=== PATIENT | male | born 1950 | race Caucasian/White ===

== ENCOUNTER 2019-08-24 06:41 | Inpatient (IN) | payer MEDICARE ==
[2019-08-22 16:44] LABS: BASOPHILS % 0.2 % (0.0-1.0); EOSINOPHILS # (AUTO) 0.1 (0.0-0.4); EOSINOPHILS % 2.5 % (0.0-6.0); HEMATOCRIT 31.2 % (38.2-49.6); HEMOGLOBIN 10.3 g/dL (14.0-18.0); LYMPHOCYTES # (AUTO) 0.9 (1.0-3.2); MEAN CORPUSCULAR HEMOGLOBIN 31.6 pg (28-32); MEAN CORPUSCULAR VOLUME 95.7 fL (81-99); MONOCYTES # (AUTO) 0.7 (0.2-0.8); MONOCYTES % 16.3 % (4.4-11.3); NEUTROPHILS # (AUTO) 2.6 (2.1-6.9); NEUTROPHILS % 60.5 % (38.7-80.0); PLATELET COUNT 188 x10e3/uL (140-360); RED BLOOD COUNT 3.26 x10e6/uL (4.3-5.7); RED CELL DISTRIBUTION WIDTH 12.8 % (11.7-14.4)
[2019-08-22 17:03] LABS: ALBUMIN 2.7 g/dL (3.5-5.0); ALBUMIN/GLOBULIN RATIO 0.6 (0.8-2.0); ANION GAP 15.4 mmol/L (8-16); CREATININE, SERUM 1.78 mg/dL (0.72-1.25); POTASSIUM 4.4 mmol/L (3.5-5.1)
--- NOTE | 2019-08-22 18:18 | Diagnostic Imaging Report ---
Exam: Chest radiograph Clinical History: Preoperative clearance Findings: The cardiomediastinal silhouette and lungs are normal. The regional skeleton and soft tissue are unremarkable. There is no evidence of pleural effusion or pneumothorax. Impression: No radiographic evidence of acute cardiopulmonary disease. Signed by: Dr. Jasmeet Norwood MD on 08/22/2019 6:16 PM
[~2019-08-24] VITALS: Ht 182.9 cm; Wt 100.2 kg
[~2019-08-24 06:41] MED LIST: AMLODIPINE BESY10 MG PO; AUGMENTIN 500-1 EACH PO; CARVEDILOL3.125 MG PO; CIPRO500 MG PO; DOXAZOSIN MESYLA2 MG PO; PANTOPRAZOLE SO40 MG PO
--- OUTSIDE RECORDS SUMMARY | 2019-08-24 06:43 | XMS REPORT ---
Author Author [facility] Address Unknown Phone Unavailable Care Team Providers Care Product Builder Name Role Phone SCOOTER CULVER Unavailable Unavailable Payers Payer Name Policy Type Policy Number Effective Date Expiration Date Problems This patient has no known problems. Allergies, Adverse Reactions, Alerts Allergy Name Allergy Type Status Severity Reaction(s) Onset Date Inactive Date Treating Clinician Comments No Known Drug Allergies DA Active U 2019-08-15 00:00:00 No Known Contrast Allergies DA Active U 2007-01-31 00:00:00 No Known Drug Allergies DA Active U 2007-01-31 00:00:00 No Known Food Allergies DA Active U 2007-01-31 00:00:00 No Known Other Allergies DA Active U 2007-01-31 00:00:00 Medications This patient has no known medications. Results Test Description Test Time Test Comments Text Results Atomic Results Result Comments CHEST 2 VIEWS 2019-08-22 18:15:00 [place] [address] Patient Name: MARTHA JOHNSON MR #: [id number] : 1950 Age/Sex: 69/M Req #: [id number] Adm Physician: Ordered by: SCOOTER CULVER MD Report #: [id number] Location: OR Room/Bed: Procedure: [id number] DX/CHEST 2 VIEWS Exam Date: Exam Time: REPORT STATUS: Signed Exam: Chest radiograph Clinical History: Preoperative clearance Find ings: The cardiomediastinal silhouette and lungs are normal. The regional skeleton and soft tissue are unremarkable. There is no evidence of pleural effusion or pneumothorax. Impression: No radiographic evidence of acute cardiopulmonary disease. Signed by: Dr. Jasmeet Norwood MD on 08/22/2019 6:16 PM Dictated By: FABRIZIO NORWOOD MD 15 Transcribed By: EDE on 08/22/191815 COPY TO: SCOOTER CULVER MD CBC W/AUTO DIFF 2019-08-12 10:30:00 WHITE BLOOD CELL (test code=WBC) 8.34 x10 3/uL 4.5-11.0 RED BLOOD CELL (test code=RBC) 3.21 x10 6/uL 4.00-5.60 HEMOGLOBIN (test code=HGB) 10.2 g/dL 12.5-16.9 HEMATOCRIT (test code=HCT) 32.6 % 37.5-50.7 MEAN CELL VOLUME (test code=MCV) 101.6 fL 81.0-99.0 MEAN CELL HGB (test code=MCH) 31.8 pg 27.0-33.0 MEAN CELL HGB CONCETRATION (test code=MCHC) 31.3 g/dL 33.0-37.0 RED CELL DISTRIBUTION WIDTH CV (test code=RDW) 14.6 % 11.5-14.5 RED CELL DISTRIBUTION WIDTH SD (test code=RDW-SD) 54.2 fL 37.0-54.0 PLATELET COUNT (test code=PLT) 306 x10 3/uL 150-400 MEAN PLATELET VOLUME (test code=MPV) 9.6 fL 7.0-9.0 NEUTROPHIL % (test code=NT%) 77.1 % 56.0-77.0 IMMATURE GRANULOCYTE % (test code=IG%) 1.3 % 0.0-2.0 LYMPHOCYTE % (test code=LY%) 14.0 % 14.0-32.0 MONOCYTE % (test code=MO%) 5.5 % 4.8-9.0 EOSINOPHIL % (test code=EO%) 1.7 % 0.3-3.7 BASOPHIL % (test code=BA%) 0.4 % 0.0-2.0 NUCLEATED RBC % (test code=NRBC%) 0.0 % 0-0 NEUTROPHIL # (test code=NT#) 6.43 x10 3/uL 2.0-7.6 IMMATURE GRANULOCYTE # (test code=IG#) 0.11 x10 3/uL 0.00-0.03 LYMPHOCYTE # (test code=LY#) 1.17 x10 3/uL 1.0-3.8 MONOCYTE # (test code=MO#) 0.46 x10 3/uL 0.1-0.8 EOSINOPHIL # (test code=EO#) 0.14 x10 3/uL 0.0-0.2 BASOPHIL # (test code=BA#) 0.03 x10 3/uL 0.0-0.2 NUCLEATED RBC # (test code=NRBC#) 0.00 x10 3/uL 0.0-0.1 MANUAL DIFF REQUIRED (test code=MDIFF) NO BASIC METABOLIC [id number] 10:17:00* Test Item Value Reference Range Comments SODIUM (test code=NA) 139 mEq/L 134-147 POTASSIUM (test code=K) 4.2 mEq/L 3.4-5.0 CHLORIDE (test code=CL) 106 mEq/L 100-108 CARBON DIOXIDE (test code=CO2) 27 mEq/L 21-33 ANION GAP (test code=GAP) 10 0-20 GLUCOSE (test code=GLU) 100 mg/dL 70-110 BLOOD UREA NITROGEN (test code=BUN) 16 mg/dL 7-18 GLOMERULAR FILTRATION RATE (test code=GFR) 40.2 80-90 Units of measure=ml/min/1.73 m2 CREATININE (test code=CREAT) 1.7 mg/dL 0.6-1.3 CALCIUM (test code=CA) 8.4 mg/dL 8.0-10.5 BASIC METABOLIC [id number] 10:16:00* Test Item Value Reference Range Comments SODIUM (test code=NA) 139 mEq/L 134-147 POTASSIUM (test code=K) 4.2 mEq/L 3.4-5.0 CHLORIDE (test code=CL) 106 mEq/L 100-108 CARBON DIOXIDE (test code=CO2) 27 mEq/L 21-33 ANION GAP (test code=GAP) 10 0-20 GLUCOSE (test code=GLU) 100 mg/dL 70-110 BLOOD UREA NITROGEN (test code=BUN) 16 mg/dL 7-18 GLOMERULAR FILTRATION RATE (test code=GFR) 80-90 CREATININE (test code=CREAT) mg/dL 0.6-1.3 CALCIUM (test code=CA) 8.4 mg/dL 8.0-10.5 PROTHROMBIN [id number] 10:12:00* Test Item Value Reference Range Comments PROTHROMBIN TIME PATIENT (test code=PTP) 12.5 SECONDS 9.3-12.9 INTERNATIONAL NORMAL RATIO (test code=INR) 1.1 0.8-1.2 TARGET INR BY INDICATION Indication INR1. Prophylaxis of venous thrombosis 2.0 - 3.0 (orthopedic surgery), Prophylaxis of venous thrombosis (other than high-risk surgery), Treatment of Deep Vein Thrombosis/Pulmonary Embolism, Prevention of systemic embolism - Tissue heart valves, Acute Myocardial Infarction (to prevent systemic embolism), Valvular heart disease, Atrial Fibrillation, Bileaflet mechanical valve in aortic position.2. Mechanical prosthetic valves (high risk), 2.5 - 3.5 Presence of Lupus Anticoagulant or Antiphospholipid Antibodies, Prevention of systemic embolism - Acute Myocardial Infarction (to prevent recurrent infarct).
[2019-08-24] MEDS ORDERED: SODIUM CHLORIDE 0.9% 1000ML 1,000 ML ONE (07:04)
[2019-08-24] MEDS ORDERED: PIPER-TAZ 3.375 GM 50 ML ONE (07:04)
[2019-08-24] MEDS ORDERED: B&O 60MG R/S 60 MG SUPP PR ONE (09:45)
[2019-08-24] MEDS ORDERED: IOPAMIDOL 300MG/ML 50ML INFUS..BTL IV ONE (09:45)
[2019-08-24] MEDS ORDERED: DIPHENHYDRAMINE HCL 25 MG CAP PO PRN (12:00)
[2019-08-24] MEDS ORDERED: ACETAMINOPHEN/CODEINE 300MG - 30MG TAB PO PRN (12:00)
[2019-08-24] MEDS ORDERED: B&O 60MG R/S 60 MG SUPP PR PRN (12:00)
[2019-08-24] MEDS ORDERED: ONDANSETRON HCL INJ 2MG/ML 2ML 2 MG/ML VIAL IV PRN (12:00)
[2019-08-24 12:49] LABS: EOSINOPHILS # (AUTO) 0.1 (0.0-0.4); EOSINOPHILS % 1.6 % (0.0-6.0); HEMATOCRIT 31.4 % (38.2-49.6); LYMPHOCYTES # (AUTO) 0.5 (1.0-3.2); LYMPHOCYTES % 12.8 % (18.0-39.1); MEAN CORPUSCULAR HEMOGLOBIN 31.1 pg (28-32); MEAN CORPUSCULAR HGB CONC 31.8 g/dL (31-35); MEAN CORPUSCULAR VOLUME 97.5 fL (81-99); MONOCYTES # (AUTO) 0.3 (0.2-0.8); MONOCYTES % 6.7 % (4.4-11.3); NEUTROPHILS # (AUTO) 2.9 (2.1-6.9); NEUTROPHILS % 78.6 % (38.7-80.0); PLATELET COUNT 165 x10e3/uL (140-360); RED BLOOD COUNT 3.22 x10e6/uL (4.3-5.7)
[2019-08-24] MEDS: PHENAZOPYRIDINE HCL 100 MG TAB PO SCH ×2 (13:00→20:38)
[2019-08-24 13:02] LABS: ANION GAP 16.6 mmol/L (8-16); CALCIUM 8.7 mg/dL (8.4-10.2); CREATININE, SERUM 1.79 mg/dL (0.72-1.25); POTASSIUM 4.6 mmol/L (3.5-5.1)
[2019-08-24] MEDS: PIPERACILLIN/TAZO 2.25 GM 50 ML IV SCH ×2 (14:00→21:47)
--- NOTE | 2019-08-24 16:38 | Diagnostic Imaging Report ---
Exam: Bilateral retrograde pyeloureterogram Clinical history: Hydronephrosis Total fluoroscopy time 2 minutes 39 seconds Total images 32 Findings: Contrast was introduced into bilateral renal collecting systems. Radiologist was not present during the procedure. Multifocal stricture is noted in the right ureter with moderate hydronephrosis. Significant tortuosity and stricture are also noted in the proximal left ureter. The left pyelocalyceal system was not completely opacified, however, the distal pelvis appears enlarged. Please refer to the operative report for further details. Signed by: Dr. Jasmeet Norwood MD on 08/24/2019 4:35 PM
[2019-08-24] MEDS ORDERED: PROPOFOL IV EMULSION 10 MG/ML 20 ML VIAL ONE (17:54)
[2019-08-24] MEDS ORDERED: LIDOCAINE HCL 2% LOCAL INJ 5 ML SDV VIAL INJ ONE (17:54)
[2019-08-24] MEDS ORDERED: SEVOFLURANE INHAL SOLN 250 ML PEN BTL ONE (17:54)
[2019-08-24] MEDS ORDERED: DEXAMETHASONE SOD PHOS INJ 4 MG/ML VIAL ONE (17:54)
[2019-08-24] MEDS ORDERED: ONDANSETRON HCL INJ 2MG/ML 2ML 2 MG/ML VIAL ONE (17:54)
[2019-08-24] MEDS ORDERED: ACETAMINOPHEN 1000 MG/100 ML IV PRN (18:00)
--- NOTE | 2019-08-24 18:00 | NUR ---
The pt. was received from P acu sp cysto stent and T UR P. He is awake alert and ox4 with c bi and iv fluids infusing at 125 cc's . The urine is pink and no clots noted. The pt. was not fed in prior to arriving and was given a sandwich and pudding.
[2019-08-24 18:18] VITALS: BP 149/75
[2019-08-24] MEDS ORDERED: FENTANYL CITRATE/PF 100MCG/2 ML INJ ONE (18:42)
[2019-08-24] MEDS ORDERED: MIDAZOLAM HCL 2 MG/2 ML VIAL ONE (18:42)
--- NOTE | 2019-08-24 19:09 | NUR ---
Received bedside report from day nurse. Patient resting in bed, no s/s of distress or c/o pain at this time. Continuous bladder irrigation in place. Crook patent and draining, free of kinks, bag hung below bladder. Patient placed on contact isolation for ESBL of urine. All safety measures in place. Will continue to monitor.
[2019-08-24 20:00] VITALS: BP 134/74
[2019-08-24] MEDS: DOCUSATE SODIUM 100 MG CAP PO SCH (20:00)
[2019-08-24 20:43] VITALS: BP 134/74
[2019-08-24 21:23] VITALS: BP 134/74
[2019-08-25] VITALS (8 sets, daily range): BP systolic 117–150; BP diastolic 62–80
[2019-08-25] MEDS: D5.45%NS/KCL 20MEQ 1,000 ML IV SCH ×4 (01:46→19:57)
[2019-08-25] MEDS ORDERED: CARVEDILOL12.5 MG PO (02:33)
[2019-08-25] MEDS: PIPERACILLIN/TAZO 2.25 GM 50 ML IV SCH ×3 (05:49→22:00)
--- NOTE | 2019-08-25 06:30 | NUR ---
H&P cc: BPH HPI: 69yoM, PCP , here for mgmt of BPH, underwent B/L stent placement of urinary system and TURP first stage. Now recovering. PMH: BPH, Obesity, Left hydronephrosis, Elevated PSA, HTN PSHx; none alleriges; see emr Fh/SH; no cigs; Meds; see MAR ROS: no f/c/s/N/V/D/FABIAN/cp/sob/skin rash/back pain/dizziness/vision changes/focal limb weakness v/s; revd PE tired appearing anicteric ns1s2 mod bs soft nt nd : edwards with pink urine no e/t skin dry n. affect a&ox3; nicholson labs/med revd A/P: BPH- per urology Obesity- check hba1c/lipids BMI 30.0 RADHA- ivf; f/u labs; may be chronic HTN- cont home med GERD- ppi Prop: scd; ppi dispo: Leonidas Schaefer MD, PhD.
[2019-08-25 07:06] LABS: BASOPHILS % 0.2 % (0.0-1.0); EOSINOPHILS % 0.2 % (0.0-6.0); HEMATOCRIT 29.1 % (38.2-49.6); HEMOGLOBIN 9.3 g/dL (14.0-18.0); LYMPHOCYTES # (AUTO) 0.7 (1.0-3.2); LYMPHOCYTES % 15.9 % (18.0-39.1); MEAN CORPUSCULAR HEMOGLOBIN 30.9 pg (28-32); MEAN CORPUSCULAR VOLUME 96.7 fL (81-99); MONOCYTES # (AUTO) 0.5 (0.2-0.8); MONOCYTES % 10.2 % (4.4-11.3); NEUTROPHILS # (AUTO) 3.2 (2.1-6.9); PLATELET COUNT 181 x10e3/uL (140-360); RED BLOOD COUNT 3.01 x10e6/uL (4.3-5.7); RED CELL DISTRIBUTION WIDTH 12.8 % (11.7-14.4)
--- NOTE | 2019-08-25 07:25 | NUR ---
PATIENT IN BED RESTING WITH NO S/S OF DISTRESS. CONTINUOUS BLADDER IRRIGATION IN PROGRESS. DRESSING DRY AND INTACT TO LEFT FLANK. BED IN LOWER POSITION, CALL LIGHT AT REACH.
--- NOTE | 2019-08-25 07:27 | NUR ---
Bedside report given to day nurse. Patient resting in bed, no s/s of distress or c/o pain at this time. All safety measures in place.
[2019-08-25 07:28] LABS: ANION GAP 13.3 mmol/L (8-16); CALCIUM 8.7 mg/dL (8.4-10.2); CREATININE, SERUM 1.52 mg/dL (0.72-1.25); POTASSIUM 4.3 mmol/L (3.5-5.1)
[2019-08-25 07:44] LABS: CHOL/HDL RATIO 4.8 (3.9-4.7)
[2019-08-25] MEDS: DOCUSATE SODIUM 100 MG CAP PO SCH ×2 (09:00→17:03)
[2019-08-25] MEDS ORDERED: ONDANSETRON HCL 4 MG ORAL DISINTEGRATING TAB PO PRN (09:30)
[2019-08-25] MEDS: CARVEDILOL 12.5 MG TAB PO SCH ×2 (09:38→17:03)
[2019-08-25] MEDS: PHENAZOPYRIDINE HCL 100 MG TAB PO SCH ×3 (09:39→18:34)
[2019-08-25] MEDS: PANTOPRAZOLE SOD 40 MG TABEC PO SCH (09:39)
[2019-08-25] MEDS: AMLODIPINE BESYLATE 10 MG TAB PO SCH (09:39)
--- NOTE | 2019-08-25 11:30 | NUR ---
BLADDER IRRIGATION IN PROGRESS, NO COMPLAIN VOICED. IN BED TALKING TO FAMILY MEMBER VISITING. CALL LIGHT AT REACH.
--- NOTE | 2019-08-25 15:04 | NUR ---
SPOKE WITH DR CULVER REGARDING PICC LINE ORDER AND GFR OF 46. IT IS OK TO PLACE THE LINE.
--- NOTE | 2019-08-25 18:46 | Diagnostic Imaging Report ---
EXAMINATION: CHEST XRAY LINE PLACEMENT INDICATION: ^S/P PICC LINE PLACEMENT ^[id number] ^1830 ^Y COMPARISON: 08/24/2019. FINDINGS: TUBES and LINES: Interval placement of a left upper extremity PICC with distal tip projected on the cavoatrial junction. LUNGS: Lungs are well inflated. Lungs are clear. There is no evidence of pneumonia or pulmonary edema. PLEURA: No pleural effusion or pneumothorax. HEART AND MEDIASTINUM: The cardiomediastinal silhouette is unremarkable. BONES AND SOFT TISSUES: No acute osseous lesion. Soft tissues are unremarkable. UPPER ABDOMEN: No free air under the diaphragm. IMPRESSION: Interval placement of a left upper extremity PICC with distal tip projected on the cavoatrial junction. Signed by: Dr. Thang Dorman M.D. on 08/25/2019 6:44 PM
--- NOTE | 2019-08-25 19:22 | NUR ---
RECEIVED PT IN BED AOX3 .RESPIRATIONS ARE EVEN AND UNLABORED CONTINUOUS BLADDER IRRIGATION IN PROGRESS. DRESSING DRY AND INTACT TO LEFT FLANK. PT HAS LEFT UPPER ARM PICC LINE CALL LIGHT AT REACH.CONTINUE TO MONITOR
--- NOTE | 2019-08-25 20:27 | Consultation ---
DATE OF CONSULTATION: 08/25/2019 REASON FOR CONSULTATION: Urinary tract infection with multidrug resistant. HISTORY OF PRESENT ILLNESS: This patient who is a 69-year-old white male. He is telling me he has been in the hospital for the last few months on and off. He was twice in [place]. The patient was diagnosed with a bladder tumor and was supposed to have surgery, but it was postponed. The first time he had what he thinks was congestive heart failure and the second time he had infection. He was treated by Dr. Manzanares, who gave him oral antibiotic but his procedure rn told him he needs to stop it because it will affect his kidney. The patient is being admitted by Dr. Tony Alva and underwent surgery. Urine cultures showing E coli ESBL, which was sensitive only to Invanz, gentamicin, meropenem, tobramycin, and piperacillin-tazobactam, I was asked to see him. The patient says since he came here, his white count is 4.36, hemoglobin of 10.3, hematocrit of 31, his sodium 139, potassium level of 4.3 with creatinine 1.52. The patient is currently lying in bed comfortably, has no complaints. His family is at the bedside. REVIEW OF SYSTEMS: At the present time: HEENT: Negative. PULMONARY: Negative. CARDIAC: Negative. GENITOURINARY: Negative. He does have a bladder wash out, otherwise all within normal limits. MEDICATIONS: His medication list also reviewed. He is currently on Protonix, Norvasc, Coreg, and Zosyn. PHYSICAL EXAMINATION: GENERAL: He is currently alert, oriented, does not seem to be in any acute distress. VITAL SIGNS: Stable, currently afebrile. HEENT: Normocephalic. Not icteric. NECK: Supple. CHEST: Clear bilateral. HEART: S1, S2. No S3, S4, or murmur. ABDOMEN: Soft. IMPRESSION: Urinary tract infection with Escherichia coli in a patient who has history of hypertension, history of bladder tumor, and history of chronic kidney disease. We will put on meropenem 500 q.12h. We have several options. We would need a PICC line. We will arrange outpatient IV antibiotic and then we will follow. Discussed with the patient, answered all his questions. Discussed with medical team at length. MD DAWIT Goddard/SHWETA /[id number]
[2019-08-26] VITALS (8 sets, daily range): BP systolic 115–178; BP diastolic 67–86
[2019-08-26] MEDS: D5.45%NS/KCL 20MEQ 1,000 ML IV SCH ×3 (04:58→22:12)
[2019-08-26] MEDS: PIPERACILLIN/TAZO 2.25 GM 50 ML IV SCH ×3 (06:00→22:11)
[2019-08-26 06:18] LABS: BASOPHILS % 0.6 % (0.0-1.0); EOSINOPHILS # (AUTO) 0.3 (0.0-0.4); EOSINOPHILS % 6.5 % (0.0-6.0); HEMATOCRIT 28.7 % (38.2-49.6); HEMOGLOBIN 9.1 g/dL (14.0-18.0); LYMPHOCYTES # (AUTO) 1.5 (1.0-3.2); MEAN CORPUSCULAR HEMOGLOBIN 31.3 pg (28-32); MEAN CORPUSCULAR HGB CONC 31.7 g/dL (31-35); MEAN CORPUSCULAR VOLUME 98.6 fL (81-99); MONOCYTES # (AUTO) 0.4 (0.2-0.8); MONOCYTES % 7.8 % (4.4-11.3); NEUTROPHILS # (AUTO) 2.5 (2.1-6.9); NEUTROPHILS % 53.5 % (38.7-80.0); PLATELET COUNT 170 x10e3/uL (140-360); RED BLOOD COUNT 2.91 x10e6/uL (4.3-5.7); RED CELL DISTRIBUTION WIDTH 13.1 % (11.7-14.4)
[2019-08-26 06:34] LABS: ANION GAP 11.5 mmol/L (8-16); CALCIUM 8.5 mg/dL (8.4-10.2); CREATININE, SERUM 1.47 mg/dL (0.72-1.25); POTASSIUM 4.5 mmol/L (3.5-5.1)
--- NOTE | 2019-08-26 06:42 | NUR ---
IM- progress note O/N see below ROS: no f/c/s/N/V/D/FABIAN/cp/sob/skin rash/back pain/dizziness/vision changes/focal limb weakness v/s; revd PE tired appearing anicteric ns1s2 mod bs soft nt nd : edwards with pink urine no e/t skin dry n. affect a&ox3; nicholson labs/med revd A/P: BPH- per urology ESBL E.coli UTI- iv abx per ID Obesity- check hba1c/lipids BMI 30.0 RADHA- ivf; f/u labs; may be chronic HTN- cont home med GERD- ppi Prop: scd; ppi dispo: 08/26 Hba1c/LDL 5.4/157; ESBL E.coli UTI- sen to zosyn; defer to ID mgmt; cont care; f/u labs Leonidas Schaefer MD, PhD.
--- NOTE | 2019-08-26 07:15 | NUR ---
PATIENT IN BED RESTING WITH HEAD OF BED ELEVATED, NO COMPLAIN VOICED. DRESSING DRY AND INTACT TO LEFT FLANK. BED IN LOWER POSITION, CALL LIGHT AT REACH.
--- NOTE | 2019-08-26 07:15 | NUR ---
PT RESTING DENIES PAIN .CALL LIGHT WITH IN REACH .BEDSIDE REPORT GIVEN TO THE ONCOMING NURSE
[2019-08-26] MEDS: DOCUSATE SODIUM 100 MG CAP PO SCH ×2 (09:19→17:35)
[2019-08-26] MEDS: PANTOPRAZOLE SOD 40 MG TABEC PO SCH (09:21)
[2019-08-26] MEDS: PHENAZOPYRIDINE HCL 100 MG TAB PO SCH ×3 (09:21→18:08)
[2019-08-26] MEDS: AMLODIPINE BESYLATE 10 MG TAB PO SCH (09:21)
[2019-08-26] MEDS: CARVEDILOL 12.5 MG TAB PO SCH ×2 (09:21→17:36)
--- NOTE | 2019-08-26 11:07 | NUR ---
PATIENT ASSISTED TO THE RESTROOM AND BACK TO BED. HAD A LARGE BM. CALL LIGHT AT REACH.
--- NOTE | 2019-08-26 15:45 | NUR ---
CONTINUOUS BLADDER IRRIGATION IN PROGRESS. PATIENT SITTING UP IN BED TALKING ON THE PHONE, CALL LIGHT AT REACH.
--- NOTE | 2019-08-26 19:20 | NUR ---
Received report from day nurse. Patient is resting comfortably in the bed. bed is in the lowest position and call rojas is within reach. Will continue to monitor patient.
[2019-08-26] MEDS ORDERED: LACTULOSE SYRUP 20 GM/30 ML UDC PO PRN (19:45)
[2019-08-27] VITALS (8 sets, daily range): BP systolic 123–169; BP diastolic 72–103
[2019-08-27 05:56] LABS: BASOPHILS % 0.4 % (0.0-1.0); EOSINOPHILS # (AUTO) 0.4 (0.0-0.4); EOSINOPHILS % 7.6 % (0.0-6.0); HEMATOCRIT 30.3 % (38.2-49.6); HEMOGLOBIN 9.3 g/dL (14.0-18.0); LYMPHOCYTES # (AUTO) 1.5 (1.0-3.2); MEAN CORPUSCULAR HEMOGLOBIN 30.4 pg (28-32); MEAN CORPUSCULAR HGB CONC 30.7 g/dL (31-35); MONOCYTES # (AUTO) 0.4 (0.2-0.8); MONOCYTES % 7.6 % (4.4-11.3); NEUTROPHILS # (AUTO) 2.7 (2.1-6.9); NEUTROPHILS % 53.4 % (38.7-80.0); PLATELET COUNT 194 x10e3/uL (140-360); RED BLOOD COUNT 3.06 x10e6/uL (4.3-5.7); RED CELL DISTRIBUTION WIDTH 13.2 % (11.7-14.4)
[2019-08-27] MEDS: PIPERACILLIN/TAZO 2.25 GM 50 ML IV SCH ×2 (06:00→13:58)
[2019-08-27 06:16] LABS: ANION GAP 11.5 mmol/L (8-16); CALCIUM 8.8 mg/dL (8.4-10.2); CREATININE, SERUM 1.36 mg/dL (0.72-1.25); POTASSIUM 4.5 mmol/L (3.5-5.1)
--- NOTE | 2019-08-27 07:02 | NUR ---
patient is resting in bed. walking rounds complete. bed is in lowest position and call rojas is within reach.
--- NOTE | 2019-08-27 07:15 | NUR ---
PT UP IN BED NO DISTRESS NOTED,DENIES PAIN,BLADDER IRRIGATION IN PLACE,CLEAR YELLOW URINE
[2019-08-27] MEDS: D5.45%NS/KCL 20MEQ 1,000 ML IV SCH ×2 (08:03→11:57)
--- NOTE | 2019-08-27 08:16 | NUR ---
IM- progress note O/N see below ROS: no f/c/s/N/V/D/FABIAN/cp/sob/skin rash/back pain/dizziness/vision changes/focal limb weakness v/s; revd PE tired appearing anicteric ns1s2 mod bs soft nt nd : edwards with pink urine no e/t skin dry n. affect a&ox3; nicholson labs/med revd A/P: BPH- per urology ESBL E.coli UTI- iv abx per ID Obesity- check hba1c/lipids BMI 30.0 RADHA- ivf; f/u labs; may be chronic HTN- cont home med GERD- ppi Prop: scd; ppi dispo: 08/26 Hba1c/LDL 5.4/157; ESBL E.coli UTI- sen to zosyn; defer to ID mgmt; cont care; f/u labs 08/27 renal fn improving; outpt IV abx being set up by ID; Leonidas Schaefer MD, PhD.
[2019-08-27] MEDS: AMLODIPINE BESYLATE 10 MG TAB PO SCH (08:30)
[2019-08-27] MEDS: DOCUSATE SODIUM 100 MG CAP PO SCH ×2 (08:30→17:04)
[2019-08-27] MEDS: PANTOPRAZOLE SOD 40 MG TABEC PO SCH (08:30)
[2019-08-27] MEDS: CARVEDILOL 12.5 MG TAB PO SCH ×2 (08:30→17:04)
[2019-08-27] MEDS: PHENAZOPYRIDINE HCL 100 MG TAB PO SCH ×3 (08:30→17:04)
--- NOTE | 2019-08-27 13:13 | NUR ---
DTV BY [id number],
--- NOTE | 2019-08-27 13:13 | NUR ---
ARIAS CATH DCD ORDERD,CLEAR YELLOW URINE,INFORMED PT TO CALL AFTER URINATING TO DO SCAN,ACKNOWLEDGE UNDERSTNDING
[2019-08-27] MEDS: MEROPENEM 1GM 100 ML IV SCH (15:39)
--- NOTE | 2019-08-27 19:10 | NUR ---
received report from day nurse. bedside rounds complete. patient is resting comfortably in bed. bed is in lowest position and call rojas is within reach. will continue to monitor patient.
[2019-08-27] MEDS: NIFEDIPINE CR 30 MG TAB PO SCH (21:00)
--- NOTE | 2019-08-27 22:00 | NUR ---
patient has not voided status post edwards catheter removal.. Patient has been bladder scanned and 567cc of urine is being held in patients bladder. MD notified received new order to insert 20F Coude Edwards catheter. If 20F is not available 18F catheter is acceptable Patient tolerated procedure well. Catheter is patent and urine is flowing. edwards bag is hanging on bedside rail below below bladder level.
[2019-08-28] VITALS (8 sets, daily range): BP systolic 113–136; BP diastolic 69–81
[2019-08-28] MEDS: MEROPENEM 1GM 100 ML IV SCH ×2 (03:00→15:40)
--- NOTE | 2019-08-28 06:37 | NUR ---
patient is resting in the bed. bed is in the lowest position and call light is within reach. denies pain or discomfort at this time.
[2019-08-28] MEDS: PHENAZOPYRIDINE HCL 100 MG TAB PO SCH ×3 (09:21→16:43)
[2019-08-28] MEDS: PANTOPRAZOLE SOD 40 MG TABEC PO SCH (09:21)
[2019-08-28] MEDS: DOCUSATE SODIUM 100 MG CAP PO SCH ×2 (09:21→16:43)
[2019-08-28] MEDS: NIFEDIPINE CR 30 MG TAB PO SCH ×2 (09:21→20:53)
[2019-08-28] MEDS: CARVEDILOL 12.5 MG TAB PO SCH ×2 (09:21→16:43)
--- NOTE | 2019-08-28 09:28 | NUR ---
IM- progress note O/N see below ROS: no f/c/s/N/V/D/FABIAN/cp/sob/skin rash/back pain/dizziness/vision changes/focal limb weakness v/s; revd PE tired appearing anicteric ns1s2 mod bs soft nt nd : edwards with pink urine no e/t skin dry n. affect a&ox3; nicholson labs/med revd A/P: BPH- per urology ESBL E.coli UTI- iv abx per ID Obesity- check hba1c/lipids BMI 30.0 RADHA- ivf; f/u labs; may be chronic HTN- cont home med GERD- ppi Prop: scd; ppi dispo: 08/26 Hba1c/LDL 5.4/157; ESBL E.coli UTI- sen to zosyn; defer to ID mgmt; cont care; f/u labs 08/27 renal fn improving; outpt IV abx being set up by ID; 08/28 check BMP Leonidas Schaefer MD, PhD.
[2019-08-28 10:49] LABS: ANION GAP 13.2 mmol/L (8-16); CALCIUM 9.1 mg/dL (8.4-10.2); CREATININE, SERUM 1.48 mg/dL (0.72-1.25); POTASSIUM 4.2 mmol/L (3.5-5.1)
[2019-08-28] MEDS ORDERED: SODIUM CHLORIDE 0.9% 250ML 250 ML ONE (15:19)
--- NOTE | 2019-08-28 19:04 | NUR ---
Report given to oncoming nurse of patient's status.AAOX4 to time, person, place, situation. Respirations even and unlabored. Denies pain. Side rails upx2, call light within reach.
[2019-08-29] VITALS (7 sets, daily range): BP systolic 129–175; BP diastolic 63–84
[2019-08-29] MEDS: MEROPENEM 1GM 100 ML IV SCH ×2 (02:46→15:00)
--- NOTE | 2019-08-29 06:41 | NUR ---
patient is resting in the bed. bed is in the lowest position and call light is within reach. denies pain or discomfort at this time.
--- NOTE | 2019-08-29 07:21 | NUR ---
IM- progress note O/N see below ROS: no f/c/s/N/V/D/FABIAN/cp/sob/skin rash/back pain/dizziness/vision changes/focal limb weakness v/s; revd PE tired appearing anicteric ns1s2 mod bs soft nt nd : edwards with pink urine no e/t skin dry n. affect a&ox3; nicholson labs/med revd A/P: BPH- per urology ESBL E.coli UTI- iv abx per ID Obesity- check hba1c/lipids BMI 30.0 RADHA- ivf; f/u labs; may be chronic HTN- cont home med GERD- ppi Prop: scd; ppi dispo: 08/26 Hba1c/LDL 5.4/157; ESBL E.coli UTI- sen to zosyn; defer to ID mgmt; cont care; f/u labs 08/27 renal fn improving; outpt IV abx being set up by ID; 08/28 check BMP 08/29 Not Sepsis. Leonidas Schaefer MD, PhD.
[2019-08-29] MEDS: DOCUSATE SODIUM 100 MG CAP PO SCH ×2 (08:36→15:20)
[2019-08-29] MEDS: CARVEDILOL 12.5 MG TAB PO SCH ×2 (08:37→15:20)
[2019-08-29] MEDS: PHENAZOPYRIDINE HCL 100 MG TAB PO SCH ×3 (08:37→18:00)
[2019-08-29] MEDS: PANTOPRAZOLE SOD 40 MG TABEC PO SCH (08:37)
[2019-08-29] MEDS: NIFEDIPINE CR 30 MG TAB PO SCH ×2 (08:37→21:17)
--- NOTE | 2019-08-29 13:35 | NUR ---
CALL TO MICHELA RIVERA REGARDING HOME IV ABX. STATES THEY ARE NOT SETTING UP THE ABX. STATES [facility] IS OUT. CALL TO DR. RIVERA. AWAITING CALL BACK.
--- NOTE | 2019-08-29 14:00 | NUR ---
Paged to clarify on outpatient IV abx. states "I am in the building. I will be there soon."
--- NOTE | 2019-08-29 16:50 | NUR ---
Sakina RN with case management aware of Home IV ABX orders
--- NOTE | 2019-08-29 18:49 | Progress Note ---
DATE: 08/29/2019 SUBJECTIVE: Mr. Crow who is doing better. REVIEW OF SYSTEMS: HEENT: Negative. PULMONARY: Negative. CARDIAC: Negative. Overall, lying in bed, comfortable. Discussed with case management. PHYSICAL EXAMINATION: GENERAL: He is currently alert, oriented, does not seem to be in acute distress. VITAL SIGNS: Stable, currently afebrile. HEENT: He is not icteric. NECK: Supple. CHEST: Clear. HEART: S1 and S2. ABDOMEN: Soft. Bowel sounds present. No tenderness. EXTREMITIES: No edema. SKIN: No rash. IMPRESSION: 1. Urinary tract infection with multidrug resistant urine Escherichia coli ESBL, to discharge home with meropenem 500 mg IV piggyback q.12 hours. 2. Chronic kidney disease. 3. To follow up with Urology. 4. Anemia. 5. We will follow. MD DAWIT Goddard/SHWETA /[id number]
--- NOTE | 2019-08-29 19:26 | NUR ---
Report given to oncoming nurse of patient's status. Resting in bed. NO s/s of acute distress noted. Side rails upx2, call light within reach.
--- NOTE | 2019-08-29 19:31 | NUR ---
RECEIVED PT IN BED AOX3 .RESPIRATIONS ARE EVEN AND UNLABORED .DENIES PAIN. PT HAS LEFT UPPER ARM PICC LINE CALL LIGHT AT REACH.CONTINUE TO MONITOR
[2019-08-30 00:20] VITALS: BP 132/80
[2019-08-30] MEDS: MEROPENEM 1GM 100 ML IV SCH ×2 (03:21→16:32)
[2019-08-30 05:19] VITALS: BP 137/84
--- NOTE | 2019-08-30 06:22 | NUR ---
PT RESTED DURING THE NIGHT .DENIES PAIN .CALL LIGHT WITH IN REACH .CONTINUE TO MONITOR
--- NOTE | 2019-08-30 06:47 | NUR ---
D/C summary Principal Dx: BPH- per urology ESBL E.coli UTI- iv abx per ID Obesity- check hba1c/lipids BMI 30.0 RADHA- ivf; f/u labs; may be chronic Secondary Dx: HTN- cont home med GERD- ppi Prop: scd; ppi dispo: 08/26 Hba1c/LDL 5.4/157; ESBL E.coli UTI- sen to zosyn; defer to ID mgmt; cont care; f/u labs 08/27 renal fn improving; outpt IV abx being set up by ID; 08/28 check BMP 08/29 continue antibiotics 08/30 cont care; stable; d/c home with antibiotics per ID stable d/c>35mins f/u pcp 1 week, 2 weeks. tomorrow Leonidas Schaefer MD, PhD.
--- NOTE | 2019-08-30 07:11 | NUR ---
BEDSIDE REPORT GIVEN TO THE ONCOMING NURSE
[2019-08-30 08:00] VITALS: BP 135/82
--- NOTE | 2019-08-30 09:11 | NUR ---
ORDER RECEIVED FOR MERREM 500MG IV Q12HR AT HOME. MET W THE PT AT THE BEDSIDE. DISCUSSED CHOICE. PT WOULD LIKE AN AGENCY IN NETWORK W HIS INSURANCE. CHOSE [facility] @ [phone] / FAX: [phone]. REFERRAL WAS FAXED.
[2019-08-30 09:35] VITALS: BP 135/82
[2019-08-30] MEDS: PANTOPRAZOLE SOD 40 MG TABEC PO SCH (09:40)
[2019-08-30] MEDS: PHENAZOPYRIDINE HCL 100 MG TAB PO SCH ×3 (09:40→16:33)
[2019-08-30] MEDS: NIFEDIPINE CR 30 MG TAB PO SCH (09:41)
[2019-08-30] MEDS: DOCUSATE SODIUM 100 MG CAP PO SCH ×2 (09:41→16:33)
[2019-08-30] MEDS: CARVEDILOL 12.5 MG TAB PO SCH ×2 (09:41→19:14)
--- NOTE | 2019-08-30 11:58 | NUR ---
CALL RECEIVED FROM [facility] THEY DO NOT ACCEPT THE PT'S PLAN. REFERRAL WAS FORWARDED TO [facility] @ [facility]: [phone] / FAX: [phone]. CONFIRMED REFERRAL WAS RECEIVED BY [facility]. REQUESTED REFERRAL BE ARRANGED [place]. [facility] VERBALIZED UNDERSTANDING.
[2019-08-30 12:00] VITALS: BP 137/85
--- NOTE | 2019-08-30 15:55 | NUR ---
HOME HEALTH DISCHARGE NOTE PATIENT ADDRESS WHERE SERVICE WILL BE RECEIVED: [place] [address] PATIENT CONTACT NUMBER: [phone] / [phone] JACY VALENTIN NAME OF HOME HEALTH COMPANY: [facility] TELEPHONE/FAX NUMBER OF COMPANY: [facility]: [phone] / FAX: [phone] ADDRESS OF [employer]: [address] [place] [address] [place] [address] SERVICES TO RECEIVE: SN TO ADMINISTER IV MEROPENEM 500MG IV EVERY 12HRS X 10 DAYS. ANTICIPATED DATE SERVICES WILL BEGIN: 08/31/2019 NURSE WILL DO TEACH AT PT'S HOME IN THE MORNING. Please call the company above if you have not received a call to schedule a home visit within 24 hours of discharge.
[2019-08-30 16:00] VITALS: BP 120/73
--- NOTE | 2019-08-30 19:28 | NUR ---
REPORT GIVEN TO ONCOMING NURSE, WALKING ROUNDS COMPLETE.
--- NOTE | 2019-10-05 00:22 | Operative Report ---
DATE OF PROCEDURE: 08/24/2019 SURGEON: Tony Alva MD PREOPERATIVE DIAGNOSES: 1. Obstructive benign prostatic hypertrophy. 2. Bilateral hydronephrosis. 3. Urinary tract infection. 4. Chronic renal insufficiency. 5. Left nephrostomy. POSTOPERATIVE DIAGNOSES: 1. Obstructive benign prostatic hypertrophy. 2. Bilateral hydronephrosis. 3. Urinary tract infection. 4. Chronic renal insufficiency. 5. Left nephrostomy. OPERATIONS PERFORMED: 1. Cystourethroscopy with bilateral ureteral catheterization and retrograde ureteropyelography (separate procedure performed for the urinary tract infections and chronic renal insufficiency). 2. Cystourethroscopy with placement of bilateral indwelling ureteral stents (separate procedure performed for the diagnosis of bilateral hydronephrosis). 3. Removal of left nephrostomy. 4. Radiological services for supervision and interpretation of the nephrostomy removal. 5. Cystourethroscopy with transurethral resection of the prostate utilizing the plasma button electrode (separate procedure performed for the obstructive BPH). 6. Interpretation of retrograde ureteropyelography. 7. Supervision of fluoroscopy. No radiologist present more than 1 hour. ANESTHESIA: General. COMPLICATIONS: None. CLINICAL SUMMARY: Kameron Crow is a very complicated 69-year-old man with urinary retention, bilateral hydronephrosis, and left nephrostomy that was placed per another institution. The patient was brought for the above procedures in hopes of allowing the patient to void and improving his renal function as well as infiltrating his kidneys. He is aware of the risks of bleeding, infection, injury to adjacent structures, need for additional procedures and elected to proceed. The patient was placed on culture specific antibiotics preoperatively. OPERATIVE PROCEDURE IN DETAIL: Informed consent was verified. Kameron Crow was properly identified and taken to the operating room, and placed on the cystoscope table in supine position. Anesthesia was uneventfully begun. The patient was then carefully and gently repositioned in dorsal lithotomy position. All pressure points well padded. His genitalia were prepared and draped in usual sterile fashion. The cystoscope sheath with the visual obturator in place was atraumatically inserted into the patient's urethra, it was guided unremarkable distal urethra through the prostate bed, which was significant for bilobar prostatic hypertrophy with kissing lateral lobes and a very long prostatic urethra. His visual obstruction was present despite the fact that the patient supposedly had photoselective vaporization of the prostate in 2016. We entered the patient's bladder and drained it. Panendoscopy of the bladder revealed diffuse diverticula, but there were no suspicious mucosal lesions. There were no tumors and there were no stones. The ureteral catheter was used to cannulate each ureter and retrograde ureteropyelograms was performed. With the cystoscope and fluoroscopic guidance, a right-sided indwelling ureteral stent was then placed, it was coiled in the patient's kidneys as well as the patient's bladder. With cystoscope and fluoroscopic guidance, a left-sided indwelling ureteral stent was then placed it was coiled in the patient's kidney as well as the patient's bladder. We then disconnected the nephrostomy tube from the patient's skin and we then divided nephrostomy tube thus releasing the coil. We then gently extracted the nephrostomy tube with fluoroscopic guidance. The stent was not altered by this maneuver. A nephrostomy as well as a coiling string as well as attachments were discarded. The resectoscope was atraumatically placed. Interpretation of retrograde ureteropyelography contrast was instilled in retrograde fashion bilaterally. There was dramatic bilateral ureteral tortuosity. There was also bilateral dramatic hydronephrosis as well as obvious renal atrophy present. The stents were in good position, coiled to the patient's kidneys as well as the patient's bladder at the end of the case. The resectoscope was atraumatically placed. We then utilized a plasma button electrode to vaporize the prostatic bed from the bladder neck to maneuver past the verumontanum and down to the surgical capsule. We released numerous small stones consistent with chronic prostatitis. The indwelling cautery was utilized to achieve hemostasis. The resectoscope was then withdrawn, continuous irrigation of Crook catheter was placed. It was irrigated to and fro to ensure it worked properly. A belladonna and opium suppository were placed revealing a larger than 50 g prostate, smooth and non-fluctuant without any nodule. The patient was then uneventfully reversed from anesthesia and taken to recovery room in stable condition. There were no complications to the procedure. The patient tolerated the procedure well. ESTIMATED BLOOD LOSS: Minimal. Explicit postoperative instructions were ordered. We will follow the patient up as an inpatient as we provide him culture specific antibiotic management. We will continue to follow this complicated patient on an ongoing basis. Tony MD JEFF Alva /[id number]
== END 2019-08-30 19:50 | disposition home or self-care (01) | DRG 713 ==
LOC: OR 06:41 → PACU V 12:00 → MED/SURG3 18:11
PROVIDERS: ADMIT Internal Medicine; ATTEND Internal Medicine
PROC: 0T788DZ Dilation of Bilateral Ureters with Intraluminal Device, Via Natural or Artificial Opening Endoscopic (ICD-10-PCS; 2019-08-24)
PROC: BT141ZZ Fluoroscopy of Kidneys, Ureters and Bladder using Low Osmolar Contrast (ICD-10-PCS; 2019-08-24)
PROC: 02HV33Z Insertion of Infusion Device into Superior Vena Cava, Percutaneous Approach (ICD-10-PCS; principal; 2019-08-24 09:49)
PROC: 0VB08ZZ Excision of Prostate, Via Natural or Artificial Opening Endoscopic (ICD-10-PCS; 2019-08-24 09:49)
DX: N40.1 Benign prostatic hyperplasia with lower urinary tract symptoms (principal); N39.0 Urinary tract infection, site not specified; N17.9 Acute kidney failure, unspecified; Z16.24 Resistance to multiple antibiotics; D41.4 Neoplasm of uncertain behavior of bladder; N18.9 Chronic kidney disease, unspecified; B96.20 Unspecified Escherichia coli [E. coli] as the cause of diseases classified elsewhere; N45.3 Epididymo-orchitis; E66.9 Obesity, unspecified; Z68.30 Body mass index [BMI] 30.0-30.9, adult; I12.9 Hypertensive chronic kidney disease with stage 1 through stage 4 chronic kidney disease, or unspecified chronic kidney disease; K21.9 Gastro-esophageal reflux disease without esophagitis; D64.9 Anemia, unspecified
CPT/HCPCS: 36415; 36569; 51701; 71046; 74420; 80048; 80053; 80061; 82948; 83036; 83735; 85025; 87086; 87186; C1758; C2617; J1100; J2001; J2250; J2405; J2543; J3010; J7030; J7050

== ENCOUNTER 2019-09-19 15:43 | Inpatient (IN) | payer MEDICARE ==
[~2019-09-19] VITALS: Ht 365.8 cm; Wt 100.2 kg
[~2019-09-19 15:43] MED LIST changes: +CARVEDILOL12.5 MG PO
--- OUTSIDE RECORDS SUMMARY | 2019-09-19 15:48 | XMS REPORT | Summary of Care ---
Author Author [facility] - Health Organization [facility] - Health Address Unknown Phone Unavailable Care Team Providers Care Manager Sterile Name Role Phone Tien Galvan PCP Reason for Referral * Radiology Services (Routine) Referred By Contact Referred To Contact Status Reason Specialty Diagnoses / Procedures Chip Sands MD [address] [place] [address] New Request Diagnostic Diagnoses Radiology RADHA (acute kidney injury) Cough P rocedures XR CHEST 1 VW * Radiology Services (IRVING) Referred By Contact Referred To Contact Status Reason Specialty Diagnoses / Procedures Jazmyne Lezama MD [address] [place] [address] New Request Diagnostic Diagnoses Radiology Acute bronchospasm P rocedures XR CHEST 1 VW * Radiology Services (Routine) Referred By Contact Referred To Contact Status Reason Specialty Diagnoses / Procedures Kiko Pardo, [address] [place] [phone] New Request Diagnostic Diagnoses Radiology Hydronephrosis with ureteral stricture, not elsewhere classified RADHA (acute kidney injury) P rocedures IR EXCHANGE NEPHROSTOMY CATHETER * Radiology Services (STAT) Referred By Contact Referred To Contact Status Reason Specialty Diagnoses / Procedures Jazmyne Lezama MD [address] [place] [address] New Request Diagnostic Diagnoses Radiology Hydronephrosis with ureteral stricture, not elsewhere classified P rocedures IR PLACEMENT NEPHRO CATHETER PERCUTANEOUS INCLUDES DIAGNOSTIC NEPHROGRAM IR UROLOGIC * MRI/CAT Scan (STAT) Referred By Contact Referred To Contact Status Reason Specialty Diagnoses / Procedures Mignon Leon, [address] [address] New Request Diagnostic Diagnoses Radiology Lower abdominal pain P rocedures CT ABDOMEN PELVIS W CONTRAST * Radiology Services (STAT) Referred By Contact Referred To Contact Status Reason Specialty Diagnoses / Procedures Mignon Leon, DO [address] [address] New Request Diagnostic Diagnoses Radiology Lower abdominal pain P rocedures Chest 1 View Reason for Visit * Reason Comments Abdominal Pain * Auth/Cert Referred By Contact Referred To Contact Status Reason Specialty Diagnoses / Procedures [facility] Emergency Dept [address] [place] [phone] Emergency Medicine Encounter Details Care Team Description Date Type Department Mignon Leon, [address] [id number] Mayur Gordillo MD [address] [place] [address] Diverticulitis 07/31/2019 [facility] - Encounter Medicine/Surgery [facility]LC 6B 08/05/[address] [place] [phone] Allergies No Known Allergiesdocumented as of this encounter (statuses as of 08/05/2019) Medications End Date Status Medication Sig Dispensed Refills Start Date Active amLODIPine 10 mg tablet Take 10 mg by 0 mouth daily. Active carvediloL 12.5 mg tablet Take 12.5 mg 0 by mouth 2 (two) times daily with meals. Active doxazosin 2 mg tablet Take 2 mg by 0 mouth daily. Active pantoprazole sodium Take 40 mg by 0 (PANTOPRAZOLE ORAL) mouth daily. Active cefdinir 300 mg capsule Take 1 0 capsule by 0 mouth every 12 (twelve) hours. Active codeine-guaifenesin Take 5 mL by 100 mL 0 10-100 mg/5 mL mouth every 6 0 solutionIndications: (six) hours Diverticulitis as needed for Cough. Active metroNIDAZOLE 500 mg Take 1 tablet 0 tablet by mouth 0 every 8 (eight) hours. Active predniSONE 20 mg Take 1 tablet 4 tablet 0 tabletIndications: by mouth 0 Diverticulitis daily. 08/05/2019 Discontinued acetaminophen-codeine Take 1 tablet 20 tablet 0 (TYLENOL-CODEINE #3) by mouth 7 300-30 mg tablet every 6 (six) hours as needed for Pain (scale 4-6). documented as of this encounter (statuses as of 08/05/2019) Active Problems Problem Noted Date Diverticulitis 07/31/2019 Brain lesion 06/28/2019 RADHA (acute kidney injury) 06/24/2019 Hypertension 06/23/2019 Obesity (BMI 30-39.9) 10/27/2016 documented as of this encounter (statuses as of 08/05/2019) Immunizations Name Administration Dates Next Due Influenza Virus Vaccine - 03/31/2018 Whole documented as of this encounter Social History Date Tobacco Use Types Packs/Day Years Used Never Smoker Smokeless Tobacco: Never Used Drinks/Week oz/Week Comments Alcohol Use Never Alcohol Habits Answer Date Recorded How often do you have a drink containing alcohol? Never 06/23/2019 How many drinks containing alcohol do you have on Not asked a typical day when you are drinking? How often do you have six or more drinks on one Not asked occasion? Sex Assigned at Date Recorded Not on file Industry Job Start Date Occupation Not on file Not on file Not on file Travel End Travel History Travel Start No recent travel history available. documented as of this encounter Last Filed Vital Signs Reading Time Taken Comments Vital Sign 139/83 08/05/2019 11:59 AM SQUEEGEE TENDER Blood Pressure 97 08/05/2019 11:59 AM SQUEEGEE TENDER Pulse 36.6 C (97.9 F) 08/05/2019 11:59 AM SQUEEGEE TENDER Temperature 18 08/05/2019 11:59 AM SQUEEGEE TENDER Respiratory Rate 97% 08/05/2019 11:59 AM SQUEEGEE TENDER Oxygen Saturation - - Inhaled Oxygen Concentration 103.9 kg (229 lb) 07/31/2019 11:32 AM SQUEEGEE TENDER Weight 182.9 cm (6') 07/31/2019 11:32 AM SQUEEGEE TENDER Height 31.06 07/31/2019 11:32 AM SQUEEGEE TENDER Body Mass Index documented in this encounter Discharge Summaries * Jazmyne Lezama MD - 08/05/2019 12:06 PM SQUEEGEE TENDER CLS Team Discharge Summary Date of Service: 08/05/2019 ADMIT DATE: 07/31/2019 DISCHARGE DATE: 08/05/2019 ATTENDING MD: Jazmyne Lezama MD PCP: Tien Galvan REASON FOR ADMISSION Abd pain FINAL DIAGNOSIS: ACute diverticulitis UTI Obstructive uropathy Active Problems: Diverticulitis (07/31/2019) POA: Yes Resolved Problems: * No resolved hospital problems. * Orders Placed This Encounter CONSULT UROLOGY CONSULT NEPHROLOGY CONSULT INFECTIOUS DISEASE CONSULT ADULT PHYSICAL THERAPY No orders of the defined types were placed in this encounter. Temp: [36.6 C (97.9 F)-37.6 C (99.6 F)] Pulse: [83-103] Resp: [18-20] BP: (121-150)/(74-92) Physical Exam SIGNIFICANT LAB/X-RAYS: Recent Results (from the past 48 hour(s)) BASIC METABOLIC PANEL (NA, K, CL, CO2, GLUCOSE, BUN, CREATININE, CA) Collection Time: 08/03/19 12:24 PM Result Value Ref Range NA 137 135 - 145 mmol/L K 3.8 3.5 - 5.0 mmol/L CL 101 98 - 108 mmol/L CO2 TOTAL 26 23 - 31 mmol/L AGAP 10 2 - 16 BUN 34 (H) 7 - 23 mg/dL GLUCOSE 119 (H) 70 - 110 mg/dL CREATININE 1.97 (H) 0.60 - 1.25 mg/dL CALCIUM 8.5 (L) 8.6 - 10.6 mg/dL eGFR Calculation (Non-) 33.9 mL/min/1.73m2 eGFR Calculation () 41.1 mL/min/1.73m2 CBC WITH DIFFERENTIAL Collection Time: 08/03/19 12:24 PM Result Value Ref Range WBC 11.63 (H) 4.20 - 10.70 10*3/L RBC 2.91 (L) 4.26 - 5.52 10*6/L HGB 9.7 (L) 12.2 - 16.4 g/dL HCT 29.1 (L) 38.4 - 49.3 % MCV 100.0 (H) 81.7 - 95.6 fL MCH 33.3 (H) 26.1 - 32.7 pg MCHC 33.3 31.2 - 35.0 g/dL RDW-SD 51.7 (H) 38.5 - 51.6 fL RDW-CV 14.0 12.1 - 15.4 % PLT 194 150 - 328 10*3/L MPV 10.1 9.8 - 13.0 fL NRBC/100 WBC 0.0 0.0 - 10.0 /100 WBCs NRBC x10^3 <0.01 10*3/L GRAN MAT (NEUT) % 89.9 % IMM GRAN % 0.90 % LYMPH % 2.6 % MONO % 6.4 % EOS % 0.0 % BASO % 0.2 % GRAN MAT x10^3(ANC) 10.45 (H) 1.99 - 6.95 10*3/uL IMM GRAN x10^3 0.11 (H) 0.00 - 0.06 10*3/uL LYMPH x10^3 0.30 (L) 1.09 - 3.23 10*3/uL MONO x10^3 0.75 0.36 - 1.02 10*3/uL EOS x10^3 <0.03 (L) 0.06 - 0.53 10*3/uL BASO x10^3 <0.03 0.01 - 0.09 10*3/uL BANDS Increased (A) BASIC METABOLIC PANEL (NA, K, CL, CO2, GLUCOSE, BUN, CREATININE, CA) Collection Time: 08/04/19 4:33 AM Result Value Ref Range NA 138 135 - 145 mmol/L K 3.7 3.5 - 5.0 mmol/L CL 105 98 - 108 mmol/L CO2 TOTAL 24 23 - 31 mmol/L AGAP 9 2 - 16 BUN 37 (H) 7 - 23 mg/dL GLUCOSE 128 (H) 70 - 110 mg/dL CREATININE 1.64 (H) 0.60 - 1.25 mg/dL CALCIUM 8.2 (L) 8.6 - 10.6 mg/dL eGFR Calculation (Non-) 41.9 mL/min/1.73m2 eGFR Calculation () 50.7 mL/min/1.73m2 CBC WITH DIFFERENTIAL Collection Time: 08/04/19 4:33 AM Result Value Ref Range WBC 10.44 4.20 - 10.70 10*3/L RBC 2.83 (L) 4.26 - 5.52 10*6/L HGB 9.4 (L) 12.2 - 16.4 g/dL HCT 28.2 (L) 38.4 - 49.3 % MCV 99.6 (H) 81.7 - 95.6 fL MCH 33.2 (H) 26.1 - 32.7 pg MCHC 33.3 31.2 - 35.0 g/dL RDW-SD 52.2 (H) 38.5 - 51.6 fL RDW-CV 14.1 12.1 - 15.4 % PLT 196 150 - 328 10*3/L MPV 10.2 9.8 - 13.0 fL NRBC/100 WBC 0.0 0.0 - 10.0 /100 WBCs NRBC x10^3 <0.01 10*3/L GRAN MAT (NEUT) % 85.9 % IMM GRAN % 0.70 % LYMPH % 6.0 % MONO % 7.2 % EOS % 0.0 % BASO % 0.2 % GRAN MAT x10^3(ANC) 8.97 (H) 1.99 - 6.95 10*3/uL IMM GRAN x10^3 0.07 (H) 0.00 - 0.06 10*3/uL LYMPH x10^3 0.63 (L) 1.09 - 3.23 10*3/uL MONO x10^3 0.75 0.36 - 1.02 10*3/uL EOS x10^3 <0.03 (L) 0.06 - 0.53 10*3/uL BASO x10^3 <0.03 0.01 - 0.09 10*3/uL RENAL PANEL Collection Time: 08/05/19 4:57 AM Result Value Ref Range ALBUMIN 2.9 (L) 3.5 - 5.0 g/dL CALCIUM 7.6 (L) 8.6 - 10.6 mg/dL CO2 TOTAL 25 23 - 31 mmol/L CREATININE 1.51 (H) 0.60 - 1.25 mg/dL GLUCOSE 116 (H) 70 - 110 mg/dL K 3.6 3.5 - 5.0 mmol/L NA 139 135 - 145 mmol/L BUN 32 (H) 7 - 23 mg/dL PHOSPHORUS 3.3 2.5 - 5.0 mg/dL eGFR Calculation (Non-) 46.0 mL/min/1.73m2 eGFR Calculation () 55.8 mL/min/1.73m2 CBC WITH DIFFERENTIAL Collection Time: 08/05/19 11:16 AM Result Value Ref Range WBC 9.63 4.20 - 10.70 10*3/L RBC 3.40 (L) 4.26 - 5.52 10*6/L HGB 11.1 (L) 12.2 - 16.4 g/dL HCT 34.2 (L) 38.4 - 49.3 % MCV 100.6 (H) 81.7 - 95.6 fL MCH 32.6 26.1 - 32.7 pg MCHC 32.5 31.2 - 35.0 g/dL RDW-SD 53.3 (H) 38.5 - 51.6 fL RDW-CV 14.4 12.1 - 15.4 % PLT 248 150 - 328 10*3/L MPV 9.6 (L) 9.8 - 13.0 fL NRBC/100 WBC 0.0 0.0 - 10.0 /100 WBCs NRBC x10^3 <0.01 10*3/L SEG % 78 (H) 33 - 76 % BAND % 4 (H) 0 - 1 % LYMPH % 10 (L) 14 - 54 % MONO % 6 (H) 0 - 4 % EOS % 2 0 - 3 % ANC 7.86 (H) 1.99 - 6.95 10*3/uL No final results containing an impression from the past 48 hours were found. I saw and examined the patient today. No CP , no cough or fever. VSS General: alert and oriented; no apparent distress HEENT: pupils equal, round; extraocular movements intact; oropharynx clear; mois t mucous membranes Lungs: clear to auscultation bilaterally, no crackles, no wheezes, cough is stro ng and effective Cardio: regular rate and rhythm, no murmurs, no gallops Abdomen: soft; non-tender; non-distended; normoactive bowel sounds Extremities: no cyanosis, clubbing or edema Neuro: Alert and Oriented x 3 HOSPITAL COURSE: 1-Acute diverticulitis in the descending colon - improved. 2-Bilateral hydroureteronephroses more pronounced on the left side due to bladde r outlet obstruction 3-RADHA/CKD stage II : Creatinine trending down, improving. Nephro following. 4-UTI: Urine finding: UTI associated with Chronic Edwards Catheter present on admi ssion 5-Acute bronchospasm(likely undiagnosed asthma), low dose steroids. 6-HTN : Continue with home medications. 7-Morbid obesity PLAN: -Abx Rocephin changed to Cefdinir and Flagyl as per ID, since his creatinine was increasing. -On Cefdinir and Flagyl now. -Coag neg staph blood 07/14, likely contamination. ID agree. -No surgical intervention at this point as per Urology. -I spoke with Dr. Kiko Rodriguez regarding patient condition and plan of care. He recommend to continue current treatment, keep PCN and edwards in place and to follow as outpt with his Urologist. - patient has intermittent hematuria, minimal. Clearing. -Respiratory status is likely due to vascular congestion and possible underlying asthma componenet. BD. -BNP elevated. Cardiology consult. -Pain control -Appreciate ID and nephro consult -DVT proph -Advance diet -respiratory status improved significantly. ITEMS FOR FOLLOW UP PROVIDER: (including pending labs/cultures/studies, anticipa artur problems, etc.) FUNCTIONAL STATUS: fully ambulatory DISCHARGE CONDITION: good COGNITIVE STATUS: cognitively intact DISCHARGE INSTRUCTIONS: Discharge Orders IR EXCHANGE NEPHROSTOMY CATHETER Order Comments: Kameron Crow is a 69 year old male s/p PCN placement on 020. Please schedule for routine exchange in 8 weeks. Reason for exam: neurogenic bladder, routine neph tube exchange - placed on 08/02 - schedule in 8 weeks Regular Diet; Texture: Regular. Texture Regular. Diabetic: No Discharge Condition - Discharge Condition: GOOD Discharge Activity Discharge Activity: Ambulate VTE Propylaxis- Was ordered during hospitalization Discharge Instructions Order Comments: With Urology within a week DISCHARGE MEDICATIONS: Current Discharge Medication List START taking these medications Details cefdinir (OMNICEF) 300 mg Take 300 mg by mouth every 12 (twelve) hours. Start date: 08/05/2019 codeine-guaifenesin (ROBITUSSIN AC) 5 mL Take 5 mL by mouth every 6 (six) hours as needed for Cough. Qty: 100 mL, Refills: 0 Start date: 08/05/2019 Associated Diagnoses: Diverticulitis metroNIDAZOLE (FLAGYL) 500 mg Take 500 mg by mouth every 8 (eight) hours. Start date: 08/05/2019 predniSONE (DELTASONE) 20 mg Take 20 mg by mouth daily. Qty: 4 tablet, Refills: 0 Start date: 08/06/2019 Associated Diagnoses: Diverticulitis CONTINUE these medications which have NOT CHANGED Details amLODIPine (NORVASC) 10 mg Take 10 mg by mouth daily. carvediloL (COREG) 12.5 mg Take 12.5 mg by mouth 2 (two) times daily with meals. doxazosin (CARDURA) 2 mg Take 2 mg by mouth daily. pantoprazole sodium (PANTOPRAZOLE ORAL) 40 mg Take 40 mg by mouth daily. STOP taking these medications acetaminophen-codeine (TYLENOL #3) 1 tablet Comments: Reason for Stopping: WOUND CARE: CODE STATUS: full code OXYGEN (is patient being discharged on oxygen): no PATIENT EDUCATION PROVIDED: DISCHARGE: home self care FOLLOW-UP APPOINTMENT: Future Appointments Provider Department Dept Phone Center 09/27/2019 11:00 AM [facility] IR 1 [facility] Interventional Ra diology [phone] [facility] PLAN FOR READMISSION: No Please call or text [phone] to contact Jazmyne Lezama MD with any quest ions. - EGEE TENDER documented in this encounter Discharge Instructions * Attachments The following attachments cannot be sent through Care Everywhere.* Edwards Catheter, Care (Burmese) * Indwelling Urinary Catheter, Discharge Instructions (Burmese) * Leg Bag, Discharge Instructions (Burmese) * Nephrostomy, Percutaneous, Discharge Instructions (Burmese) documented in this encounter Progress Notes * Colt Arambula - 08/05/2019 11:20 AM SQUEEGEE TENDER Economics Lecturer attempted to see the patient. The patient was unavailable. Chaplain torin palacios follow up as needed. Chaplain Colt Escobedo C ST * Brisa Manzanares MD - 08/05/2019 8:54 AM SQUEEGEE TENDER [facility] Progress Note F/U UTI, Diverticulitis Subjective Doing well Physical Exam: BP (!) 150/84 | Pulse 83 | Temp 37.3 C (99.1 F) (Oral) | Resp 20 | Ht 1. 829 m (6') | Wt 103.9 kg (229 lb) | SpO2 95% | BMI 31.06 kg/m General Appearance: alert, appears stated age and cooperative Head: Normocephalic, without obvious abnormality, atraumatic Eyes: conjunctivae/corneas clear. PERRL, EOM's intact. Fundi benign. Nose: Nares normal. Septum midline. Mucosa normal. No drainage or sinus tendern ess. Throat: lips, mucosa, and tongue normal; teeth and gums normal Neck: no adenopathy, no carotid bruit, no JVD, supple Back: symmetric, no curvature. ROM normal. Lungs: clear to auscultation bilaterally Chest Wall: no tenderness Heart: regular rate and rhythm, S1, S2 normal, no murmur, click, rub or gallop Abdomen: soft, non-tender; bowel sounds normal; no masses, no organomegaly, No CVA tenderness. Left PCN Extremities: extremities normal, atraumatic, no cyanosis or edema Musculoskeletal: No joint pains or swelling Skin: Skin color, texture, turgor normal. No rashes or lesions. Neurologic: Alert and oriented X 3, with clear speech Medications Current Facility-Administered Medications Medication Dose Route Frequency Last Rate Last Dose cefdinir (OMNICEF) capsule 300 mg 300 mg Oral Q12H 300 mg at 08/05/19 085 2 codeine-guaifenesin (ROBITUSSIN AC) 10-100 mg/5 mL solution 5 mL 5 mL Oral Q6HPRN 5 mL at 08/04/19 1937 ipratropium-albuterol (DUONEB) 0.5 mg-3 mg(2.5 mg base)/3 mL nebulizer solut ion 3 mL 3 mL Inhalation Q4HPRN metroNIDAZOLE (FLAGYL) tablet 500 mg 500 mg Oral Q8H 500 mg at 08/05/19 0 501 predniSONE (DELTASONE) tablet 20 mg 20 mg Oral DAILY 20 mg at 08/05/19 08 52 Polyethylene Glycol 3350 (MIRALAX) powder 17 g 17 g Oral BID 17 g at 07/14 09/29 0847 heparin (porcine) injection 5,000 Units 5,000 Units Subcutaneous Q12H 5,0 00 Units at 08/04/198 amLODIPine (NORVASC) tablet 10 mg 10 mg Oral DAILY 10 mg at 08/05/19851 carvediloL (COREG) tablet 12.5 mg 12.5 mg Oral BID MEALS 12.5 mg at 08/05 doxazosin (CARDURA) tablet 2 mg 2 mg Oral DAILY 2 mg at 08/05/19851 ondansetron (ZOFRAN (PF)) injection 4 mg 4 mg Slow IV Push Q6HPRN 4 mg at 07/31/192046 pantoprazole (PROTONIX) EC tablet 40 mg 40 mg Oral DAILY 40 mg at 0 0852 Labs/Radiology Recent Results (from the past 48 hour(s)) BASIC METABOLIC PANEL (NA, K, CL, CO2, GLUCOSE, BUN, CREATININE, CA) Collection Time: 08/03/19 12:24 PM Result Value Ref Range NA 137 135 - 145 mmol/L K 3.8 3.5 - 5.0 mmol/L CL 101 98 - 108 mmol/L CO2 TOTAL 26 23 - 31 mmol/L AGAP 10 2 - 16 BUN 34 (H) 7 - 23 mg/dL GLUCOSE 119 (H) 70 - 110 mg/dL CREATININE 1.97 (H) 0.60 - 1.25 mg/dL CALCIUM 8.5 (L) 8.6 - 10.6 mg/dL eGFR Calculation (Non-) 33.9 mL/min/1.73m2 eGFR Calculation () 41.1 mL/min/1.73m2 CBC WITH DIFFERENTIAL Collection Time: 08/03/19 12:24 PM Result Value Ref Range WBC 11.63 (H) 4.20 - 10.70 10*3/L RBC 2.91 (L) 4.26 - 5.52 10*6/L HGB 9.7 (L) 12.2 - 16.4 g/dL HCT 29.1 (L) 38.4 - 49.3 % MCV 100.0 (H) 81.7 - 95.6 fL MCH 33.3 (H) 26.1 - 32.7 pg MCHC 33.3 31.2 - 35.0 g/dL RDW-SD 51.7 (H) 38.5 - 51.6 fL RDW-CV 14.0 12.1 - 15.4 % PLT 194 150 - 328 10*3/L MPV 10.1 9.8 - 13.0 fL NRBC/100 WBC 0.0 0.0 - 10.0 /100 WBCs NRBC x10^3 <0.01 10*3/L GRAN MAT (NEUT) % 89.9 % IMM GRAN % 0.90 % LYMPH % 2.6 % MONO % 6.4 % EOS % 0.0 % BASO % 0.2 % GRAN MAT x10^3(ANC) 10.45 (H) 1.99 - 6.95 10*3/uL IMM GRAN x10^3 0.11 (H) 0.00 - 0.06 10*3/uL LYMPH x10^3 0.30 (L) 1.09 - 3.23 10*3/uL MONO x10^3 0.75 0.36 - 1.02 10*3/uL EOS x10^3 <0.03 (L) 0.06 - 0.53 10*3/uL BASO x10^3 <0.03 0.01 - 0.09 10*3/uL BANDS Increased (A) BASIC METABOLIC PANEL (NA, K, CL, CO2, GLUCOSE, BUN, CREATININE, CA) Collection Time: 08/04/19 4:33 AM Result Value Ref Range NA 138 135 - 145 mmol/L K 3.7 3.5 - 5.0 mmol/L CL 105 98 - 108 mmol/L CO2 TOTAL 24 23 - 31 mmol/L AGAP 9 2 - 16 BUN 37 (H) 7 - 23 mg/dL GLUCOSE 128 (H) 70 - 110 mg/dL CREATININE 1.64 (H) 0.60 - 1.25 mg/dL CALCIUM 8.2 (L) 8.6 - 10.6 mg/dL eGFR Calculation (Non-) 41.9 mL/min/1.73m2 eGFR Calculation () 50.7 mL/min/1.73m2 CBC WITH DIFFERENTIAL Collection Time: 08/04/19 4:33 AM Result Value Ref Range WBC 10.44 4.20 - 10.70 10*3/L RBC 2.83 (L) 4.26 - 5.52 10*6/L HGB 9.4 (L) 12.2 - 16.4 g/dL HCT 28.2 (L) 38.4 - 49.3 % MCV 99.6 (H) 81.7 - 95.6 fL MCH 33.2 (H) 26.1 - 32.7 pg MCHC 33.3 31.2 - 35.0 g/dL RDW-SD 52.2 (H) 38.5 - 51.6 fL RDW-CV 14.1 12.1 - 15.4 % PLT 196 150 - 328 10*3/L MPV 10.2 9.8 - 13.0 fL NRBC/100 WBC 0.0 0.0 - 10.0 /100 WBCs NRBC x10^3 <0.01 10*3/L GRAN MAT (NEUT) % 85.9 % IMM GRAN % 0.70 % LYMPH % 6.0 % MONO % 7.2 % EOS % 0.0 % BASO % 0.2 % GRAN MAT x10^3(ANC) 8.97 (H) 1.99 - 6.95 10*3/uL IMM GRAN x10^3 0.07 (H) 0.00 - 0.06 10*3/uL LYMPH x10^3 0.63 (L) 1.09 - 3.23 10*3/uL MONO x10^3 0.75 0.36 - 1.02 10*3/uL EOS x10^3 <0.03 (L) 0.06 - 0.53 10*3/uL BASO x10^3 <0.03 0.01 - 0.09 10*3/uL RENAL PANEL Collection Time: 08/05/19 4:57 AM Result Value Ref Range ALBUMIN 2.9 (L) 3.5 - 5.0 g/dL CALCIUM 7.6 (L) 8.6 - 10.6 mg/dL CO2 TOTAL 25 23 - 31 mmol/L CREATININE 1.51 (H) 0.60 - 1.25 mg/dL GLUCOSE 116 (H) 70 - 110 mg/dL K 3.6 3.5 - 5.0 mmol/L NA 139 135 - 145 mmol/L BUN 32 (H) 7 - 23 mg/dL PHOSPHORUS 3.3 2.5 - 5.0 mg/dL eGFR Calculation (Non-) 46.0 mL/min/1.73m2 eGFR Calculation () 55.8 mL/min/1.73m2 No final results containing an impression from the past 48 hours were found. Diagnoses Active Problems: Diverticulitis 1. Diverticulitis Ct abd; showed acute diverticulitis in descending colon 2. UTI Urine cx contaminate U/a showed >182 WBC, moderate bacteria 08/02 urine cx 10-100k Klebsiella (S-Rocephin and Cefazolin, R only to AMP, I to Macrodantin ) 3. Bacteremia with CONS Contaminant ; 4. Obstructive uropathy with left hydroureteronephrosis S/p Left PCN by IR 5. 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 H/O enlarge prostrate 7. Cough CXr showed right lower lobe atelectasis Recommend for IS to be done Plan on Cefdinir 300mg P Q12hrs and Flagyl 500mg Po q8hrs (script in chart for 10 day s)(changed from rocephin and iv flagyl 08/03- 08/04) Length of Stay: 4 EGEE TENDER * Maria Del Carmen Woodruff, PT - 08/04/2019 2:42 PM SQUEEGEE TENDER PT Note: Attempted to see patient again, however patient again refused stating "I'm not d one yet" though finished with his food even covered and only drinking his drink but adamant refusal. Will attempt later as time permits. Thank you for this cons ult. Maria Del Carmen Woodruff, PT [phone] pgr EGEE TENDER * Maria Del Carmen Woodruff, PT - 08/04/2019 2:25 PM SQUEEGEE TENDER PT Note: Consult received and EPIC reviewed. Attempted to see pt, however patient adament ly refused due to eating his lunch. Will attempt later as time permits. Thank nolberto berg for this consult. Maria Del Carmen Woodruff, PT [phone] pgr EGEE TENDER * Danae Castaneda RN - 08/04/2019 1:54 PM SQUEEGEE TENDER Care Management Continued Stay Assessment LOS Day: 3 BLUE male 69 year old Date CM/SW last Face to Face completed with patient/family: 08/04/19 Funding source: Payor: Pressable / Plan: Pressable / Product Type: Medicare Adv HMO / PCP:Tien Galvan Patient/Family/MPOA/Caregiver Engaged with Transitional Care Plan: yes Patient/Family/MPOA/Caregiver concurs with proposed discharge plan: yes Name, Relationship to Patient and contact number of individual acting on behalf of the patient: patient Chief Complaint/Admitting Dx:Diverticulitis Hospital Problems: Diverticulitis What has changed in the last 24 hours? Nephrology on board. ID recommended R ocephin 1 gm q 24 and flagyl 500 mg. IV q8 for UTI & diverticulitis x 7 days on day 2. Bid Writer spoke with Dr. Ave MD plans to DC tomorrow on PO abx. BP 139/80 | Pulse 85 | Temp 37.4 C (99.4 F) (Oral) | Resp 18 | Ht 6' (1. 829 m) | Wt 229 lb (103.9 kg) | SpO2 93% | BMI 31.06 kg/m What are we doing for the patient that they still need to be in the hospital ? IV abx. Lab monitoring. What is medically needed to move the patient to a lower level of care? (IV t o PO, etc.) If DC on IV abx, patient would need a PICC line. What is the EDOD? 08/05/19 DC Barriers: Medical clearance Anticipated Discharge Destination: Home. Patient will follow outpatient with ur ologist, Dr. Martinez in [place]. If DC to home, who will support patient: family Anticipated DME needs: None Referrals sent: not applicable If no, why/when will referral be sent:: n/a Has patient been accepted: not applicable Revised plan if not accepted: home Danae C. Castaneda RN, BSN, ACM-RN Bid Writer [email or web address] EGEE TENDER * Brisa Manzanares MD - 08/04/2019 12:11 PM SQUEEGEE TENDER [facility] Progress Note F/U UTI, Diverticulitis Subjective Low grade fever, cough Physical Exam: BP 139/80 | Pulse 85 | Temp 37.4 C (99.4 F) (Oral) | Resp 18 | Ht 1.829 m (6') | Wt 103.9 kg (229 lb) | SpO2 93% | BMI 31.06 kg/m General Appearance: alert, appears stated age and cooperative Head: Normocephalic, without obvious abnormality, atraumatic Eyes: conjunctivae/corneas clear. PERRL, EOM's intact. Fundi benign. Nose: Nares normal. Septum midline. Mucosa normal. No drainage or sinus tendern ess. Throat: lips, mucosa, and tongue normal; teeth and gums normal Neck: no adenopathy, no carotid bruit, no JVD, supple Back: symmetric, no curvature. ROM normal. Lungs: clear to auscultation bilaterally Chest Wall: no tenderness Heart: regular rate and rhythm, S1, S2 normal, no murmur, click, rub or gallop Abdomen: soft, non-tender; bowel sounds normal; no masses, no organomegaly, No CVA tenderness. Left PCN Extremities: extremities normal, atraumatic, no cyanosis or edema Musculoskeletal: No joint pains or swelling Skin: Skin color, texture, turgor normal. No rashes or lesions. Neurologic: Alert and oriented X 3, with clear speech Medications Current Facility-Administered Medications Medication Dose Route Frequency Last Rate Last Dose ipratropium-albuterol (DUONEB) 0.5 mg-3 mg(2.5 mg base)/3 mL nebulizer solut ion 3 mL 3 mL Inhalation Q4HPRN cefTRIAXone (ROCEPHIN) 1,000 mg in NaCl 0.9% (NS) 50 mL MINI-BAG 1,000 mg I V Piggyback Q24H ABX 1,000 mg at 08/03/19 1210 metroNIDAZOLE (FLAGYL I.V.) Piggyback 500 mg 500 mg IV Piggyback Q8H ABX 500 mg at 08/04/19 1201 Polyethylene Glycol 3350 (MIRALAX) powder 17 g 17 g Oral BID 17 g at 07/14 09/29 0847 heparin (porcine) injection 5,000 Units 5,000 Units Subcutaneous Q12H 5,0 00 Units at 08/04/19 0847 HYDROcodone-acetaminophen (NORCO 5) 5-325 mg tablet 1 tablet 1 tablet Oral Q6HPRN 1 tablet at 08/02/197 acetaminophen (TYLENOL) tablet 650 mg 650 mg Oral Q6HPRN amLODIPine (NORVASC) tablet 10 mg 10 mg Oral DAILY 10 mg at 08/04/19 0847 carvediloL (COREG) tablet 12.5 mg 12.5 mg Oral BID MEALS 12.5 mg at 08/04 0847 doxazosin (CARDURA) tablet 2 mg 2 mg Oral DAILY 2 mg at 08/04/19 0847 ondansetron (ZOFRAN (PF)) injection 4 mg 4 mg Slow IV Push Q6HPRN 4 mg at 07/31/197 pantoprazole (PROTONIX) EC tablet 40 mg 40 mg Oral DAILY 40 mg at 0 0847 Labs/Radiology Recent Results (from the past 48 hour(s)) BASIC METABOLIC PANEL (NA, K, CL, CO2, GLUCOSE, BUN, CREATININE, CA) Collection Time: 08/02/19 2:04 PM Result Value Ref Range NA 131 (L) 135 - 145 mmol/L K 4.0 3.5 - 5.0 mmol/L CL 96 (L) 98 - 108 mmol/L CO2 TOTAL 25 23 - 31 mmol/L AGAP 10 2 - 16 BUN 25 (H) 7 - 23 mg/dL GLUCOSE 162 (H) 70 - 110 mg/dL CREATININE 2.08 (H) 0.60 - 1.25 mg/dL CALCIUM 7.6 (L) 8.6 - 10.6 mg/dL eGFR Calculation (Non-) 31.8 mL/min/1.73m2 eGFR Calculation () 38.6 mL/min/1.73m2 N-TERMINAL PRO-BNP Collection Time: 08/02/19 2:04 PM Result Value Ref Range NT-proBNP 1,950 (H) <=125 pg/mL CBC WITH DIFFERENTIAL Collection Time: 08/02/19 2:04 PM Result Value Ref Range WBC 8.48 4.20 - 10.70 10*3/L RBC 2.72 (L) 4.26 - 5.52 10*6/L HGB 8.8 (L) 12.2 - 16.4 g/dL HCT 27.8 (L) 38.4 - 49.3 % MCV 102.2 (H) 81.7 - 95.6 fL MCH 32.4 26.1 - 32.7 pg MCHC 31.7 31.2 - 35.0 g/dL RDW-SD 53.2 (H) 38.5 - 51.6 fL RDW-CV 14.3 12.1 - 15.4 % PLT 131 (L) 150 - 328 10*3/L MPV 10.5 9.8 - 13.0 fL NRBC/100 WBC 0.0 0.0 - 10.0 /100 WBCs NRBC x10^3 <0.01 10*3/L GRAN MAT (NEUT) % 92.0 % IMM GRAN % 0.60 % LYMPH % 2.8 % MONO % 4.5 % EOS % 0.0 % BASO % 0.1 % GRAN MAT x10^3(ANC) 7.80 (H) 1.99 - 6.95 10*3/uL IMM GRAN x10^3 0.05 0.00 - 0.06 10*3/uL LYMPH x10^3 0.24 (L) 1.09 - 3.23 10*3/uL MONO x10^3 0.38 0.36 - 1.02 10*3/uL EOS x10^3 <0.03 (L) 0.06 - 0.53 10*3/uL BASO x10^3 <0.03 0.01 - 0.09 10*3/uL BANDS Increased (A) BASIC METABOLIC PANEL (NA, K, CL, CO2, GLUCOSE, BUN, CREATININE, CA) Collection Time: 08/03/19 12:24 PM Result Value Ref Range NA 137 135 - 145 mmol/L K 3.8 3.5 - 5.0 mmol/L CL 101 98 - 108 mmol/L CO2 TOTAL 26 23 - 31 mmol/L AGAP 10 2 - 16 BUN 34 (H) 7 - 23 mg/dL GLUCOSE 119 (H) 70 - 110 mg/dL CREATININE 1.97 (H) 0.60 - 1.25 mg/dL CALCIUM 8.5 (L) 8.6 - 10.6 mg/dL eGFR Calculation (Non-) 33.9 mL/min/1.73m2 eGFR Calculation () 41.1 mL/min/1.73m2 CBC WITH DIFFERENTIAL Collection Time: 08/03/19 12:24 PM Result Value Ref Range WBC 11.63 (H) 4.20 - 10.70 10*3/L RBC 2.91 (L) 4.26 - 5.52 10*6/L HGB 9.7 (L) 12.2 - 16.4 g/dL HCT 29.1 (L) 38.4 - 49.3 % MCV 100.0 (H) 81.7 - 95.6 fL MCH 33.3 (H) 26.1 - 32.7 pg MCHC 33.3 31.2 - 35.0 g/dL RDW-SD 51.7 (H) 38.5 - 51.6 fL RDW-CV 14.0 12.1 - 15.4 % PLT 194 150 - 328 10*3/L MPV 10.1 9.8 - 13.0 fL NRBC/100 WBC 0.0 0.0 - 10.0 /100 WBCs NRBC x10^3 <0.01 10*3/L GRAN MAT (NEUT) % 89.9 % IMM GRAN % 0.90 % LYMPH % 2.6 % MONO % 6.4 % EOS % 0.0 % BASO % 0.2 % GRAN MAT x10^3(ANC) 10.45 (H) 1.99 - 6.95 10*3/uL IMM GRAN x10^3 0.11 (H) 0.00 - 0.06 10*3/uL LYMPH x10^3 0.30 (L) 1.09 - 3.23 10*3/uL MONO x10^3 0.75 0.36 - 1.02 10*3/uL EOS x10^3 <0.03 (L) 0.06 - 0.53 10*3/uL BASO x10^3 <0.03 0.01 - 0.09 10*3/uL BANDS Increased (A) BASIC METABOLIC PANEL (NA, K, CL, CO2, GLUCOSE, BUN, CREATININE, CA) Collection Time: 08/04/19 4:33 AM Result Value Ref Range NA 138 135 - 145 mmol/L K 3.7 3.5 - 5.0 mmol/L CL 105 98 - 108 mmol/L CO2 TOTAL 24 23 - 31 mmol/L AGAP 9 2 - 16 BUN 37 (H) 7 - 23 mg/dL GLUCOSE 128 (H) 70 - 110 mg/dL CREATININE 1.64 (H) 0.60 - 1.25 mg/dL CALCIUM 8.2 (L) 8.6 - 10.6 mg/dL eGFR Calculation (Non-) 41.9 mL/min/1.73m2 eGFR Calculation () 50.7 mL/min/1.73m2 CBC WITH DIFFERENTIAL Collection Time: 08/04/19 4:33 AM Result Value Ref Range WBC 10.44 4.20 - 10.70 10*3/L RBC 2.83 (L) 4.26 - 5.52 10*6/L HGB 9.4 (L) 12.2 - 16.4 g/dL HCT 28.2 (L) 38.4 - 49.3 % MCV 99.6 (H) 81.7 - 95.6 fL MCH 33.2 (H) 26.1 - 32.7 pg MCHC 33.3 31.2 - 35.0 g/dL RDW-SD 52.2 (H) 38.5 - 51.6 fL RDW-CV 14.1 12.1 - 15.4 % PLT 196 150 - 328 10*3/L MPV 10.2 9.8 - 13.0 fL NRBC/100 WBC 0.0 0.0 - 10.0 /100 WBCs NRBC x10^3 <0.01 10*3/L GRAN MAT (NEUT) % 85.9 % IMM GRAN % 0.70 % LYMPH % 6.0 % MONO % 7.2 % EOS % 0.0 % BASO % 0.2 % GRAN MAT x10^3(ANC) 8.97 (H) 1.99 - 6.95 10*3/uL IMM GRAN x10^3 0.07 (H) 0.00 - 0.06 10*3/uL LYMPH x10^3 0.63 (L) 1.09 - 3.23 10*3/uL MONO x10^3 0.75 0.36 - 1.02 10*3/uL EOS x10^3 <0.03 (L) 0.06 - 0.53 10*3/uL BASO x10^3 <0.03 0.01 - 0.09 10*3/uL No final results containing an impression from the past 48 hours were found. Diagnoses Active Problems: Diverticulitis 1. Diverticulitis Ct abd; showed acute diverticulitis in descending colon 2. UTI Urine cx contaminate U/a showed >182 WBC, moderate bacteria 3. Bacteremia with CONS Contaminant ; 4. Obstructive uropathy with left hydroureteronephrosis S/p Left PCN by IR 5. 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 H/O enlarge prostrate 7. Cough CXr showed right lower lobe atelectasis Recommend for IS to be done Plan on Rocephin 1gm Iv Q24hrs and Flagyl 500mg IV Q8hrs for at least 7 days for UTI and diverticulitis; day 2 out of 7 days; will change to Cefdinir 300mg P Q12hrs and Flagyl 500mg Po q8hrs (script in chart for 10 days) Length of Stay: 3 [facility] [employer]ENDER * Chip Sands MD - 08/04/2019 11:11 AM SQUEEGEE TENDER Admission Date: 07/31/2019 Length of Stay: 3 Consult Date: 08/03/19 Requesting Provider: Mayur Gordillo MD Reason for Consult: Abn FR History of Present Illness 69 year old male patient with PMH of HTN and urinary stones presented to [facility] ER with abdominal pain which has been running for awhile but got worse latel y I have seen him in the hospital as well as clinic for abn GFR Pt had obstructive uropathy s/p edwards He sees Dr Crum om the outpt setting His CT showed marked L hydro s/p L PCN Edwards was exchanged 08/[address] Vu in the hospital He is scheduled for cystoscopy and TURP/TURBT as an outpt next mth He tells he he just wants to get surgery done [place] His cr was 1.3 on presentation here---> 1.7--> 2.0---> 1.[address] WITH CONTRAST 07/31 Feels OK now No SOB No CP No edema On 08/04 + cough No SOB No CP No edema On o2 Review of Systems ROS: All other 14 point ROS negative unless otherwise stated. General - No activity changes or unanticipated weight loss Eyes - No visual changes ENT - No hearing loss Respiratory - No cough or wheeze Gastrointestinal - No diarrhea or bloody stools Genital urinary - No acute urinary symptoms/dysuria or discharge Musculoskeletal - No back pain Skin - No gross rash Neurologic - No localized weakness Heme - No bruising Past Medical History: Diagnosis Date Bladder stones Dysphagia Hypertension No past surgical history on file. Family History Problem Relation Age of Onset No Significant Medical Problems Mother No Significant Medical Problems Father Social History Socioeconomic History Marital status: Single Spouse name: Not on file Number of children: Not on file Years of education: Not on file Highest education level: Not on file Occupational History Not on file Social Needs Financial resource strain: Not on file Food insecurity: Worry: Not on file Inability: Not on file Transportation needs: Medical: Not on file Non-medical: Not on file Tobacco Use Smoking status: Never Smoker Smokeless tobacco: Never Used Substance and Sexual Activity Alcohol use: Never Frequency: Never Drug use: Never Sexual activity: Not on file Lifestyle Physical activity: Days per week: Not on file Minutes per session: Not on file Stress: Not on file Relationships Social connections: Talks on phone: Not on file Gets together: Not on file Attends protestant service: Not on file Active member of club or organization: Not on file Attends meetings of clubs or organizations: Not on file Relationship status: Not on file Intimate partner violence: Fear of current or ex partner: Not on file Emotionally abused: Not on file Physically abused: Not on file Forced sexual activity: Not on file Other Topics Concern Not on file Social History Narrative Not on file Physical Exam: Vitals: 08/03/19 2000 08/04/19 0035 08/04/19 0534 08/04/19 0800 BP: 114/73 128/78 118/63 137/85 Pulse: 86 78 88 81 Resp: 18 18 20 18 Temp: 37.5 C (99.5 F) 37.2 C (99 F) 37 C (98.6 F) 37.1 C (98.8 F ) TempSrc: Oral Oral Oral Oral SpO2: 97% 92% 93% 93% Weight: Height: O2 sat: SpO2 readings for the past 24 hrs: SpO2 08/02/19 1642 97 % 08/02/19 1652 97 % 08/02/19 1910 97 % 08/02/19 1917 98 % 08/02/19 2000 95 % 08/03/19 0000 96 % 08/03/19 0700 95 % 08/03/19 0816 97 % 08/03/19 0826 98 % 08/03/19 1145 92 % 08/03/19 1151 95 % 08/03/19 1201 96 % 08/03/19 1521 95 % 08/03/19 1531 97 % 08/03/19 1541 98 % I & O: Intake/Output Summary (Last 24 hours) at 08/03/2019 1612 Last data filed at 08/03/2019 0820 Gross per 24 hour Intake 425 ml Output 1675 ml Net -1250 ml General: no acute distress Neurological: awake, alert, and oriented, moves all ext Head, Eyes, Ear, Nose, and Throat: moist mucous membranes Cardiovascular: regular rhythm, no murmurs, intact peripheral pulses Pulmonary: lungs clear to auscultation bilaterally Gastrointestinal: normoactive bowel sounds, soft, non-distended, non-tender; Mus culoskeletal: no muscle tenderness Extr: No c/c/e : no bladder distention Skin: no rashes, no skin tenting, dry Psych: normal mood, cooperative Labs/Radiology/Diagnostics Data noted and reviewed Labs/Radiology/Diagnostics .curr CMP NA (mmol/L) Date Value 08/04/2019 138 08/03/2019 137 08/02/2019 131 (L) 08/01/2019 131 (L) 07/31/2019 134 (L) K (mmol/L) Date Value 08/04/2019 3.7 08/03/2019 3.8 08/02/2019 4.0 08/01/2019 4.2 07/31/2019 4.3 CALCIUM (mg/dL) Date Value 08/04/2019 8.2 (L) 08/03/2019 8.5 (L) 08/02/2019 7.6 (L) 08/01/2019 8.0 (L) 07/31/2019 8.7 CL (mmol/L) Date Value 08/04/2019 105 08/03/2019 101 08/02/2019 96 (L) 08/01/2019 96 (L) 07/31/2019 96 (L) BUN (mg/dL) Date Value 08/04/2019 37 (H) 08/03/2019 34 (H) 08/02/2019 25 (H) 08/01/2019 21 07/31/2019 20 CREATININE (mg/dL) Date Value 08/04/2019 1.64 (H) 08/03/2019 1.97 (H) 08/02/2019 2.08 (H) 08/01/2019 1.73 (H) 07/31/2019 1.32 (H) GLUCOSE (mg/dL) Date Value 08/04/2019 128 (H) 08/03/2019 119 (H) 08/02/2019 162 (H) 08/01/2019 116 (H) 07/31/2019 189 (H) CO2 TOTAL (mmol/L) Date Value 08/04/2019 24 08/03/2019 26 08/02/2019 25 08/01/2019 25 07/31/2019 28 ALBUMIN (g/dL) Date Value 07/31/2019 3.9 06/28/2019 3.3 (L) 06/23/2019 4.1 10/27/2016 3.9 T PROTEIN (g/dL) Date Value 07/31/2019 6.7 06/23/2019 7.2 10/27/2016 7.1 TOTAL BILI (mg/dL) Date Value 07/31/2019 0.5 06/23/2019 0.8 10/27/2016 0.6 BILI UNCON (mg/dL) Date Value 07/31/2019 0.5 06/23/2019 0.6 BILI CONJ (mg/dL) Date Value 07/31/2019 0.0 06/23/2019 0.0 ALT(SGPT) (U/L) Date Value 10/27/2016 44 ALTv (U/L) Date Value 07/31/2019 18 06/23/2019 35 AST(SGOT) (U/L) Date Value 07/31/2019 19 06/23/2019 34 10/27/2016 36 ALK PHOS (U/L) Date Value 07/31/2019 56 06/23/2019 49 10/27/2016 51 CBC withoutdiff WBC (10*3/L) Date Value 08/04/2019 10.44 08/03/2019 11.63 (H) 08/02/2019 8.48 08/01/2019 12.08 (H) 07/31/2019 9.57 HGB (g/dL) Date Value 08/04/2019 9.4 (L) 08/03/2019 9.7 (L) 08/02/2019 8.8 (L) 08/01/2019 10.4 (L) 07/31/2019 11.1 (L) HCT (%) Date Value 08/04/2019 28.2 (L) 08/03/2019 29.1 (L) 08/02/2019 27.8 (L) 08/01/2019 31.2 (L) 07/31/2019 33.4 (L) MCV (fL) Date Value 08/04/2019 99.6 (H) 08/03/2019 100.0 (H) 08/02/2019 102.2 (H) 08/01/2019 99.7 (H) 07/31/2019 96.8 (H) PLT (10*3/L) Date Value 08/04/2019 196 08/03/2019 194 08/02/2019 131 (L) 08/01/2019 137 (L) 07/31/2019 176 PROTEIN (no units) Date Value 07/31/2019 100 mg/dL (A) PH (no units) Date Value 07/31/2019 6.0 GLU U QUAL (no units) Date Value 07/31/2019 150 mg/dL (A) KETONES (no units) Date Value 07/31/2019 Negative BILIRUBIN (no units) Date Value 07/31/2019 Negative No results found for: UBLOOD No results found for: UUROBILIN LEUK ORLIN (no units) Date Value 07/31/2019 250/uL (A) NITRITE (no units) Date Value 07/31/2019 Positive (A) SP GRAVITY (no units) Date Value 07/31/2019 1.015 LABS - reviewed pertinent labs as below: Recent Results (from the past 48 hour(s)) BASIC METABOLIC PANEL (NA, K, CL, CO2, GLUCOSE, BUN, CREATININE, CA) Collection Time: 08/02/19 2:04 PM Result Value Ref Range NA 131 (L) 135 - 145 mmol/L K 4.0 3.5 - 5.0 mmol/L CL 96 (L) 98 - 108 mmol/L CO2 TOTAL 25 23 - 31 mmol/L AGAP 10 2 - 16 BUN 25 (H) 7 - 23 mg/dL GLUCOSE 162 (H) 70 - 110 mg/dL CREATININE 2.08 (H) 0.60 - 1.25 mg/dL CALCIUM 7.6 (L) 8.6 - 10.6 mg/dL eGFR Calculation (Non-) 31.8 mL/min/1.73m2 eGFR Calculation () 38.6 mL/min/1.73m2 N-TERMINAL PRO-BNP Collection Time: 08/02/19 2:04 PM Result Value Ref Range NT-proBNP 1,950 (H) <=125 pg/mL CBC WITH DIFFERENTIAL Collection Time: 08/02/19 2:04 PM Result Value Ref Range WBC 8.48 4.20 - 10.70 10*3/L RBC 2.72 (L) 4.26 - 5.52 10*6/L HGB 8.8 (L) 12.2 - 16.4 g/dL HCT 27.8 (L) 38.4 - 49.3 % MCV 102.2 (H) 81.7 - 95.6 fL MCH 32.4 26.1 - 32.7 pg MCHC 31.7 31.2 - 35.0 g/dL RDW-SD 53.2 (H) 38.5 - 51.6 fL RDW-CV 14.3 12.1 - 15.4 % PLT 131 (L) 150 - 328 10*3/L MPV 10.5 9.8 - 13.0 fL NRBC/100 WBC 0.0 0.0 - 10.0 /100 WBCs NRBC x10^3 <0.01 10*3/L GRAN MAT (NEUT) % 92.0 % IMM GRAN % 0.60 % LYMPH % 2.8 % MONO % 4.5 % EOS % 0.0 % BASO % 0.1 % GRAN MAT x10^3(ANC) 7.80 (H) 1.99 - 6.95 10*3/uL IMM GRAN x10^3 0.05 0.00 - 0.06 10*3/uL LYMPH x10^3 0.24 (L) 1.09 - 3.23 10*3/uL MONO x10^3 0.38 0.36 - 1.02 10*3/uL EOS x10^3 <0.03 (L) 0.06 - 0.53 10*3/uL BASO x10^3 <0.03 0.01 - 0.09 10*3/uL BANDS Increased (A) BASIC METABOLIC PANEL (NA, K, CL, CO2, GLUCOSE, BUN, CREATININE, CA) Collection Time: 08/03/19 12:24 PM Result Value Ref Range NA 137 135 - 145 mmol/L K 3.8 3.5 - 5.0 mmol/L CL 101 98 - 108 mmol/L CO2 TOTAL 26 23 - 31 mmol/L AGAP 10 2 - 16 BUN 34 (H) 7 - 23 mg/dL GLUCOSE 119 (H) 70 - 110 mg/dL CREATININE 1.97 (H) 0.60 - 1.25 mg/dL CALCIUM 8.5 (L) 8.6 - 10.6 mg/dL eGFR Calculation (Non-) 33.9 mL/min/1.73m2 eGFR Calculation () 41.1 mL/min/1.73m2 CBC WITH DIFFERENTIAL Collection Time: 08/03/19 12:24 PM Result Value Ref Range WBC 11.63 (H) 4.20 - 10.70 10*3/L RBC 2.91 (L) 4.26 - 5.52 10*6/L HGB 9.7 (L) 12.2 - 16.4 g/dL HCT 29.1 (L) 38.4 - 49.3 % MCV 100.0 (H) 81.7 - 95.6 fL MCH 33.3 (H) 26.1 - 32.7 pg MCHC 33.3 31.2 - 35.0 g/dL RDW-SD 51.7 (H) 38.5 - 51.6 fL RDW-CV 14.0 12.1 - 15.4 % PLT 194 150 - 328 10*3/L MPV 10.1 9.8 - 13.0 fL NRBC/100 WBC 0.0 0.0 - 10.0 /100 WBCs NRBC x10^3 <0.01 10*3/L GRAN MAT (NEUT) % 89.9 % IMM GRAN % 0.90 % LYMPH % 2.6 % MONO % 6.4 % EOS % 0.0 % BASO % 0.2 % GRAN MAT x10^3(ANC) 10.45 (H) 1.99 - 6.95 10*3/uL IMM GRAN x10^3 0.11 (H) 0.00 - 0.06 10*3/uL LYMPH x10^3 0.30 (L) 1.09 - 3.23 10*3/uL MONO x10^3 0.75 0.36 - 1.02 10*3/uL EOS x10^3 <0.03 (L) 0.06 - 0.53 10*3/uL BASO x10^3 <0.03 0.01 - 0.09 10*3/uL BANDS Increased (A) BASIC METABOLIC PANEL (NA, K, CL, CO2, GLUCOSE, BUN, CREATININE, CA) Collection Time: 08/04/19 4:33 AM Result Value Ref Range NA 138 135 - 145 mmol/L K 3.7 3.5 - 5.0 mmol/L CL 105 98 - 108 mmol/L CO2 TOTAL 24 23 - 31 mmol/L AGAP 9 2 - 16 BUN 37 (H) 7 - 23 mg/dL GLUCOSE 128 (H) 70 - 110 mg/dL CREATININE 1.64 (H) 0.60 - 1.25 mg/dL CALCIUM 8.2 (L) 8.6 - 10.6 mg/dL eGFR Calculation (Non-) 41.9 mL/min/1.73m2 eGFR Calculation () 50.7 mL/min/1.73m2 CBC WITH DIFFERENTIAL Collection Time: 08/04/19 4:33 AM Result Value Ref Range WBC 10.44 4.20 - 10.70 10*3/L RBC 2.83 (L) 4.26 - 5.52 10*6/L HGB 9.4 (L) 12.2 - 16.4 g/dL HCT 28.2 (L) 38.4 - 49.3 % MCV 99.6 (H) 81.7 - 95.6 fL MCH 33.2 (H) 26.1 - 32.7 pg MCHC 33.3 31.2 - 35.0 g/dL RDW-SD 52.2 (H) 38.5 - 51.6 fL RDW-CV 14.1 12.1 - 15.4 % PLT 196 150 - 328 10*3/L MPV 10.2 9.8 - 13.0 fL NRBC/100 WBC 0.0 0.0 - 10.0 /100 WBCs NRBC x10^3 <0.01 10*3/L GRAN MAT (NEUT) % 85.9 % IMM GRAN % 0.70 % LYMPH % 6.0 % MONO % 7.2 % EOS % 0.0 % BASO % 0.2 % GRAN MAT x10^3(ANC) 8.97 (H) 1.99 - 6.95 10*3/uL IMM GRAN x10^3 0.07 (H) 0.00 - 0.06 10*3/uL LYMPH x10^3 0.63 (L) 1.09 - 3.23 10*3/uL MONO x10^3 0.75 0.36 - 1.02 10*3/uL EOS x10^3 <0.03 (L) 0.06 - 0.53 10*3/uL BASO x10^3 <0.03 0.01 - 0.09 10*3/uL IMAGING - reviewed, pertinent results as below: No final results containing an impression from the past 48 hours were found. EKG: Hospital Encounter 07/31/19 EKG-12 LEAD EKG-12 LEAD EKG-12 LEAD ROUTINE EKG-12 LEAD ROUTINE Hospital Encounter 06/23/19 EKG-12 LEAD EKG-12 LEAD EKG-12 LEAD EKG-12 LEAD EKG-12 LEAD ROUTINE EKG-12 LEAD ROUTINE Office Visit 06/23/19 EKG-12 LEAD EKG-12 LEAD ROUTINE No Known Allergies Current Facility-Administered Medications: ipratropium-albuterol (DUONEB) 0.5 mg-3 mg(2.5 mg base)/3 mL nebulizer solu tion 3 mL, 3 mL, Inhalation, Q4HPRN, Zara Terry MD cefTRIAXone (ROCEPHIN) 1,000 mg in NaCl 0.9% (NS) 50 mL MINI-BAG, 1,000 mg, IV Piggyback, Q24H ABXGlenna Mallika, MD, 1,000 mg at 08/03/19 1210 metroNIDAZOLE (FLAGYL I.V.) Piggyback 500 mg, 500 mg, IV Piggyback, Q8H Glenna PIÑA Mallika, MD, 500 mg at 08/04/19 0355 Polyethylene Glycol 3350 (MIRALAX) powder 17 g, 17 g, Oral, BID, Jazmyne Redding MD, 17 g at 08/04/19 0847 heparin (porcine) injection 5,000 Units, 5,000 Units, Subcutaneous, Q12H, Jazmyne Wilson MD, 5,000 Units at 08/04/19 0847 HYDROcodone-acetaminophen (NORCO 5) 5-325 mg tablet 1 tablet, 1 tablet, Rosie palacios, Q6HPRN, Jazmyne Lezama MD, 1 tablet at 08/02/197 acetaminophen (TYLENOL) tablet 650 mg, 650 mg, Oral, Q6HPRN, Mayur Gordillo MD amLODIPine (NORVASC) tablet 10 mg, 10 mg, Oral, DAILY, Mayur Gordillo MD, 10 mg at 08/04/19 0847 carvediloL (COREG) tablet 12.5 mg, 12.5 mg, Oral, BID MEALS, Mayur Gordillo MD, 12.5 mg at 08/04/19 0847 doxazosin (CARDURA) tablet 2 mg, 2 mg, Oral, DAILY, Mayur Gordillo MD, 2 mg at 08/04/19 0847 ondansetron (ZOFRAN (PF)) injection 4 mg, 4 mg, Slow IV Push, Q6HPRN, Jazmyne Russ MD, 4 mg at 07/31/192046 pantoprazole (PROTONIX) EC tablet 40 mg, 40 mg, Oral, DAILY, Mayur Gordillo MD, 40 mg at 08/04/19 0847 Current Discharge Medication List STOP taking these medications amLODIPine 10 mg tablet Comments: Reason for Stopping: carvediloL 12.5 mg tablet Comments: Reason for Stopping: doxazosin 2 mg tablet Comments: Reason for Stopping: pantoprazole sodium (PANTOPRAZOLE ORAL) Comments: Reason for Stopping: acetaminophen-codeine (TYLENOL-CODEINE #3) 300-30 mg tablet Comments: Reason for Stopping: Patient Active Problem List Diagnosis Obesity (BMI 30-39.9) Hypertension RADHA (acute kidney injury) Brain lesion Diverticulitis ASSESSMENT/PLAN RADHA... Multifactorial.. Obstruction on L side + contrast +/- zosyn CKD, ? Baseline.. Suspect close to nl GFR when not obstructed or in renal failur e Complicated UTI CONS bacteremia Diverticulitis HTN Cough BPH Plan: No further contrast please Appreciate ID stopping zosyn No need for IVFs Agree with L PCN Agree with definitive surgery when infection is cleared Pt is known to have some proteinuria but i don't think it needs w/u at this poin t, would wait until his urological issues are resolved and will requatify then Given new cough, will check CXR. Could be volume expansion. Will give a dose of IV lasix Thank you for allowing me to take care of your patient Please call me with any questions or concerns Chip Sands MD [address] [place] [address] [employer]ER * Jazmyne Lezama MD - 08/03/2019 1:00 PM SQUEEG[employer] CLS Progress Note Date of Service: 08/03/2019 13:00 Chief Complaint: Diverticulitis Hydroureteronephrosis SUBJECTIVE: s/p L PCN Mild SOb No cough or CP PHYSICAL EXAM: Vitals: 08/03/19 0826 08/03/19 1145 08/03/19 1151 08/03/19 1201 BP: 131/76 Pulse: 84 86 84 88 Resp: 18 18 18 18 Temp: 37.4 C (99.4 F) TempSrc: Oral SpO2: 98% 92% 95% 96% Weight: Height: O2 Sat: SpO2 readings for the past 24 hrs: SpO2 07/31/19 1315 98 % 07/31/19 1345 96 % 07/31/19 1415 98 % 07/31/19 1458 95 % 07/31/19 1939 98 % 07/31/19 2354 95 % 08/01/19 0402 98 % 08/01/19 0700 97 % 08/01/19 1100 96 % Intake/Output Summary (Last 24 hours) at 08/03/2019 1300 Last data filed at 08/03/2019 0820 Gross per 24 hour Intake 425 ml Output 1675 ml Net -1250 ml General: alert and oriented; no apparent distress HEENT: pupils equal, round; extraocular movements intact; oropharynx clear; mois t mucous membranes Lungs: clear to auscultation bilaterally, no crackles, no wheezes, cough is stro ng and effective Cardio: regular rate and rhythm, no murmurs, no gallops Abdomen: soft; non-tender; non-distended; normoactive bowel sounds Extremities: no cyanosis, clubbing or edema LABS/IMAGING - reviewed, pertinent results as below: Recent Results (from the past 48 hour(s)) BASIC METABOLIC PANEL (NA, K, CL, CO2, GLUCOSE, BUN, CREATININE, CA) Collection Time: 08/01/19 4:06 PM Result Value Ref Range NA 131 (L) 135 - 145 mmol/L K 4.2 3.5 - 5.0 mmol/L CL 96 (L) 98 - 108 mmol/L CO2 TOTAL 25 23 - 31 mmol/L AGAP 10 2 - 16 BUN 21 7 - 23 mg/dL GLUCOSE 116 (H) 70 - 110 mg/dL CREATININE 1.73 (H) 0.60 - 1.25 mg/dL CALCIUM 8.0 (L) 8.6 - 10.6 mg/dL eGFR Calculation (Non-) 39.4 mL/min/1.73m2 eGFR Calculation () 47.7 mL/min/1.73m2 PROTHROMBIN TIME / INR Collection Time: 08/01/19 4:06 PM Result Value Ref Range PROTIME PATIENT 15.1 (H) 10.1 - 12.6 Seconds INR 1.4 CBC WITH DIFFERENTIAL Collection Time: 08/01/19 4:07 PM Result Value Ref Range WBC 12.08 (H) 4.20 - 10.70 10*3/L RBC 3.13 (L) 4.26 - 5.52 10*6/L HGB 10.4 (L) 12.2 - 16.4 g/dL HCT 31.2 (L) 38.4 - 49.3 % MCV 99.7 (H) 81.7 - 95.6 fL MCH 33.2 (H) 26.1 - 32.7 pg MCHC 33.3 31.2 - 35.0 g/dL RDW-SD 52.2 (H) 38.5 - 51.6 fL RDW-CV 14.2 12.1 - 15.4 % PLT 137 (L) 150 - 328 10*3/L MPV 11.0 9.8 - 13.0 fL NRBC/100 WBC 0.0 0.0 - 10.0 /100 WBCs NRBC x10^3 <0.01 10*3/L GRAN MAT (NEUT) % 86.3 % IMM GRAN % 0.80 % LYMPH % 3.9 % MONO % 8.9 % EOS % 0.0 % BASO % 0.1 % GRAN MAT x10^3(ANC) 10.42 (H) 1.99 - 6.95 10*3/uL IMM GRAN x10^3 0.10 (H) 0.00 - 0.06 10*3/uL LYMPH x10^3 0.47 (L) 1.09 - 3.23 10*3/uL MONO x10^3 1.08 (H) 0.36 - 1.02 10*3/uL EOS x10^3 <0.03 (L) 0.06 - 0.53 10*3/uL BASO x10^3 <0.03 0.01 - 0.09 10*3/uL BASIC METABOLIC PANEL (NA, K, CL, CO2, GLUCOSE, BUN, CREATININE, CA) Collection Time: 08/02/19 2:04 PM Result Value Ref Range NA 131 (L) 135 - 145 mmol/L K 4.0 3.5 - 5.0 mmol/L CL 96 (L) 98 - 108 mmol/L CO2 TOTAL 25 23 - 31 mmol/L AGAP 10 2 - 16 BUN 25 (H) 7 - 23 mg/dL GLUCOSE 162 (H) 70 - 110 mg/dL CREATININE 2.08 (H) 0.60 - 1.25 mg/dL CALCIUM 7.6 (L) 8.6 - 10.6 mg/dL eGFR Calculation (Non-) 31.8 mL/min/1.73m2 eGFR Calculation () 38.6 mL/min/1.73m2 N-TERMINAL PRO-BNP Collection Time: 08/02/19 2:04 PM Result Value Ref Range NT-proBNP 1,950 (H) <=125 pg/mL CBC WITH DIFFERENTIAL Collection Time: 08/02/19 2:04 PM Result Value Ref Range WBC 8.48 4.20 - 10.70 10*3/L RBC 2.72 (L) 4.26 - 5.52 10*6/L HGB 8.8 (L) 12.2 - 16.4 g/dL HCT 27.8 (L) 38.4 - 49.3 % MCV 102.2 (H) 81.7 - 95.6 fL MCH 32.4 26.1 - 32.7 pg MCHC 31.7 31.2 - 35.0 g/dL RDW-SD 53.2 (H) 38.5 - 51.6 fL RDW-CV 14.3 12.1 - 15.4 % PLT 131 (L) 150 - 328 10*3/L MPV 10.5 9.8 - 13.0 fL NRBC/100 WBC 0.0 0.0 - 10.0 /100 WBCs NRBC x10^3 <0.01 10*3/L GRAN MAT (NEUT) % 92.0 % IMM GRAN % 0.60 % LYMPH % 2.8 % MONO % 4.5 % EOS % 0.0 % BASO % 0.1 % GRAN MAT x10^3(ANC) 7.80 (H) 1.99 - 6.95 10*3/uL IMM GRAN x10^3 0.05 0.00 - 0.06 10*3/uL LYMPH x10^3 0.24 (L) 1.09 - 3.23 10*3/uL MONO x10^3 0.38 0.36 - 1.02 10*3/uL EOS x10^3 <0.03 (L) 0.06 - 0.53 10*3/uL BASO x10^3 <0.03 0.01 - 0.09 10*3/uL BANDS Increased (A) BASIC METABOLIC PANEL (NA, K, CL, CO2, GLUCOSE, BUN, CREATININE, CA) Collection Time: 08/03/19 12:24 PM Result Value Ref Range NA 137 135 - 145 mmol/L K 3.8 3.5 - 5.0 mmol/L CL 101 98 - 108 mmol/L CO2 TOTAL 26 23 - 31 mmol/L AGAP 10 2 - 16 BUN 34 (H) 7 - 23 mg/dL GLUCOSE 119 (H) 70 - 110 mg/dL CREATININE 1.97 (H) 0.60 - 1.25 mg/dL CALCIUM 8.5 (L) 8.6 - 10.6 mg/dL eGFR Calculation (Non-) 33.9 mL/min/1.73m2 eGFR Calculation () 41.1 mL/min/1.73m2 CBC WITH DIFFERENTIAL Collection Time: 08/03/19 12:24 PM Result Value Ref Range WBC 11.63 (H) 4.20 - 10.70 10*3/L RBC 2.91 (L) 4.26 - 5.52 10*6/L HGB 9.7 (L) 12.2 - 16.4 g/dL HCT 29.1 (L) 38.4 - 49.3 % MCV 100.0 (H) 81.7 - 95.6 fL MCH 33.3 (H) 26.1 - 32.7 pg MCHC 33.3 31.2 - 35.0 g/dL RDW-SD 51.7 (H) 38.5 - 51.6 fL RDW-CV 14.0 12.1 - 15.4 % PLT 194 150 - 328 10*3/L MPV 10.1 9.8 - 13.0 fL NRBC/100 WBC 0.0 0.0 - 10.0 /100 WBCs NRBC x10^3 <0.01 10*3/L GRAN MAT (NEUT) % 89.9 % IMM GRAN % 0.90 % LYMPH % 2.6 % MONO % 6.4 % EOS % 0.0 % BASO % 0.2 % GRAN MAT x10^3(ANC) 10.45 (H) 1.99 - 6.95 10*3/uL IMM GRAN x10^3 0.11 (H) 0.00 - 0.06 10*3/uL LYMPH x10^3 0.30 (L) 1.09 - 3.23 10*3/uL MONO x10^3 0.75 0.36 - 1.02 10*3/uL EOS x10^3 <0.03 (L) 0.06 - 0.53 10*3/uL BASO x10^3 <0.03 0.01 - 0.09 10*3/uL BANDS Increased (A) No final results containing an impression from the past 48 hours were found. CURRENT MEDICATIONS - reviewed. Current Facility-Administered Medications Medication Dose Route Frequency Last Rate Last Dose cefTRIAXone (ROCEPHIN) 1,000 mg in NaCl 0.9% (NS) 50 mL MINI-BAG 1,000 mg I V Piggyback Q24H ABX 1,000 mg at 08/03/19 1210 metroNIDAZOLE (FLAGYL I.V.) Piggyback 500 mg 500 mg IV Piggyback Q8H ABX 500 mg at 08/03/19 1209 heparin (porcine) injection 5,000 Units 5,000 Units Subcutaneous Q12H 5,0 00 Units at 08/03/19 0820 HYDROcodone-acetaminophen (NORCO 5) 5-325 mg tablet 1 tablet 1 tablet Oral Q6HPRN 1 tablet at 08/02/19 1957 ipratropium-albuterol (DUONEB) 0.5 mg-3 mg(2.5 mg base)/3 mL nebulizer solut ion 3 mL 3 mL Inhalation QID 3 mL at 08/03/19 1151 acetaminophen (TYLENOL) tablet 650 mg 650 mg Oral Q6HPRN amLODIPine (NORVASC) tablet 10 mg 10 mg Oral DAILY 10 mg at 08/03/19 0820 carvediloL (COREG) tablet 12.5 mg 12.5 mg Oral BID MEALS 12.5 mg at 08/03 0820 doxazosin (CARDURA) tablet 2 mg 2 mg Oral DAILY 2 mg at 08/03/19 0820 ondansetron (ZOFRAN (PF)) injection 4 mg 4 mg Slow IV Push Q6HPRN 4 mg at 07/31/192046 pantoprazole (PROTONIX) EC tablet 40 mg 40 mg Oral DAILY 40 mg at 0 0820 ASSESSMENT/PLAN Kameron Crow is a 69 year old male admitted to the hospital with: Acute diverticulitis in the descending colon Bilateral hydroureteronephroses more pronounced on the left side due to bladder outlet obstruction RADHA/CKD stage II UTI: Urine finding: UTI associated with Chronic Edwards Catheter present on admiss ion Acute bronchospasm(likely undiagnosed asthma) HTN Morbid obesity PLAN: Rocephin/flagyl per ID. Coag neg staph blood 07/14, likely contamination. ID agree. I spoke with dr Kiko Rodriguez regarding patient condition and plan of care. H e recommend to continue current treatment, keep PCN and edwards in place and to fo llow as outpt with his Urologist. Respiratory status is likely due to vascular congestion and possible underlying asthma componenet. BD. BNP elevated. Cardiology consult. Pain control Trend creat BP control Bowel regimen DVT prophylaxis PT/OT DVT proph Advance diet Most recent hemoglobin A1c level: NA Advance Care Planning discussed and documented; advance care plan or surrogate d ecision maker documented in the medical record: full code, . Pain Assessment Documented as Negative, No Follow-Up Plan Required Patient treated with a beta-lactam antibiotic as definitive therapy MSSA bactere kaia: NA Patients with Primary Headache Diagnosis and Imaging of the Head was Obtained: Francois Lezama MD [phone] EGEE TENDER * Jazmyne Lezama MD - 08/02/2019 1:13 PM SQUEEGEE TENDER CLS Progress Note Date of Service: 08/02/2019 13:13 Chief Complaint: Diverticulitis Hydroureteronephrosis SUBJECTIVE: s/p L PCN No CP Has wheezing, mild SOB No cough or fever. PHYSICAL EXAM: Vitals: 08/02/19 1030 08/02/19 1035 08/02/19 1104 08/02/19 1246 BP: 132/76 115/79 113/69 Pulse: 103 103 97 Resp: Temp: 37.6 C (99.6 F) TempSrc: Oral SpO2: 99% 98% 97% Weight: Height: O2 Sat: SpO2 readings for the past 24 hrs: SpO2 07/31/19 1315 98 % 07/31/19 1345 96 % 07/31/19 1415 98 % 07/31/19 1458 95 % 07/31/19 1939 98 % 07/31/19 2354 95 % 08/01/19 0402 98 % 08/01/19 0700 97 % 08/01/19 1100 96 % Intake/Output Summary (Last 24 hours) at 08/02/2019 1313 Last data filed at 08/02/2019 1100 Gross per 24 hour Intake 1100 ml Output 1050 ml Net 50 ml General: alert and oriented; no apparent distress HEENT: pupils equal, round; extraocular movements intact; oropharynx clear; mois t mucous membranes Lungs: clear to auscultation bilaterally, no crackles, no wheezes, cough is stro ng and effective Cardio: regular rate and rhythm, no murmurs, no gallops Abdomen: soft; non-tender; non-distended; normoactive bowel sounds Extremities: no cyanosis, clubbing or edema LABS/IMAGING - reviewed, pertinent results as below: Recent Results (from the past 48 hour(s)) BLOOD CULTURE SCREEN Collection Time: 07/31/19 1:40 PM Result Value Ref Range Blood Culture-Aerobic No growth at 24 hours No growth Blood Culture-Anaerobic No growth at 24 hours No growth BLOOD CULTURE SCREEN Collection Time: 07/31/19 1:55 PM Result Value Ref Range Blood Culture-Aerobic (AA) No growth Culture positive. See Blood Culture Workup for additional information. Blood Culture-Anaerobic Culture In Progress No growth BLOOD CULTURE WORKUP Collection Time: 07/31/19 1:55 PM Result Value Ref Range Gram stain Isolated from aerobic bottle Gram positive cocci BASIC METABOLIC PANEL (NA, K, CL, CO2, GLUCOSE, BUN, CREATININE, CA) Collection Time: 08/01/19 4:06 PM Result Value Ref Range NA 131 (L) 135 - 145 mmol/L K 4.2 3.5 - 5.0 mmol/L CL 96 (L) 98 - 108 mmol/L CO2 TOTAL 25 23 - 31 mmol/L AGAP 10 2 - 16 BUN 21 7 - 23 mg/dL GLUCOSE 116 (H) 70 - 110 mg/dL CREATININE 1.73 (H) 0.60 - 1.25 mg/dL CALCIUM 8.0 (L) 8.6 - 10.6 mg/dL eGFR Calculation (Non-) 39.4 mL/min/1.73m2 eGFR Calculation () 47.7 mL/min/1.73m2 PROTHROMBIN TIME / INR Collection Time: 08/01/19 4:06 PM Result Value Ref Range PROTIME PATIENT 15.1 (H) 10.1 - 12.6 Seconds INR 1.4 CBC WITH DIFFERENTIAL Collection Time: 08/01/19 4:07 PM Result Value Ref Range WBC 12.08 (H) 4.20 - 10.70 10*3/L RBC 3.13 (L) 4.26 - 5.52 10*6/L HGB 10.4 (L) 12.2 - 16.4 g/dL HCT 31.2 (L) 38.4 - 49.3 % MCV 99.7 (H) 81.7 - 95.6 fL MCH 33.2 (H) 26.1 - 32.7 pg MCHC 33.3 31.2 - 35.0 g/dL RDW-SD 52.2 (H) 38.5 - 51.6 fL RDW-CV 14.2 12.1 - 15.4 % PLT 137 (L) 150 - 328 10*3/L MPV 11.0 9.8 - 13.0 fL NRBC/100 WBC 0.0 0.0 - 10.0 /100 WBCs NRBC x10^3 <0.01 10*3/L GRAN MAT (NEUT) % 86.3 % IMM GRAN % 0.80 % LYMPH % 3.9 % MONO % 8.9 % EOS % 0.0 % BASO % 0.1 % GRAN MAT x10^3(ANC) 10.42 (H) 1.99 - 6.95 10*3/uL IMM GRAN x10^3 0.10 (H) 0.00 - 0.06 10*3/uL LYMPH x10^3 0.47 (L) 1.09 - 3.23 10*3/uL MONO x10^3 1.08 (H) 0.36 - 1.02 10*3/uL EOS x10^3 <0.03 (L) 0.06 - 0.53 10*3/uL BASO x10^3 <0.03 0.01 - 0.09 10*3/uL No final results containing an impression from the past 48 hours were found. CURRENT MEDICATIONS - reviewed. Current Facility-Administered Medications Medication Dose Route Frequency Last Rate Last Dose ipratropium-albuterol (DUONEB) 0.5 mg-3 mg(2.5 mg base)/3 mL nebulizer solut ion 3 mL 3 mL Inhalation QID 3 mL at 08/02/19 1246 piperacillin-tazobactam (ZOSYN) 3.375 g in NaCl 0.9% (NS) 100 mL MINI-BAG 3 .375 g IV Piggyback Q8H ABX 3.375 g at 08/02/19 1117 acetaminophen (TYLENOL) tablet 650 mg 650 mg Oral Q6HPRN amLODIPine (NORVASC) tablet 10 mg 10 mg Oral DAILY 10 mg at 08/01/19 0826 carvediloL (COREG) tablet 12.5 mg 12.5 mg Oral BID MEALS 12.5 mg at 08/01 1655 doxazosin (CARDURA) tablet 2 mg 2 mg Oral DAILY 2 mg at 08/01/19 0825 enoxaparin (LOVENOX) injection 40 mg 40 mg Subcutaneous DAILY 40 mg at 0826 HYDROcodone-acetaminophen (NORCO 5) 5-325 mg tablet 1 tablet 1 tablet Oral Q6HPRN 1 tablet at 08/02/19 1114 ondansetron (ZOFRAN (PF)) injection 4 mg 4 mg Slow IV Push Q6HPRN 4 mg at 07/31/19 204 pantoprazole (PROTONIX) EC tablet 40 mg 40 mg Oral DAILY 40 mg at 0 1114 ASSESSMENT/PLAN Kameron Crow is a 69 year old male admitted to the hospital with: Acute diverticulitis in the descending colon Bilateral hydroureteronephroses more pronounced on the left side due to bladder outlet obstruction RADHA/CKD stage II UTI: Urine finding: UTI associated with Chronic Edwards Catheter present on admiss ion Acute bronchospasm(likely undiagnosed asthma) HTN Morbid obesity PLAN: Broadened ABx to Zosyn Keep edwards S/p L PCN. Follow up with urology. Add systemic steroids, BD. CXR. Monitor respiratory status. D/c IVF Repeat labs, CBC, BMP, BNP. Pain control Trend creat BP control Bowel regimen DVT prophylaxis PT/OT DVT proph Advance diet Most recent hemoglobin A1c level: NA Advance Care Planning discussed and documented; advance care plan or surrogate d ecision maker documented in the medical record: full code, . Pain Assessment Documented as Negative, No Follow-Up Plan Required Patient treated with a beta-lactam antibiotic as definitive therapy MSSA bactere kaia: NA Patients with Primary Headache Diagnosis and Imaging of the Head was Obtained: Francois Lezama MD [phone] EGEE TENDER * Jazmyne Lezama MD - 08/01/2019 1:10 PM SQUEEGEE TENDER CLS Progress Note Date of Service: 08/01/2019 13:10 Chief Complaint: Diverticulitis Hydroureteronephrosis SUBJECTIVE: Abd pain No fever No CP No SOB PHYSICAL EXAM: Vitals: 07/31/19 2354 08/01/19 0402 08/01/19 0700 08/01/19 1100 BP: (!) 143/78 (!) 154/85 (!) 158/80 121/68 Pulse: 73 80 82 75 Resp: 18 Temp: 37.1 C (98.7 F) 37.2 C (98.9 F) 36.8 C (98.3 F) 37.1 C (98.7 F) TempSrc: Oral Oral Oral Oral SpO2: 95% 98% 97% 96% Weight: Height: O2 Sat: SpO2 readings for the past 24 hrs: SpO2 07/31/19 1315 98 % 07/31/19 1345 96 % 07/31/19 1415 98 % 07/31/19 1458 95 % 07/31/19 1939 98 % 07/31/19 2354 95 % 08/01/19 0402 98 % 08/01/19 0700 97 % 08/01/19 1100 96 % Intake/Output Summary (Last 24 hours) at 08/01/2019 1310 Last data filed at 08/01/2019 0402 Gross per 24 hour Intake 100 ml Output 600 ml Net -500 ml General: alert and oriented; no apparent distress HEENT: pupils equal, round; extraocular movements intact; oropharynx clear; mois t mucous membranes Lungs: clear to auscultation bilaterally, no crackles, no wheezes, cough is stro ng and effective Cardio: regular rate and rhythm, no murmurs, no gallops Abdomen: soft; non-tender; non-distended; normoactive bowel sounds Extremities: no cyanosis, clubbing or edema LABS/IMAGING - reviewed, pertinent results as below: Recent Results (from the past 48 hour(s)) Basic Metabolic Panel (NA, K, CL, CO2, GLUCOSE, BUN, CREATININE, CA) Collection Time: 07/31/19 11:46 AM Result Value Ref Range NA 134 (L) 135 - 145 mmol/L K 4.3 3.5 - 5.0 mmol/L CL 96 (L) 98 - 108 mmol/L CO2 TOTAL 28 23 - 31 mmol/L AGAP 10 2 - 16 BUN 20 7 - 23 mg/dL GLUCOSE 189 (H) 70 - 110 mg/dL CREATININE 1.32 (H) 0.60 - 1.25 mg/dL CALCIUM 8.7 8.6 - 10.6 mg/dL eGFR Calculation (Non-) 53.8 mL/min/1.73m2 eGFR Calculation () 65.2 mL/min/1.73m2 Hepatic Function Panel (ALB, T.PRO, BILI T, BU/BC, ALT, AST, ALK PHOS) Collection Time: 07/31/19 11:46 AM Result Value Ref Range TOTAL BILI 0.5 0.1 - 1.1 mg/dL BILI UNCON 0.5 0.1 - 1.1 mg/dL BILI CONJ 0.0 0.0 - 0.3 mg/dL T PROTEIN 6.7 6.3 - 8.2 g/dL ALBUMIN 3.9 3.5 - 5.0 g/dL ALK PHOS 56 34 - 122 U/L ALTv 18 5 - 50 U/L AST(SGOT) 19 13 - 40 U/L Lipase Serum Collection Time: 07/31/19 11:46 AM Result Value Ref Range LIPASE 170 0 - 220 U/L Troponin I Collection Time: 07/31/19 11:46 AM Result Value Ref Range TROPONIN I 0.003 <=0.034 ng/mL aPTT Collection Time: 07/31/19 11:46 AM Result Value Ref Range APTT Patient 28 26 - 36 Seconds Prothrombin Time (PT) / INR Collection Time: 07/31/19 11:46 AM Result Value Ref Range PROTIME PATIENT 11.6 10.1 - 12.6 Seconds INR 1.1 N-TERMINAL PRO-BNP Collection Time: 07/31/19 11:46 AM Result Value Ref Range NT-proBNP 395 (H) <=125 pg/mL CBC WITH DIFFERENTIAL Collection Time: 07/31/19 11:46 AM Result Value Ref Range WBC 9.57 4.20 - 10.70 10*3/L RBC 3.45 (L) 4.26 - 5.52 10*6/L HGB 11.1 (L) 12.2 - 16.4 g/dL HCT 33.4 (L) 38.4 - 49.3 % MCV 96.8 (H) 81.7 - 95.6 fL MCH 32.2 26.1 - 32.7 pg MCHC 33.2 31.2 - 35.0 g/dL RDW-SD 49.1 38.5 - 51.6 fL RDW-CV 13.8 12.1 - 15.4 % PLT 176 150 - 328 10*3/L MPV 10.2 9.8 - 13.0 fL NRBC/100 WBC 0.0 0.0 - 10.0 /100 WBCs NRBC x10^3 <0.01 10*3/L GRAN MAT (NEUT) % 87.8 % IMM GRAN % 0.40 % LYMPH % 4.5 % MONO % 7.2 % EOS % 0.0 % BASO % 0.1 % GRAN MAT x10^3(ANC) 8.40 (H) 1.99 - 6.95 10*3/uL IMM GRAN x10^3 0.04 0.00 - 0.06 10*3/uL LYMPH x10^3 0.43 (L) 1.09 - 3.23 10*3/uL MONO x10^3 0.69 0.36 - 1.02 10*3/uL EOS x10^3 <0.03 (L) 0.06 - 0.53 10*3/uL BASO x10^3 <0.03 0.01 - 0.09 10*3/uL Urinalysis Collection Time: 07/31/19 12:51 PM Result Value Ref Range APPEARANCE Cloudy (A) Clear COLOR Mer (A) Yellow PH 6.0 4.8 - 8.0 SP GRAVITY 1.015 1.003 - 1.030 GLU U QUAL 150 mg/dL (A) Normal BLOOD 3+ (A) Negative KETONES Negative Negative PROTEIN 100 mg/dL (A) Negative UROBILIN Normal Normal BILIRUBIN Negative Negative NITRITE Positive (A) Negative LEUK ORLIN 250/uL (A) Negative RBC/HPF >182 (H) 0 - 3 HPF WBC/HPF >182 (H) 0 - 5 HPF BACTERIA Moderate (A) Negative MUCOUS Slight (A) Negative LPF WBC CLUMPS 3 (H) <=1 HPF BLOOD CULTURE SCREEN Collection Time: 07/31/19 1:40 PM Result Value Ref Range Blood Culture-Aerobic Culture In Progress No growth Blood Culture-Anaerobic Culture In Progress No growth BLOOD CULTURE SCREEN Collection Time: 07/31/19 1:55 PM Result Value Ref Range Blood Culture-Aerobic Culture In Progress No growth Blood Culture-Anaerobic Culture In Progress No growth Chest 1 View Result Date: 07/31/2019 FINDINGS/IMPRESSION: Mild central pulmonary vascular congestion without overt pu lmonary edema. No interval parenchymal consolidation, pneumothorax, or appreciab le pleural effusion. The cardiomediastinal silhouette is normal in size. Finding s overall are similar to the previous study. Ct Abdomen Pelvis W Contrast Result Date: 07/31/2019 Severe left hydronephrosis and hydroureter with abrupt decompression of the left ureter along its mid portion. Mild proximal right hydroureter with no significa nt right hydronephrosis and abrupt decompression of the ureter proximally. Exten sive circumferential bladder wall thickening. The prostate is markedly enlarged. Findings may be related to bladder outlet obstruction from prostamegaly. Multif ocal transitional cell carcinoma is also possible especially given the abrupt de compression of the ureters bilaterally. Acute uncomplicated diverticulitis invol ving the descending colon. No evidence of abscess formation or free intraperiton eal air. Minimal focal stranding is also seen appearing to connect the sigmoid c olon to thickened bladder wall. This could be reactive changes involving the cole dder, represent a second focus of early/mild focus of acute diverticulitis, and also raises the possibility of an early colovesical fistula. Focal area of incre ased hypodensity uncinate process appears to be related to focal prominence of t he pancreatic duct. This appears grossly similar to the previous CT within the l imits of comparison. The pancreas itself otherwise appears unremarkable. CURRENT MEDICATIONS - reviewed. Current Facility-Administered Medications Medication Dose Route Frequency Last Rate Last Dose piperacillin-tazobactam (ZOSYN) 3.375 g in NaCl 0.9% (NS) 100 mL MINI-BAG 3 .375 g IV Piggyback Q8H ABX 3.375 g at 08/01/19 1225 acetaminophen (TYLENOL) tablet 650 mg 650 mg Oral Q6HPRN amLODIPine (NORVASC) tablet 10 mg 10 mg Oral DAILY 10 mg at 08/01/19 0826 carvediloL (COREG) tablet 12.5 mg 12.5 mg Oral BID MEALS 12.5 mg at 08/01 0826 doxazosin (CARDURA) tablet 2 mg 2 mg Oral DAILY 2 mg at 08/01/19 0825 enoxaparin (LOVENOX) injection 40 mg 40 mg Subcutaneous DAILY 40 mg at 0826 FENTanyl PF (SUBLIMAZE (PF)) injection 50 mcg 50 mcg Slow IV Push Q3HPRN x 24 Hours 50 mcg at 08/01/19 1239 HYDROcodone-acetaminophen (NORCO 5) 5-325 mg tablet 1 tablet 1 tablet Oral Q6HPRN 1 tablet at 08/01/19 1016 NaCl 0.9% (NS) IV infusion 1,000 mL 1,000 mL IV Infusion CONTINUOUS 100 mL/ hr at 08/01/19 0553 1,000 mL at 08/01/19 0553 ondansetron (ZOFRAN (PF)) injection 4 mg 4 mg Slow IV Push Q6HPRN 4 mg at 07/31/192046 pantoprazole (PROTONIX) EC tablet 40 mg 40 mg Oral DAILY 40 mg at 0 0826 ASSESSMENT/PLAN Kameron Crow is a 69 year old male admitted to the hospital with: Acute diverticulitis in the descending colon Bilateral hydroureteronephroses more pronounced on the left side due to bladder outlet obstruction CKD stage II HTN Morbid obesity PLAN: Broaden ABx to Zosyn Keep edwards Urology consulted. IR L PCN per urology, IR consult placed. Pain control Trend creat Pain Mx BP control Bowel regimen DVT prophylaxis PT/OT Most recent hemoglobin A1c level: NA Advance Care Planning discussed and documented; advance care plan or surrogate d ecision maker documented in the medical record: full code, . Pain Assessment Documented as Negative, No Follow-Up Plan Required Patient treated with a beta-lactam antibiotic as definitive therapy MSSA bactere kaia: NA Patients with Primary Headache Diagnosis and Imaging of the Head was Obtained: Francois Lezama MD [phone] EGEE TENDER * Danae Castaneda RN - 08/01/2019 12:02 PM SQUEEGEE TENDER Care Management Social Functional Assessment Patient Name: Kameron Crow Age: [age] year old Sex: male Patient's Previous Admission Date at [facility]: 06/24/2019 Current diagnosis and co-morbidities: Diverticulitis Readmission Questions: Was patient discharged from any acute care hospital within the last 30 days: No Social Functional Assessment: Primary language spoken/preferred: Burmese Mental Status: Alert & Oriented to Person,Place & Time Information given by: Self Patient's support system: Spouse Name and number of support system: RISHI COKER ) [phone] 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: Self;Same as Support System MPOA: No Living Arrangement: Home Address of living arrangement : [address] [place] [id number] Persons living in home: Self;Same as support system Barriers to returning home: None Baseline functional status- ambulation: Independent Functional status-baseline personal care: Independent Baseline functional status- driving: Independent Baseline functional status- grocery shopping: Independent Functional status-baseline housekeeping: Independent Functional status-baseline meal prep: Independent Current functional status same as prior: Yes Do you have a PCP?: Yes Name of PCP: Tien [facility] Agency: No Provider Services: No DME Company: No Equipment: None Hemodialysis: No Community resources utilized: None Funding Resources: Medicare Replacement Medicare Replacement name and information: Leigha Mittal Prescription coverage plan: [facility]: Other Other pharmacy: [phone] (Phone) Anticipated services prior to disharge: Continue Medical Eval;Lab Values;Consult Expected mode of discharge transportation: Same as support system Additional Recommendations for DC: Patient has secured a urologist - Dr. Martinez in [place] Additional info required for discharge planning: Pending medical evaluation Recommended discharge plan: Home SFA Complete: Social Functional Assessment complete: Yes Alcohol Use Screening (AUDIT-C) How often do you have a drink containing alcohol?: 2 to 4 times a month SCORE: 2 How many drinks containing alcohol do you have on a typical day when you are dri nking?: 1 or 2 drinks How often do you have six or more drinks on one occasion?: Never Total Score (AUDIT-C): 2 Did patient elect to have resources provided: No Role of Care Management explained. Danae Castaneda RN, BSN, ACM-RN Bid Writer [email or web address] EGEE TENDER documented in this encounter Plan of Treatment Care Team Description Date Type Specialty Kiko Pardo DO [address] [place] [address] [phone] 09/27/2019 Appointment Radiology Date/Time Name Type Priority Associated Diagnoses 07/31/2019 1:40 PM SQUEEGEE TENDER BLOOD CULTURE SCREEN LAB STAT Lower abdominal pain Order Schedule Name Type Priority Associated Diagnoses 4 Occurrences starting 08/02/2019 until 01/30/2021 IR EXCHANGE NEPHROSTOMY IMAGING Routine Hydronephrosis with CATHETER ureteral stricture, not elsewhere classified RADHA (acute kidney injury) EVERY 24 HOURS (START TIME ADJUSTABLE) for 7 Days starting 08/05/2019 until 08/11/2019, 1 completed RENAL PANEL LAB Routine Health Maintenance Due Date Last Done Comments HEPATITIS C (HCV) SCREEN 1950 DTaP,Tdap,and Td Vaccines 1961 (1 - Tdap) COLONOSCOPY 2000 Zoster Recombinant 2000 Vaccine (SHINGRIX) (1 of 2) Medicare Wellness Visit 2015 PNEUMOCOCCAL VACCINES 65+ 2015 (1 of 2 - PCV13) INFLUENZA VACCINE (#1) 2019 03/31/2018 documented as of this encounter Procedures Comments Procedure Name Priority Date/Time Associated Diagnosis CBC WITH DIFFERENTIAL Routine 08/05/2019 11:16 AM SQUEEGEE TENDER CBC WITH DIFFERENTIAL Routine 08/05/2019 11:16 AM SQUEEGEE TENDER RENAL PANEL Routine 08/05/2019 4:57 AM SQUEEGEE TENDER XR CHEST 1 VW Routine 08/04/2019 RADHA (acute kidney injury) 11:45 AM SQUEEGEE TENDER Cough CBC WITH DIFFERENTIAL Routine 08/04/2019 4:33 AM SQUEEGEE TENDER CBC WITH DIFFERENTIAL Routine 08/04/2019 4:33 AM SQUEEGEE TENDER BASIC METABOLIC PANEL Routine 08/04/2019 (NA, K, CL, CO2, GLUCOSE, 4:33 AM SQUEEGEE TENDER BUN, CREATININE, CA) CBC WITH DIFFERENTIAL Routine 08/03/2019 12:24 PM SQUEEGEE TENDER CBC WITH DIFFERENTIAL Routine 08/03/2019 12:24 PM SQUEEGEE TENDER BASIC METABOLIC PANEL Routine 08/03/2019 (NA, K, CL, CO2, GLUCOSE, 12:24 PM SQUEEGEE TENDER BUN, CREATININE, CA) XR CHEST 1 VW IRVING 08/02/2019 Acute bronchospasm 2:17 PM SQUEEGEE TENDER CBC WITH DIFFERENTIAL Routine 08/02/2019 2:04 PM SQUEEGEE TENDER N-TERMINAL PRO-BNP Routine 08/02/2019 2:04 PM SQUEEGEE TENDER CBC WITH DIFFERENTIAL Routine 08/02/2019 2:04 PM SQUEEGEE TENDER BASIC METABOLIC PANEL Routine 08/02/2019 (NA, K, CL, CO2, GLUCOSE, 2:04 PM SQUEEGEE TENDER BUN, CREATININE, CA) IR PLACEMENT NEPHRO STAT 08/02/2019 Hydronephrosis with CATHETER PERCUTANEOUS 10:30 AM SQUEEGEE TENDER ureteral stricture, not INCLUDES DIAGNOSTIC elsewhere classified NEPHROGRAM EXTRA TUBE URINE CULTURE Routine 08/02/2019 10:18 AM SQUEEGEE TENDER URINE CULTURE STAT 08/02/2019 Lower abdominal pain 10:18 AM SQUEEGEE TENDER CBC WITH DIFFERENTIAL Routine 08/01/2019 4:07 PM SQUEEGEE TENDER PROTHROMBIN TIME / INR Routine 08/01/2019 4:06 PM SQUEEGEE TENDER BASIC METABOLIC PANEL Routine 08/01/2019 (NA, K, CL, CO2, GLUCOSE, 4:06 PM SQUEEGEE TENDER BUN, CREATININE, CA) HOSPITAL ADMISSION MISC - Routine 08/01/2019 MEDICARE PATIENTS RIGHTS 12:01 AM SQUEEGEE TENDER IMPORTANT MESSAGE GRAM POSITIVE BLOOD Routine 07/31/2019 Lower abdominal pain PATHOGENS DNA 1:55 PM SQUEEGEE TENDER PROBE-AEROBIC BLOOD CULTURE WORKUP STAT 07/31/2019 Lower abdominal pain 1:55 PM SQUEEGEE TENDER BLOOD CULTURE SCREEN STAT 07/31/2019 Lower abdominal pain 1:55 PM SQUEEGEE TENDER BLOOD CULTURE SCREEN STAT 07/31/2019 Lower abdominal pain 1:40 PM SQUEEGEE TENDER URINE CULTURE STAT 07/31/2019 Lower abdominal pain 12:51 PM SQUEEGEE TENDER URINALYSIS STAT 07/31/2019 Lower abdominal pain 12:[address] ABDOMEN PELVIS W STAT 07/31/2019 Lower abdominal pain CONTRAST 12:42 PM SQUEEGEE TENDER XR CHEST 1 VW STAT 07/31/2019 Lower abdominal pain 12:23 PM SQUEEGEE TENDER EKG-12 LEAD Routine 07/31/2019 12:09 PM SQUEEGEE TENDER CBC WITH DIFFERENTIAL STAT 07/31/2019 Lower abdominal pain 11:46 AM SQUEEGEE TENDER N-TERMINAL PRO-BNP STAT 07/31/2019 Lower abdominal pain 11:46 AM SQUEEGEE TENDER ACTIVATED PARTIAL STAT 07/31/2019 Lower abdominal pain THRMPLAS MAHESH 11:46 AM SQUEEGEE TENDER PROTHROMBIN TIME / INR STAT 07/31/2019 Lower abdominal pain 11:46 AM SQUEEGEE TENDER CBC WITH DIFFERENTIAL Routine 07/31/2019 Lower abdominal pain 11:46 AM SQUEEGEE TENDER BASIC METABOLIC PANEL STAT 07/31/2019 Lower abdominal pain (NA, K, CL, CO2, GLUCOSE, 11:46 AM SQUEEGEE TENDER BUN, CREATININE, CA) HEPATIC FUNCTION PANEL STAT 07/31/2019 Lower abdominal pain (10489) (ALB,T.PRO,BILI 11:46 AM SQUEEGEE TENDER T,BU/BC,ALT,AST,ALK PHOS) TROPONIN I STAT 07/31/2019 Lower abdominal pain 11:46 AM SQUEEGEE TENDER LIPASE STAT 07/31/2019 Lower abdominal pain 11:46 AM SQUEEGEE TENDER EKG-12 LEAD STAT 07/31/2019 11:45 AM SQUEEGEE TENDER documented in this encounter Results * CBC WITH DIFFERENTIAL (08/05/2019 11:16 AM SQUEEGEE TENDER) WBC 9.63 4.20 - 10.70 [facility] 10*3/L [facility] RBC 3.40 (L) 4.26 - 5.52 10*6/L [facility] HGB 11.1 (L) 12.2 - 16.4 g/dL [facility] HCT 34.2 (L) 38.4 - 49.3 % [facility] MCV 100.6 (H) 81.7 - 95.6 fL [facility] MCH 32.6 26.1 - 32.7 pg [facility] MCHC 32.5 31.2 - 35.0 g/dL [facility] RDW-SD 53.3 (H) 38.5 - 51.6 fL [facility] RDW-CV 14.4 12.1 - 15.4 % [facility] PLT 248 150 - 328 10*3/L [facility] MPV 9.6 (L) 9.8 - 13.0 fL [facility] NRBC/100 WBC 0.0 0.0 - 10.0 /100 WBCs [facility] NRBC x10^3 <0.01 10*3/L [facility] SEG % 78 (H) 33 - 76 % [facility] BAND % 4 (H) 0 - 1 % [facility] LYMPH % 10 (L) 14 - 54 % [facility] MONO % 6 (H) 0 - 4 % [facility] EOS % 2 0 - 3 % [facility] ANC 7.86 (H) 1.99 - 6.95 10*3/uL [facility] Specimen Blood - ARM, LEFT Performing Organization Address City/State/Zipcode Phone Number [facility] CLIA: [id number], [address] [place] [address] [facility] * RENAL PANEL (08/05/2019 4:57 AM SQUEEGEE TENDER) ALBUMIN 2.9 (L) 3.5 - 5.0 g/dL [facility] CALCIUM 7.6 (L) 8.6 - 10.6 mg/dL [facility] CO2 TOTAL 25 23 - 31 mmol/L [facility] CREATININE 1.51 (H) 0.60 - 1.25 mg/dL [facility] GLUCOSE 116 (H) 70 - 110 mg/dL [facility] K 3.6 3.5 - 5.0 mmol/L [facility] NA 139 135 - 145 mmol/L [facility] BUN 32 (H) 7 - 23 mg/dL [facility] PHOSPHORUS 3.3 2.5 - 5.0 mg/dL [facility] eGFR 46.0 mL/min/1.73m2 [facility] Calculation [facility] ([facility] [place]) eGFR 55.8 mL/min/1.73m2 [facility] Calculation [facility] ([facility] [place]) Specimen Blood - ARM, LEFT Narrative Performed At Association of Glomerular Filtration Rate (GFR) and Staging of Kidney Disease* [facility] + + + + [facility] | GFR (mL/min/1.73 m2) | With Kidney Damage | Without Kidney Damage CAMPUS + + + + | >90 | Stage one | Normal + + + + | 60-89 | Stage two | Decreased GFR + + + + | 30-59 | Stage three | Stage three + + + + | 15-29 | Stage four | Stage four + + + + | <15 (or dialysis) | Stage five | Stage five + + + + *Each stage assumes the associated GFR level has been in effect for at least three months. Stages 1 to 5, with or without kidney disease, indicate chronic kidney disease. Notes: Determination of stages one and two (with eGFR >59mL/min/1.73 m2) requires estimation of kidney damage for at least three months as defined by structural or functional abnormalities of the kidney, manifested by either: Pathological abnormalities or Markers of kidney damage (including abnormalities in the composition of the blood or urine or abnormalities in imaging tests). Performing Organization Address City/State/Zipcode Phone Number [facility] CLIA: [id number], [address] [place] [address] [facility] * XR CHEST 1 VW (08/04/2019 11:45 AM SQUEEGEE TENDER) Specimen Narrative Performed At CHEST ONE VIEW PACS/VR/DOSE HISTORY: Cough TECHNIQUE: AP view of the chest is obtained. COMPARISON: 08/02/2019 FINDINGS: Since the previous examination linear lung markings are seen in the right lower lobe. No focal consolidation is identified.. Heart size and mediastinal silhouette are normal. Blunting of the right costophrenic angle is seen. No pneumothorax is noted. CONCLUSIONS: 1. Right lower lobe subsegmental atelectasis and small right pleural effusion Procedure Note [facility], Radiant Results Inft User - 08/04/2019 11:52 AM SQUEEGEE TENDER CHEST ONE VIEW HISTORY: Cough TECHNIQUE: AP view of the chest is obtained. COMPARISON: 08/02/2019 FINDINGS: Since the previous examination linear lung markings are seen in the right lower lobe. No focal consolidation is identified.. Heart size and mediastinal silhouette are normal. Blunting of the right costophrenic angle is seen. No pneumothorax is noted. CONCLUSIONS: 1. Right lower lobe subsegmental atelectasis and small right pleural effusion Performing Organization Address City/State/Zipcode Phone Number PACS/VR/DOSE * CBC WITH DIFFERENTIAL (08/04/2019 4:33 AM SQUEEGEE TENDER) WBC 10.44 4.20 - 10.70 [facility] 10*3/L [facility] RBC 2.83 (L) 4.26 - 5.52 10*6/L [facility] HGB 9.4 (L) 12.2 - 16.4 g/dL [facility] HCT 28.2 (L) 38.4 - 49.3 % [facility] MCV 99.6 (H) 81.7 - 95.6 fL [facility] MCH 33.2 (H) 26.1 - 32.7 pg [facility] MCHC 33.3 31.2 - 35.0 g/dL [facility] RDW-SD 52.2 (H) 38.5 - 51.6 fL [facility] RDW-CV 14.1 12.1 - 15.4 % [facility] PLT 196 150 - 328 10*3/L [facility] MPV 10.2 9.8 - 13.0 fL [facility] NRBC/100 WBC 0.0 0.0 - 10.0 /100 WBCs [facility] NRBC x10^3 <0.01 10*3/L [facility] GRAN MAT (NEUT) 85.9 % [facility] % [facility] IMM GRAN % 0.70 % [facility] LYMPH % 6.0 % [facility] MONO % 7.2 % [facility] EOS % 0.0 % [facility] BASO % 0.2 % [facility] GRAN MAT 8.97 (H) 1.99 - 6.95 10*3/uL [facility] x10^3(ANC) [facility] IMM GRAN x10^3 0.07 (H) 0.00 - 0.06 10*3/uL [facility] LYMPH x10^3 0.63 (L) 1.09 - 3.23 10*3/uL [facility] MONO x10^3 0.75 0.36 - 1.02 10*3/uL [facility] EOS x10^3 <0.03 (L) 0.06 - 0.53 10*3/uL [facility] BASO x10^3 <0.03 0.01 - 0.09 10*3/uL [facility] Specimen Blood - HAND, RIGHT Performing Organization Address City/State/Zipcode Phone Number [facility] CLIA: [id number], [address] [place] [address] [facility] * BASIC METABOLIC PANEL (NA, K, CL, CO2, GLUCOSE, BUN, CREATININE, CA) (08/04/2019 4:33 AM SQUEEGEE TENDER) NA 138 135 - 145 mmol/L [facility] K 3.7 3.5 - 5.0 mmol/L [facility] CL 105 98 - 108 mmol/L [facility] CO2 TOTAL 24 23 - 31 mmol/L [facility] AGAP 9 2 - 16 [facility] BUN 37 (H) 7 - 23 mg/dL [facility] GLUCOSE 128 (H) 70 - 110 mg/dL [facility] CREATININE 1.64 (H) 0.60 - 1.25 mg/dL [facility] CALCIUM 8.2 (L) 8.6 - 10.6 mg/dL [facility] eGFR 41.9 mL/min/1.73m2 [facility] Calculation [facility] ([facility] [place]) eGFR 50.7 mL/min/1.73m2 [facility] Calculation [facility] ([facility] [place]) Specimen Blood - HAND, RIGHT Narrative Performed At Association of Glomerular Filtration Rate (GFR) and Staging of Kidney Disease* [facility] + + + + [facility] | GFR (mL/min/1.73 m2) | With Kidney Damage | Without Kidney Damage CAMPUS + + + + | >90 | Stage one | Normal + + + + | 60-89 | Stage two | Decreased GFR + + + + | 30-59 | Stage three | Stage three + + + + | 15-29 | Stage four | Stage four + + + + | <15 (or dialysis) | Stage five | Stage five + + + + *Each stage assumes the associated GFR level has been in effect for at least three months. Stages 1 to 5, with or without kidney disease, indicate chronic kidney disease. Notes: Determination of stages one and two (with eGFR >59mL/min/1.73 m2) requires estimation of kidney damage for at least three months as defined by structural or functional abnormalities of the kidney, manifested by either: Pathological abnormalities or Markers of kidney damage (including abnormalities in the composition of the blood or urine or abnormalities in imaging tests). Performing Organization Address City/State/Zipcode Phone Number [facility] CLIA: [id number], [address] [place] [address] [facility] * CBC WITH DIFFERENTIAL (08/03/2019 12:24 PM SQUEEGEE TENDER) WBC 11.63 (H) 4.20 - 10.70 [facility] 10*3/L [facility] RBC 2.91 (L) 4.26 - 5.52 10*6/L [facility] HGB 9.7 (L) 12.2 - 16.4 g/dL [facility] HCT 29.1 (L) 38.4 - 49.3 % [facility] MCV 100.0 (H) 81.7 - 95.6 fL [facility] MCH 33.3 (H) 26.1 - 32.7 pg [facility] MCHC 33.3 31.2 - 35.0 g/dL [facility] RDW-SD 51.7 (H) 38.5 - 51.6 fL [facility] RDW-CV 14.0 12.1 - 15.4 % [facility] PLT 194 150 - 328 10*3/L [facility] MPV 10.1 9.8 - 13.0 fL [facility] NRBC/100 WBC 0.0 0.0 - 10.0 /100 WBCs [facility] NRBC x10^3 <0.01 10*3/L [facility] GRAN MAT (NEUT) 89.9 % [facility] % [facility] IMM GRAN % 0.90 % [facility] LYMPH % 2.6 % [facility] MONO % 6.4 % [facility] EOS % 0.0 % [facility] BASO % 0.2 % [facility] GRAN MAT 10.45 (H) 1.99 - 6.95 10*3/uL [facility] x10^3(ANC) [facility] IMM GRAN x10^3 0.11 (H) 0.00 - 0.06 10*3/uL [facility] LYMPH x10^3 0.30 (L) 1.09 - 3.23 10*3/uL [facility] MONO x10^3 0.75 0.36 - 1.02 10*3/uL [facility] EOS x10^3 <0.03 (L) 0.06 - 0.53 10*3/uL [facility] BASO x10^3 <0.03 0.01 - 0.09 10*3/uL [facility] BANDS Increased (A) [facility] Specimen Blood - HAND, RIGHT Performing Organization Address City/State/Zipcode Phone Number [facility] CLIA: [id number], [address] [place] [address] [facility] * BASIC METABOLIC PANEL (NA, K, CL, CO2, GLUCOSE, BUN, CREATININE, CA) (08/03/2019 12:24 PM SQUEEGEE TENDER) NA 137 135 - 145 mmol/L [facility] K 3.8 3.5 - 5.0 mmol/L [facility] CL 101 98 - 108 mmol/L [facility] CO2 TOTAL 26 23 - 31 mmol/L [facility] AGAP 10 2 - 16 [facility] BUN 34 (H) 7 - 23 mg/dL [facility] GLUCOSE 119 (H) 70 - 110 mg/dL [facility] CREATININE 1.97 (H) 0.60 - 1.25 mg/dL [facility] CALCIUM 8.5 (L) 8.6 - 10.6 mg/dL [facility] eGFR 33.9 mL/min/1.73m2 [facility] Calculation [facility] ([facility] [place]) eGFR 41.1 mL/min/1.73m2 [facility] Calculation [facility] ([facility] [place]) Specimen Blood - HAND, RIGHT Narrative Performed At Association of Glomerular Filtration Rate (GFR) and Staging of Kidney Disease* [facility] + + + + [facility] | GFR (mL/min/1.73 m2) | With Kidney Damage | Without Kidney Damage CAMPUS + + + + | >90 | Stage one | Normal + + + + | 60-89 | Stage two | Decreased GFR + + + + | 30-59 | Stage three | Stage three + + + + | 15-29 | Stage four | Stage four + + + + | <15 (or dialysis) | Stage five | Stage five + + + + *Each stage assumes the associated GFR level has been in effect for at least three months. Stages 1 to 5, with or without kidney disease, indicate chronic kidney disease. Notes: Determination of stages one and two (with eGFR >59mL/min/1.73 m2) requires estimation of kidney damage for at least three months as defined by structural or functional abnormalities of the kidney, manifested by either: Pathological abnormalities or Markers of kidney damage (including abnormalities in the composition of the blood or urine or abnormalities in imaging tests). Performing Organization Address [facility]/Zipcode Phone Number [facility] CLIA: [id number], [address] [place] [address] [facility] * XR CHEST 1 VW (08/02/2019 2:17 PM SQUEEGEE TENDER) Specimen Narrative Performed At CHEST ONE VIEW PACS/VR/DOSE HISTORY: Dyspnea TECHNIQUE: AP view of the chest is obtained. COMPARISON: [id number] FINDINGS: Lungs are clear. Heart size and mediastinal silhouette are normal. The aorta is slightly tortuous. No pleural effusion or pneumothorax is seen. CONCLUSIONS: No acute cardiopulmonary disease. Procedure Note [facility], Radiant Results Inft User - 08/02/2019 2:46 PM SQUEEGEE TENDER CHEST ONE VIEW HISTORY: Dyspnea TECHNIQUE: AP view of the chest is obtained. COMPARISON: [id number] FINDINGS: Lungs are clear. Heart size and mediastinal silhouette are normal. The aorta is slightly tortuous. No pleural effusion or pneumothorax is seen. CONCLUSIONS: No acute cardiopulmonary disease. Performing Organization Address [facility]/Zipcode Phone Number PACS/VR/DOSE * CBC WITH DIFFERENTIAL (08/02/2019 2:04 PM SQUEEGEE TENDER) WBC 8.48 4.20 - 10.70 [facility] 10*3/L [facility] RBC 2.72 (L) 4.26 - 5.52 10*6/L [facility] HGB 8.8 (L) 12.2 - 16.4 g/dL [facility] HCT 27.8 (L) 38.4 - 49.3 % [facility] MCV 102.2 (H) 81.7 - 95.6 fL [facility] MCH 32.4 26.1 - 32.7 pg [facility] MCHC 31.7 31.2 - 35.0 g/dL [facility] RDW-SD 53.2 (H) 38.5 - 51.6 fL [facility] RDW-CV 14.3 12.1 - 15.4 % [facility] PLT 131 (L) 150 - 328 10*3/L [facility] MPV 10.5 9.8 - 13.0 fL [facility] NRBC/100 WBC 0.0 0.0 - 10.0 /100 WBCs [facility] NRBC x10^3 <0.01 10*3/L [facility] GRAN MAT (NEUT) 92.0 % [facility] % [facility] IMM GRAN % 0.60 % [facility] LYMPH % 2.8 % [facility] MONO % 4.5 % [facility] EOS % 0.0 % [facility] BASO % 0.1 % [facility] GRAN MAT 7.80 (H) 1.99 - 6.95 10*3/uL [facility] x10^3(ANC) [facility] IMM GRAN x10^3 0.05 0.00 - 0.06 10*3/uL [facility] LYMPH x10^3 0.24 (L) 1.09 - 3.23 10*3/uL [facility] MONO x10^3 0.38 0.36 - 1.02 10*3/uL [facility] EOS x10^3 <0.03 (L) 0.06 - 0.53 10*3/uL [facility] BASO x10^3 <0.03 0.01 - 0.09 10*3/uL [facility] BANDS Increased (A) [facility] Specimen Blood - ARM, LEFT Performing Organization Address City/State/Zipcode Phone Number [facility] CLIA: [id number], [address] [place] [address] [facility] * N-TERMINAL PRO-BNP (08/02/2019 2:04 PM SQUEEGEE TENDER) NT-proBNP 1,950 (H) <=125 pg/mL [facility] Specimen Blood - ARM, LEFT Narrative Performed At Biotin has been reported to cause a negative bias, interpret results relative to [facility] patient's use of biotin. [facility] Performing Organization Address City/State/Zipcode Phone Number [facility] CLIA: [id number], [address] [place] [address] [facility] * BASIC METABOLIC PANEL (NA, K, CL, CO2, GLUCOSE, BUN, CREATININE, CA) (08/02/2019 2:04 PM SQUEEGEE TENDER) NA 131 (L) 135 - 145 mmol/L [facility] K 4.0 3.5 - 5.0 mmol/L [facility] CL 96 (L) 98 - 108 mmol/L [facility] CO2 TOTAL 25 23 - 31 mmol/L [facility] AGAP 10 2 - 16 [facility] BUN 25 (H) 7 - 23 mg/dL [facility] GLUCOSE 162 (H) 70 - 110 mg/dL [facility] CREATININE 2.08 (H) 0.60 - 1.25 mg/dL [facility] CALCIUM 7.6 (L) 8.6 - 10.6 mg/dL [facility] eGFR 31.8 mL/min/1.73m2 [facility] Calculation [facility] ([facility] [place]) eGFR 38.6 mL/min/1.73m2 [facility] Calculation [facility] ([facility] [place]) Specimen Blood - ARM, LEFT Narrative Performed At Association of Glomerular Filtration Rate (GFR) and Staging of Kidney Disease* [facility] + + + + [facility] | GFR (mL/min/1.73 m2) | With Kidney Damage | Without Kidney Damage CAMPUS + + + + | >90 | Stage one | Normal + + + + | 60-89 | Stage two | Decreased GFR + + + + | 30-59 | Stage three | Stage three + + + + | 15-29 | Stage four | Stage four + + + + | <15 (or dialysis) | Stage five | Stage five + + + + *Each stage assumes the associated GFR level has been in effect for at least three months. Stages 1 to 5, with or without kidney disease, indicate chronic kidney disease. Notes: Determination of stages one and two (with eGFR >59mL/min/1.73 m2) requires estimation of kidney damage for at least three months as defined by structural or functional abnormalities of the kidney, manifested by either: Pathological abnormalities or Markers of kidney damage (including abnormalities in the composition of the blood or urine or abnormalities in imaging tests). Performing Organization Address City/State/Zipcode Phone Number [facility] CLIA: [id number], [address] [place] [address] [facility] * IR PLACEMENT NEPHRO CATHETER PERCUTANEOUS INCLUDES DIAGNOSTIC NEPHROGRAM (08/02/2019 10:30 AM SQUEEGEE TENDER) Specimen Impressions Performed At Technically successful percutaneous left nephrostomy. PACS/VR/DOSE PLAN: Follow-up cultures and nephrostomy tube output. If the patient retains the nephrostomy tube after the urology procedure, please schedule the patient for a nephrostomy tube exchange in 8-10 weeks. Narrative Performed At EXAMINATION: LEFT PERCUTANEOUS NEPHROSTOMY PACS/VR/DOSE HISTORY/INDICATION: urgent L PCN placement, severe hydronephrosis ATTENDING PRESENCE: As the attending radiologist, I was present in the room during the entire procedure. SEDATION: Moderate sedation was administered under the attending physician's direction and continuous monitoring by a trained nurse specialist who was independent from those actually performing the procedure. Total monitored sedation time is documented in Epic. TECHNIQUE/FINDINGS: The risks, benefits and alternatives were discussed and informed consent was obtained. Prior to beginning the procedure, Dwight Protocol was performed to confirm the patient's identity and the planned procedure. Maximum sterile barriers including cap, mask, hand hygiene, sterile gloves, sterile gown, large sterile drape and cutaneous antisepsis were used. Initial ultrasound imaging was done to localize the left kidney as well as to assess the collecting system and identify a possible calyx for initial access. The overlying skin was then prepped and draped in the usual sterile manner and 1 percent lidocaine was used to achieve local anesthesia. An Accustick II set was then used to access the left renal collecting system under real-time ultrasound guidance with appropriate needle tip positioning documented by the aspiration of urine and by fluoroscopy following the injection of contrast. A guidewire was passed into the collecting system and the tract was dilated before placing a 10 Fr pigtail nephrostomy tube. The retaining loop was formed and the catheter was secured to the skin with a single stitch. The catheter was then connected to gravity drainage. A urine specimen was collected for appropriate laboratory testing. A sterile dressing was applied. ESTIMATED BLOOD LOSS: Minimal. CONDITION: Stable. DISCHARGED TO: Patient care division. FINDINGS: Images during the procedure demonstrate severe hydronephrosis. Limited contrast injection demonstrated severe hydronephrosis and hydroureter. The urine appeared as cloudy yellow/white fluid. Final fluoroscopic spot images demonstrated left catheter well positioned within the renal pelvis. Procedure Note [facility], Radiant Results Inft User - 08/04/2019 4:01 PM SQUEEGEE TENDER EXAMINATION: LEFT PERCUTANEOUS NEPHROSTOMY HISTORY/INDICATION: urgent L PCN placement, severe hydronephrosis ATTENDING PRESENCE: As the attending radiologist, I was present in the room during the entire procedure. SEDATION: Moderate sedation was administered under the attending physician's direction and continuous monitoring by a trained nurse specialist who was independent from those actually performing the procedure. Total monitored sedation time is documented in Epic. TECHNIQUE/FINDINGS: The risks, benefits and alternatives were discussed and informed consent was obtained. Prior to beginning the procedure, Dwight Protocol was performed to confirm the patient's identity and the planned procedure. Maximum sterile barriers including cap, mask, hand hygiene, sterile gloves, sterile gown, large sterile drape and cutaneous antisepsis were used. Initial ultrasound imaging was done to localize the left kidney as well as to assess the collecting system and identify a possible calyx for initial access. The overlying skin was then prepped and draped in the usual sterile manner and 1 percent lidocaine was used to achieve local anesthesia. An Accustick II set was then used to access the left renal collecting system under real-time ultrasound guidance with appropriate needle tip positioning documented by the aspiration of urine and by fluoroscopy following the injection of contrast. A guidewire was passed into the collecting system and the tract was dilated before placing a 10 Fr pigtail nephrostomy tube. The retaining loop was formed and the catheter was secured to the skin with a single stitch. The catheter was then connected to gravity drainage. A urine specimen was collected for appropriate laboratory testing. A sterile dressing was applied. ESTIMATED BLOOD LOSS: Minimal. CONDITION: Stable. DISCHARGED TO: Patient care division. FINDINGS: Images during the procedure demonstrate severe hydronephrosis. Limited contrast injection demonstrated severe hydronephrosis and hydroureter. The urine appeared as cloudy yellow/white fluid. Final fluoroscopic spot images demonstrated left catheter well positioned within the renal pelvis. IMPRESSION Technically successful percutaneous left nephrostomy. PLAN: Follow-up cultures and nephrostomy tube output. If the patient retains the nephrostomy tube after the urology procedure, please schedule the patient for a nephrostomy tube exchange in 8-10 weeks. Performing Organization Address City/State/[facility] Phone Number PACS/VR/DOSE * EXTRA TUBE URINE CULTURE (08/02/2019 10:18 AM SQUEEGEE TENDER) Specimen Urine - URINE, CLEAN CATCH Performing Organization Address City/[facility] Phone Number [facility] CLIA: [id number], [address] [place] [address] SERVICES-[facility] * URINE CULTURE (08/02/2019 10:18 AM SQUEEGEE TENDER) URINE CULTURE 10,000-100,000 CFU/mL [facility] Klebsiella pneumoniae SERVICES Specimen Urine - URINE NEPHROSTOMY Antibiotic Method Susceptibility Organism Amoxacillin/Clavulanic acid SUSCEPTIBILITY TESTING <=2: Susceptible Klebsiella pneumoniae Ampicillin SUSCEPTIBILITY TESTING Resistant Klebsiella pneumoniae Ampicillin/Sulbactam SUSCEPTIBILITY TESTING 4: Susceptible Klebsiella pneumoniae Cefazolin SUSCEPTIBILITY TESTING <=4: Susceptible Klebsiella pneumoniae Ceftriaxone SUSCEPTIBILITY TESTING <=1: Susceptible Klebsiella pneumoniae Ertapenem SUSCEPTIBILITY TESTING <=0.5: Susceptible Klebsiella pneumoniae Gentamicin SUSCEPTIBILITY TESTING <=1: Susceptible Klebsiella pneumoniae Levofloxacin SUSCEPTIBILITY TESTING <=0.12: Susceptible Klebsiella pneumoniae Nitrofurantoin SUSCEPTIBILITY TESTING 64: Intermediate Klebsiella pneumoniae Piperacillin/Tazobactam SUSCEPTIBILITY TESTING <=4: Susceptible Klebsiella pneumoniae Trimethoprim/Sulfamethoxazole SUSCEPTIBILITY TESTING <=20: Susceptible Klebsiella pneumoniae Comment: Nitrofurantoin is not recommended for use in treating pyelonephritis or systemic disease. Performing Organization Address City/State/[facility]ode Phone Number [facility] SERVICES CLIA: [id number], [address] [place] [address] [facility] * CBC WITH DIFFERENTIAL (08/01/2019 4:07 PM SQUEEGEE TENDER) WBC 12.08 (H) 4.20 - 10.70 [facility] 10*3/L [facility] RBC 3.13 (L) 4.26 - 5.52 10*6/L [facility] HGB 10.4 (L) 12.2 - 16.4 g/dL [facility] HCT 31.2 (L) 38.4 - 49.3 % [facility] MCV 99.7 (H) 81.7 - 95.6 fL [facility] MCH 33.2 (H) 26.1 - 32.7 pg [facility] MCHC 33.3 31.2 - 35.0 g/dL [facility] RDW-SD 52.2 (H) 38.5 - 51.6 fL [facility] RDW-CV 14.2 12.1 - 15.4 % [facility] PLT 137 (L) 150 - 328 10*3/L [facility] MPV 11.0 9.8 - 13.0 fL [facility] NRBC/100 WBC 0.0 0.0 - 10.0 /100 WBCs [facility] NRBC x10^3 <0.01 10*3/L [facility] GRAN MAT (NEUT) 86.3 % [facility] % [facility] IMM GRAN % 0.80 % [facility] LYMPH % 3.9 % [facility] MONO % 8.9 % [facility] EOS % 0.0 % [facility] BASO % 0.1 % [facility] GRAN MAT 10.42 (H) 1.99 - 6.95 10*3/uL [facility] x10^3(ANC) [facility] IMM GRAN x10^3 0.10 (H) 0.00 - 0.06 10*3/uL [facility] LYMPH x10^3 0.47 (L) 1.09 - 3.23 10*3/uL [facility] MONO x10^3 1.08 (H) 0.36 - 1.02 10*3/uL [facility] EOS x10^3 <0.03 (L) 0.06 - 0.53 10*3/uL [facility] BASO x10^3 <0.03 0.01 - 0.09 10*3/uL [facility] Specimen Blood - HAND, LEFT Performing Organization Address City/[facility]/Zipcode Phone Number [facility] CLIA: [id number], [address] [place] [address] [facility] * PROTHROMBIN TIME / INR (08/01/2019 4:06 PM SQUEEGEE TENDER) PROTIME PATIENT 15.1 (H) 10.1 - 12.6 Seconds [facility] INR 1.4Comment: Normal INR <1.1; [facility] Warfarin Therapeutic range 2.0 [facility] to 3.0 or 2.5 to 3.5, [facility] depending upon the indications. Specimen Blood - HAND, LEFT Performing Organization Address City/[facility]/Zipcode Phone Number [facility] CLIA: [id number], [address], [place] [id number] [facility] * BASIC METABOLIC PANEL (NA, K, CL, CO2, GLUCOSE, BUN, CREATININE, CA) (08/01/2019 4:06 PM SQUEEGEE TENDER) NA 131 (L) 135 - 145 mmol/L [facility] K 4.2 3.5 - 5.0 mmol/L [facility] CL 96 (L) 98 - 108 mmol/L [facility] CO2 TOTAL 25 23 - 31 mmol/L [facility] AGAP 10 2 - 16 [facility] BUN 21 7 - 23 mg/dL [facility] GLUCOSE 116 (H) 70 - 110 mg/dL [facility] CREATININE 1.73 (H) 0.60 - 1.25 mg/dL [facility] CALCIUM 8.0 (L) 8.6 - 10.6 mg/dL [facility] eGFR 39.4 mL/min/1.73m2 [facility] Calculation SERVICES-CLEAR (Non-[facility]) eGFR 47.7 mL/min/1.73m2 [facility] Calculation SERVICES-CLEAR ([facility]) Specimen Blood - HAND, LEFT Narrative Performed At Association of Glomerular Filtration Rate (GFR) and Staging of Kidney Disease* [facility] + + + + [facility] | GFR (mL/min/1.73 m2) | With Kidney Damage | Without Kidney Damage CAMPUS + + + + | >90 | Stage one | Normal + + + + | 60-89 | Stage two | Decreased GFR + + + + | 30-59 | Stage three | Stage three + + + + | 15-29 | Stage four | Stage four + + + + | <15 (or dialysis) | Stage five | Stage five + + + + *Each stage assumes the associated GFR level has been in effect for at least three months. Stages 1 to 5, with or without kidney disease, indicate chronic kidney disease. Notes: Determination of stages one and two (with eGFR >59mL/min/1.73 m2) requires estimation of kidney damage for at least three months as defined by structural or functional abnormalities of the kidney, manifested by either: Pathological abnormalities or Markers of kidney damage (including abnormalities in the composition of the blood or urine or abnormalities in imaging tests). Performing Organization Address City/State/Zipcode Phone Number [facility] CLIA: [id number], [address] [place], [place] [address] SERVICES-[facility] * GRAM POSITIVE BLOOD PATHOGENS DNA PROBE-AEROBIC (07/31/2019 1:55 PM SQUEEGEE TENDER) Coagulase Positive (A) Negative [facility] Negative SERVICES Staphylococcus Specimen Blood - VENOUS Narrative Performed At Coagulase negative Staphylococcus (CoNS) detected by DNA probe. CoNS often [facility] contaminate blood cultures from skin colonization during phlebotomy. Preferred SERVICES management is to repeat blood cultures, and monitor off antibiotics. Contamination is suggested by culture growth after 48 hours, or growth in single culture (i.e., one of two sets). True bacteremia is suggested by the fever, hypotension, and leukocytosis that are not explained by an alternative infection, or indwelling foreign devices that appear infected (catheters, lines, or prostheses). Consider Infectious Diseases consultation if differentiation of CoNS bacteremia from contamination is uncertain. If clinical context suggests true bacteremia, preferred therapy is vancomycin. Please contact the Antimicrobial Stewardship Program with questions. Pager: [phone] Testing included eleven identification and three resistance marker targets. Performing Organization Address [facility]ercode Phone Number [facility] SERVICES CLIA: [id number], [address] [place] [phone] [facility] * BLOOD CULTURE WORKUP (07/31/2019 1:55 PM SQUEEGEE TENDER) Blood Culture Coagulase negative [facility] Workup StaphylococcusComment: SERVICES Additional work-up performed only per request. Culture plate(s) will be saved until this date: - 08/07/19 Gram stain Isolated from aerobic bottle [facility] Gram positive cocci [facility] Specimen Blood - VENOUS Performing Organization Address [facility] Phone Number [facility] SERVICES CLIA: [id number], [address] [place] [phone] [facility] CLIA: [id number], [address] [place], [place] [address] [facility] * BLOOD CULTURE SCREEN (07/31/2019 1:55 PM SQUEEGEE TENDER) Blood Culture positive. See Blood No growth [facility] Culture-Aerobic Culture Workup for additional [facility] information. (AA)Comment: [facility] Previous preliminary verified result was Culture In Progress on 08/01/2019 at 1301 SQUEEGEE TENDER Blood No organisms isolatedComment: No growth [facility] Culture-Anaerob Previous preliminary verified [facility] ic result was Culture In Progress [facility] on 08/02/2019 at 0719 SQUEEGEE TENDER Specimen Blood - VENOUS Performing Organization Address [facility]/State/Zipcode Phone Number [facility] CLIA: [id number], [address] [place] [address] [facility] * URINE CULTURE (07/31/2019 12:51 PM SQUEEGEE TENDER) URINE CULTURE > 100,000 CFU/mL mixed aerobic [facility] organisms - [facility] endogenous microbial contamination Specimen Urine - URINE, CLEAN CATCH Performing Organization Address City/[facility]/Zipcode Phone Number [facility] SERVICES CLIA: [id number], [address] [place] [address] [facility] * Urinalysis (07/31/2019 12:51 PM SQUEEGEE TENDER) APPEARANCE Cloudy (A) Clear [facility] COLOR Mer (A) Yellow [facility] PH 6.0 4.8 - 8.0 [facility] SP GRAVITY 1.015 1.003 - 1.030 [facility] GLU U QUAL 150 mg/dL (A) Normal [facility] BLOOD 3+ (A) Negative [facility] KETONES Negative Negative [facility] PROTEIN 100 mg/dL (A) Negative [facility] UROBILIN Normal Normal [facility] BILIRUBIN Negative Negative [facility] NITRITE Positive (A) Negative [facility] LEUK ORLIN 250/uL (A) Negative [facility] RBC/HPF >182 (H) 0 - 3 HPF [facility] WBC/HPF >182 (H) 0 - 5 HPF [facility] BACTERIA Moderate (A) Negative [facility] MUCOUS Slight (A) Negative LPF [facility] WBC CLUMPS 3 (H) <=1 HPF [facility] Specimen Urine - URINE, CLEAN CATCH Performing Organization Address City/State/Zipcode Phone Number [facility] CLIA: [id number], [address] [place], [place] [phone] [facility] * CT ABDOMEN PELVIS W CONTRAST (07/31/2019 12:42 PM SQUEEGEE TENDER) Specimen Impressions Performed At Severe left hydronephrosis and hydroureter with abrupt decompression of the PACS/VR/DOSE left ureter along its mid portion. Mild proximal right hydroureter with no significant right hydronephrosis and abrupt decompression of the ureter proximally. Extensive circumferential bladder wall thickening. The prostate is markedly enlarged. Findings may be related to bladder outlet obstruction from prostamegaly. Multifocal transitional cell carcinoma is also possible especially given the abrupt decompression of the ureters bilaterally. Acute uncomplicated diverticulitis involving the descending colon. No evidence of abscess formation or free intraperitoneal air. Minimal focal stranding is also seen appearing to connect the sigmoid colon to thickened bladder wall. This could be reactive changes involving the bladder, represent a second focus of early/mild focus of acute diverticulitis, and also raises the possibility of an early colovesical fistula. Focal area of increased hypodensity uncinate process appears to be related to focal prominence of the pancreatic duct. This appears grossly similar to the previous CT within the limits of comparison. The pancreas itself otherwise appears unremarkable. Narrative Performed At EXAM: CT ABDOMEN AND PELVIS WITH CONTRAST PACS/VR/DOSE HISTORY: 69-year-old male with abdominal pain, diverticulitis suspected COMPARISON: CT abdomen and pelvis without contrast 10/27/2016, renal ultrasound 06/23/2019. DOSE: 1288 mGy-cm TECHNIQUE AND FINDINGS: Contiguous axial imaging from the level of the lung bases through the pubic symphysis was performed after the uncomplicated administration of 100 cc of intravenous Omnipaque contrast and oral Omnipaque contrast. Coronal and sagittal reconstructions were obtained. FINDINGS: LOWER THORAX: The partially visualized lung bases demonstrate mild bibasilar atelectasis. The heart is not enlarged. LIVER: A couple subcentimeter hypodensities in the liver in segments 2 and 8 are too small to characterize, probably cysts (series 3, image 27). Otherwise, the liver appears unremarkable. GALLBLADDER AND BILIARY TREE: No biliary ductal dilation. No gallbladder wall thickening. SPLEEN: No splenomegaly. PANCREAS: Previously noted focal hypodensity in the uncinate process appears to be related to a focal area of pancreatic duct dilatation measuring up to approximately 0.6 cm in caliber. This appears grossly similar to the previous CT within the limits of comparison. The pancreas otherwise appears unremarkable. ADRENAL GLANDS: No adrenal nodules. : Severe left hydronephrosis and hydroureter with abrupt decompression of the ureter (series 602, image 56). No right hydronephrosis, however there is mild right proximal hydroureter with abrupt decompression here also (series 602, image 91). Severe circumferential bladder wall thickening is noted. The constellation of findings above could be related to transitional cell carcinoma. No obstructing radiopaque calculi are seen. A Edwards catheter is present. A 3.1 x 3.5 cm hypodensity at the inferior pole the right kidney is most compatible with a cyst subcentimeter hypodensity at the lower pole of the left kidney is too small to characterize, also probably a cyst. The prostate is markedly enlarged measuring up to 8 cm in transverse dimension. A 2 tiny radiopaque stones are seen layering dependently within the bladder lumen. PERITONEUM AND RETROPERITONEUM: No free intraperitoneal air or free fluid LYMPH NODES: No lymphadenopathy. GI TRACT: Diverticulosis of the descending and sigmoid colon with fat stranding adjacent to the descending colon compatible with acute diverticulitis (series 3, image 80). No evidence of justine retroperitoneal air or associated abscess formation. Although remote from the diverticulitis, a portion of the colon Minimal localized stranding adjacent to a loop of sigmoid colon connects to the markedly thickened bladder wall (series 601, image 51) as described above. This is probably reactive to the changes involving the bladder, although cannot entirely exclude second focus of early/mild diverticulitis. Additionally, this raises the possibility of an early colovesical fistula. No bowel obstruction. VESSELS: Mild atherosclerotic calcifications of the abdominal aorta. Otherwise, the abdominal aorta and its major abdominal and pelvic branches appear patent. BONES AND SOFT TISSUES: No acute osseous findings. Procedure Note [facility], Radiant Results [facility] User - 07/31/2019 1:34 PM SQUEEGEE TENDER EXAM: CT ABDOMEN AND PELVIS WITH CONTRAST HISTORY: 69-year-old male with abdominal pain, diverticulitis suspected COMPARISON: CT abdomen and pelvis without contrast 10/27/2016, renal ultrasound 06/23/2019. DOSE: 1288 mGy-cm TECHNIQUE AND FINDINGS: Contiguous axial imaging from the level of the lung bases through the pubic symphysis was performed after the uncomplicated administration of 100 cc of intravenous Omnipaque contrast and oral Omnipaque contrast. Coronal and sagittal reconstructions were obtained. FINDINGS: LOWER THORAX: The partially visualized lung bases demonstrate mild bibasilar atelectasis. The heart is not enlarged. LIVER: A couple subcentimeter hypodensities in the liver in segments 2 and 8 are too small to characterize, probably cysts (series 3, image 27). Otherwise, the liver appears unremarkable. GALLBLADDER AND BILIARY TREE: No biliary ductal dilation. No gallbladder wall thickening. SPLEEN: No splenomegaly. PANCREAS: Previously noted focal hypodensity in the uncinate process appears to be related to a focal area of pancreatic duct dilatation measuring up to approximately 0.6 cm in caliber. This appears grossly similar to the previous CT within the limits of comparison. The pancreas otherwise appears unremarkable. ADRENAL GLANDS: No adrenal nodules. : Severe left hydronephrosis and hydroureter with abrupt decompression of the ureter (series 602, image 56). No right hydronephrosis, however there is mild right proximal hydroureter with abrupt decompression here also (series 602, image 91). Severe circumferential bladder wall thickening is noted. The constellation of findings above could be related to transitional cell carcinoma. No obstructing radiopaque calculi are seen. A Edwards catheter is present. A 3.1 x 3.5 cm hypodensity at the inferior pole the right kidney is most compatible with a cyst subcentimeter hypodensity at the lower pole of the left kidney is too small to characterize, also probably a cyst. The prostate is markedly enlarged measuring up to 8 cm in transverse dimension. A 2 tiny radiopaque stones are seen layering dependently within the bladder lumen. PERITONEUM AND RETROPERITONEUM: No free intraperitoneal air or free fluid LYMPH NODES: No lymphadenopathy. GI TRACT: Diverticulosis of the descending and sigmoid colon with fat stranding adjacent to the descending colon compatible with acute diverticulitis (series 3, image 80). No evidence of justine retroperitoneal air or associated abscess formation. Although remote from the diverticulitis, a portion of the colon Minimal localized stranding adjacent to a loop of sigmoid colon connects to the markedly thickened bladder wall (series 601, image 51) as described above. This is probably reactive to the changes involving the bladder, although cannot entirely exclude second focus of early/mild diverticulitis. Additionally, this raises the possibility of an early colovesical fistula. No bowel obstruction. VESSELS: Mild atherosclerotic calcifications of the abdominal aorta. Otherwise, the abdominal aorta and its major abdominal and pelvic branches appear patent. BONES AND SOFT TISSUES: No acute osseous findings. IMPRESSION Severe left hydronephrosis and hydroureter with abrupt decompression of the left ureter along its mid portion. Mild proximal right hydroureter with no significant right hydronephrosis and abrupt decompression of the ureter proximally. Extensive circumferential bladder wall thickening. The prostate is markedly enlarged. Findings may be related to bladder outlet obstruction from prostamegaly. Multifocal transitional cell carcinoma is also possible especially given the abrupt decompression of the ureters bilaterally. Acute uncomplicated diverticulitis involving the descending colon. No evidence of abscess formation or free intraperitoneal air. Minimal focal stranding is also seen appearing to connect the sigmoid colon to thickened bladder wall. This could be reactive changes involving the bladder, represent a second focus of early/mild focus of acute diverticulitis, and also raises the possibility of an early colovesical fistula. Focal area of increased hypodensity uncinate process appears to be related to focal prominence of the pancreatic duct. This appears grossly similar to the previous CT within the limits of comparison. The pancreas itself otherwise appears unremarkable. Performing Organization Address City/[facility]/Zipcode Phone Number PACS/VR/DOSE * Chest 1 View (07/31/2019 12:23 PM SQUEEGEE TENDER) Specimen Impressions Performed At FINDINGS/IMPRESSION: PACS/VR/DOSE Mild central pulmonary vascular congestion without overt pulmonary edema. No interval parenchymal consolidation, pneumothorax, or appreciable pleural effusion. The cardiomediastinal silhouette is normal in size. Findings overall are similar to the previous study. Narrative Performed At EXAM: XR CHEST 1 VW PACS/VR/DOSE HISTORY: 69 yearsyear-old Male abd pain COMPARISON: 06/25/2019 Procedure Note [facility], Radiant Results Inft User - 07/31/2019 12:31 PM SQUEEGEE TENDER EXAM: XR CHEST 1 VW HISTORY: 69 yearsyear-old Male abd pain COMPARISON: 06/25/2019 IMPRESSION FINDINGS/IMPRESSION: Mild central pulmonary vascular congestion without overt pulmonary edema. No interval parenchymal consolidation, pneumothorax, or appreciable pleural effusion. The cardiomediastinal silhouette is normal in size. Findings overall are similar to the previous study. Performing Organization Address City/State/Zipcode Phone Number PACS/VR/DOSE * CBC WITH DIFFERENTIAL (07/31/2019 11:46 AM SQUEEGEE TENDER) WBC 9.57 4.20 - 10.70 [facility] 10*3/L [facility] RBC 3.45 (L) 4.26 - 5.52 10*6/L [facility] HGB 11.1 (L) 12.2 - 16.4 g/dL [facility] HCT 33.4 (L) 38.4 - 49.3 % [facility] MCV 96.8 (H) 81.7 - 95.6 fL [facility] MCH 32.2 26.1 - 32.7 pg [facility] MCHC 33.2 31.2 - 35.0 g/dL [facility] RDW-SD 49.1 38.5 - 51.6 fL [facility] RDW-CV 13.8 12.1 - 15.4 % [facility] PLT 176 150 - 328 10*3/L [facility] MPV 10.2 9.8 - 13.0 fL [facility] NRBC/100 WBC 0.0 0.0 - 10.0 /100 WBCs [facility] NRBC x10^3 <0.01 10*3/L [facility] GRAN MAT (NEUT) 87.8 % [facility] % [facility] IMM GRAN % 0.40 % [facility] LYMPH % 4.5 % [facility] MONO % 7.2 % [facility] EOS % 0.0 % [facility] BASO % 0.1 % [facility] GRAN MAT 8.40 (H) 1.99 - 6.95 10*3/uL [facility] x10^3(ANC) [facility] IMM GRAN x10^3 0.04 0.00 - 0.06 10*3/uL [facility] LYMPH x10^3 0.43 (L) 1.09 - 3.23 10*3/uL [facility] MONO x10^3 0.69 0.36 - 1.02 10*3/uL [facility] EOS x10^3 <0.03 (L) 0.06 - 0.53 10*3/uL [facility] BASO x10^3 <0.03 0.01 - 0.09 10*3/uL [facility] Specimen Blood - ARM, LEFT Performing Organization Address [facility]/Zipcode Phone Number [facility] CLIA: [id number], [address] [place] [address] [facility] * N-TERMINAL PRO-BNP (07/31/2019 11:46 AM SQUEEGEE TENDER) NT-proBNP 395 (H) <=125 pg/mL [facility] Specimen Blood - ARM, LEFT Narrative Performed At Biotin has been reported to cause a negative bias, interpret results relative to [facility] patient's use of biotin. [facility] Performing Organization Address [facility] Phone Number [facility] CLIA: [id number], [address], [place] [address] [facility] * Prothrombin Time (PT) / INR (07/31/2019 11:46 AM SQUEEGEE TENDER) PROTIME PATIENT 11.6 10.1 - 12.6 Seconds [facility] INR 1.1Comment: Normal INR <1.1; [facility] Warfarin Therapeutic range 2.0 [facility] to 3.0 or 2.5 to 3.5, [facility] depending upon the indications. Specimen Blood - ARM, LEFT Performing Organization Address [facility] Cent[facility]ode Phone Number [facility] CLIA: [id number], [address] [place] [address] [facility] * aPTT (07/31/2019 11:46 AM SQUEEGEE TENDER) APTT Patient 28 26 - 36 Seconds [facility] Specimen Blood - ARM, LEFT Performing Organization Address [facility]/Zipcode Phone Number [facility] CLIA: [id number], [address] [place] [address] [facility] * Troponin I (07/31/2019 11:46 AM SQUEEGEE TENDER) Pathologist [facility] TROPONIN I 0.003 <=0.034 ng/mL [facility] Specimen Blood - ARM, LEFT Narrative Performed At Equal or Less than 0.034 ng/ml---Normal [facility] Note: Cardiac troponin begins to rise 3-4 hours after the onset of ischemia. [facility] Repeat in 4-6 hours if the sample was drawn within 3-4 hours of the onset of the [place] symptom and found normal. Between 0.035 and 0.120 ng/mL--- Borderline. Questionable myocardial injury or necrosis Note: Serial measurement may be necessary to confirm or exclude the diagnosis of myocardial injury or necrosis; Clinical correlation (symptoms, EKGs, imaging studies, and others) required; Repeat in 4-6 hours if clinically indicated. Equal or Higher than 0.121 ng/mL---Abnormal. Myocardial Injury or Necrosis Likely Biotin has been reported to cause a negative bias, interpret results relative to patient's use of biotin. Performing Organization Address City/[facility] Cent[facility]ode Phone Number [facility] CLIA: [id number], [address], [place] [address] [facility] * Lipase Serum (07/31/2019 11:46 AM SQUEEGEE TENDER) [facility] LIPASE 170 0 - 220 U/L [facility] Specimen Blood - ARM, LEFT Performing Organization Address City/[facility]/Zipcode Phone Number [facility] CLIA: [id number], [address], [place] [id number] [facility] * Hepatic Function Panel (ALB, T.PRO, BILI T, BU/BC, ALT, AST, ALK PHOS) (07/31/2019 11:46 AM SQUEEGEE TENDER) Pathologist [facility] TOTAL BILI 0.5 0.1 - 1.1 mg/dL [facility] BILI UNCON 0.5 0.1 - 1.1 mg/dL [facility] BILI CONJ 0.0 0.0 - 0.3 mg/dL [facility] T PROTEIN 6.7 6.3 - 8.2 g/dL [facility] ALBUMIN 3.9 3.5 - 5.0 g/dL [facility] ALK PHOS 56 34 - 122 U/L [facility] ALTv 18 5 - 50 U/L [facility] AST(SGOT) 19 13 - 40 U/L [facility] Specimen Blood - ARM, LEFT Performing Organization Address City/State/Zipcode Phone Number [facility] CLIA: [id number], [address] [place] [address] [facility] * Basic Metabolic Panel (NA, K, CL, CO2, GLUCOSE, BUN, CREATININE, CA) (07/31/2019 11:46 AM SQUEEGEE TENDER) NA 134 (L) 135 - 145 mmol/L [facility] K 4.3 3.5 - 5.0 mmol/L [facility] CL 96 (L) 98 - 108 mmol/L [facility] CO2 TOTAL 28 23 - 31 mmol/L [facility] AGAP 10 2 - 16 [facility] BUN 20 7 - 23 mg/dL [facility] GLUCOSE 189 (H) 70 - 110 mg/dL [facility] CREATININE 1.32 (H) 0.60 - 1.25 mg/dL [facility] CALCIUM 8.7 8.6 - 10.6 mg/dL [facility] eGFR 53.8 mL/min/1.73m2 [facility] Calculation [facility] (Non-[facility] [place]) eGFR 65.2 mL/min/1.73m2 [facility] Calculation [facility] ([facility] [place]) Specimen Blood - ARM, LEFT Narrative Performed At Association of Glomerular Filtration Rate (GFR) and Staging of Kidney Disease* [facility] + + + + [facility] [place] | GFR (mL/min/1.73 m2) | With Kidney Damage | Without Kidney Damage CAMPUS + + + + | >90 | Stage one | Normal + + + + | 60-89 | Stage two | Decreased GFR + + + + | 30-59 | Stage three | Stage three + + + + | 15-29 | Stage four | Stage four + + + + | <15 (or dialysis) | Stage five | Stage five + + + + *Each stage assumes the associated GFR level has been in effect for at least three months. Stages 1 to 5, with or without kidney disease, indicate chronic kidney disease. Notes: Determination of stages one and two (with eGFR >59mL/min/1.73 m2) requires estimation of kidney damage for at least three months as defined by structural or functional abnormalities of the kidney, manifested by either: Pathological abnormalities or Markers of kidney damage (including abnormalities in the composition of the blood or urine or abnormalities in imaging tests). Performing Organization Address City/State/Zipcode Phone Number [facility] CLIA: [id number], [address] [place] [address] [facility] documented in this encounter Visit Diagnoses Diagnosis Lower abdominal pain - Primary Abdominal pain, other specified site Diverticulitis Diverticulitis of colon (without mention of hemorrhage) Urinary tract infection without hematuria, site unspecified Hydronephrosis with ureteral stricture, not elsewhere classified RADHA (acute kidney injury) Acute kidney failure, unspecified Acute bronchospasm Cough documented in this encounter Administered Medications Action Date Dose Rate Site Medication Order MAR Action 08/05/2019 8:52 AM SQUEEGEE TENDER 10 mg amLODIPine (NORVASC) tablet 10 mg Given 10 mg, Oral, DAILY, First dose on 08/01/19 at 0900, Until Discontinued, Routine 10 mg Given 08/04/2019 8:47 AM SQUEEGEE TENDER 10 mg Given 08/03/2019 8:20 AM SQUEEGEE TENDER 08/05/2019 8:52 AM SQUEEGEE TENDER 12.5 mg carvediloL (COREG) tablet 12.5 mg Given 12.5 mg, Oral, BID MEALS, First dose on 07/31/19 at 1700, Until Discontinued, Routine 12.5 mg Given 08/04/2019 4:24 PM SQUEEGEE TENDER 12.5 mg Given 08/04/2019 8:47 AM SQUEEGEE TENDER 08/05/2019 8:52 AM SQUEEGEE TENDER 300 mg cefdinir (OMNICEF) capsule 300 mg Given 300 mg, Oral, Q12H, First dose on [place] 08/04/19 at 2000, Until Discontinued, [place], Reason for Anti-Infective: Documented Infection, Documented Infection Site: Abdominal, Duration of Therapy: 7 days 300 mg Given 08/04/2019 7:28 PM SQUEEGEE TENDER 08/04/2019 7:37 PM SQUEEGEE TENDER 5 mL codeine-guaifenesin (ROBITUSSIN AC) Given 10-100 mg/5 mL solution 5 mL 5 mL, Oral, Q6HPRN, Starting Thu08/04/19 at 1255, Until Discontinued, Routine, Cough 5 mL Given 08/04/2019 1:19 PM SQUEEGEE TENDER 08/05/2019 8:52 AM SQUEEGEE TENDER 2 mg doxazosin (CARDURA) tablet 2 mg Given 2 mg, Oral, DAILY, First dose on Thu08/01/19 at 0900, Until Discontinued, Routine 2 mg Given 08/04/2019 8:47 AM SQUEEGEE TENDER 2 mg Given 08/03/2019 8:20 AM SQUEEGEE TENDER 08/04/2019 7:28 PM SQUEEGEE TENDER 5,000 Units Abdomen heparin (porcine) injection 5,000 Units Given 5,000 Units, Subcutaneous, Q12H, First dose on Thu08/02/19 at 2000, Until Discontinued, Routine 5,000 Units Abdomen-SC Given 08/04/2019 8:47 AM SQUEEGEE TENDER 5,000 Units Abdomen-SC Given 08/03/2019 7:45 PM SQUEEGEE TENDER ipratropium-albuterol (DUONEB) 0.5 mg-3 mg(2.5 mg base)/3 mL nebulizer solution 3 mL 3 mL, Inhalation, Q4HPRN, Starting Thu08/04/19 at 0030, Until Discontinued, Routine, Wheezing, Shortness of Breath, Bronchospasm 08/05/2019 5:01 AM SQUEEGEE TENDER 500 mg metroNIDAZOLE (FLAGYL) tablet 500 mg Given 500 mg, Oral, Q8H, First dose on Thu08/04/19 at 1400, Until Discontinued, Routine, Reason for Anti-Infective: Documented Infection, Documented Infection Site: Abdominal, Duration of Therapy: 7 days 500 mg Given 08/04/2019 9:19 PM SQUEEGEE TENDER 500 mg Given 08/04/2019 2:55 PM SQUEEGEE TENDER 07/31/2019 8:47 PM SQUEEGEE TENDER 4 mg ondansetron (ZOFRAN (PF)) injection 4 mg Given 4 mg, Slow IV Push, Q6HPRN, Starting [place] 07/31/19 at 2013, Until Discontinued, Routine, Nausea and Vomiting (N/V) 08/05/2019 8:52 AM SQUEEGEE TENDER 40 mg pantoprazole (PROTONIX) EC tablet 40 mg Given 40 mg, Oral, DAILY, First dose on Thu08/01/19 at 0900, Until Discontinued 40 mg Given 08/04/2019 8:47 AM SQUEEGEE TENDER 40 mg Given 08/03/2019 8:20 AM SQUEEGEE TENDER 08/04/2019 8:47 AM SQUEEGEE TENDER 17 g Polyethylene Glycol 3350 (MIRALAX) Given powder 17 g 17 g, Oral, BID, First dose on Thu08/03/19 at 1330, Until Discontinued, Routine 08/05/2019 8:52 AM SQUEEGEE TENDER 20 mg predniSONE (DELTASONE) tablet 20 mg Given 20 mg, Oral, DAILY, 5 doses, First dose on Thu08/05/19 at 0900, Last dose on Thu08/09/19 at 0900, Routine Action Date Dose Rate Site Medication Order MAR Action 07/31/2019 2:00 PM SQUEEGEE TENDER 1,000 mg cefTRIAXone (ROCEPHIN) 1,000 mg in NaCl Given 0.9% (NS) 50 mL MINI-BAG 1,000 mg, IV Piggyback, ONCE, 1 dose, [place] 07/31/19 at 1430, 50 mL, Reason for Anti-Infective: Empiric Therapy for Suspected Infection, Empiric Therapy Site: Urine, Duration of therapy: 72 hours 08/03/2019 12:10 PM SQUEEGEE TENDER 1,000 mg cefTRIAXone (ROCEPHIN) 1,000 mg in NaCl Given 0.9% (NS) 50 mL MINI-BAG 1,000 mg, IV Piggyback, Q24H ABX, First dose on Thu08/03/19 at 1245, Until Discontinued, 50 mL, Reason for Anti-Infective: Documented Infection, Documented Infection Site: Urine, Duration of Therapy: 7 days 08/01/2019 8:26 AM SQUEEGEE TENDER 40 mg Abdomen-SC enoxaparin (LOVENOX) injection 40 mg Given 40 mg, Subcutaneous, DAILY, First dose on Thu08/01/19 at 0900, Until Discontinued, Routine 07/31/2019 11:51 AM SQUEEGEE TENDER 50 mcg FENTanyl PF (SUBLIMAZE (PF)) injection Given 50 mcg 50 mcg, Slow IV Push, ONCE, 1 dose, [place] 07/31/19 at 1245, Routine 08/01/2019 12:39 PM SQUEEGEE TENDER 50 mcg FENTanyl PF (SUBLIMAZE (PF)) injection Given 50 mcg 50 mcg, Slow IV Push, Q3HPRN, Starting Thu07/31/19 at 1547, Until Thu08/01/19 at 1546, Routine, Pain (scale 7-10) 50 mcg Given 08/01/2019 8:26 AM SQUEEGEE TENDER 50 mcg Given 08/01/2019 12:57 AM SQUEEGEE TENDER 08/02/2019 10:20 AM SQUEEGEE TENDER 50 mcg FENTanyl PF (SUBLIMAZE (PF)) injection Given Slow IV Push, PRN, Starting [facility] 08/02/19 at 0955, Until 08/02/19 at 1020, Routine 50 mcg Given 08/02/2019 10:00 AM SQUEEGEE TENDER 50 mcg Given 08/02/2019 9:55 AM SQUEEGEE TENDER 08/04/2019 12:01 PM SQUEEGEE TENDER 40 mg furosemide (LASIX) injection 40 mg Given 40 mg, IV Push, ONCE, 1 dose, [facility] 08/04/19 at 1215, Routine 08/02/2019 11:14 AM SQUEEGEE TENDER 1 tablet HYDROcodone-acetaminophen (NORCO 5) Given 5-325 mg tablet 1 tablet 1 tablet, Oral, Q6HPRN, Starting [place] 07/31/19 at 1547, Until Thu08/02/19 at 1546, Routine, Pain (scale 4-6) 1 tablet Given 08/02/2019 5:09 AM SQUEEGEE TENDER 1 tablet Given 08/01/2019 11:10 PM SQUEEGEE TENDER 08/02/2019 7:57 PM SQUEEGEE TENDER 1 tablet HYDROcodone-acetaminophen (NORCO 5) Given 5-325 mg tablet 1 tablet 1 tablet, Oral, Q6HPRN, Starting [facility] 08/02/19 at 1948, Until [facility] 08/04/19 at 1947, Routine, Pain (scale 4-6) 07/31/2019 2:02 PM SQUEEGEE TENDER 1 mg HYDROmorphone (DILAUDID) injection 1 mg Given 1 mg, Slow IV Push, ONCE, 1 dose, [place] 07/31/19 at 1500, [place], Use approved by (Faculty): Stephania RIGGS, PAIN SERVICE 08/02/2019 11:00 AM SQUEEGEE TENDER 10 mL iohexol (OMNIPAQUE 300-50 mL)) injection Given 50 mL 50 mL, Intravenous, ONCE, 1 dose, [facility] 08/02/19 at 1100, Routine 07/31/2019 12:33 PM SQUEEGEE TENDER 100 mL iohexol (OMNIPAQUE 350 BULK-100 mL) Given injection 100 mL 100 mL, Intravenous, ONCE, 1 dose, [place] 07/31/19 at 1245, Routine 08/03/2019 7:26 PM SQUEEGEE TENDER 3 mL ipratropium-albuterol (DUONEB) 0.5 mg-3 Given mg(2.5 mg base)/3 mL nebulizer solution 3 mL 3 mL, Inhalation, QID, First dose on Thu08/02/19 at 1245, Until Discontinued, Routine 3 mL Given 08/03/2019 3:31 PM SQUEEGEE TENDER 3 mL Given 08/03/2019 11:51 AM SQUEEGEE TENDER 08/04/2019 12:01 PM SQUEEGEE TENDER 30 mEq KCL (KLOR-CON M10) tablet 30 mEq Given 30 mEq, Oral, ONCE, 1 dose, [facility] 08/04/19 at 1215, Routine 07/31/2019 7:58 PM SQUEEGEE TENDER 500 mg levoFLOXacin in D5W (LEVAQUIN) 500 Given mg/100 mL Piggyback 500 mg 500 mg, IV Piggyback, Q24H ABX, First dose on Thu07/31/19 at 1915, Until Discontinued, 100 mL, Reason for Anti-Infective: Documented Infection, Documented Infection Site: Abdominal, Duration of Therapy: 7 days 08/02/2019 12:51 PM SQUEEGEE TENDER 80 mg methylPREDNISolone sod succ (SOLU-MEDROL Given (PF)) injection 80 mg 80 mg, Slow IV Push, ONCE, 1 dose, Thu08/02/19 at 1345, Routine 08/04/2019 12:01 PM SQUEEGEE TENDER 500 mg metroNIDAZOLE (FLAGYL I.V.) Piggyback Given 500 mg 500 mg, IV Piggyback, Q8H ABX, First dose on Thu08/03/19 at 1245, Until Discontinued, 100 mL, Reason for Anti-Infective: Documented Infection, Documented Infection Site: Abdominal, Duration of Therapy: 7 days 500 mg Given 08/04/2019 3:55 AM SQUEEGEE TENDER 500 mg Given 08/03/2019 7:45 PM SQUEEGEE TENDER 08/02/2019 10:00 AM SQUEEGEE TENDER 1 mg midazolam (VERSED) injection Given IV Push, PRN, Starting Thu08/02/19 at 0955, Until Thu08/02/19 at 1000, Routine 1 mg Given 08/02/2019 9:55 AM SQUEEGEE TENDER 08/02/2019 4:00 AM SQUEEGEE TENDER 100 mL/hr NaCl 0.9% (NS) IV infusion 1,000 mL Dose/Rate at 100 mL/hr, IV Infusion, CONTINUOUS, Verify Starting Thu07/31/19 at 1915, Until 08/02/19 at 1238, Routine 1,000 mL 100 mL/hr New Bag 08/01/2019 4:12 PM SQUEEGEE TENDER 1,000 mL 100 mL/hr New Bag 08/01/2019 5:53 AM SQUEEGEE TENDER 07/31/2019 11:50 AM SQUEEGEE TENDER 4 mg ondansetron (ZOFRAN (PF)) injection 4 mg Given 4 mg, Slow IV Push, ONCE, 1 dose, 07/31/19 at 1245, [place] 07/31/2019 1:56 PM SQUEEGEE TENDER 3.375 g piperacillin-tazobactam (ZOSYN) 3.375 g Given in NaCl 0.9% (NS) 100 mL MINI-BAG 3.375 g, IV Piggyback, ONCE, 1 dose, 07/31/19 at 1445, 100 mL, Reason for Anti-Infective: Empiric Therapy for Suspected Infection, Empiric Therapy Site: Blood, Duration of therapy: 72 hours 08/03/2019 4:13 AM SQUEEGEE TENDER 3.375 g piperacillin-tazobactam (ZOSYN) 3.375 g Given in NaCl 0.9% (NS) 100 mL MINI-BAG 3.375 g, IV Piggyback, Q8H ABX, First dose on 08/01/19 at 1200, Until Discontinued, 100 mL, Reason for Anti-Infective: Empiric Therapy for Suspected Infection, Empiric Therapy Site: Abdominal, Duration of therapy: 72 hours 3.375 g Given 08/02/2019 7:57 PM SQUEEGEE TENDER 3.375 g Given 08/02/2019 11:17 AM SQUEEGEE TENDER documented in this encounter Insurance Type Payer Benefit Subscriber ID Effective Phone Address Plan / Dates Group Medicare Adv HMO [email or web address] [facility] [id number] [id number] [employer] [facility] documented as of this encounter
--- OUTSIDE RECORDS SUMMARY | 2019-09-19 15:48 | XMS REPORT | Summary of Care ---
Author Author [facility] - Health Organization [facility] - Health Address Unknown Phone Unavailable Care Team Providers Care Device Test Engineer Name Role Phone Tien Galvan PCP Reason for Visit * Reason Comments Hospital F/U Encounter Details Care Team Description Date Type Department Sally Cardoso, MAR[address] [place] [address] Hospital F/U 08/08/2019 Transition of [facility] Allergies No Known Allergiesdocumented as of this encounter (statuses as of 08/08/2019) Medications End Date Status Medication Sig Dispensed [...] 0 tabletIndications: by mouth 0 Diverticulitis daily. documented as of this encounter (statuses as of 08/08/2019) Active Problems Problem Noted Date Diverticulitis 07/31/2019 Brain lesion 06/28/2019 RADHA (acute kidney injury) 06/24/2019 Hypertension 06/23/2019 Obesity (BMI 30-39.9) 10/27/2016 documented as of this encounter (statuses as of 08/08/2019) Immunizations Name Administration Dates Next Due Influenza [...] of this encounter Last Filed Vital Signs Not on filedocumented in this encounter Plan of Treatment Care Team Description Date Type Specialty Kiko Pardo DO [address] [place] [phone] 09/27/2019 Appointment Radiology Health Maintenance Due Date Last Done Comments HEPATITIS C (HCV) SCREEN 1950 DTaP,Tdap,and Td Vaccines 1961 (1 - Tdap) COLONOSCOPY 2000 Zoster Recombinant 2000 Vaccine (SHINGRIX) (1 of 2) Medicare Wellness Visit 2015 PNEUMOCOCCAL VACCINES 65+ 2015 (1 of 2 - PCV13) INFLUENZA VACCINE (#1) 2019 03/31/2018 documented as of this encounter Results Not on filedocumented in this encounter Insurance Type Payer Benefit Subscriber ID Effective Phone Address Plan / Dates Group Medicare Adv HMO [facility] C[employer] [id number] [id number] [facility] documented as of this encounter
[2019-09-19] MEDS ORDERED: SODIUM CHLORIDE 0.9% 1000ML 1,000 ML IV STA (16:52)
[2019-09-19] MEDS ORDERED: MEROPENEM 1GM 100 ML IV STA (16:52)
[2019-09-19 17:25] LABS: BASOPHILS % 0.2 % (0.0-1.0); HEMOGLOBIN 9.6 g/dL (14.0-18.0); LYMPHOCYTES # (AUTO) 0.7 (1.0-3.2); LYMPHOCYTES % 6.5 % (18.0-39.1); MEAN CORPUSCULAR HEMOGLOBIN 29.6 pg (28-32); MEAN CORPUSCULAR VOLUME 92.6 fL (81-99); MONOCYTES # (AUTO) 1.7 (0.2-0.8); MONOCYTES % 16.6 % (4.4-11.3); NEUTROPHILS # (AUTO) 7.7 (2.1-6.9); NEUTROPHILS % 76.2 % (38.7-80.0); PLATELET COUNT 191 x10e3/uL (140-360); RED BLOOD COUNT 3.24 x10e6/uL (4.3-5.7); RED CELL DISTRIBUTION WIDTH 13.9 % (11.7-14.4)
[2019-09-19 18:06] LABS: ALBUMIN 2.5 g/dL (3.5-5.0); ALBUMIN/GLOBULIN RATIO 0.6 (0.8-2.0); ANION GAP 12.7 mmol/L (8-16); CREATININE, SERUM 2.62 mg/dL (0.72-1.25); MAGNESIUM 1.3 MG/DL (1.3-2.1); POTASSIUM 3.7 mmol/L (3.5-5.1)
[2019-09-19] MEDS ORDERED: ONDANSETRON HCL INJ 2MG/ML 2ML 2 MG/ML VIAL IV PRN (19:45)
[2019-09-19] MEDS ORDERED: SODIUM CHLORIDE 0.9% 1000ML 1,000 ML IV SCH (20:00)
--- NOTE | 2019-09-19 21:00 | NUR ---
Assumed care of patient at this time.
[2019-09-19] MEDS ORDERED: ACETAMINOPHEN 325 MG TAB PO PRN (21:15)
--- NOTE | 2019-09-19 21:46 | NUR ---
650 mL output on Crook insertion.
[2019-09-19 21:58] LABS: INR 1.13; PROTHROMBIN TIME 15.2 seconds (11.9-14.5)
[2019-09-19 21:59] LABS: PARTIAL THROMBOPLASTIN TIME 41.7 seconds (23.8-35.5)
[2019-09-19] MEDS: SODIUM CHLORIDE 0.9% 1000ML 1,000 ML IV SCH (22:05)
[2019-09-19 22:29] LABS: BILIRUBIN,URINE NEGATIVE (NEGATIVE); CLARITY,URINE TURBID (CLEAR); COLOR,URINE YELLOW (YELLOW); KETONES,URINE NEGATIVE (NEGATIVE); LEUKOCYTE ESTERASE ,URINE LARGE (NEGATIVE); NITRITE,URINE NEGATIVE (NEGATIVE); PROTEIN,URINE DIPSTICK 3+ (NEGATIVE); URINE UROBILINOGEN 0.2 mg/dL (0.2 - 1); WBC,URINE (MAN) >50 /HPF (0-5)
[2019-09-19 22:30] LABS: BACTERIA,URINE MANY /HPF; EPITHELIAL CELLS,URINE MODERATE /LPF
--- NOTE | 2019-09-19 22:38 | Diagnostic Imaging Report ---
EXAM: CT Abdomen and Pelvis WITHOUT contrast INDICATION: Renal stone protocol, fever, history of stones. COMPARISON: Retrograde myelogram 08/24/2019. TECHNIQUE: Abdomen and pelvis were scanned utilizing a multidetector helical scanner from the lung base to the pubic symphysis without administration of IV contrast. Absence of intravenous contrast decreases sensitivity for detection of focal lesions and vascular pathology. Coronal and sagittal reformations were obtained. Stone protocol is performed. IV CONTRAST: None. ORAL CONTRAST: None. RADIATION DOSE: Total DLP: 718.1 mGy*cm Estimated effective dose: (DLP x 0.015 x size factor) mSv COMPLICATIONS: None FINDINGS: LOWER THORAX: Unremarkable HEPATOBILIARY: No focal hepatic lesions. No biliary ductal dilation. GALLBLADDER: No radio-opaque stones or sludge. No wall thickening. SPLEEN: No splenomegaly. PANCREAS: No focal masses or ductal dilatation. ADRENALS: No adrenal nodules KIDNEYS/URETERS: Bilateral percutaneous nephroureteral stents the left occipital pigtail terminates in the renal pelvis and the distal pigtail terminates in the bladder. The right proximal pigtail terminates in the proximal ureter and the distal pigtail terminates in the bladder. Bilateral perinephric and periureteral stranding. No evidence of hydronephrosis, solid mass, or stone. Upper left hydroureter. Mildly atrophic left kidney. There is a 3.6 cm simple right lower pole renal cyst. GI TRACT: No abnormal distention, wall thickening, or evidence of bowel obstruction. Appendix is not clearly identified. There is however no fat stranding or adenopathy in the right lower quadrant to suggest appendicitis. Colonic diverticulosis without evidence of diverticulitis. PELVIC ORGANS/BLADDER: The prostate is enlarged, measuring up to 8.7 x 8.3 x 8 cm (AP x TV x SI). Decompressed bladder which is thick walled and likely with diverticula. LYMPH NODES: No lymphadenopathy. VESSELS: There is mild atherosclerotic disease in the aorta and major arterial branches. PERITONEUM / RETROPERITONEUM: No free air or fluid. BONES: No acute osseous abnormality. Degenerative changes of the visualized spine, most pronounced at L1-L2 and L3-S1. SOFT TISSUES: Unremarkable. IMPRESSION: Bilateral percutaneous nephroureteral stents as above. The proximal pigtail of the right stent terminates in the proximal ureter. No evidence of hydronephrosis. Mild proximal left hydroureter. Bilateral perinephric and perirenal stranding is nonspecific, but may represent inflammatory process such as ascending UTI. Suggest correlation with urinalysis. Prostatomegaly, measuring up to 8.7 cm. Thick-walled bladder with likely diverticula, which may represent chronic bladder outlet obstruction. The bladder is not well evaluated in the absence of contrast. Suggest correlation with surgical findings. Signed by: Dr. Carmen Doan MD on 09/19/2019 10:35 PM
--- NOTE | 2019-09-20 00:58 | NUR ---
Patient placed on hospital bed at this time.
--- NOTE | 2019-09-20 02:05 | NUR ---
Patient resting with no distress noted. Call light remains at bedside. Instructed patient to call if he needed assistance. Patient verbalized understanding.
[2019-09-20 04:37] LABS: BASOPHILS % 0.4 % (0.0-1.0); EOSINOPHILS % 0.5 % (0.0-6.0); LYMPHOCYTES # (AUTO) 0.8 (1.0-3.2); LYMPHOCYTES % 10.3 % (18.0-39.1); MEAN CORPUSCULAR HEMOGLOBIN 29.9 pg (28-32); MEAN CORPUSCULAR HGB CONC 32.1 g/dL (31-35); MONOCYTES # (AUTO) 1.1 (0.2-0.8); MONOCYTES % 13.2 % (4.4-11.3); NEUTROPHILS # (AUTO) 6.2 (2.1-6.9); NEUTROPHILS % 75.1 % (38.7-80.0); PLATELET COUNT 165 x10e3/uL (140-360); RED BLOOD COUNT 3.01 x10e6/uL (4.3-5.7); RED CELL DISTRIBUTION WIDTH 14.2 % (11.7-14.4)
[2019-09-20 05:00] LABS: ALBUMIN 2.3 g/dL (3.5-5.0); ALBUMIN/GLOBULIN RATIO 0.6 (0.8-2.0); ANION GAP 10.4 mmol/L (8-16); CALCIUM 8.5 mg/dL (8.4-10.2); CREATININE, SERUM 2.32 mg/dL (0.72-1.25); POTASSIUM 3.4 mmol/L (3.5-5.1)
--- NOTE | 2019-09-20 07:14 | NUR ---
Report given to MARTHA Mares
[2019-09-20] MEDS: MEROPENEM 500MG/ NS 50ML 50 ML IV SCH ×2 (08:37→21:00)
[2019-09-20] MEDS: SODIUM CHLORIDE 0.9% 1000ML 1,000 ML IV SCH ×2 (08:37→17:05)
--- NOTE | 2019-09-20 08:43 | NUR ---
H&P cc: urinary discomfort HPI: 69yoM, PCP , developed reduced urinary output and urinary discomfort and difficulty obtaining urine via straight catheterizations; PMH: BPH s/p TURP, Obesity, Left hydronephrosis, Elevated PSA, HTN, ESBL E.coli UTI, CKD3 due to HTN, chronic urinary retention with chronic straight catheterizations; PSHx; TURP, b/l nephroureteral stent alleriges; see emr Fh/SH; no cigs; Meds; see MAR ROS: no f/c/s/N/V/D/FABIAN/cp/sob/skin rash/back pain/dizziness/vision changes/focal limb weakness v/s; revd PE tired appearing anicteric ns1s2 mod bs soft nt nd : --- no e/t skin dry n. affect a&ox3; nicholson labs/med revd A/P: UTI-complicated? with ureteral stents Hyponatremia Hypokalemia- replace and recheck RADHA- ivf; reassess CKD3 due to HTN- BPH with hx TURP- per urology Obesity- BMI check hba1c/lipids BMI 30.0 HTN- home meds GERD- pepcid Prop: scd; ppi dispo: f/u labs; treat infection; Leonidas Schaefer MD, PhD.
[2019-09-20] MEDS ORDERED: ACETAMINOPHEN 325 MG TAB PO PRN (09:00)
[2019-09-20] MEDS ORDERED: ONDANSETRON HCL INJ 2MG/ML 2ML 2 MG/ML VIAL IV PRN (09:00)
[2019-09-20] MEDS ORDERED: DOCUSATE SODIUM 100 MG CAP PO PRN (09:00)
[2019-09-20] MEDS: AMLODIPINE BESYLATE 10 MG TAB PO SCH (10:22)
[2019-09-20] MEDS: CARVEDILOL 12.5 MG TAB PO SCH ×2 (10:22→16:50)
[2019-09-20] MEDS: PANTOPRAZOLE SOD 40 MG TABEC PO SCH (10:22)
[2019-09-20] MEDS: DOXAZOSIN MESYLATE 2 MG TAB PO SCH (10:22)
[2019-09-20 17:00] VITALS: BP 116/56
--- NOTE | 2019-09-20 19:25 | NUR ---
Patient received lying in bed. AAO x 4. Patient had no complaints of pain. Respirations even and non-labored. Crook catheter draining pale clear yellow urine. Safety measures in place. Patient instructed to call for assistance when needed. Call light within reach.
[2019-09-20 20:00] VITALS: BP 130/87
--- NOTE | 2019-09-20 20:30 | NUR ---
Dr. Schaefer notified of Gram positive cocci from blood culture results. No orders received.
[2019-09-20 21:00] VITALS: BP 130/87
[2019-09-20] MEDS ORDERED: ZOLPIDEM TARTRATE 5 MG TAB PO PRN (21:00)
[2019-09-21] VITALS (8 sets, daily range): BP systolic 112–146; BP diastolic 61–85
[2019-09-21] MEDS: SODIUM CHLORIDE 0.9% 1000ML 1,000 ML IV SCH ×3 (01:43→21:43)
--- NOTE | 2019-09-21 07:00 | NUR ---
Walking rounds done. Bed-side report given to oncoming nurse regarding patient's status.
[2019-09-21] MEDS: MEROPENEM 500MG/ NS 50ML 50 ML IV SCH ×2 (07:55→21:14)
[2019-09-21] MEDS: CARVEDILOL 12.5 MG TAB PO SCH ×2 (07:55→16:40)
[2019-09-21] MEDS: AMLODIPINE BESYLATE 10 MG TAB PO SCH (07:55)
[2019-09-21] MEDS: DOXAZOSIN MESYLATE 2 MG TAB PO SCH (07:55)
[2019-09-21] MEDS: PANTOPRAZOLE SOD 40 MG TABEC PO SCH (07:56)
--- NOTE | 2019-09-21 14:04 | NUR ---
IM- progress note O/N see below ROS: no f/c/s/N/V/D/FABIAN/cp/sob/skin rash/back pain/dizziness/vision changes/focal limb weakness v/s; revd PE tired appearing anicteric ns1s2 mod bs soft nt nd : --- no e/t skin dry n. affect a&ox3; nicholson labs/med revd A/P: UTI-complicated? 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 recheck blood cx. Recheck K Leonidas Schaefer MD, PhD.
--- NOTE | 2019-09-21 19:15 | NUR ---
Report given to oncoming nurse of patient's status. Resting in bed. No s/s of acute distress noted. Side rails upx2, call light within reach.
--- NOTE | 2019-09-21 19:25 | NUR ---
Patient received sitting up in bed. AAO x 3. No acute distress noted. Call light within reach.
[2019-09-22] VITALS (7 sets, daily range): BP systolic 121–143; BP diastolic 63–84
--- NOTE | 2019-09-22 06:00 | NUR ---
IM- progress note O/N see below ROS: no f/c/s/N/V/D/FABIAN/cp/sob/skin rash/back pain/dizziness/vision changes/focal limb weakness v/s; revd PE tired appearing anicteric ns1s2 mod bs soft nt nd : --- no e/t skin dry n. affect a&ox3; nicholson labs/med revd A/P: UTI-complicated? 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 recheck blood cx. Recheck K 3-12 check renal fn; GNR UTI. f/u repeat blood cx Leonidas Schaefer MD, PhD.
--- NOTE | 2019-09-22 06:50 | NUR ---
Walking rounds done. Shift report given to oncoming nurse.
[2019-09-22 07:23] LABS: ANION GAP 10.8 mmol/L (8-16); CALCIUM 8.5 mg/dL (8.4-10.2); CREATININE, SERUM 1.53 mg/dL (0.72-1.25); POTASSIUM 3.8 mmol/L (3.5-5.1)
[2019-09-22] MEDS: SODIUM CHLORIDE 0.9% 1000ML 1,000 ML IV SCH (08:08)
[2019-09-22] MEDS: MEROPENEM 500MG/ NS 50ML 50 ML IV SCH ×2 (08:08→20:52)
[2019-09-22] MEDS: AMLODIPINE BESYLATE 10 MG TAB PO SCH (08:09)
[2019-09-22] MEDS: DOXAZOSIN MESYLATE 2 MG TAB PO SCH (08:09)
[2019-09-22] MEDS: PANTOPRAZOLE SOD 40 MG TABEC PO SCH (08:10)
[2019-09-22] MEDS: CARVEDILOL 12.5 MG TAB PO SCH ×2 (08:10→16:16)
[2019-09-22] MEDS ORDERED: ONDANSETRON HCL 4 MG ORAL DISINTEGRATING TAB PO PRN (16:30)
--- NOTE | 2019-09-22 19:20 | NUR ---
REPORT RECEIVED FROM DAY RN.PT IS ALERT AND ORIENTED X3. COOPERATIVE WITH CARE. SL IN LT AC 18G- DRESSING INTACT,NO SIGN OF INFECTIONS AND FLUSHES EASILY. TELE ON- SR. RESPIRATIONS ARE EVEN AND UNLABORED. ARIAS DRAINING CLOUDY ELLOW URINE WITH WHITE SEDIMENT. PT DENIES PAIN. BED IN LOCKED AND IN LOW POSITION. CALL LIGHT IS WITHIN REACH.
--- NOTE | 2019-09-22 19:20 | NUR ---
Report given to oncoming nurse of patient's status. Resting in bed. AAOX3 to time, person, place. Respirations even and unlabored. Side rails upx2, call light within reach.
[2019-09-23] VITALS: BP 138/80
[2019-09-23 04:43] VITALS: BP 143/87
[2019-09-23] MEDS ORDERED: CIPROFLOXACIN250 MG PO (05:51)
--- NOTE | 2019-09-23 05:53 | NUR ---
D/C summary Principal Dx: Pseudomonas and Enterococcus UTI-complicated? 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 recheck blood cx. Recheck K 3-12 check renal fn; GNR UTI. f/u repeat blood cx Pseudomonas and Enterococcus sensitive to cipro. d/c home f/u pcp 1 week and 1 week stable d/c >35mins Leonidas Schaefer MD, PhD.
[2019-09-23 07:31] VITALS: BP 120/76
[2019-09-23 08:17] VITALS: BP 120/76
[2019-09-23] MEDS: MEROPENEM 500MG/ NS 50ML 50 ML IV SCH (09:43)
[2019-09-23] MEDS: AMLODIPINE BESYLATE 10 MG TAB PO SCH (09:43)
[2019-09-23] MEDS: PANTOPRAZOLE SOD 40 MG TABEC PO SCH (09:43)
[2019-09-23] MEDS: DOXAZOSIN MESYLATE 2 MG TAB PO SCH (09:43)
[2019-09-23] MEDS: CARVEDILOL 12.5 MG TAB PO SCH (09:43)
[2019-09-23 11:24] VITALS: BP 153/71
--- NOTE | 2019-09-23 15:10 | NUR ---
Patient discharged home with Crook's catheter with leg (per Dr Nida Medrano ), prescription given, denies any pain , no distress noted, IV canula removed with tip intact, no ss of infiltration noted, all belongings with patient
== END 2019-09-23 15:22 | disposition home or self-care (01) | DRG 698 ==
LOC: ER 15:43 → ERHOLD 19:43 → MED/SURG2 09-20 13:41
PROVIDERS: ADMIT Internal Medicine; ATTEND Internal Medicine
DX: T83.511A Infection and inflammatory reaction due to indwelling urethral catheter, initial encounter (principal); A41.9 Sepsis, unspecified organism; E87.1 Hypo-osmolality and hyponatremia; N17.9 Acute kidney failure, unspecified; N13.4 Hydroureter; E87.6 Hypokalemia; N18.3 Chronic kidney disease, stage 3 (moderate); I12.9 Hypertensive chronic kidney disease with stage 1 through stage 4 chronic kidney disease, or unspecified chronic kidney disease; K21.9 Gastro-esophageal reflux disease without esophagitis; Z82.49 Family history of ischemic heart disease and other diseases of the circulatory system; N40.0 Benign prostatic hyperplasia without lower urinary tract symptoms; E66.9 Obesity, unspecified; Z68.30 Body mass index [BMI] 30.0-30.9, adult; N28.1 Cyst of kidney, acquired; B96.5 Pseudomonas (aeruginosa) (mallei) (pseudomallei) as the cause of diseases classified elsewhere; B95.2 Enterococcus as the cause of diseases classified elsewhere
CPT/HCPCS: 36415; 51700; 74176; 80048; 80053; 81001; 82550; 82553; 83605; 83735; 83880; 84132; 84484; 85025; 85610; 85730; 87040; 87071; 87086; 87186; 87205; 99284; J7030

== ENCOUNTER 2019-11-02 05:31 | Observation (INO) | payer MEDICARE ==
[2019-11-01 14:44] LABS: BASOPHILS % 0.4 % (0.0-1.0); EOSINOPHILS # (AUTO) 0.4 (0.0-0.4); EOSINOPHILS % 4.8 % (0.0-6.0); HEMATOCRIT 32.4 % (38.2-49.6); HEMOGLOBIN 10.2 g/dL (14.0-18.0); LYMPHOCYTES # (AUTO) 1.2 (1.0-3.2); LYMPHOCYTES % 16.3 % (18.0-39.1); MEAN CORPUSCULAR HEMOGLOBIN 27.9 pg (28-32); MEAN CORPUSCULAR HGB CONC 31.5 g/dL (31-35); MEAN CORPUSCULAR VOLUME 88.8 fL (81-99); MONOCYTES # (AUTO) 0.8 (0.2-0.8); MONOCYTES % 10.2 % (4.4-11.3); NEUTROPHILS # (AUTO) 5.2 (2.1-6.9); NEUTROPHILS % 67.9 % (38.7-80.0); PLATELET COUNT 235 x10e3/uL (140-360); RED BLOOD COUNT 3.65 x10e6/uL (4.3-5.7); RED CELL DISTRIBUTION WIDTH 15.5 % (11.7-14.4)
[2019-11-01 14:59] LABS: ANION GAP 13.4 mmol/L (8-16); CALCIUM 9.4 mg/dL (8.4-10.2); CREATININE, SERUM 1.96 mg/dL (0.72-1.25); POTASSIUM 4.4 mmol/L (3.5-5.1)
[~2019-11-02] VITALS: Ht 182.9 cm; Wt 98.0 kg
[~2019-11-02 05:31] MED LIST changes: +CIPROFLOXACIN250 MG PO
[2019-11-02] MEDS ORDERED: MEROPENEM 1GM 100 ML IV ONE (05:49)
[2019-11-02] MEDS ORDERED: IOPAMIDOL 300MG/ML 50ML INFUS..BTL IV ONE ×2 (06:16→08:06)
[2019-11-02] MEDS ORDERED: B&O 60MG R/S 60 MG SUPP PR ONE (06:16)
[2019-11-02 06:20] LABS: BASOPHILS % 0.3 % (0.0-1.0); EOSINOPHILS # (AUTO) 0.3 (0.0-0.4); EOSINOPHILS % 4.9 % (0.0-6.0); HEMATOCRIT 30.6 % (38.2-49.6); HEMOGLOBIN 9.8 g/dL (14.0-18.0); LYMPHOCYTES # (AUTO) 0.9 (1.0-3.2); LYMPHOCYTES % 12.5 % (18.0-39.1); MEAN CORPUSCULAR VOLUME 87.4 fL (81-99); MONOCYTES # (AUTO) 0.9 (0.2-0.8); MONOCYTES % 12.5 % (4.4-11.3); NEUTROPHILS # (AUTO) 4.7 (2.1-6.9); NEUTROPHILS % 69.7 % (38.7-80.0); PLATELET COUNT 210 x10e3/uL (140-360); RED CELL DISTRIBUTION WIDTH 15.8 % (11.7-14.4)
[2019-11-02] MEDS ORDERED: ACETAMINOPHEN 1000 MG/100 ML IV PRN (09:00)
[2019-11-02] MEDS ORDERED: ONDANSETRON HCL INJ 2MG/ML 2ML 2 MG/ML VIAL IV PRN (09:00)
[2019-11-02] MEDS ORDERED: DIPHENHYDRAMINE HCL INJ 50 MG/ML VIAL IM PRN (09:00)
[2019-11-02 10:03] LABS: INR 1.02
--- NOTE | 2019-11-02 10:59 | Operative Report ---
DATE OF PROCEDURE: 11/02/2019 SURGEON: Tony Alva MD PREOPERATIVE DIAGNOSES: 1. Bilateral indwelling ureteral stents. 2. Bilateral hydronephrosis due to ureteral stricture. 3. Bladder diverticula. POSTOPERATIVE DIAGNOSES: 1. Bilateral indwelling ureteral stents. 2. Bilateral hydronephrosis due to ureteral stricture. 3. Bladder diverticula. OPERATIONS PERFORMED: Note, these were all staged procedures, not included any global of the prior transurethral resection of the prostate: 1. Cystourethroscopy with complicated removal of bilateral indwelling ureteral stents (separate procedure performed for the diagnosis of stents). 2. Right ureteral catheterization and retrograde ureteropyelography (separate procedure performed to evaluate an attempt to manage the right hydronephrosis with re-stenting). 3. Left ureteroscopy (separate procedure performed to try to stent and access the left kidney). 4. Radiological services for supervision and interpretation of ureteroscopy, no radiologist present. 5. Interpretation of retrograde ureteropyelography, no radiologist present. 6. Supervision of fluoroscopy, more than an hour, no radiologist present. 7. Cystography and interpretation, no radiologist present. ANESTHESIA: General. COMPLICATIONS: None. CLINICAL SUMMARY: Kameron Crow is a very complicated 69-year-old man with end-stage BPH, that went beyond ideal progression. The patient had recurrent urinary retention. He had a GreenLight laser by another urologist in 2016. The patient had a left nephrostomy tube placed for a complicated urinary infection and sepsis. He eventually was taken to the operating room and underwent cystolitholapaxy of a bladder stone and placement of a left stent and transurethral resection of the prostate. We then underwent a right nephrostomy tube placement and right internalized stent placement by Interventional Radiology to manage the right hydronephrosis due to the fact that we could not stent him from below. The patient was brought to the operating room today to remove his stents and evaluate the need for additional stenting. The patient would like his stents removed. He has been doing intermittent catheterizations and has had some return of voiding function. He is aware of the risks of bleeding, infection, injury to adjacent structures, need for additional procedures, and elected to proceed. The patient has had complicated urinary tract infections and has required courses of intravenous antibiotics. OPERATIVE PROCEDURE IN DETAIL: Informed consent was verified. Kameron Crow was properly identified, taken to the operating room, and placed on the cystoscopy table in supine position. Anesthesia was uneventfully begun. The patient was then carefully and gently repositioned in the dorsal lithotomy position with all pressure points were well padded. His genitalia were prepared and draped in usual sterile fashion. The cystoscope sheath with a visual obturator in place, was atraumatically inserted into the patient's urethra, it was guided unremarkable distal urethra through normal sphincteric region into the prostate bed, where there was residual BPH, that was caving into the cavity that we created with our extensive transurethral resection of the prostate two months ago, the patient's right ureteral stent was displaced distally and the distal coil was actually at the left side of the bladder and there was similar migration of the left stent, but not to the same degree. The guidewire was negotiated into the right ureter with difficulty in the stent was then removed. The proximal coil of stent appeared extremely low in the ureter and not in the kidney at the beginning of the case. We utilized open-ended ureteral catheter to negotiate into the right ureter and retrograde pyelograms were performed. We were unable to negotiate a guidewire into the proximal portion of the right ureter. We tried 4 different wires before losing access. The left stent was grasped, pulled out to the distal meatus. A guidewire was then placed through the left stent and it was unable to be negotiated through the proximal portion of the stent. We then reintroduced the cystoscope sheath, placed a guidewire alongside the stent and were able to negotiated to the level of the mid ureter. The stent was removed utilizing open-end ureteral catheter. We performed retrograde ureteral pyelograms, but were unable to pass the tortuosity and the stricturing in the right angle lateral turn of the mid ureter. We utilized double-lumen ureteral catheter with the same lack of success, 4 different wires were tried. We then negotiated the 1st rigid and flexible ureteroscope to this point and was still unable to locate the channel, unable to cannulate it, unable to negotiate guidewire to the proximal ureter. Interpretation of retrograde ureteropyelography contrast was instilled in a retrograde fashion bilaterally. There was dramatic corkscrew abnormality of both ureters, this was a stone being on the right-hand side. There was definite hydroureteronephrosis bilaterally. The left hand side extremely abnormal appearing ureter with tortuosity and dilated portions of the ureter with narrowing at the mid ureter with left-sided severe hydroureteronephrosis. Minimal dilute contrast was diluted into the capacious left collecting system. The right intrarenal collecting system could not be opacified. Cystoscope was withdrawn, a 20-Setswana Crook catheter with a 30 mL was then balloon was then placed. A 30 mL was inflated into the balloon and then injection procedure was then performed and performed cystography. Interpretation cystography, the bladder has an end-stage Audrey tree bladder with diffuse diverticula increased capacity. The Crook catheter balloon was in good position within the bladder lumen. There was no evidence of vesicoureteric reflux. The patient's bladder was drained. Belladonna and opium suppository were placed, revealing a very large well over 50 g prostate, smooth, nonfluctuant without any nodules. The patient was uneventfully reversed from anesthesia and was taken to the recovery in stable condition. PLANS: Plans will be to have the Interventional radiologist placed bilateral externalized nephroureteral stents. We will admit the patient for intravenous antibiotics in the meantime. Specimens from this case included the catheterized urine specimen was obtained from the bladder upon initial entry. This was nonelective procedure, this patient has chronic urinary tract infections, pain from the stents, and intermittent hematuria from the stents needing to catheterize for urinary retention. The stents are older and need to be replaced. The potential of delaying this procedure include progressive infection per renal output. The patient's displaced right stent makes this procedure urgent. Tony Alva MD [place]/MODL /[id number] cc: Dr. Tien Galvan
[2019-11-02 12:44] VITALS: BP 142/74
[2019-11-02 13:00] VITALS: BP 142/74
[2019-11-02 13:10] VITALS: BP 142/74
[2019-11-02] MEDS ORDERED: FENTANYL CITRATE/PF 100MCG/2 ML INJ ONE (13:16)
[2019-11-02] MEDS ORDERED: MIDAZOLAM HCL 2 MG/2 ML VIAL ONE (13:16)
[2019-11-02] MEDS ORDERED: LIDOCAINE HCL 1% LOCAL INJ 20 ML VIAL ONE (13:47)
[2019-11-02 16:06] VITALS: BP 120/65
[2019-11-02] MEDS ORDERED: IOPAMIDOL 370 MG/ML 200 ML INFUS..BTL INJ ONE (16:15)
[2019-11-02] MEDS: PIPERACILLIN/TAZO 2.25 GM 50 ML IV SCH ×2 (16:49→22:14)
[2019-11-02] MEDS: SOD CHL 0.45%/POT CHL 20MEQ 1,000 ML IV SCH ×2 (16:49→20:01)
[2019-11-02] MEDS: DOCUSATE SODIUM 100 MG CAP PO SCH (17:00)
[2019-11-02] MEDS ORDERED: LIDOCAINE HCL 2% LOCAL INJ 5 ML SDV VIAL INJ ONE (19:37)
[2019-11-02] MEDS ORDERED: PROPOFOL IV EMULSION 10 MG/ML 20 ML VIAL ONE (19:37)
[2019-11-02] MEDS ORDERED: ONDANSETRON HCL INJ 2MG/ML 2ML 2 MG/ML VIAL ONE (19:37)
[2019-11-02] MEDS ORDERED: DEXAMETHASONE SOD PHOS INJ 4 MG/ML VIAL ONE (19:37)
[2019-11-02] MEDS ORDERED: SEVOFLURANE INHAL SOLN 250 ML PEN BTL ONE (19:37)
[2019-11-02 20:00] VITALS: BP 136/76
[2019-11-02] MEDS: ACETAMINOPHEN/CODEINE 300MG - 30MG TAB PO PRN (20:00)
--- NOTE | 2019-11-02 20:32 | Consultation ---
DATE OF CONSULTATION: REASON FOR CONSULTATION: UTI. HISTORY OF PRESENT ILLNESS: This patient who is a very pleasant 69-year-old gentleman has history of end-stage benign prostatic hypertrophy, recurrent UTI. He had a GreenLight laser done in 2015. He had left nephrostomy tube placed because of complicated UTI and sepsis before, eventually was taken to the OR, underwent cystourethropexy of the bladder stone, placement of left stent, and transurethral resection of the prostate. The patient had right nephrostomy tube placement and right stent placement by Interventional Radiology because he had right hydronephrosis. The patient was coming today on November 01 with bilateral indwelling ureteral stent, bilateral hydronephrosis due to ureteral stricture, and bladder diverticular disease. He underwent bilateral indwelling ureteral stent placement, bilateral hydronephrosis drainage. The procedure was done today by Dr. Tony Alva. Please refer to his note for details. Urine was sent for cultures. LABORATORY DATA: On admission, his white count 6.7, hemoglobin 9.8. His sodium was 138, potassium 4.4, creatinine 1.96. MEDICATION LIST: He is currently on Zosyn. PHYSICAL EXAMINATION: GENERAL: He is currently alert, oriented, does not seem in acute distress. VITAL SIGNS: Stable, currently afebrile. HEENT: He is not icteric. NECK: Supple. CHEST: Clear. HEART: S1 and S2. No S3. S4, or murmur. ABDOMEN: Soft. IMPRESSION: Urinary tract infection, complicated with multiple urological procedures mentioned above with the presence of foreign body with stent currently. Agree with Zosyn. Await urine cultures. Await blood cultures. Recheck CBC. Recheck Chem panel. Discussed with Urology for making a final recommendation. Other medical problems seem to be stable. We will follow with you. MD DAWIT Goddard/SHWETA /[id number]
[2019-11-02 21:00] VITALS: BP 136/76
[2019-11-03] VITALS (8 sets, daily range): BP systolic 123–133; BP diastolic 67–79
[2019-11-03] MEDS: SOD CHL 0.45%/POT CHL 20MEQ 1,000 ML IV SCH ×2 (04:48→12:58)
[2019-11-03] MEDS: PIPERACILLIN/TAZO 2.25 GM 50 ML IV SCH ×3 (05:29→23:38)
[2019-11-03 06:03] LABS: BASOPHILS % 0.3 % (0.0-1.0); EOSINOPHILS # (AUTO) 0.3 (0.0-0.4); EOSINOPHILS % 4.9 % (0.0-6.0); HEMATOCRIT 29.2 % (38.2-49.6); LYMPHOCYTES # (AUTO) 0.9 (1.0-3.2); LYMPHOCYTES % 12.4 % (18.0-39.1); MEAN CORPUSCULAR HEMOGLOBIN 27.5 pg (28-32); MEAN CORPUSCULAR HGB CONC 30.8 g/dL (31-35); MEAN CORPUSCULAR VOLUME 89.3 fL (81-99); MONOCYTES # (AUTO) 0.8 (0.2-0.8); NEUTROPHILS # (AUTO) 4.9 (2.1-6.9); NEUTROPHILS % 70.1 % (38.7-80.0); PLATELET COUNT 182 x10e3/uL (140-360); RED BLOOD COUNT 3.27 x10e6/uL (4.3-5.7); RED CELL DISTRIBUTION WIDTH 15.8 % (11.7-14.4)
[2019-11-03 06:20] LABS: ANION GAP 8.5 mmol/L (8-16); CALCIUM 8.8 mg/dL (8.4-10.2); CREATININE, SERUM 1.73 mg/dL (0.72-1.25); POTASSIUM 4.5 mmol/L (3.5-5.1)
[2019-11-03] MEDS: DOCUSATE SODIUM 100 MG CAP PO SCH ×2 (08:43→17:00)
--- NOTE | 2019-11-03 10:39 | Progress Note ---
DATE: SUBJECTIVE: The patient is seen, evaluated, and discussed with Dr. Fischer. Discussed with Dr. Alva, Urology. The patient is status post bilateral removal of the stents and unable to replace stent secondary to anatomical abnormal anatomy. Now, the patient's bilateral nephrostomy tube with one draining more than the other one. REVIEW OF SYSTEMS: No nausea, vomiting, fever, chills, chest pain, shortness of breath, headache, or dysuria. The patient also has a Crook cath that is draining some in the bag. OBJECTIVE: VITAL SIGNS: Temperature is 98.2, improved from 99.6 on admission, pulse is 81, respirations 18, blood pressure 127/76. GENERAL: Alert and oriented, in no acute distress. CV: S1 and S2. CHEST: Equal expansion. Clear to auscultation. No acute distress. ABDOMEN: Soft and nontender. No distention. HEENT: Moist. No pallor. No JVD. The patient has bilateral nephrostomy tube and a Crook catheter. LABORATORY DATA: White blood cells 6.99, hemoglobin 9, platelets 182. Sodium 135, potassium 4.5, creatinine 1.73. MICROBIOLOGY: Urine cultures pending. RADIOLOGY STUDIES: The patient is status post cystogram by urologist. ASSESSMENT AND PLAN: 1. Urinary tract infection. 2. Bilateral stents-status post removal, unable to place secondary to abnormal anatomy. 3. Obesity. 4. Electrolyte abnormalities. 5. Anemia. 6. Continue with Zosyn, follow up with urine culture, discharge planning is noted maybe for tomorrow, 11/04/2019. Discussed with Dr. Fischer. Please refer to the notes in the chart for more information. Dictated by David Olguin PA-C (Al) Radha Fischer MD /MODL /[id number]
[2019-11-03] MEDS: ACETAMINOPHEN/CODEINE 300MG - 30MG TAB PO PRN (11:44)
[2019-11-03] MEDS: SODIUM CHLORIDE 0.45% 1,000 ML IV SCH ×2 (15:06→23:50)
[2019-11-03] MEDS: CARVEDILOL 12.5 MG TAB PO SCH (17:14)
[2019-11-03] MEDS ORDERED: TAMSULOSIN HCL 0.4 MG CAP PO SCH (21:00)
[2019-11-04] VITALS: BP 133/75
[2019-11-04 04:00] VITALS: BP 132/75
[2019-11-04] MEDS: PIPERACILLIN/TAZO 2.25 GM 50 ML IV SCH ×2 (06:00→14:00)
[2019-11-04 06:10] LABS: ANION GAP 12.1 mmol/L (8-16); BASOPHILS % 0.3 % (0.0-1.0); CALCIUM 8.6 mg/dL (8.4-10.2); CREATININE, SERUM 1.47 mg/dL (0.72-1.25); EOSINOPHILS # (AUTO) 0.5 (0.0-0.4); EOSINOPHILS % 6.4 % (0.0-6.0); HEMATOCRIT 28.3 % (38.2-49.6); HEMOGLOBIN 9.1 g/dL (14.0-18.0); LYMPHOCYTES # (AUTO) 1.1 (1.0-3.2); LYMPHOCYTES % 15.1 % (18.0-39.1); MEAN CORPUSCULAR HEMOGLOBIN 28.2 pg (28-32); MEAN CORPUSCULAR HGB CONC 32.2 g/dL (31-35); MEAN CORPUSCULAR VOLUME 87.6 fL (81-99); MONOCYTES # (AUTO) 0.8 (0.2-0.8); MONOCYTES % 10.6 % (4.4-11.3); NEUTROPHILS # (AUTO) 4.9 (2.1-6.9); NEUTROPHILS % 67.1 % (38.7-80.0); PLATELET COUNT 183 x10e3/uL (140-360); POTASSIUM 4.1 mmol/L (3.5-5.1); RED BLOOD COUNT 3.23 x10e6/uL (4.3-5.7); RED CELL DISTRIBUTION WIDTH 15.7 % (11.7-14.4)
[2019-11-04 07:45] LABS: ANISOCYTOSIS SLIGHT; PLATELET ESTIMATE ADEQUATE; PLATELET MORPHOLOGY COMMENT RARE EDTA CLUMPING; RBC MORPHOLOGY COMMENT NORMAL
[2019-11-04 08:00] VITALS: BP 141/78
[2019-11-04] MEDS: DOCUSATE SODIUM 100 MG CAP PO SCH ×2 (08:36→18:32)
[2019-11-04] MEDS: CARVEDILOL 12.5 MG TAB PO SCH ×2 (08:36→18:32)
[2019-11-04] MEDS: SODIUM CHLORIDE 0.45% 1,000 ML IV SCH (08:38)
[2019-11-04 08:54] VITALS: BP 141/78
[2019-11-04] MEDS ORDERED: PANTOPRAZOLE SOD 40 MG TABEC PO SCH (09:00)
[2019-11-04] MEDS ORDERED: DOXAZOSIN MESYLATE 2 MG TAB PO SCH (09:00)
[2019-11-04] MEDS ORDERED: AMLODIPINE BESYLATE 10 MG TAB PO SCH (09:00)
[2019-11-04 12:00] VITALS: BP 135/80
[2019-11-04 16:00] VITALS: BP 139/79
[2019-11-04] MEDS ORDERED: TYLENOL WITH C1 EACH PO (16:48)
[2019-11-04] MEDS ORDERED: LEVOFLOXACIN250 MG PO (16:49)
--- NOTE | 2019-11-07 16:46 | Diagnostic Imaging Report ---
PROCEDURE: Genitourinary catheter placement Procedural Personnel Attending physician(s): Mehdi Diggs MD Fellow physician(s): None Resident physician(s): None Advanced practice provider(s): None Pre-procedure diagnosis: Bilateral ureteral obstruction, hydronephrosis Post-procedure diagnosis: Same Indication: Urinary obstruction Catheter(s) placed because the previous catheter(s) became dislodged within 30 days of placement (QCDR): No Additional clinical history: None Complications: No immediate complications. IMPRESSION: Right and left nephrostomy catheter placement (10Fr). Plan: Leave PCNs to gravity drainage. Patient may return to IR in 1-2 weeks for attempted internalization. PROCEDURE SUMMARY - Target organ: Bilateral [place] kidneys - Image-guided placement of genitourinary catheter(s) - Additional procedure(s): None PROCEDURE DETAILS: Pre-procedure Consent: Informed consent for the procedure including risks, benefits and alternatives was obtained and time-out was performed prior to the procedure. Preparation: The site was prepared and draped using maximal sterile barrier technique including cutaneous antisepsis. Anesthesia/sedation Level of anesthesia/sedation: Moderate sedation (conscious sedation) Anesthesia/sedation administered by: Independent trained observer under attending supervision with continuous monitoring of the patient?s level of consciousness and physiologic status Total intra-service sedation time (minutes): 60 Right genitourinary catheter placement Local anesthesia was administered. A needle was advanced into the renal collecting system under ultrasound and fluoroscopy guidance. A wire was advanced, the tract was serially dilated and a nephrostomy tube was placed . Contrast injection was performed. Genitourinary catheter placed: 10Fr Uresil Findings: Severe hydroureteronephrosis. No contrast opacification of the distal ureter with complete obstruction of the mid ureter and inability to pass a wire beyond the obstruction. External catheter securement: Non-absorbable suture Left genitourinary catheter placement Local anesthesia was administered. A needle was advanced into the renal collecting system under ultrasound and fluoroscopy guidance. A wire was advanced, the tract was serially dilated and a nephrostomy tube was placed . Contrast injection was performed. Genitourinary catheter placed: 10Fr Uresil Findings: Severe hydroureteronephrosis. No contrast opacification of the distal ureter with complete obstruction of the mid ureter and inability to pass a wire beyond the obstruction. External catheter securement: Non-absorbable suture Additional genitourinary system intervention Genitourinary intervention: None Location of intervention: Not applicable Device used: Not applicable Description of intervention: Not applicable Post-intervention findings: Not applicable Contrast Contrast agent: Isovue 370 Contrast volume (mL): 20 Radiation Dose Fluoroscopy time (minutes): 7.1 Reference air kerma (mGy): 86.7 Additional Details Additional description of procedure: None Equipment details: None Specimens removed: None. A sample was not sent for analysis. Estimated blood loss (mL): Less than 10 Standardized report: [email or web address] Attestation Signer name: Mehdi Diggs MD I attest that I was present for the entire procedure. I reviewed the stored images and agree with the report as written. Signed by: Mehdi Diggs MD on 11/07/2019 4:43 PM
== END 2019-11-04 18:52 | disposition home or self-care (01) ==
LOC: OR 05:31 → PACU V 08:56 → INTOOBSV 08:56 → MED/SURG 12:44
PROVIDERS: ADMIT Internal Medicine; ATTEND Internal Medicine
DX: Z46.6 Encounter for fitting and adjustment of urinary device (principal); N13.1 Hydronephrosis with ureteral stricture, not elsewhere classified; N40.1 Benign prostatic hyperplasia with lower urinary tract symptoms; R33.8 Other retention of urine; R39.14 Feeling of incomplete bladder emptying; D41.00 Neoplasm of uncertain behavior of unspecified kidney; Z87.442 Personal history of urinary calculi; Z80.9 Family history of malignant neoplasm, unspecified; I13.0 Hypertensive heart and chronic kidney disease with heart failure and stage 1 through stage 4 chronic kidney disease, or unspecified chronic kidney disease; I50.9 Heart failure, unspecified; N32.3 Diverticulum of bladder; N39.0 Urinary tract infection, site not specified; E66.9 Obesity, unspecified; D64.9 Anemia, unspecified; Z68.29 Body mass index [BMI] 29.0-29.9, adult; R53.81 Other malaise; N18.3 Chronic kidney disease, stage 3 (moderate); K21.9 Gastro-esophageal reflux disease without esophagitis; B96.5 Pseudomonas (aeruginosa) (mallei) (pseudomallei) as the cause of diseases classified elsewhere; B95.2 Enterococcus as the cause of diseases classified elsewhere
CPT/HCPCS: 36415; 50432; 74420; 74470; 76942; 80048; 85025; 85610; 87086; 87186; 93005; C1729; C1758; C1769; C1887; G0378; J1100; J2001; J2250; J2405; J2543; J3010; Q9967

== ENCOUNTER → 2019-12-16 | Outpatient (CLI) | payer MEDICARE ==
[~2019-12-16] MED LIST changes: +CEFTRIAXONE SOD 1 GM/NS 50 ML 50 ML IV ONE; +FENTANYL CITRATE/PF 100MCG/2 ML INJ ONE; +IOPAMIDOL 300MG/ML 100 ML INFUS..BTL IV ONE; +LEVOFLOXACIN250 MG PO; +MEROPENEM 1GM 1 GM/100 ML BAG IV ONE; +MIDAZOLAM HCL 2 MG/2 ML VIAL ONE; +SODIUM CHLORIDE 0.9% 250ML 250 ML ONE; +TYLENOL WITH C1 EACH PO
[2019-12-16 09:12] LABS: HEMOGLOBIN 10.8 g/dL (14.0-18.0)
[2019-12-16 09:21] LABS: INR 0.84
[2019-12-16 09:22] LABS: PARTIAL THROMBOPLASTIN TIME 29.7 seconds (23.8-35.5)
[2019-12-16 11:20] LABS: CLARITY,URINE CLEAR (CLEAR); COLOR,URINE PINK (YELLOW)
[2019-12-16 11:21] LABS: BILIRUBIN,URINE NEGATIVE (NEGATIVE); KETONES,URINE NEGATIVE (NEGATIVE); LEUKOCYTE ESTERASE ,URINE TRACE (NEGATIVE); NITRITE,URINE NEGATIVE (NEGATIVE); PROTEIN,URINE DIPSTICK >=300 (NEGATIVE); URINE UROBILINOGEN 0.2 mg/dL (0.2 - 1)
[2019-12-16 11:37] LABS: BACTERIA,URINE RARE /HPF; EPITHELIAL CELLS,URINE FEW /LPF
--- NOTE | 2019-12-16 12:35 | Diagnostic Imaging Report ---
Procedure: Exchange of right percutaneous nephrostomy to Right percutaneous nephroureteral stent. Left percutaneous nephrostomy catheter exchange with failure to place a nephroureteral stent. History: Obstructive uropathy. Clerical Car Checker: Brent Anguiano M.D. Postal Superintendent: Michelle Rojas Modality: Fluoroscopy. DOSE REDUCTION: The examination was performed according to departmental dose-optimization program. Fluoro time: 15.9 minutes. Radiation dose: 208 mGy air Kerma. Sedation: IV medazepam 3 mg and 1 50 mcg. Vital signs were monitored throughout the procedure by a dedicated RN under direct supervision of Dr. Anguiano, and remained stable. Physician intra-service sedation time was approximately 30 minutes. Anesthesia: Lidocaine local infiltration Medicines: Rocephin 1 g IV. Merem 1 g IV Contrast medium: Isovue 300, 50 cc. Estimated blood loss: < 5 cc. Technique: A discussion of the risks, benefits, and alternatives was carried out with the patient. A written informed consent was obtained. The patient expressed understanding and agreed to proceed. A universal timeout was performed prior to starting the procedure. The procedure room personnel used personal protective equipment. The operators used sterile gowns and gloves. The patient was laid prone on the procedure table. The bilateral percutaneous nephrostomy sites were prepped with chlorhexidine gluconate and draped in sterile fashion. A plastic worker radiograph was performed showing the catheters to be in the expected location. Contrast injection through the catheter confirmed the catheter tip location in the collecting system with retraction of the catheter tips into the minor calyces. The pelvises and ureters are dilated bilaterally. Right kidney: After local anesthetic infiltration, the retention suture was removed. The catheter was cut and withdrawn over a wire. Examination of a Kumpe catheter and a Glidewire was advanced down the tortuous ureter into the bladder. Over the wire, a 10.2 [place] 24 cm long nephroureteral stent was placed with the distal pigtail formed in the bladder and the proximal pigtail locked in the renal pelvis. The catheter position was confirmed with contrast injection. The catheter was secured to skin with nonabsorbable suture. The catheter was capped externally. An aseptic dressing was applied. Left kidney: After local anesthetic infiltration, the retention suture was removed. The catheter was cut. There was high-pressure return of cloudy turbid urine. A specimen of the urine was collected for laboratory examination. The catheter was withdrawn over a hydrophilic guidewire. Examination of a Kumpe catheter and hydrophilic wire was used to negotiate the passage down to the mid ureter. The guidewire could not been associated any further. Contrast injection revealed a chronically dilated ureter with a large filling defect likely representing a calculus. After prolonged attempt to cross the occlusion I contacted the referring urologist. In view of the patient's suspected infected urine and risk of sepsis, it was decided to place a nephrostomy catheter. A 10.2 [place] nephrostomy catheter was placed over a guidewire, the pigtail locked in the left renal pelvis, the catheter position confirmed with contrast injection and the catheter secured to skin with nonabsorbable suture. The catheter was connected to a gravity drainage bag. An aseptic dressing was applied. The patient was transferred to the recovery area and discharged from the department in stable condition. Complications: None immediate. Findings: Chronically dilated and tortuous pelvis and ureters bilaterally. The left ureter as a filling defect likely representing a stone and is occluded at the lower lumbar level. The occlusion could not be crossed. The attempt was aborted because of the risk of precipitating sepsis. Impression: Lower Successful fluoroscopic guided 10.2 [place] right nephrostomy catheter exchange for a 10.2 [place] x 22 cm long nephroureteral stent as described above. Occluded mid left ureter with a ureteric calculus as described above. There is possible urinary infection on the left side and a urine specimen has been collected for microbiologic examination and prophylactic prophylactic antibiotics given as described above after consultation with the urologist. The left nephrostomy catheter was exchanged for a 10.2 nephrostomy catheter to drain externally. Once the infection/inflammation is cooled, another attempt should be made for example in approximately 2 weeks with greater chance of success due to reduction of tissue edema. Further management dictated by the clinical scenario. The catheter should be exchanged at the latest in three months. Thank you for the opportunity to assist in the care of your patient. Signed by: Brent Anguiano MD on 12/16/2019 12:31 PM
== END ==
LOC: DX 08:28
PROVIDERS: ATTEND Urology
DX: N13.30 Unspecified hydronephrosis (principal); D41.00 Neoplasm of uncertain behavior of unspecified kidney
CPT/HCPCS: 36415; 50387; 50431; 81001; 85014; 85049; 85610; 85730; 87086; 87186; C1769; J0696; J2185; J2250; J3010; J7050; Q9967

== ENCOUNTER → 2019-12-26 | Outpatient (CLI) | payer MEDICARE ==
[~2019-12-26] MED LIST changes: -CEFTRIAXONE SOD 1 GM/NS 50 ML 50 ML IV ONE; +LIDOCAINE HCL 1% LOCAL INJ 20 ML VIAL ONE; -MEROPENEM 1GM 1 GM/100 ML BAG IV ONE
--- NOTE | 2019-12-26 12:52 | Diagnostic Imaging Report ---
Left nephrostomy to nephroureterostomy (universal stent) conversion. History: Obstructive uropathy. Modality: Fluoroscopy Sedation: Versed 2 mg and fentanyl 100 mcg was given intravenously for conscious sedation. Vital signs were monitored throughout the procedure by a nurse, and remained stable. Physician intra-service time was 45 minutes. Fluoroscopy Time: 13.6 min. Reference Air Kerma (Ka, r): 204 mGy. Approach: The indwelling left nephrostomy catheter Estimated blood loss: < 5 cc. Specimen: None. wash oil pump operator: Christiano Contreras MD. Technique: Informed written consent was obtained. Discussion of risks, benefits, and alternatives were made with the patient. The patient expressed understanding and agreed to proceed. A universal timeout was performed prior to starting the procedure. All elements maximal sterile barrier technique was utilized for this procedure, including utilization of sterile scrub solution for skin prep, a large sterile sheet to cover the areas of the patient that were not prepped, and hand hygiene, mask, head covering, and sterile gown for performing radiologist and scrub technologist. Contrast injection demonstrates severe dilatation of the left renal pelvis and proximal ureter. Complete obstruction noted at the level of the mid ureter with no passage of contrast noted distally. The obstruction was eventually successfully traversed with a 0.035 stiff an angled Glidewire and 5 [place] Citizen Kumpe catheter. The catheter was eventually manipulated into the urinary bladder. The Glidewire was exchanged for a 0.035 Amplatz wire. Subsequently, a 10.2 [place] Citizen 5 24-cm nephroureterostomy catheter ([place] stent) was advanced over wire with distal pigtail formed within the urinary bladder and proximal pigtail within the left renal pelvis. Contrast injection confirmed position. The catheter was fixed to the skin with silk suture and attached to a gravity drainage bag. A sterile dressing was applied. The patient tolerated the procedure without immediate complication. FINDINGS: Nephrostogram demonstrates complete occlusion noted of the left mid ureter which successfully traversed with catheter and wire. A 10.2 [place] Citizen x 24 cm nephroureterostomy catheter was successfully placed. IMPRESSION: Successful fluoroscopic guided left nephrostomy to nephroureterostomy ([place] stent) conversion with conscious sedation as detailed above. Signed by: Dr. Christiano Contreras MD on 12/26/2019 12:48 PM
== END ==
LOC: DX 09:02
PROVIDERS: ATTEND Urology
DX: D41.00 Neoplasm of uncertain behavior of unspecified kidney (principal); N13.30 Unspecified hydronephrosis
CPT/HCPCS: 50431; J2001; J2250; J3010; J7050; Q9967; 99152; 99153

== ENCOUNTER → 2020-02-27 | Outpatient (CLI) | payer MEDICARE ==
--- NOTE | 2020-02-27 11:26 | Diagnostic Imaging Report ---
Procedure: Bilateral percutaneous nephroureterostomy catheter exchange. History: Routine maintenance. Immigration Specialist: Brent Anguiano M.D. Bench Press Operator: Michelle Rojas Modality: Fluoroscopy. DOSE REDUCTION: The examination was performed according to departmental dose-optimization program. Fluoro time: 4.7 minutes. Radiation dose: 69.8 mGy air Kerma. Sedation: Intravenous conscious sedation was administered by the dedicated RN with 1 mg of midazolam and 50 mcg of fentanyl IV. Vital signs were monitored throughout the procedure by a dedicated RN under direct supervision of Dr. Anguiano, and remained stable. Physician intra-service sedation time was approximately 30 minutes. Anesthesia: Lidocaine local infiltration Medicines: None Contrast medium: Isovue 300, 50 cc. Estimated blood loss: < 5 cc. Technique: A discussion of the risks, benefits, and alternatives was carried out with the patient. A written informed consent was obtained. The patient expressed understanding and agreed to proceed. A universal timeout was performed prior to starting the procedure. The procedure room personnel used personal protective equipment. The operators used sterile gowns and gloves. The patient was laid prone on the procedure table. The bilateral percutaneous access site was prepped with chlorhexidine gluconate and draped in sterile fashion. A concert or lecture hall manager radiograph was performed showing the catheters to be in the expected location. Contrast injection through the catheters confirmed the catheter location in the collecting system. The distal tips within the urinary bladder. There is occlusion at the mid ureter bilaterally. After local anesthetic infiltration, the retention suture was removed. The catheter was cut and withdrawn over a wire. Over the wire, a sheath was placed. A pyelogram was performed that confirmed the above findings of a very dilated renal collecting system and proximal ureter with occlusion at the mid ureter. The catheter was replaced with an identical catheter. The catheter position was confirmed with contrast injection. The catheter was secured to skin with nonabsorbable suture. The catheter was connected to a gravity drainage bag. An aseptic dressing was applied. The contralateral nephroureteral catheter was exchanged using an identical technique. The patient was transferred to the recovery area and discharged from the department in stable condition. Complications: None immediate. Findings: As above. Impression: Successful fluoroscopic guided 10.2 Persian x 24 cm left and 10.2 [place] x 22 cm right nephroureterostomy catheter exchange as described above. 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 The patient has a neurogenic bladder and has to do intermittent self-catheterization which is not desirable to the patient. The sites this exposes the renal collecting system to backward pressure through the patent nephroureteral stents. On the patient's request, after discussion with the referring urologist, it was decided to connect stents external bags. The patient was carried the bags. The patient will continue to do intermittent self-catheterization on as-needed basis. On the next visit, the nephroureteral stent would be converted to nephrostomies. Further management dictated by the clinical scenario. The catheters should be exchanged at the latest in three months. Thank you for the opportunity to assist in the care of your patient. Signed by: Brent Anguiano MD on 02/27/2020 11:23 AM
== END ==
LOC: DX 07:45
PROVIDERS: ATTEND Urology
DX: N13.30 Unspecified hydronephrosis (principal)
CPT/HCPCS: 50431; J2001; J2250; J3010; J7050; Q9967; 99152; 99153; C1769

== ENCOUNTER → 2020-04-05 | Outpatient (CLI) | payer MEDICARE ==
[~2020-04-05] MED LIST changes: -FENTANYL CITRATE/PF 100MCG/2 ML INJ ONE; -IOPAMIDOL 300MG/ML 100 ML INFUS..BTL IV ONE; -LIDOCAINE HCL 1% LOCAL INJ 20 ML VIAL ONE; -MIDAZOLAM HCL 2 MG/2 ML VIAL ONE; -SODIUM CHLORIDE 0.9% 250ML 250 ML ONE
--- NOTE | 2020-04-05 20:19 | Diagnostic Imaging Report ---
Renal Scan Reason for exam: Crossing vessel and 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 BILATERAL PERCUTANEOUS NEPHROSTOMY CATHETERS ARE UNCLAMPED FOR THE ENTIRETY OF THE STUDY. LEFT KIDNEY: Perfusion to the left kidney appears to be prompt. The left kidney consists of a faint rim of parenchyma of a very small kidney. The rim of parenchyma is slightly greater in the upper pole. The pelvicaliceal system cannot be adequately assessed because very little tracer is cleared from the renal parenchyma except in the upper pole that fills a large calyx. Increased pooling of tracer is only seen within the dilated calyx in the upper pole. Very minimal tracer flows through the nephrostomy catheter in the lower pole of the kidney. No tracer is seen in the left ureter. RIGHT KIDNEY: Perfusion is prompt. The kidney is overall decreased in size with slightly irregular contours. The right kidney is larger than the left kidney and has a greater amount of preserved parenchyma. Extraction of tracer from the blood pool is decreased. Clearance of tracer from the renal parenchyma prolonged and not complete by the end of the study. A mildly dilated calyx is seen in the upper pole. Otherwise, the pelvicalyceal system does not appear dilated. Tracer is seen in the nephrostomy catheter. Increased pooling of tracer is only seen in the upper pole calyx. Some tracer is seen in the right ureter. DIFFERENTIAL RENAL FUNCTION: Left kidney 19% and right kidney 81% (normal 43-57%). Impression: 1. The left kidney is markedly reduced in size with only a thin rim of parenchyma, greatest in the upper pole. Significant medical renal disease is also present. A dilated calyx in the upper pole does not drain during the study, consistent with obstruction. The remainder of the excreted tracer flows through the nephrostomy tube. The decreased differential function of 19% reflects the loss of renal parenchyma in the kidney. 2. The right kidney shows moderately severe medical renal disease. The kidney is reduced in size with evidence of some scarring. A dilated calyx in the upper pole does drain. Most of the excreted tracer drains through the nephrostomy although some drains through the ureter. Signed by: Dr. Cristine Leiva M.D. on 04/05/2020 8:15 PM
== END ==
LOC: NM 07:52
PROVIDERS: ATTEND Urology
DX: N13.5 Crossing vessel and stricture of ureter without hydronephrosis (principal)
CPT/HCPCS: 78707; A9562

== ENCOUNTER 2020-05-18 09:17 | Inpatient (IN) | payer MEDICARE ==
[2020-05-15 13:00] LABS: BASOPHILS % 0.4 % (0.0-1.0); EOSINOPHILS # (AUTO) 0.2 (0.0-0.4); EOSINOPHILS % 3.9 % (0.0-6.0); HEMATOCRIT 35.8 % (38.2-49.6); HEMOGLOBIN 10.8 g/dL (14.0-18.0); LYMPHOCYTES # (AUTO) 1.3 (1.0-3.2); LYMPHOCYTES % 23.5 % (18.0-39.1); MEAN CORPUSCULAR HEMOGLOBIN 27.1 pg (28-32); MEAN CORPUSCULAR HGB CONC 30.2 g/dL (31-35); MEAN CORPUSCULAR VOLUME 89.9 fL (81-99); MONOCYTES # (AUTO) 0.4 (0.2-0.8); NEUTROPHILS # (AUTO) 3.5 (2.1-6.9); NEUTROPHILS % 63.8 % (38.7-80.0); PLATELET COUNT 185 x10e3/uL (140-360); RED BLOOD COUNT 3.98 x10e6/uL (4.3-5.7); RED CELL DISTRIBUTION WIDTH 18.6 % (11.7-14.4)
[2020-05-15 13:15] LABS: ANION GAP 15.3 mmol/L (8-16); CALCIUM 9.3 mg/dL (8.4-10.2); CREATININE, SERUM 1.83 mg/dL (0.72-1.25); POTASSIUM 4.3 mmol/L (3.5-5.1)
[~2020-05-18] VITALS: Ht 185.4 cm; Wt 100.7 kg
[2020-05-18] MEDS: MEROPENEM 500MG/ NS 50ML 50 ML IV SCH
[~2020-05-18 09:17] MED LIST changes: +CEFUROXIME250 MG PO
[2020-05-18] MEDS ORDERED: MEROPENEM 1GM 100 ML IV ONE (10:12)
[2020-05-18] MEDS ORDERED: IOPAMIDOL 300MG/ML 50ML INFUS..BTL IV ONE (12:13)
[2020-05-18] MEDS ORDERED: DIPHENHYDRAMINE HCL 25 MG CAP PO PRN (13:45)
[2020-05-18] MEDS ORDERED: ONDANSETRON HCL INJ 2MG/ML 2ML 2 MG/ML VIAL IV PRN (13:45)
[2020-05-18] MEDS ORDERED: MORPHINE SULFATE 2 MG/ML SYR 1ML IV PRN (13:45)
[2020-05-18] MEDS ORDERED: LIDOCAINE HCL 2% LOCAL INJ 5 ML SDV VIAL INJ ONE (13:47)
[2020-05-18] MEDS ORDERED: GLYCOPYRROLATE INJ 0.2 MG/ML VIAL ONE (13:47)
[2020-05-18] MEDS ORDERED: DEXAMETHASONE SOD PHOS INJ 4 MG/ML VIAL ONE (13:47)
[2020-05-18] MEDS ORDERED: ROCURONIUM BROMIDE 10 MG/ML 5ML VIAL IV ONE (13:47)
[2020-05-18] MEDS ORDERED: LIDOCAINE HCL 2% JELLY 5 ML TUBE ONE (13:47)
[2020-05-18] MEDS ORDERED: NEOSTIGMINE 1 MG/ML 10ML VIAL ONE (13:47)
[2020-05-18] MEDS ORDERED: PROPOFOL IV EMULSION 10 MG/ML 20 ML VIAL ONE (13:47)
[2020-05-18] MEDS ORDERED: SEVOFLURANE INHAL SOLN 250 ML PEN BTL ONE (13:47)
[2020-05-18] MEDS ORDERED: ONDANSETRON HCL INJ 2MG/ML 2ML 2 MG/ML VIAL ONE (13:47)
--- OUTSIDE RECORDS SUMMARY | 2020-05-18 14:52 | XMS REPORT | Continuity of Care Document ---
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 [facility] SEPSIS Active 10/06/2019 [facility] ACUTE UTI Active 10/06/2019 [facility] UNK Active 0 11/14/2016 [facility] 724.2 - LUMBAGO Active 03/16/2014 [facility] [place] Benign hypertension (disorder) Active Problem 07/2019 [facility] t Flank pain (finding) Active Problem 10/12/2019 [facility] t Gastroesophageal reflux disease (disorder) Active Problem 10/12/2019 [facility] Motion sickness (disorder) Act elizabeth Problem 07/2019 [facility] Benign prostatic hyperplasia (disorder) Active Problem 10/12/2019 [facility] URINARY TRACT INFECTION, SITE NOT SPECIF Active [facility] Medications Medication Details Route Status Patient Instructions Ordering Provider Order Date Source meropenem 500 MG Injection [Merrem] 500 mg, IV, Q8H, X 14 day, # 42 ea, 0 Refill(s), other Active 10/10/2019 [facility] Coreg Notes: Give with food. ( Same As: Coreg) No Longer Active 10/07/2019 [facility] Amlodipine Notes: (Same as: No rvasc) No Longer Active 10/07/2019 [facility] Doxazosin Notes: (Same as: Car dura) No Longer Active 10/07/2019 [facility] Protonix Notes: Tablet should not be chewed or crushed. (Same as: Protonix) No Longer Active 10/07/2019 [facility] Coreg Notes: Give with food. ( Same As: Coreg) No Longer Active 10/07/2019 [facility] Lovenox Notes: (Same as: Loven ox) No Longer Active 10/07/2019 [facility] Potassium Chloride Notes: ([facility] as: K-Dur 20) "Do Not Crush" Give with food and full glass of water For patients unable to swallow tablet, dissolve in one half glass of water. Allow about 2 minutes for the tab lets to disintegrate. Stir before giving to prepare slurry and administer. Please exclude Patients with feeding tube less than 14 [place] (Dobhoff, J-tube etc) and pediatric and patients. No Longer Active 10/07/2019 [facility] potassium phosphate-sodium phosphate 250 mg-280 mg-160 mg oral powder for reconstitution Notes: (Same as: Phos-NaK) Each 1.5 gm pkt has 250mg phosphorous. Mix w/2.5oz water and stir. No Longer Active 10/07/2019 [facility] potassium phosphate Notes: ([facility] as: K Phosphate.) Do not infuse phosphorous concurrently in the same line as TPN or IVF that contains calcium. For double lumen central lines, phosphorous may be infused in a separate lumen from TPN. 1 mMol phoshate has 1.47 mEq potassium Infuse over 4 hours No Longer Active 10/07/2019 [facility] sodium phosphate Notes: Infuse over 4 hour. Do not infuse phosphorous concurrently in the same line as TPN or IVF that contains calcium. For double lumen central lines, phosphorous may be infused in a separate lumen from TPN. No Longer Active 10/07/2019 [facility] Magnesium Sulfate Notes: WASTE : F/P - Sink; E - Municipal Trash Bin No Longer Active 10/07/2019 [facility] Magnesium Oxide Notes: (Same a s: Mag-Ox 400) Magnesium oxide [id number] elemental magnesium Dose=____mg magnesium oxide (___mg elemental magnesium) No Longer Active 10/07/2019 [facility] Calcium Gluconate Notes: WASTE : F/P - Sink; E - Municipal Trash Bin No Longer Active 10/07/2019 [facility] NS 1,000 mL 1,000 mL, Rate: 10 0 ml/hr, Infuse over: 10 hr, Route: IV, Dosing Weight 98.835 kg, Total Volume: 1,000, Start date: 10/06/19 19:19:00 CDT, Duration: 30 day, Stop date: 11/05/19 19:18:00 CDT, 2.26, m2, 0 No Longer Active 10/07/2019 [facility] Merrem Notes: Same as Merrem MEDICATION WASTE Product Size: 500 mg Product Wasted: ___ mg No Longer Active 10/06/2019 [facility] carvedilol 12.5 MG Oral Tablet [Coreg] 12.5 mg = 1 tab, PO, BID, # 60 tab, 0 Refill(s) Active 10/06/2019 [facility] doxazosin 2 mg oral tablet 2 m g = 1 tab, PO, Daily, # 30 tab, 0 Refill(s) Active 10/06/2019 [facility] Amlodipine 10 mg, PO, Daily, 0 Refill(s) Active 10/06/2019 [facility] RN- Pls update pt's Ht / Wt / Allergi es on ADHOC RN- Pls update pt's Ht / Wt / Allergi es on ADHOC, Attn:RN, Drug form: MISC, Route: MISC, Q15Min, 10/06/19 13:00:00 CDT, Duration: 8 hr, Stop date: 10/06/19 20:45:00 CDT, 0 Inactive 10/06/2019 [facility] Dextrose 50% Syringe (D50W) 12 .5 gm, 25 mL, Route: IVP, Drug Form: INJ, Dosing Weight 105, kg, PRN, PRN Blood Glucose Results, Start date: 10/06/19 10:47:00 CDT, Duration: 30 day, Stop date: 11/05/19 10:46:00 CDT, 0 No Longer Active 10/06/2019 [facility] Glucagon 1 mg, Route: IM, Drug form: PDR/INJ, PRN, Dosing Weight 105, kg, PRN Blood Glucose Results, Start date: 10/06/19 10:47:00 CDT, Duration: 30 day, Stop date: 11/05/19 10:46:00 CDT, 0 No Longer Active 10/06/2019 [facility] Docusate Notes: (Same as: Cola ce) (Do Not Crush) No Longer Active 10/06/2019 [facility] POLYETHYLENE GLYCOL 3350 Notes : Dissolve in 8 oz of water or juice. (Same as: Miralax) No Longer Active 10/06/2019 [facility] Bisacodyl Notes: (Same As: Dul colax, Bisco-Lax) No Longer Active 10/06/2019 [facility] Ondansetron Notes: (Same as: Alex rae) MEDICATION WASTE Product Size: 4 mg Product Wasted: ___ mg No Longer Active 10/06/2019 [facility] Diphenhydramine 25 mg, 1 tab, Route: PO, Drug form: TAB, Q6H, Dosing Weight 105, kg, PRN as needed for allergy symptoms, Start date: 10/06/19 10:47:00 CDT, Duration: 30 day, Stop date: 11/05/19 10:46:00 CDT, 0 No Longer Active 10/06/2019 [facility] Melatonin Notes: (Same as: Ya atonin) No Longer Active 10/06/2019 [facility] Trazodone Notes: (Same As: Catrachito yrel) No Longer Active 10/06/2019 [facility] Acetaminophen Notes: Do not ex ceed 4 gm/day. (Same as: Tylenol) No Longer Active 10/06/2019 [facility] Seroquel Notes: (Same as: SERO quel) No Longer Active 10/06/2019 [facility] Hydralazine Notes: (Same as: A presoline) Push over 5 minutes No Longer Active 10/06/2019 [facility] Nicotine Notes: (Same as: Steve orellana) "Remove old patch before application of new patch" WASTE: F/P - P Waste Black; E - P Waste Black No Longer Active 10/06/2019 [facility] Acetaminophen 325 MG / Hydrocodone Mara trate 5 MG Oral Tablet [[place] 5/325] Notes: (Same as: [place] 325/5) Do not ex ceed 4gm/day of acetaminophen. No Longer Activ e 10/06/2019 [facility] Morphine Notes: (Same as:MORPh ine Sulfate) No Longer Active 10/06/2019 [facility] Robitussin-AC oral syrup Notes : (Same As: Robitussin AC) No Longer Active 10/06/2019 [facility] Tessalon Perles Notes: (Same A s: Tessalon Perles) "Do Not Crush" No Longer Active 10/06/2019 [facility] Mucinex Notes: (Same as: Guaif enesin LA, Humibid LA, Mucinex) "Do Not Crush" Take medication with plenty of water. No Longer Active 10/06/2019 [facility] Simethicone Notes: (Same as: Maryellen ylicon) No Longer Active 10/06/2019 [facility] Maalox Advanced Regular Strength SUSP Notes: (aluminum hydroxide-magnesium hyd-simethicone [id number]/5ml 30 ml ud DANAE) No Longer Active 10/06/2019 [facility] Albuterol 0.833 MG/ML / Ipratropium Brom jacob 0.167 MG/ML Inhalant Solution [DuoNeb] Notes: (Same as: Duoneb) No Longer Active 10/06/2019 [facility] phenol Notes: WASTE: F/P - Drew ck; E - Municipal Trash Bin No Longer Active 10/06/2019 [facility] Artificial Tears Notes: Same a s Tears Naturale and GenTeal Tears No Longer Active 10/06/2019 [facility] Lidocaine 0.05 MG/MG Transdermal Patch Notes: Apply only once for up to 12 hours in a 24-hour period (12 hours on and 12 hours off). (Same as: Lidoderm) "Remove old patch before application of new patch" No Longer Active 10/06/2019 [facility] Lactulose 667 MG/ML Oral Solution Notes: (Same as:Chronulac) No Longer Active 10/06/2019 [facility] Benzocaine 15 MG / Menthol 3.6 MG Lozeng e [Cepacol Sore Throat Pain Relief 15/3.6] Notes: Same as: Cepacol No Longer Active 10/06/2019 [facility] Viagra PO, Daily, 0 Refill(s) Active [facility]/03[facility] Atenolol 50 MG Oral Tablet 50 mg = 1 tab, PO, Daily, 0 Refill(s) Active 08/03/2018 [facility] sildenafil 100 MG Oral Tablet 100 mg = 1 tab, PO, Daily, 0 Refill(s) Active 08/03/2018 [facility] Ciprofloxacin 500 MG Oral Tablet [Cipro] 500 mg = 1 tab, PO, Q12H, X 5 day, # 10 tab, 0 Refill(s) Active 11/24/2016 [facility] 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, 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, 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, Dosing Weight 94, kg, PRN Pain Score 4-6, Start date: 11/24/16 14:41:00 CDT, Duration: 30 day, Stop date: 12/24/16 14:40:00 CDT Inactive 11/24/2016 [facility] Belladonna Alkaloids 16.2 MG / Opium 30 MG Rectal Suppository 1 supp, Route: OH, Dosing Weight 94, kg, Q6H, PRN Bladder Spasm, Start date: 11/24/16 14:41:00 CDT, Duration: 30 day, Stop date: 12/24/16 14:40:00 CDT Inactive 11/24/2016 [facility] acetaminophen (ANES) Route: IV , Drug form: INJ, ONCE, Stop date: 11/24/16 14:14:00 CDT Inactive 11/24/2016 [facility] ondansetron (ANES) Route: IV, Drug form: INJ, ONCE, Stop date: 11/24/16 13:24:00 CDT Inactive 11/24/2016 [facility] fluconazole (ANES) Route: IV, Drug form: INJ, ONCE, Stop date: 11/24/16 13:19:00 CDT Inactive 11/24/2016 [facility] ciprofloxacin (ANES) Route: IV , Drug form: INJ, ONCE, Stop date: 11/24/16 13:19:00 CDT Inactive 11/24/2016 [facility] lidocaine (ANES) Route: IV, Dr ug form: INJ, ONCE, Stop date: 11/24/16 13:19:00 CDT Inactive 11/24/2016 [facility] midazolam (ANES) Route: IV, Dr ug form: SOLN, ONCE, Stop date: 11/24/16 13:19:00 CDT Inactive 11/24/2016 [facility] propofol (ANES) Route: IV, Bryec g form: INJ, ONCE, Stop date: 11/24/16 13:19:00 CDT Inactive 11/24/2016 [facility] fentaNYL (ANES) Route: IV, Bryce g form: INJ, ONCE, Stop date: 11/24/16 13:19:00 CDT Inactive 11/24/2016 [facility] LR 1000 mL INJ (ANES) Route: I V, Total Volume: 1,000, Start date: 11/24/16 12:18:00 CDT, Stop date: 11/24/16 13:18:00 CDT Inactive 11/24/2016 [facility] Diflucan Notes: PROTECT FROM L IGHT (Same as: Diflucan) Do not refrigerate. CALL [phone] WHEN READY FOR PRE-OP Inactive 11/24/2016 [facility] Calcium Chloride 0.0014 MEQ/ML / Potassi um Chloride 0.004 MEQ/ML / Sodium Chloride 0.103 MEQ/ML / Sodium Lactate 0.028 MEQ/ML Injectable Solution 1,000 mL, Rate: 25 ml/hr, Infuse over: 4 0 hr, Route: IV, Dosing Weight 94 kg, Total Volume: 1,000, Start date: 11/24/16 11:08:00 CDT, Duration: 30 day, Stop date: 12/24/16 11:07:00 CDT Inactive 11/24/2016 [facility] gentamicin (ANES) Route: IV, D rug form: INJ, ONCE, Stop date: 11/14/16 14:08:00 CDT Inactive 11/14/2016 [facility] phenylephrine (ANES) Route: IV , Drug form: INJ, ONCE, Stop date: 11/14/16 14:08:00 CDT Inactive 11/14/2016 [facility] Acetaminophen 300 MG / Codeine Phosphate 60 MG Oral Tablet [Tylenol with Codeine #4] 1 - 2 tab, PO, Q6H, PRN Pain, X 4 day, # 32 tab, 0 Refill(s) Active 11/14/2016 [facility] oxybutynin 5 mg oral tablet 5 mg = 1 tab, PO, TID, PRN Other-See Comments, # 30 tab, 0 Refill(s) Active 11/14/2016 [facility] Ciprofloxacin 500 MG Oral Tablet [Cipro] 500 mg = 1 tab, PO, Q12H, X 7 day, # 14 tab, 0 Refill(s) Active 11/14/2016 [facility] Docusate Sodium 100 MG Oral Capsule [Colace] 100 mg = 1 cap, PO, BID, PRN Constipation, # 20 cap, 0 Refill(s) Active 11/14/2016 [facility] Phenazopyridine hydrochloride 100 MG Ora l Tablet [Pyridium] 100 mg = 1 tab, PO, TID, X 7 day, # 21 t ab, 0 Refill(s) Active 11/14/2016 [facility] 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, 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, 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, Dosing Weight 102.273, kg, PRN Pain Score 4-6, Start date: 11/14/16 14:03:00 CDT, Duration: 30 day, Stop date: 12/14/16 14:02:00 CDT Inactive 11/14/2016 [facility] Belladonna Alkaloids 16.2 MG / Opium 30 MG Rectal Suppository 1 supp, Route: OH, Dosing Weight 102.273 , kg, Q6H, PRN Bladder Spasm, Start date: 11/14/16 14:03:00 CDT, Duration: 30 day, Stop date: 12/14/16 14:02:00 CDT Inactive 11/14/2016 [facility] ondansetron (ANES) Route: IV, Drug form: INJ, ONCE, Stop date: 11/14/16 12:23:00 CDT Inactive 11/14/2016 [facility] ciprofloxacin (ANES) Route: IV , Drug form: INJ, ONCE, Stop date: 11/14/16 12:23:00 CDT Inactive 11/14/2016 [facility] lidocaine (ANES) Route: IV, Dr ug form: INJ, ONCE, Stop date: 11/14/16 12:23:00 CDT Inactive 11/14/2016 [facility] propofol (ANES) Route: IV, Bryce g form: INJ, ONCE, Stop date: 11/14/16 12:23:00 CDT Inactive 11/14/2016 [facility] midazolam (ANES) Route: IV, Dr ug form: SOLN, ONCE, Stop date: 11/14/16 12:23:00 CDT Inactive 11/14/2016 [facility] fentaNYL (ANES) Route: IV, Bryce g form: INJ, ONCE, Stop date: 11/14/16 12:23:00 CDT Inactive 11/14/2016 [facility] LR 1000 mL INJ (ANES) Route: I V, Total Volume: 1,000, Start date: 11/14/16 11:34:00 CDT, Stop date: 11/14/16 12:34:00 CDT Inactive 11/14/2016 [facility] Calcium Chloride 0.0014 MEQ/ML / Potassi um Chloride 0.004 MEQ/ML / Sodium Chloride 0.103 MEQ/ML / Sodium Lactate 0.028 MEQ/ML Injectable Solution 1,000 mL, Rate: 25 ml/hr, Infuse over: 4 0 hr, Route: IV, Dosing Weight 102.273 kg, Total Volume: 1,000, Start date: 11/14/16 10:45:00 CDT, Duration: 30 day, Stop date: 12/14/16 10:44:00 CDT Inactive 11/14/2016 [facility] lisinopril 10 mg oral tablet 1 0 mg = 1 tab, PO, Daily, # 30 tab, 0 Refill(s) Active 11/07/2016 [facility] tamsulosin 0.4 mg oral capsule 0.4 mg, PO, Daily, # 10 tab, 0 Refill(s) Active 11/07/2016 [facility] pantoprazole 40 mg oral enteric coated tablet 40 mg = 1 tab, PO, Daily, # 30 tab, 0 Refill(s) Active 11/07/2016 [facility] finasteride 5 mg oral tablet 5 mg = 1 tab, PO, Daily, # 30 tab, 0 Refill(s) Active 11/07/2016 [facility] Allergies, Adverse Reactions, Alerts Substance Category Reaction Severity Reaction type Status Date Reported Comments Source No Known Medication Allergies Assertion Drug aller gy [facility] Immunizations No Data Provided for This Section Results Order Name Results Value Reference Range Date Interpretation Comments Source CHEM PANEL Glucose Lvl 120 70 - 99 10/10/2019 [facility] CHEM PANEL BUN 16 7 - 22 10/10/2019 [facility] CHEM PANEL Creatinine Lvl 1.27 0.50 - 1.40 10/10/2019 [facility] CHEM PANEL Sodium Lvl 142 135 - 145 10/10/2019 [facility] CHEM PANEL Potassium Lvl 4.0 3.5 - 5.1 10/10/2019 [facility] CHEM PANEL Chloride Lvl 108 95 - 109 10/10/2019 [facility] CHEM PANEL CO2 32 24 - 32 10/10/2019 [facility] CHEM PANEL Calcium Lvl 9.0 8.5 - 10.5 10/10/2019 [facility] CHEM PANEL Total Protein 6.5 6.4 - 8.4 10/10/2019 [facility] CHEM PANEL Albumin Lvl 2.3 3.5 - 5.0 10/10/2019 [facility] CHEM PANEL ALT 21 0 - 65 10/10/2019 [facility] CHEM PANEL AST 17 0 - 37 10/10/2019 [facility] CHEM PANEL Alk Phos 53 39 - 136 10/10/2019 [facility] CHEM PANEL Bili Total 0.2 0.2 - 1.3 10/10/2019 [facility] CHEM PANEL AGAP 6.0 10.0 - 20.0 10/10/2019 [facility] CHEM PANEL B/C Ratio 13 6 - 25 10/10/2019 [facility] CHEM PANEL Globulin 4.2 2.7 - 4.2 10/10/2019 [facility] CHEM PANEL A/G Ratio 0.5 0.7 - 1.6 10/10/2019 [facility] CHEM PANEL eGFR 57 10/10/2019 Result Comment: The eGFR is calculated using the CKD-EPI formula. In most young, healthy individuals the eGFR will be >90 mL/min/1.73m2. The eGFR declines with age. An eGFR of 60-89 may be normal in some populations, particularly the elderly, for whom the CKD-EPI formula has not been extensively validated. Use of the eGFR is not recommended in the following populations:

Individuals with unstable creatinine concentrations, including patients and those with serious co-morbid conditions.

Patients with extremes in muscle mass or diet.

The data above are obtained from the National Kidney Disease Education Program (NKDEP) which additionally recommends that when the eGFR is used in patients with extremes of body mass index for purposes of drug dosing, the eGFR should be multiplied by the estimated BMI. [facility] HEMATOLOGY Segs 55.9 45.0 - 75.0 10/10/2019 [facility] Lymphocytes 23.9 20.0 - 40.0 10/10/2019 [facility] Monocytes 13.0 2.0 - 12.0 10/10/2019 [facility] HEMATOLOGY Eosinophils 6.5 0.0 - 4.0 10/10/2019 [facility] HEMATOLOGY Basophils 0.7 0.0 - 1.0 10/10/2019 [facility] HEMATOLOGY Neutrophils # 1.9 1.5 - 8.1 10/10/2019 [facility] Lymphocytes # 0.8 1.0 - 5.5 10/10/2019 [facility] Monocytes # 0.4 0.0 - 0.8 10/10/2019 [facility] Eosinophils # 0.2 0.0 - 0.5 10/10/2019 [facility] HEMATOLOGY WBC 3.4 3.7 - 10.4 10/10/2019 [facility] RBC 3.21 4.70 - 6.10 10/10/2019 [facility] HEMATOLOGY Hgb 9.2 14.0 - 18.0 10/10/2019 [facility] Hct 28.6 42.0 - 54.0 10/10/2019 [facility] HEMATOLOGY MCV 89.1 80.0 - 94.0 10/10/2019 [facility] MCH 28.7 27.0 - 31.0 10/10/2019 [facility] MCHC 32.2 32.0 - 36.0 10/10/2019 [facility] RDW 16.0 11.5 - 14.5 10/10/2019 [facility] Platelet 196 133 - 450 10/10/2019 [facility] MPV 7.7 7.4 - 10.4 10/10/2019 [facility] CHEM PANEL Glucose Lvl 91 70 - 99 10/08/2019 [facility] CHEM PANEL BUN 17 7 - 22 10/08/2019 [facility] CHEM PANEL Creatinine Lvl 1.38 0.50 - 1.40 10/08/2019 [facility] CHEM PANEL Sodium Lvl 143 135 - 145 10/08/2019 [facility] CHEM PANEL Potassium Lvl 3.8 3.5 - 5.1 10/08/2019 [facility] CHEM PANEL Chloride Lvl 111 95 - 109 10/08/2019 [facility] CHEM PANEL CO2 27 24 - 32 10/08/2019 [facility] CHEM PANEL Calcium Lvl 8.4 8.5 - 10.5 10/08/2019 [facility] CHEM PANEL AGAP 8.8 10.0 - 20.0 10/08/2019 [facility] CHEM PANEL eGFR 52 10/08/2019 Result Comment: The eGFR is calculated using the CKD-EPI formula. In most young, healthy individuals the eGFR will be >90 mL/min/1.73m2. The eGFR declines with age. An eGFR of 60-89 may be normal in some populations, particularly the elderly, for whom the CKD-EPI formula has not been extensively validated. Use of the eGFR is not recommended in the following populations:

Individuals with unstable creatinine concentrations, including patients and those with serious co-morbid conditions.

Patients with extremes in muscle mass or diet.

The data above are obtained from the National Kidney Disease Education Program (NKDEP) which additionally recommends that when the eGFR is used in patients with extremes of body mass index for purposes of drug dosing, the eGFR should be multiplied by the estimated BMI. [facility] CHEM PANEL Glucose Lvl 106 70 - 99 10/07/2019 [facility] CHEM PANEL BUN 22 7 - 22 10/07/2019 [facility] CHEM PANEL Creatinine Lvl 1.77 0.50 - 1.40 10/07/2019 [facility] CHEM PANEL Sodium Lvl 137 135 - 145 10/07/2019 [facility] CHEM PANEL Potassium Lvl 3.8 3.5 - 5.1 10/07/2019 [facility] CHEM PANEL Chloride Lvl 106 95 - 109 10/07/2019 [facility] CHEM PANEL CO2 27 24 - 32 10/07/2019 [facility] CHEM PANEL Calcium Lvl 8.3 8.5 - 10.5 10/07/2019 [facility] CHEM PANEL AGAP 7.8 10.0 - 20.0 10/07/2019 [facility] CHEM PANEL eGFR 38 10/07/2019 Result Comment: The eGFR is calculated using the CKD-EPI formula. In most young, healthy individuals the eGFR will be >90 mL/min/1.73m2. The eGFR declines with age. An eGFR of 60-89 may be normal in some populations, particularly the elderly, for whom the CKD-EPI formula has not been extensively validated. Use of the eGFR is not recommended in the following populations:

Individuals with unstable creatinine concentrations, including patients and those with serious co-morbid conditions.

Patients with extremes in muscle mass or diet.

The data above are obtained from the National Kidney Disease Education Program (NKDEP) which additionally recommends that when the eGFR is used in patients with extremes of body mass index for purposes of drug dosing, the eGFR should be multiplied by the estimated BMI. [facility] HEMATOLOGY WBC 5.4 3.7 - 10.4 10/07/2019 [facility] HEMATOLOGY RBC 2.99 4.70 - 6.10 10/07/2019 [facility] HEMATOLOGY Hgb 8.7 14.0 - 18.0 10/07/2019 [facility] HEMATOLOGY Hct 27.1 42.0 - 54.0 10/07/2019 [facility] HEMATOLOGY MCV 90.8 80.0 - 94.0 10/07/2019 [facility] HEMATOLOGY MCH 29.0 27.0 - 31.0 10/07/2019 [facility] HEMATOLOGY MCHC 32.0 32.0 - 36.0 10/07/2019 [facility] HEMATOLOGY RDW 16.5 11.5 - 14.5 10/07/2019 [facility] HEMATOLOGY Platelet 151 133 - 450 10/07/2019 [facility] HEMATOLOGY MPV 8.3 7.4 - 10.4 10/07/2019 [facility] LIPIDS Trig 82 <=149 mg/dL 10/07/2019 [facility] LIPIDS Chol 162 <=199 mg/dL 10/07/2019 [facility] LIPIDS HDL 52 >=61 mg/dL 10/07/2019 [facility] LIPIDS CHD Risk 3.12 4.00 - 7.30 10/07/2019 [facility] LIPIDS LDL (Calculated) 94 <=99 mg/dL 10/07/2019 [facility] LIPIDS VLDL 16 10/07/2019 [facility] SPECIAL CHEMISTRY Hgb A1C 5.4 <=5.6 % 10/07/2019 [facility] GENTAMICIN:SUSC:PT:ISOLATE:ORDQN:SAROJ Culture: Urine >100,000 CFU/mL Escherichia coli ESBL , Multi-drug Resistant Organism . <10,000 CFU/mL Skin Berta 10/06/2019 [facility] GENTAMICIN:SUSC:PT:ISOLATE:ORDQN:SAROJ Escherichia coli ESBL Escherichia coli ESBL 10/06/2019 [facility] URINE AND STOOL UA Color Yellow *NA* (10/06/19 3:16 PM) Yellow 10/06/2019 [facility] URINE AND STOOL UA Turbidity Marked *ABN* (10/06/19 3:16 PM) Clear 10/06/2019 [facility] URINE AND STOOL UA Spec Grav 1.010 <=1.030 10/06/2019 [facility] URINE AND STOOL UA pH 6.0 5.0 - 8.0 10/06/2019 [facility] URINE AND STOOL UA Protein 100 mg/dL Negative mg/dL 10/06/2019 [facility] URINE AND STOOL UA Glucose Negative mg/dL Negative mg/dL 10/06/2019 [facility] URINE AND STOOL UA Ketones Negative mg/dL Negative mg/dL 10/06/2019 [facility] URINE AND STOOL UA Bili Negative *NA* (10/06/19 3:16 PM) Negative 10/06/2019 [facility] URINE AND STOOL UA Blood Large *ABN* (10/06/19 3:16 PM) Negative 10/06/2019 [facility] URINE AND STOOL UA Nitrite Negative (10/06/19 3:16 PM) Negative 10/06/2019 [facility] URINE AND STOOL UA Leuk Est Moderate *ABN* (10/06/19 3:16 PM) Negative 10/06/2019 [facility] URINE AND STOOL UA WBC >182 0 - 5 10/06/2019 [facility] URINE AND STOOL UA RBC >182 0 - 2 10/06/2019 [facility] URINE AND STOOL UA Bacteria Few /HPF None Seen /HPF 10/06/2019 [facility] URINE AND STOOL UA [place] Yeast Moderate /HPF None Seen /HPF 10/06/2019 [facility] URINE AND STOOL UA Sq Epi None Seen 10/06/2019 [facility] URINE AND STOOL UA Urobilinogen <=1.0 mg/dL 0.1 - 1.0 10/06/2019 [facility] CHEM PANEL Lactic Acid Lvl 2.0 0.5 - 2.2 10/06/2019 [facility] CHEM PANEL Total Protein 6.6 6.4 - 8.4 10/06/2019 [facility] CHEM PANEL Albumin Lvl 2.5 3.5 - 5.0 10/06/2019 [facility] CHEM PANEL ALT 21 0 - 65 10/06/2019 [facility] CHEM PANEL AST 13 0 - 37 10/06/2019 [facility] CHEM PANEL Alk Phos 57 39 - 136 10/06/2019 [facility] CHEM PANEL Bili Total 0.5 0.2 - 1.3 10/06/2019 [facility] CHEM PANEL B/C Ratio 11 6 - 25 10/06/2019 [facility] CHEM PANEL Globulin 4.1 2.7 - 4.2 10/06/2019 [facility] CHEM PANEL A/G Ratio 0.6 0.7 - 1.6 10/06/2019 [facility] HEMATOLOGY WBC 5.6 3.7 - 10.4 10/06/2019 [facility] HEMATOLOGY RBC 3.29 4.70 - 6.10 10/06/2019 [facility] HEMATOLOGY Hgb 9.7 14.0 - 18.0 10/06/2019 [facility] HEMATOLOGY Hct 30.0 42.0 - 54.0 10/06/2019 [facility] HEMATOLOGY MCV 91.0 80.0 - 94.0 10/06/2019 [facility] HEMATOLOGY MCH 29.6 27.0 - 31.0 10/06/2019 [facility] MCHC 32.5 32.0 - 36.0 10/06/2019 [facility] HEMATOLOGY RDW 16.4 11.5 - 14.5 10/06/2019 [facility] HEMATOLOGY Platelet 170 133 - 450 10/06/2019 [facility] HEMATOLOGY MPV 8.0 7.4 - 10.4 10/06/2019 [facility] CHEM PANEL eGFR 52 11/07/2016 Result Comment: The eGFR is calculated using the CKD-EPI formula. In most young, healthy individuals the eGFR will be >90 mL/min/1.73m2. The eGFR declines with age. An eGFR of 60-89 may be normal in some populations, particularly the elderly, for whom the CKD-EPI formula has not been extensively validated. Use of the eGFR is not recommended in the following populations:

Individuals with unstable creatinine concentrations, including patients and those with serious co-morbid conditions.

Patients with extremes in muscle mass or diet.

The data above are obtained from the National Kidney Disease Education Program (NKDEP) which additionally recommends that when the eGFR is used in patients with extremes of body mass index for purposes of drug dosing, the eGFR should be multiplied by the estimated BMI. [facility] CHEM PANEL Glucose Lvl 87 70 - 99 11/07/2016 [facility] CHEM PANEL Calcium Lvl 9.0 8.5 - 10.5 11/07/2016 [facility] CHEM PANEL Sodium Lvl 139 135 - 145 11/07/2016 [facility] CHEM PANEL Potassium Lvl 4.1 3.5 - 5.1 11/07/2016 [facility] CHEM PANEL CO2 28 24 - 32 11/07/2016 [facility] CHEM PANEL Chloride Lvl 103 95 - 109 11/07/2016 [facility] CHEM PANEL Creatinine Lvl 1.40 0.50 - 1.40 11/07/2016 [facility] CHEM PANEL BUN 19 7 - 22 11/07/2016 [facility] CHEM PANEL AGAP 12.1 10.0 - 20.0 11/07/2016 [facility] HEMATOLOGY Segs 66.5 45.0 - 75.0 11/07/2016 [facility] HEMATOLOGY Basophils 0.4 0.0 - 1.0 11/07/2016 [facility] HEMATOLOGY Monocytes 11.3 2.0 - 12.0 11/07/2016 [facility] HEMATOLOGY Lymphocytes 19.2 20.0 - 40.0 11/07/2016 [facility] HEMATOLOGY Eosinophils 2.6 0.0 - 4.0 11/07/2016 [facility] HEMATOLOGY Segs-Bands # 3.9 1.5 - 8.1 11/07/2016 [facility] Lymphocytes # 1.1 1.0 - 5.5 11/07/2016 [facility] HEMATOLOGY Monocytes # 0.7 0.0 - 0.8 11/07/2016 [facility] HEMATOLOGY Eosinophils # 0.2 0.0 - 0.5 11/07/2016 [facility] PT 12.6 12.0 - 14.7 11/07/2016 [facility] PTT 26.4 22.9 - 35.8 11/07/2016 [facility] HEMATOLOGY INR 0.92 0.85 - 1.17 11/07/2016 [facility] RBC 4.69 4.70 - 6.10 11/07/2016 [facility] WBC 5.8 3.7 - 10.4 11/07/2016 [facility] MCH 33.1 27.0 - 31.0 11/07/2016 [facility] Hct 46.3 42.0 - 54.0 11/07/2016 [facility] MCV 98.7 80.0 - 94.0 11/07/2016 [facility] Hgb 15.5 14.0 - 18.0 11/07/2016 [facility] RDW 13.7 11.5 - 14.5 11/07/2016 [facility] MPV 9.1 7.4 - 10.4 11/07/2016 [facility] MCHC 33.5 32.0 - 36.0 11/07/2016 [facility] Platelet 189 133 - 450 11/07/2016 [facility] URINE AND STOOL UA Urobilinogen <=1.0 mg/dL 0.1 - 1.0 11/07/2016 [facility] URINE AND STOOL UA Uric Ac Elissa Many /HPF None Seen /HPF 11/07/[address] [facility] [address] URINE AND STOOL UA Hyal Cast 3 0 - 2 11/07/2016 [facility] URINE AND STOOL UA Bacteria Occasional /HPF None Seen /HPF 11/07/[address] [facility] [address] URINE AND STOOL UA Mucus Few /LPF None Seen /LPF 11/07/2016 [facility] URINE AND STOOL UA Spec Grav 1.020 <=1.030 11/07/2016 [facility] URINE AND STOOL UA Leuk Est Negative (11/07/16 11:16 AM) Negative 11/07/2016 [facility] URINE AND STOOL UA RBC 52 0 - 2 11/07/2016 [facility] URINE AND STOOL UA Sq Epi None Seen 11/07/2016 [facility] URINE AND STOOL UA Glucose Negative mg/dL Negative mg/dL 11/07/2016 [facility] URINE AND STOOL UA Ketones Negative mg/dL Negative mg/dL 11/07/2016 [facility] URINE AND STOOL UA pH 5.0 5.0 - 8.0 11/07/2016 [facility] URINE AND STOOL UA Protein 100 mg/dL Negative mg/dL 11/07/2016 [facility] URINE AND STOOL UA Bili Negative *NA* (11/07/16 11:16 AM) Negative 11/07/2016 [facility] URINE AND STOOL UA Nitrite Negative (11/07/16 11:16 AM) Negative 11/07/2016 [facility] URINE AND STOOL UA Blood Small *ABN* (11/07/16 11:16 AM) Negative 11/07/2016 [facility] URINE AND STOOL UA Color Yellow *NA* (11/07/16 11:16 AM) Yellow 11/07/2016 [facility] URINE AND STOOL UA Turbidity Marked *ABN* (11/07/16 11:16 AM) Clear 11/07/2016 [facility] Pathology Reports No Data Provided for This Section Diagnostic Reports Report Value Date Source PICC reposition VR PROCEDURE I NFORMATION: Exam: IR Central Central Venous Access Device Procedure Exam date and time: 10/10/2019 9:32 AM Age: 69 years old Clinical indication: Repositioning of left upper extremity PICC under fluoroscopic guidance. TECHNIQUE: Imaging protocol: Insertion, repositioning, contrast injection, or removal of a tunneled centrally inserted central venous access device, or mechanical removal of intraluminal obstruction from central venous access device. Images documented and reported. Fluoroscopy guidance was provided. COMPARISON: CHEST 1V FOR PLACEMENT DX 10/10/2019 9:24 AM RADIATION DOSE METRICS: Skin dose mappin.08 mGy Fluoroscopy time: 0.4 minutes Technique: The chest radiograph from today demonstrates the left upper extremity PICC be coiled in the left subclavian and left axillary vein. Maximal sterile barrier technique was utilized for repositioning of the catheter. A generous portion of the left upper extremity catheter site was prepped with ChloraPrep and draped. Under fluoroscopic guidance, the PICC line was repositioned. The catheter was placed with its tip in the cavoatrial junction. IMPRESSION: Successful repositioning of left upper extremity PICC utilized fluoroscopic guidance. The catheter was reposition with its tip near the caval atrial junction. The PICC is ready for immediate use. Franck Franklin MD On 10/10/2019 10:11:28; [id number] 10/10/2019 [facility] Chest 1 v for Placement DX PRO CEDURE INFORMATION: Exam: XR Chest, 1 View Exam date and time: 10/10/2019 9:24 AM Age: 69 years old Clinical indication: Line placement/chest 1 view for line placement TECHNIQUE: Imaging protocol: XR of the chest Views: 1 view. COMPARISON: CHEST 1VIEW DX 10/06/2019 2:41 PM FINDINGS: Lungs: Normal lung volumes. No consolidation. A left-sided PICC line is present however the line is coiled in the left axillary region. Pleural space: Unremarkable. No pleural effusion. No pneumothorax. Heart/Mediastinum: Heart size is within normal limits. Vasculature is unremarkable. Bones/joints: Unremarkable. IMPRESSION: 1. No acute cardiopulmonary findings. 2. Malpositioned left-sided PICC line. Rudolph Landry MD On 10/10/2019 09:43:19; [id number] 10/10/2019 [facility] Abdomen/Pelvis wo IV contrast CT Radiation Dose CTDIVOL = 0 (mGy): DLP = 1206 (mGy-cm) PROCEDURE INFORMATION: Exam: CT Abdomen And Pelvis Without Contrast Exam date and time: 10/07/2019 2:31 PM Age: 69 years old Clinical indication: /r/o colitis No symptoms described. TECHNIQUE: Imaging protocol: Computed tomography of the abdomen and pelvis without contrast. Total DLP: 1206 mGy-cm Radiation optimization: All CT scans at this facility use at least one of these dose optimization techniques: automated exposure control; mA and/or kV adjustment per patient size (includes targeted exams where dose is matched to clinical indication); or iterative reconstruction. COMPARISON: CR PELVIS AP DX 03/16/2014 11:55 AM FINDINGS: Liver: Grossly normal noncontrast appearance without appreciable mass. Gallbladder and bile ducts: No calcified stones. Pancreas: Grossly normal noncontrast appearance. Spleen: No splenomegaly. Adrenals: No mass. Kidneys and ureters: There is a 3.7 cm exophytic cyst at the lower pole of the right kidney which measures fluid attenuation. This is incompletely characterized without contrast. Bilateral ureteral stents are in place. Right stent proximal coil is likely within an extrarenal pelvis. Both stents terminate in the urinary bladder. There is a periureteral stranding and perinephric stranding. Trace gas the left renal collecting system is compatible with instrumentation. Stomach and bowel: Evaluation of the bowel is limited without contrast. Small bowel loops are normal in caliber without evidence of obstruction. Colonic diverticulosis without acute inflammation. No colonic wall thickening. Appendix: No evidence of appendicitis. Intraperitoneal space: No free air. No free fluid. Vasculature: Atheromatous changes are present in the aorta. Lymph nodes: No enlarged lymph nodes. Bladder: Crook catheter is present within the urinary bladder. The bladder is collapsed. The bladder is thick-walled. There is mild perivesical fat stranding. Reproductive: The prostate is enlarged measuring approximately 8.5 x 8 x 7 cm. Bones/joints: Degenerative changes are present in the visible thoracolumbar spine. Soft tissues: There is a small fat containing umbilical hernia. Small fat containing left inguinal hernia. IMPRESSION: 1. Diverticulosis without evidence of di verticulitis or colitis 2. Prostatomegaly 3. Bladder wall thickening may be relate d cystitis and/or trabeculation/hypertrophy in the setting of prostatomegaly 4. Bilateral ureteral stents are in plac e. No hydronephrosis. There is mild perinephric and periureteral stranding 5. Small fat containing umbilical and le ft inguinal hernias Milly Mares MD On 10/07/2019 15:24:05; [id number] 10/07/2019 [facility] Chest 1view DX PROCEDURE INFOR MATION: Exam: XR Chest, 1 View Exam date and time: 10/06/2019 2:41 PM Age: 69 years old Clinical indication: Other: Fever; Additional info: /fever TECHNIQUE: Imaging protocol: XR of the chest Views: 1 view. COMPARISON: No relevant prior studies available. FINDINGS: Lungs: Normal lung volumes. No consolidation. Pleural space: Unremarkable. No pleural effusion. No pneumothorax. Heart/Mediastinum: Heart size is within normal limits. Vasculature is unremarkable. Bones/joints: Unremarkable. IMPRESSION: No acute cardiopulmonary findings. Ricky Dasilva MD On 10/06/2019 15:16:31; [id number] 10/06/2019 [facility] Renal pyelogram retrograde DX Left retrograde pyelogram: Spot images from Cystoscopy are submitted. Contrast injection shows a patulous left renal pelvis with a dilated collecting system in the upper pole. Subsequent images show guidewire placement into the collecting system followed by ureteroscopy. [id number] 11/14/2016 [facility] Intraoperative assisted guidance US Please refer to the surgery report. 11/14/2016 [facility] Spine lumbar 2 or 3 views LUMB AR SPINE SERIES CLINICAL HISTORY: Low back pain. COMPARISON IMAGING: None. FINDINGS: 3 views of the lumbar spine were obtaine d. Moderate to severe multilevel degenerative changes are present, including loss of disc height, endplate sclerosis, marginal osteophytes, and facet hypertrophy. Vertebral body heights and alignment are maintained. No fracture or subluxation is seen. Soft tissues are grossly unremarkable. IMPRESSION: Moderate to severe multilevel degenerative changes. 03/16/2014 [facility] Pelvis AP PELVIS SERIES CLINICAL HISTORY: Pelvic pain. COMPARISON IMAGING: None. FINDINGS: One view was submitted for evaluation. Mild loss of joint space with small marginal osteophytes is seen at both hips. This suggests mild to moderate osteoarthritis. No fracture, dislocation, or suspicious radiopaque foreign body is seen. Pelvic ring appears intact. Soft tissues are unremarkable. IMPRESSION: Findings suggestive of mild to moderate osteoarthritis at both hips. 03/16/2014 [facility] [place] Consultation Notes No Data Provided for This Section Discharge Summaries No Data Provided for This Section History and Physicals No Data Provided for This Section Vital Signs Vital Sign Value Date Comments Source Temperature Oral (F) 98.5 F 10/10/2019 [facility] Heart Rate 78 10/10/2019 [facility] Respitory Rate 18 10/10/2019 [facility] Systolic (mm Hg) 138 10/10/2019 [facility] Diastolic (mm Hg) 81 10/10/2019 [facility] Temperature Oral (F) 95.7 F 10/10/2019 [facility] Heart Rate 81 10/10/2019 [facility] Respitory Rate 18 10/10/2019 [facility] Systolic (mm Hg) 135 10/10/2019 [facility] Diastolic (mm Hg) 81 10/10/2019 [facility] Temperature Oral (F) 98.5 F 10/10/2019 [facility] Heart Rate 77 10/10/2019 [facility] Respitory Rate 18 10/10/2019 [facility] Systolic (mm Hg) 142 10/10/2019 [facility] Diastolic (mm Hg) 80 10/10/2019 [facility] Height 182.88 cm 10/06/2019 [facility] Weight 98.835 10/06/2019 [facility] BMI Calculated 29.55 10/06/2019 [facility] Height 182.88 cm 10/06/2019 [facility] Weight 100 10/06/2019 [facility] BMI Calculated 29.9 10/06/2019 [facility] BMI Calculated 31.39 08/03/2018 [facility] Weight 105 08/03/2018 [facility] Height 182.88 cm 08/03/2018 [facility] Systolic (mm Hg) 176 08/03/2018 [facility] Diastolic (mm Hg) 94 08/03/2018 [facility] Heart Rate 67 08/03/2018 [facility] Systolic (mm Hg) 158 11/24/2016 [facility] Diastolic (mm Hg) 80 11/24/2016 [facility] Systolic (mm Hg) 159 11/24/2016 [facility] Diastolic (mm Hg) 96 11/24/2016 [facility] Respitory Rate 11 11/24/2016 [facility] Systolic (mm Hg) 164 11/24/2016 [facility] Diastolic (mm Hg) 93 11/24/2016 [facility] Respitory Rate 12 11/24/2016 [facility] Respitory Rate 12 11/24/2016 [facility] Heart Rate 80 11/24/2016 [facility] BMI Calculated 28.11 11/24/2016 [facility] Weight 94 0 11/24/2016 [facility] Height 182.88 cm 11/24/2016 [facility] Systolic (mm Hg) 153 11/14/2016 [facility] Diastolic (mm Hg) 73 11/14/2016 [facility] Respitory Rate 14 11/14/2016 [facility] Respitory Rate 14 11/14/2016 [facility] Systolic (mm Hg) 154 11/14/2016 [facility] Diastolic (mm Hg) 93 11/14/2016 [facility] Systolic (mm Hg) 147 11/14/2016 [facility] Diastolic (mm Hg) 76 11/14/2016 [facility] Respitory Rate 14 11/14/2016 [facility] Temperature Oral (F) 98.0 F 11/07/2016 [facility] Heart Rate 80 11/07/2016 [facility] Height 182.88 cm 11/07/2016 [facility] Weight 102.273 11/07/2016 [facility] BMI Calculated 30.58 11/07/2016 [facility] Encounters Location Location Details Encounter Type Encounter Number Reason For Visit Attending Provider ADM Date DC Date Status Source [facility] [id number] 00 Jovani Dowd Jr 03/16/2014 03/17/2014 [facility] [place] [facility] Day Surgery [id number] Ric Le 11/14/2016 11/14/2016 [facility] Day Surgery [id number] Ric Le 11/24/2016 11/24/2016 [facility] Outpatient [id number] RIC LE 08/03/2018 Active [facility] [place] [facility] [id number] Ric Le 08/03/2018 08/04/2018 [facility] Inpatient [id number] Wilton Dinh 10/06/2019 10/10/2019 [facility] Procedures Procedure Code Date Perfomer Comments Source Cataract extraction and insertion of intraocular lens [id number] [id number] Cystoscopy [id number] [facility] Assessment and Plan Assessment and Plan Date Source Extracted from:Title: Discharge Summary * Author: Wilton Dinh MD Date: 10/10/19 Discharge Information Disposition to home Condition stable Medications: See med reconciliation form Diet: Heart healthy Discharge Plan In the event of any worsening symptoms patient advised to come back to the ED for further evaluation Discharge summary took greater than 35 minutes Extracted from:Title: Clinical Document Author: Radha Fischer MD Date: 10/10/19 Infectious Disease Progress Note [facility] Dr. aRdha Fischer SUBJECTIVE Events reviewed. Patient seen and examined labs and medications reviewed . Patient seen and examined by me discussed with nursing team discussed with pharmacy discussed internal medicine R.O.S no new complaints no fever or chills no nausea ,vomiting or diarrhea no joint pain or swelling no chest pain arrhythmia no cough no hemoptysis no urgency frequency OBJECTIVE Vitals and Temp: Vitals Tmp(F) Pulse BP RR SpO2 FIO2 10/09 08:06 98.5 77 142/80 1 8 96 --- 10/09 03:45 98.1 82 149/85 1 8 95 --- 10/08 23:34 98.6 88 129/75 1 8 97 --- 10/08 19:30 98.2 82 127/68 1 5 97 --- 10/08 15:29 99.0 80 130/74 1 5 96 --- 24 Hr Tmax: 99.0F (37.22c) at 10/08 15:2 9 Vital Signs are the last 5 in the past 48 hours. Input/Output Record In Out Bal 10/09 24hr Tot 100 0 100 10/08 24hr Tot 3200 3450 -250 Physical Exam Gen: alert, no acute distress, follow command HEENT: not pale, not icteric, normal cephalic, Neck: Supple, no jvd, CV: S1, S2, no murmurs Lung: clear bilateral course BS Abd: soft, bowel sound normal, no tenderness Ext: no edema Skin: no rash Neuro: no seizure, no local finding Labs (Last four charted values) WBC 5.4 (OCT 06) 5.6 (OCT 05) Hgb L 8.7 (OCT 06) L 9.7 (OCT 05) Hct L 27.1 (OCT 06) L 30.0 (OCT 05) Plt 151 (OCT 06) 170 (OCT 05) Na 143 (OCT 07) 137 (OCT 06) 136 (OCT 05) K 3.8 (OCT 07) 3.8 (OCT 06) 4.3 (OCT 05) CO2 27 (OCT 07) 27 (OCT 06) 25 (OCT 05) Cl H 111 (OCT 07) 106 (OCT 06) 104 (OCT 05) Cr 1.38 (OCT 07) H 1.77 (OCT 06) H 2.23 (OCT 05) BUN 17 (OCT 07) 22 (OCT 06) H 25 (OCT 05) Glucose Random 91 (OCT 07) H 106 (OCT 06) H 146 (OCT 05) Ca L 8.4 (OCT 07) L 8.3 (OCT 06) 8.5 (OCT 05) Medications Scheduled Meds (6):amLODIPine, carvedilol (Coreg), doxazosin, enoxaparin (Lovenox), meropenem + Sodium Chloride 0.9% IV 100 mL (Merrem + Sodium Chloride 0.9% IV 100 mL), pantoprazole (Protonix) Unscheduled Meds: None PRN Meds (40):Al hydroxide/Mg hydroxide/simethicone (Maalox Advanced Regular Strength SUSP), Dextrose 50% in Water IV (Dextrose 50% Syringe (D50W)), Dextrose 50% in Water IV (Dextrose 50% Syringe (D50W)), QUEtiapine (SEROquel), acetaminophen-hydrocodone ([place] 5/325 oral tablet), acetaminophen, albuterol- ipratropium (DuoNeb inhalation solution), benzocaine-menthol topical (Cepacol Sore Throat 15 mg-3.6 mg mucous membrane lozenge), benzonatate (Tessalon Perles), bisacodyl, calcium gluconate + Sodium Chloride 0.9% IV 100 mL, calcium gluconate + Sodium Chloride 0.9% IV 100 mL, codeine-guaiFENesin (Robitussin-AC oral syrup), diphenhydrAMINE, docusate, glucagon, guaiFENesin (Mucinex), hydrALAZINE, lactulose (lactulose 10 g/15 mL oral syrup), lidocaine topical (lidocaine topical patch (5% film)), magnesium oxide, magnesium sulfate, magnesium sulfate, melatonin, morphine Sulfate, nicotine, ocular lubricant (Artificial Tears), ondansetron, phenol topical (Chloraseptic 1.4% spray), polyethylene glycol 3350, potassium chloride, potassium chloride, potassium chloride, potassium phosphate + Sodium Chloride 0.9% IV 250 mL, potassium phosphate + Sodium Chloride 0.9% IV 250 mL, potassium phosphate-sodium phosphate (potassium phosphate-sodium phosphate 250 mg-280 mg-160 mg oral powder for reconstitution), simethicone, sodium phosphate + Dextrose 5% in Water IV 250 mL, sodium phosphate + Dextrose 5% in Water IV 250 mL, trazodone One Time Meds: None Continuous Infusions (1):Sodium Chloride 0.9% IV 1,000 mL (NS 1,000 mL) ALL LABS REVIEW AND ALL RADIOLOGY REPORTS REVIEWED IMPRESSION 1. Fever with diarrhea 2. Urinary retention requiring straight caths 3. Acute kidney injury 4. Hypertension 5. History of BPH 6. Diarrhea 7. UTI IMPRESSION: 1. Diverticulosis without evidence of di verticulitis or colitis 2. Prostatomegaly 3. Bladder wall thickening may be relate d cystitis and/or trabeculation/hypertrophy in the setting of prostatomegaly 4. Bilateral ureteral stents are in plac e. No hydronephrosis. There is mild perinephric and periureteral stranding 5. Small fat containing umbilical and le ft inguinal hernias PLAN doing better with IV kidney function improved will plan for 2 weeks of Merrem 1gm daily at home CM to arrange, patient does already have home health set up labs prior to discharge and then weekly Extracted from:Title: Clinical Document Author: Radha Fischer MD Date: 10/07/19 Infectious Disease consult Note [facility] Dr. Radha Fischer SUBJECTIVE: Patient seen and examined charts reviewed CHIEF COMPLAINT diarrhea at home and fever HPI: 69-year-old male history of hy pertension reports having a recent TURP procedure performed approximately 2 to 3 weeks ago at another facility reportedly comes in as a direct admission with concerns of subjective fever and underlying dysuria. Patient apparently does straight caths at home for his underlying urinary retention. He used to have a Crook catheter but was removed by urology several weeks ago. He now reports having some underlying foul- smelling urine. No reports of any recent travel. No reports of any cough congestion or any recent movement. No shortness of breath. No chest pain. Patient seen and evaluated at bedside on the medical floor currently the patient is doing well with no other issues. HOME MEDS REVIEWED ROS: General: no fever, no chills, no night sweats, no fatigue HENT: no visual changes, no hearing changes, no headache Pulmonary: no shortness of breath, no cough Cardiac :no arrhythmia no chest pain GI: no nausea, no vomiting, no diarrhea no abdominal pain : no urgency, no frequency Skin: no rash Neuro: no seizure activity, no focal weakness Psychiatric: no depression or anxiety no hallucination Joints: no redness or swelling , no pain Muscular: no weakness or pain All other Systems: within normal limit No qualifying data available Cataract extraction and insertion of intraocular lens Colonoscopy Cystoscopy Alcohol Details: Current, Type Beer, Wine. Frequency: 1-2 times per week. Tobacco Details: Use: Light tobacco smoker. Type: Cigars. Tobacco smoke exposure: None. Did the Patient Smoke Cigarettes Anytime During the Last 365 Days? No. Cessation Counseling Provided? No. Vitals and Temp: Vitals Tmp(F) Pulse BP RR SpO2 FIO2 10/06 08:00 99 80 132/74 18 --- --- 10/06 03:31 99 81 138/86 18 95 --- 10/06 00:02 100.7 94 147/79 18 94 --- 10/05 19:57 98.4 101 124/68 18 95 --- 10/05 19:37 ---- --- ----- 1 8 95 21% 24 Hr Tmax: 100.7F (38.17c) at 10/06 00: 02 Vital Signs are the last 5 in the past 48 hours. Input/Output Record In Out Bal 10/05 24hr Tot 2252 2460 -208 10/04 24hr Tot 0 0 0 Physical Exam Gen: alert, no acute distress, follow command HEENT: not pale, not icteric, normal cephalic, Neck: Supple, no jvd, CV: S1, S2, no murmurs Lung: clear bilateral course BS Abd: soft, bowel sound normal, no tenderness Ext: no edema Skin: no rash Neuro: no seizure, no local finding Labs (Last four charted values) WBC 5.4 (OCT 06) 5.6 (OCT 05) Hgb L 8.7 (OCT 06) L 9.7 (OCT 05) Hct L 27.1 (OCT 06) L 30.0 (OCT 05) Plt 151 (OCT 06) 170 (OCT 05) Na 137 (OCT 06) 136 (OCT 05) K 3.8 (OCT 06) 4.3 (OCT 05) CO2 27 (OCT 06) 25 (OCT 05) Cl 106 (OCT 06) 104 (OCT 05) Cr H 1.77 (OCT 06) H 2.23 (OCT 05) BUN 22 (OCT 06) H 25 (OCT 05) Glucose Random H 106 (OCT 06) H 146 (OCT 05) Ca L 8.3 (OCT 06) 8.5 (OCT 05) Medications Scheduled Meds (6):amLODIPine, carvedilol (Coreg), doxazosin, enoxaparin (Lovenox), meropenem + Sodium Chloride 0.9% IV 100 mL (Merrem + Sodium Chloride 0.9% IV 100 mL), pantoprazole (Protonix) Unscheduled Meds: None PRN Meds (40):Al hydroxide/Mg hydroxide/simethicone (Maalox Advanced Regular Strength SUSP), Dextrose 50% in Water IV (Dextrose 50% Syringe (D50W)), Dextrose 50% in Water IV (Dextrose 50% Syringe (D50W)), QUEtiapine (SEROquel), acetaminophen-hydrocodone ([place] 5/325 oral tablet), acetaminophen, albuterol- ipratropium (DuoNeb inhalation solution), benzocaine-menthol topical (Cepacol Sore Throat 15 mg-3.6 mg mucous membrane lozenge), benzonatate (Tessalon Perles), bisacodyl, calcium gluconate + Sodium Chloride 0.9% IV 100 mL, calcium gluconate + Sodium Chloride 0.9% IV 100 mL, codeine-guaiFENesin (Robitussin-AC oral syrup), diphenhydrAMINE, docusate, glucagon, guaiFENesin (Mucinex), hydrALAZINE, lactulose (lactulose 10 g/15 mL oral syrup), lidocaine topical (lidocaine topical patch (5% film)), magnesium oxide, magnesium sulfate, magnesium sulfate, melatonin, morphine Sulfate, nicotine, ocular lubricant (Artificial Tears), ondansetron, phenol topical (Chloraseptic 1.4% spray), polyethylene glycol 3350, potassium chloride, potassium chloride, potassium chloride, potassium phosphate + Sodium Chloride 0.9% IV 250 mL, potassium phosphate + Sodium Chloride 0.9% IV 250 mL, potassium phosphate-sodium phosphate (potassium phosphate-sodium phosphate 250 mg-280 mg-160 mg oral powder for reconstitution), simethicone, sodium phosphate + Dextrose 5% in Water IV 250 mL, sodium phosphate + Dextrose 5% in Water IV 250 mL, trazodone One Time Meds: None Continuous Infusions (1):Sodium Chloride 0.9% IV 1,000 mL (NS 1,000 mL) ALL LABS REVIEW AND ALL RADIOLOGY REPORTS REVIEWED IMPRESSION 1. fever the family said he has severe diarrhea will rule out C. difficile colitis we will get a CAT scan and give oral vancomycin and reassess 2. Urinary retention requiring straight caths 3. Acute kidney injury 4. Hypertension 5. History of BPH 6. Diarrhea PLAN Patient came with fever he was recently diagnosed with UTI pyonephritis on intravenous antibiotic he is feeling well otherwise when he called the office yesterday the patient was complaining of diarrhea but I saw him today he has no diarrhea or abdominal pain Patient seen and examined by me discussed with the nursing team discussed with the medical team discussed with pharmacy Extracted from:Title: General Admission H&P * Author: Wilton Dinh MD Date: 10/06/19 Impression and Plan 1. Urinary tract infection with fever 2. Urinary retention requiring straight caths 3. Acute kidney injury 4. Hypertension 5. History of BPH Plan: Urine cultures, blood cultures, IV antibiotics, ID consultation Consult primary urologist IV fluids, replace electrolytes accordingly Resume same antihypertensive medications, PRN hydralazine Continue with Doxy Zosyn, monitor closely heart healthy PT/OT eval Lovenox for DVT prophylaxis Consultants: ID, urology 10/10/2019 [facility] Plan of Care No Data Provided for This Section Social History Social History Date Source Social History TypeResponse Alcohol Current, Type Beer, Wine. Frequency: 1-2 times per week. Smoking Status Light tobacco smoker; Type: Cigars; Exposure to Tobacco Smoke None; Cigarette Smoking Last 365 Days No; Reg Smoking Cessation Counseling No entered on: 10/06/19 11/07/2016 [facility] Social History TypeResponse Alcohol Current, Type Beer, Wine. Frequency: 1-2 times per week. Smoking Status Light tobacco smoker; Type: Cigars; Exposure to Tobacco Smoke None; Cigarette Smoking Last 365 Days No; Reg Smoking Cessation Counseling No entered on: 08/03/18 11/07/[facility] Family History No Data Provided for This Section Advance Directives No Data Provided for This Section Functional Status No Data Provided for This Section
--- OUTSIDE RECORDS SUMMARY | 2020-05-18 14:53 | XMS REPORT | Continuity of Care Document ---
Author Author [facility] t Organization [facility] Address [address] [place] [address] Phone Unavailable Care Team Providers Care Dress Marker Name Role Phone Donna BARAJAS M.D. 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 [facility] Problem Active 2019-10-06 00:00:00 2019-10-12 22:01:50 [facility] SEPSIS SEPS IS Active 10/06/2019 [facility] Diagnosis Active 2019-10-06 00:00:00 2019-10-06 10:21:00 [facility] ACUTE UTI ACUT E UTI Active 10/06/2019 [facility] Active 2019-10-06 00:00:00 2019-10-13 21:43:00 [facility] UNK UNK Active 11/14/2016 [facility] Active 2016-11-14 00:00:00 2016-11-24 09:43:00 [facility] 724.2 - LUMBAGO 724. 2 - LUMBAGO Active 03/16/2014 [facility] [place] Diagnosis Active 2014-03-16 00:01:00 2014-03-16 11:56:00 [facility] Renal insufficiency Renal insufficiency Problem Active [facility] Sepsis Sepsis Problem Active [facility] Urinary tract infection UTI (urinary tract infection) Problem Active [facility] Benign hypertension (disorder) Benign hypertension (disorder) [facility] Problem Active 2019-10-12 22:01:50 [facility] Flank pain (finding) Flan k pain (finding) Active [facility]12[facility] Problem Active 22:01:50 [facility] Gastroesophageal reflux disease (disorder) Gastroesophageal reflux disease (disorder) Active Problem 10/12/2019 [facility] Problem Active 2019-10-12 22:01:50 [facility] Motion sickness (disorder) Mot ion sickness (disorder) Active Problem 10/12/2019 [facility] Problem Active 2019-10-12 22:01:50 [facility] Benign prostatic hyperplasia (disorder) Benign prostatic hyperplasia (disorder) Active [facility]12[facility] Problem Active 2019-10-12 22:01:50 [facility] URINARY TRACT INFECTION, SITE NOT SPECIF URINARY TRACT INFECTION, SITE NOT SPECIF Active [facility] Active 2019-10-13 21:43:00 [facility] Allergies, Adverse Reactions, Alerts Allergy Name Allergy Type Status Severity Reaction(s) Onset Date Inacti ve Date Treating Clinician Comments Source No Known Drug Allergies DA Active U 2019-08-15 00:00:00 [facility] No Known Contrast Allergies DA Active U 2007-01-31 00:00: 00 [facility] No Known Drug Allergies DA Active U 2007-01-31 00:00:00 [facility] No Known Food Allergies DA Active U 2007-01-31 00:00:00 [facility] No Known Other Allergies DA Active U 2007-01-31 00:00:00 [facility] No Known Medication Allergies No Known Medication Allergies Active Marta Aguirre Social History Social Habit Start Date Stop Date Quantity Comments Source Social History 2016-11-07 17:08:22 2016-11-07 17:08:22 [facility] Medications Ordered Medication Name Filled Medication Name Start Date Stop Da te Current Medication? Ordering Clinician Indication Dosage Frequency Signature (SIG) Comments Components Source meropenem 500 MG Injection [Merrem] 2019-10-10 20:44:00 Yes 500 mg, IV, Q8H, X 14 day, # 42 ea, 0 Refill(s), other [facility] Coreg 2019-10-07 14:00:00 No Notes: Give with food. (Same As: Coreg) [facility] Amlodipine 2019-10-07 14:00:00 No Notes: (S tommy as: Norvasc) [facility] Doxazosin 2019-10-07 14:00:00 No Notes: (Sa me as: Cardura) [facility] Protonix 2019-10-07 14:00:00 No Notes: Tablet should not be chewed or crushed. (Same as: Protonix) [facility] Coreg 2019-10-07 03:23:00 No Notes: Give with food. (Same As: Coreg) [facility] Lovenox 2019-10-07 02:00:00 No Notes: (Same as: Lovenox) [facility] Potassium Chloride 2019-10-07 00:23:00 No Notes: (Same as: K-Dur 20) "Do Not Crush" Give with food and full glass of water For patients unable to swallow tablet, dissolve in one half glass of water. Allow about 2 minutes for the tablets to disintegrate. Stir before giving to prepare slurry and administer. Please exclude Patient s with feeding tube less than 14 [place] Island[place] (Dobhoff, J-tube etc) and pediatric and patients. [facility] potassium phosphate-sodium phosphate 250 mg-280 mg-160 mg oral powder for reconstitution 2019-10-07 00:23:00 No Notes: (Same as: Phos-NaK) Each 1.5 gm pkt has 250mg phosphorous. Mix w/2.5oz water and stir. [facility] potassium phosphate 2019-10-07 00:23:00 No Notes: (Same as: K Phosphate.) Do not infuse phosphorous concurrently in the same line as TPN or IVF that contains calcium. For double lumen central lines, phosphorous may be infused in a separate lumen from TPN. 1 mMol phoshate has 1.47 mEq potassium Infuse over 4 hours [facility] sodium phosphate 2019-10-07 00:23:00 No Notes: Infuse over 4 hour. Do not infuse phosphorous concurrently in the same line as TPN or IVF that contains calcium. For double lumen central lines, phosphorous may be infused in a separate lumen from TPN. [facility] Magnesium Sulfate 2019-10-07 00:23:00 No Notes: WASTE: F/P - Sink; E - Municipal Trash Bin [facility] Magnesium Oxide 2019-10-07 00:23:00 No Notes: (Same as: Mag-Ox 400) Magnesium oxide [id number] elemental magnesium Dose=____mg magnesium oxide (___mg elemental magnesium) [facility] Calcium Gluconate 2019-10-07 00:23:00 No Notes: WASTE: F/P - Sink; E - [place] Trash [facility] NS 1,000 mL 2019-10-07 00:19:00 No 1,000 mL, Rate: 100 ml/hr, Infuse over: 10 hr, Route: IV, Dosing Weight 98.835 kg, Total Volume: 1,000, Start date: 10/06/19 19:19:00 CDT, Duration: 30 day, Stop date: 11/05/19 19:18:00 CDT, 2.26, m2, 0 [facility] Merrem 2019-10-06 20:00:00 No Notes: Same as Merrem MEDICATION WASTE Product Size: 500 mg Product Wasted: ___ mg [facility] carvedilol 12.5 MG Oral Tablet [Coreg] 2019-10-06 19:14:00 Yes 12.5 mg = 1 tab, PO, BID, # 60 tab, 0 Refill(s) [facility] doxazosin 2 mg oral tablet 2019-10-06 19:14:00 Yes 2 mg = 1 tab, PO, Daily, # 30 tab, 0 Refill(s) Marta mccollum Amlodipine 2019-10-06 19:14:00 Yes 1 0 mg, PO, Daily, 0 Refill(s) Marta Aguirre RN- Pls update pt's Ht / Wt / Allergies on ADHOC 2019-10-06 18:00:00 No RN- Pls upd ate pt's Ht / Wt / Allergies on ADHOC, Attn:RN, Drug form: MISC, Route: MISC, Q15Min, 10/06/19 13:00:00 CDT, Duration: 8 hr, Stop date: 10/06/19 20:45:00 CDT, 0 [place] [facility] Dextrose 50% Syringe (D50W) 2019-10-06 15:47:00 No 12.5 gm, 25 mL, Route: IVP, Drug Form: INJ, Dosing Weight 105, kg, PRN, PRN Blood Glucose Results, Start date: 10/06/19 10:47:00 CDT, Duration: 30 day, Stop date: 11/05/19 10:46:00 CDT, 0 Marta Levin n Glucagon 2019-10-06 15:47:00 No 1 mg, Route: IM, Drug form: PDR/INJ, PRN, Dosing Weight 105, kg, PRN Blood Glucose Results, Start date: 10/06/19 10:47:00 CDT, Duration: 30 day, Stop date: 11/05/19 10:46:00 CDT, 0 Marta Aguirre Docusate 2019-10-06 15:47:00 No Notes: (Same as: Colace) (Do Not Crush) [facility] POLYETHYLENE GLYCOL 3350 2019-10-06 15:47:00 No Notes: Dissolve in 8 oz of water or juice. (Same as: Miralax) [facility] [place] Bisacodyl 2019-10-06 15:47:00 No Notes: (Same As: Dulcolax, Bisco-Lax) [facility] Ondansetron 2019-10-06 15:47:00 No Notes: (Same as: Zofran) MEDICATION WASTE Product Size: 4 mg Product Wasted: ___ mg [facility] Diphenhydramine 2019-10-06 15:47:00 No 25 mg, 1 tab, Route: PO, Drug form: TAB, Q6H, Dosing Weight 105, kg, PRN as needed for allergy symptoms, Start date: 10/06/19 10:47:00 CDT, Duration: 30 day, Stop date: 11/05/19 10:46:00 CDT, 0 [facility] Melatonin 2019-10-06 15:47:00 No Notes: (Sa me as: Melatonin) [facility] Trazodone 2019-10-06 15:47:00 No Notes: ( me As: Desyrel) [facility] Acetaminophen 2019-10-06 15:47:00 No Notes: Do not exceed 4 gm/day. (Same as: Tylenol) [facility] Seroquel 2019-10-06 15:47:00 No Notes: (Iraj e as: SEROquel) [facility] Hydralazine 2019-10-06 15:47:00 No Notes: (Same as: Apresoline) Push over 5 minutes [facility] Nicotine 2019-10-06 15:47:00 No Notes: (Same as: Habitrol) "Remove old patch before application of new patch" WASTE: F/P - P Waste Black; E - P Waste Black [facility] Acetaminophen 325 MG / Hydrocodone Bitartrate 5 MG Oral Tabl et [[place] 5/325] 2019-10-06 15:47:00 No Notes: (Same as: [place] 325/5) Do not exceed 4gm/day of acetaminophen. [facility] nn Morphine 2019-10-06 15:47:00 No Not es: (Same as:MORPhine Sulfate) [facility] Robitussin-AC oral syrup 2019-10-06 15:47:00 No Notes: (Same As: Robitussin AC) [facility] Tessalon Perles 2019-10-06 15:47:00 No Notes: (Same As: Tessalon Perles) "Do Not Crush" [facility] Mucinex 2019-10-06 15:47:00 No Notes: (Same as: Guaifenesin [place], Humibid [place], Mucinex) "Do Not Crush" Take medication with plenty of water. [facility] Simethicone 2019-10-06 15:47:00 No Notes: ( Same as: Mylicon) Marta Aguirre Maalox Advanced Regular Strength SUSP 2019-10-06 15:47:00 N o Notes: (aluminum hydroxide-magnesium hyd-simethicone [phone]/5ml 30 ml ud DANAE) Marta Aguirre Albuterol 0.833 MG/ML / Ipratropium Brom jacob 0.167 MG/ML Inhalant Solution [DuoNeb] 2019-10-06 15:47:00 No Notes: (S tommy as: Duoneb) Marta Aguirre phenol 2019-10-06 15:47:00 No Notes: WASTE: F/P - Black; E - Municipal Trash Bin Marta Aguirre Artificial Tears 2019-10-06 15:47:00 No Notes: Same as Tears Naturale and GenTeal Tears Marta gibson Lidocaine 0.05 MG/MG Transdermal Patch 2019-10-06 15:47:00 No Notes: Apply only once for up to 12 hours in a 24-hour period (12 hours on and 12 hours off). (Same as: Lidoderm) "Remove old patch before application of new patch" Marta Aguirre Lactulose 667 MG/ML Oral Solution 2019-10-06 15:47:00 No Notes: (Same as:Chronulac) Marta Aguirre Benzocaine 15 MG / Menthol 3.6 MG Lozeng e [Cepacol Sore Throat Pain Relief 15/3.6] 2019-10-06 15:47:00 No Notes: Iraj e as: Cepacol Marta Aguirre Ciprofloxacin Hcl 250 Mg Tablet Ciprofloxacin Hcl 250 Mg Tab let 2019-09-23 00:00:00 Yes Leonidas Garcia Md 250 Every 12 Hours [facility] 2018-08-03 21:54:00 Yes PO, Daily, 0 Refill(s) Marta Almonteann Atenolol 50 MG Oral Tablet 2018-08-03 21:41:00 Yes 50 mg = 1 tab, PO, Daily, 0 Refill(s) Marta Almonteann sildenafil 100 MG Oral Tablet 2018-08-03 21:41:00 Yes 100 mg = 1 tab, PO, Daily, 0 Refill(s) Marta gillette Ciprofloxacin 500 MG Oral Tablet [Cipro] 2016-11-24 19:44:00 Yes 500 mg = 1 tab, PO, Q12H, X 5 day, # 10 tab, 0 Refill(s) [facility] Hydromorphone 2016-11-24 19:41:00 No 0.3 mg, Route: IVP, Q3H, Dosing Weight 94, kg, PRN Pain Score 4-6, Start date: 11/24/16 14:41:00 CDT, Duration: 30 day, Stop date: 12/24/16 14:40:00 CDT [facility] [place] Alkaloids 16.2 MG / Opium 30 MG Rectal Suppositor y 2016-11-24 19:41:00 No 1 supp, [place]: [place], Dosing Weight 94, kg, Q6H, PRN Bladder Spasm, Start date: 11/24/16 14:41:00 CDT, Duration: 30 day, Stop date: 12/24/16 14:40:00 CDT [facility] acetaminophen ([facility]) 2016-11-24 19:14:00 No Route: IV, Drug form: INJ, ONCE, Stop date: 11/24/16 14:14:00 CDT [facility] ondansetron ([facility]) 2016-11-24 18:24:00 No Route: IV, Drug form: INJ, ONCE, Stop date: 11/24/16 13:24:00 CDT [facility] fluconazole ([facility]) 2016-11-24 18:19:00 No Route: IV, Drug form: INJ, ONCE, Stop date: 11/24/16 13:19:00 CDT [facility] ciprofloxacin ([facility]) 2016-11-24 18:19:00 No Route: IV, Drug form: INJ, ONCE, Stop date: 11/24/16 13:19:00 CDT [facility] lidocaine ([facility]) 2016-11-24 18:19:00 No Route: IV, Drug form: INJ, ONCE, Stop date: 11/24/16 13:19:00 CDT [facility] midazolam ([facility]) 2016-11-24 18:19:00 No Route: IV, Drug form: SOLN, ONCE, Stop date: 11/24/16 13:19:00 CDT [facility] propofol ([facility]) 2016-11-24 18:19:00 No Route: IV, Drug form: INJ, ONCE, Stop date: 11/24/16 13:19:00 CDT Maryellen Aguirre fentaNYL (ANES) 2016-11-24 18:19:00 No Route: IV, Drug form: INJ, ONCE, Stop date: 11/24/16 13:19:00 CDT Maryellen Aguirre LR 1000 mL INJ (ANES) 2016-11-24 17:18:00 No Route: IV, Total Volume: 1,000, Start date: 11/24/16 12:18:00 CDT, Stop date: 11/24/16 13:18:00 CDT Marta Aguirre Diflucan 2016-11-24 17:10:00 Yes Notes: PROTECT FROM LIGHT (Same as: Diflucan) Do not refrigerate. CALL [phone] WHEN READY FOR PRE-OP [facility] Calcium Chloride 0.0014 MEQ/ML / Potassi um Chloride 0.004 MEQ/ML / Sodium Chloride 0.103 MEQ/ML / Sodium Lactate 0.028 MEQ/ML Injectable Solution 2016-11-24 16:08:00 No 1,000 mL, Rate: 25 ml/hr, Infuse over: 40 hr, Route: IV, Dosing Weight 94 kg, Total Volume: 1,000, Start date: 11/24/16 11:08:00 CDT, Duration: 30 day, Stop date: 12/24/16 11:07:00 CDT [facility] gentamicin ([facility]) 2016-11-14 19:08:00 No Route: IV, Drug form: INJ, ONCE, Stop date: 11/14/16 14:08:00 [facility]) 2016-11-14 19:08:00 No Route: IV, Drug form: INJ, ONCE, Stop date: 11/14/16 14:08:00 CDT [facility] Acetaminophen 300 MG / Codeine Phosphate 60 MG Oral Tablet [Tylenol with Codeine #4] 2016-11-14 19:08:00 Yes 1 - 2 tab, PO, Q6H, PRN Pain, X 4 day, # 32 tab, 0 Refill(s) Marta Aguirre oxybutynin 5 mg oral tablet 2016-11-14 19:07:00 Yes 5 mg = 1 tab, PO, TID, PRN Other-See Comments, # 30 tab, 0 Refill(s) [facility] Ciprofloxacin 500 MG Oral Tablet [Cipro] 2016-11-14 19:07:00 Yes 500 mg = 1 tab, PO, Q12H, X 7 day, # 14 tab, 0 Refill(s) [facility] Docusate Sodium 100 MG Oral Capsule [Colace] 2016-11-14 19:07:00 Yes 100 mg = 1 cap, PO, BID, PRN Constipation, # 20 cap, 0 Refill(s) [facility] Phenazopyridine hydrochloride 100 MG Oral Tablet [Pyridium] 2016-11-14 19:07:00 Yes 100 mg = 1 tab, PO, TID , X 7 day, # 21 tab, 0 Refill(s) [facility] Hydromorphone 2016-11-14 19:03:00 No 0.3 mg, Route: IVP, Q3H, Dosing Weight 102.273, kg, PRN Pain Score 4-6, Start date: 11/14/16 14:03:00 CDT, Duration: 30 day, Stop date: 12/14/16 14:02:00 CDT [facility] [place] Alkaloids 16.2 MG / Opium 30 MG Rectal Suppositor y 2016-11-14 19:03:00 No 1 supp, [place], Dosing Weight 102.273, kg, Q6H, PRN Bladder Spasm, Start date: 11/14/16 14:03:00 CDT, Duration: 30 day, Stop date: 12/14/16 14:02:00 CDT [facility] ondansetron (ANES) 2016-11-14 17:23:00 No Route: IV, Drug form: INJ, ONCE, Stop date: 11/14/16 12:23:00 CDT [facility] ciprofloxacin (ANES) 2016-11-14 17:23:00 No Route: IV, Drug form: INJ, ONCE, Stop date: 11/14/16 12:23:00 CDT [facility] lidocaine (ANES) 2016-11-14 17:23:00 No Route: IV, Drug form: INJ, ONCE, Stop date: 11/14/16 12:23:00 [facility] 2016-11-14 17:23:00 No Route: IV, Drug form: INJ, ONCE, Stop date: 11/14/16 12:23:00 CDT Maryellen Aguirre midazolam ([facility]) 2016-11-14 17:23:00 No Route: IV, Drug form: SOLN, ONCE, Stop date: 11/14/16 12:23:00 CDT Maryellen Aguirre fentaNYL ([facility]) 2016-11-14 17:23:00 No Route: IV, Drug form: INJ, ONCE, Stop date: 11/14/16 12:23:00 CDT Maryellen Aguirre LR 1000 mL INJ ([facility]) 2016-11-14 16:34:00 No Route: IV, Total Volume: 1,000, Start date: 11/14/16 11:34:00 CDT, Stop date: 11/14/16 12:34:00 CDT Marta Aguirre Calcium Chloride 0.0014 MEQ/ML / Potassi um Chloride 0.004 MEQ/ML / Sodium Chloride 0.103 MEQ/ML / Sodium Lactate 0.028 MEQ/ML Injectable Solution 2016-11-14 15:45:00 No 1,000 mL, Rate: 25 ml/hr, Infuse over: 40 hr, Route: IV, Dosing Weight 102.273 kg, Total Volume: 1,000, Start date: 11/14/16 10:45:00 CDT, Duration: 30 day, Stop date: 12/14/16 10:44:00 CDT Marta Aguirre lisinopril 10 mg oral tablet 2016-11-07 17:14:00 Yes 10 mg = 1 tab, PO, Daily, # 30 tab, 0 Refill(s) Merle Aguirre tamsulosin 0.4 mg oral capsule 2016-11-07 17:14:00 Yes 0.4 mg, PO, Daily, # 10 tab, 0 Refill(s) Marta bradshaw pantoprazole 40 mg oral enteric coated tablet 2016-11-07 17:14:0 0 Yes 40 mg = 1 tab, PO, Daily, # 30 tab, 0 Refill(s) Marta Aguirre finasteride 5 mg oral tablet 2016-11-07 17:12:00 Yes 5 mg = 1 tab, PO, Daily, # 30 tab, 0 Refill(s) Merle Aguirre Amlodipine Besylate 10 Mg Tablet Amlodipine Besylate 10 Mg Tablet Yes 10 Daily [facility] Carvedilol 12.5 Mg Tablet Carvedilol 12.5 Mg Tablet Yes 12.5 Twice A Day [facility] Doxazosin Mesylate 2 Mg Tablet Doxazosin Mesylate 2 Mg Tablet Yes 2 Daily [facility] Pantoprazole Sodium (Protonix) 40 Mg Tablet. Pantopr azole Sodium (Protonix) 40 Mg Tablet. Yes 40 Daily [facility] Amoxicillin/Potassium Clav (Augmentin 50 0-125 Tablet) 1 Each Tablet, 500 Mg Oral Amoxicillin/Potassium Clav (Augmentin 50 0-125 Tablet) 1 Each Tablet, 500 Mg Oral 2019-09-20 00:00:00 No 500 Three Times A Day [facility] Ciprofloxacin Hcl (Cipro) 500 Mg Tablet, 500 Mg Oral C iprofloxacin Hcl (Cipro) 500 Mg Tablet, 500 Mg Oral 2019-09-20 00:00:00 No 500 Every 12 Hours [facility] Carvedilol 3.125 Mg Tablet, 12.5 Mg Oral Carvedilol 3. 125 Mg Tablet, 12.5 Mg Oral 2019-08-25 00:00:00 No 12.5 Twice A Day [facility] Vital Signs Vital Name Observation Time Observation Value Comments Source Temperature Oral (F) 2019-10-10 20:17:00 98.5 F [facility] [place] Heart Rate 2019-10-10 20:17:00 [facility] Respitory Rate 2019-10-10 20:17:00 [facility] Systolic (mm Hg) 2019-10-10 20:17:00 [place] [facility] [place] Diastolic (mm Hg) 2019-10-10 20:17:00 [facility] Temperature Oral (F) 2019-10-10 16:16:00 95.7 F [facility] Heart Rate 2019-10-10 16:16:00 [facility] Respitory Rate 2019-10-10 16:16:00 [facility] Systolic (mm Hg) 2019-10-10 16:16:00 [place] [facility] [place] Diastolic (mm Hg) 2019-10-10 16:16:00 [facility] [place] Temperature Oral (F) 2019-10-10 13:06:00 98.5 F [facility] [place] Heart Rate 2019-10-10 13:06:00 [facility] Respitory Rate 2019-10-10 13:06:00 [facility] [place] Systolic (mm Hg) 2019-10-10 13:06:00 [place] [facility] [place] Diastolic (mm Hg) 2019-10-10 13:06:00 [facility] [place] Height 2019-10-06 19:12:00 182.88 cm [facility] [place] Weight 2019-10-06 19:12:00 [facility] [place] BMI Calculated 2019-10-06 19:12:00 [facility] Height 2019-10-06 18:29:00 182.88 cm [facility] Weight 2019-10-06 18:29:00 [facility] BMI Calculated 2019-10-06 18:29:00 [facility] [place] BMI Calculated 2018-08-03 21:41:00 [facility] Weight 2018-08-03 21:41:00 [facility] [place] Height 2018-08-03 21:41:00 182.88 cm [facility] Systolic (mm Hg) 2018-08-03 21:41:00 [place] [facility] [place] Diastolic (mm Hg) 2018-08-03 21:41:00 [facility] [place] Heart Rate 2018-08-03 21:41:00 [facility] Systolic (mm Hg) 2016-11-24 21:25:00 [place] [facility] Diastolic (mm Hg) 2016-11-24 21:25:00 [facility] Systolic (mm Hg) 2016-11-24 20:45:00 [place] [facility] [place] Diastolic (mm Hg) 2016-11-24 20:45:00 [facility] Respitory Rate 2016-11-24 20:30:00 [facility] Systolic (mm Hg) 2016-11-24 20:30:00 [place] [facility] [place] Diastolic (mm Hg) 2016-11-24 20:30:00 [facility] Respitory Rate 2016-11-24 20:15:00 [facility] Respitory Rate 2016-11-24 20:00:00 [facility] [place] Heart Rate 2016-11-24 16:10:00 [facility] [place] BMI Calculated 2016-11-24 15:21:00 [facility] Weight 2016-11-24 15:21:00 [facility] Height 2016-11-24 15:21:00 182.88 cm [facility] [place] Systolic (mm Hg) 2016-11-14 20:45:00 [place] [facility] [place] Diastolic (mm Hg) 2016-11-14 20:45:00 [facility] Respitory Rate 2016-11-14 20:45:00 [facility] [place] Respitory Rate 2016-11-14 20:00:00 [facility] Systolic (mm Hg) 2016-11-14 20:00:00 [place] [facility] [place] Diastolic (mm Hg) 2016-11-14 20:00:00 [facility] Systolic (mm Hg) 2016-11-14 19:45:00 [place] [facility] Diastolic (mm Hg) 2016-11-14 19:45:00 [facility] [place] Respitory Rate 2016-11-14 19:45:00 [facility] [place] Temperature Oral (F) 2016-11-07 16:14:00 98.0 F [facility] Heart Rate 2016-11-07 16:14:00 [facility] Height 2016-11-07 15:50:00 182.88 cm [facility] Weight 2016-11-07 15:50:00 [facility] BMI Calculated 2016-11-07 15:50:00 [facility] [place] Procedures Procedure Date / Time Performed Performing Clinician [facility] e CT of abdomen and pelvis without contrast 2019-09-19 00:00:00 ZION HUIZAR [facility] Cystoscopy 2019-08-24 00:00:[address] [facility] X-ray of chest, two views 2019-08-22 00:00:00 SCOOTER CULVER [facility] Cataract extraction and insertion of intraocular lens [facility] [place] [facility] Encounters Start Date/Time End Date/Time Encounter Type Admission Type Attendi [facility] Care Department Encounter ID Source 2019-10-06 12:47:00 Inpatient U [id number] 2019-10-06 12:47:00 2019-10-10 18:35:00 Outpatient Chan Dinh [facility] [id number] 2019-09-19 19:43:00 2019-09-23 15:22:00 Discharged Inpatient 1 LEONIDAS GARCIA [facility] [id number] [facility] 2019-08-24 12:00:00 2019-08-30 19:50:00 Discharged Inpatient 3 LEONIDAS GARCIA [facility] [id number] [facility] 2018-08-03 15:40:00 2018-08-03 23:59:59 Outpatient Marie Freire [facility] [id number] 2016-11-24 09:43:00 2016-11-24 16:30:00 Outpatient Marie Freire [facility] [id number] 2016-11-14 10:08:00 2016-11-14 16:00:[id number] 2014-03-16 11:44:00 2014-03-16 23:59:00 Outpatient Jovani Dowd [facility] [id number] Results Test Description Test Time Test Comments Results Result Comments Source RENAL SCAN W/FLOW FUNCTION 2020-04-05 19:40:00 [place] [id number] Patient Name: MARTHA JOHNSON MR #: [id number] : 1950 Age/Sex: 69/M Req #: [id number] Adm Physician: Ordered by: SCOOTER CULVER MD Report #: [id number] Location: [place] Room/Bed: Procedure: NM/RENAL SCAN W/FLOW FUNCTION Exam Date: 04/05/20 Exam Time: 929 REPORT STATUS: Signed Renal Scan Reason for exam: Crossing vessel and 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 BILATERAL PERCUTANEOUS NEPHROSTOMY CATHETERS ARE UNCLAMPED FOR THE ENTIRETY OF THE STUDY. LEFT KIDNEY: Perfusion to the left kidney appears to be prompt. The left kidney consists of a faint rim of parenchyma of a very small kidney. The rim of parenchyma is slightly greater in the upper pole. The pelvicaliceal system cannot be adequately assessed because very little tracer is cleared from the renal parenchyma except in the upper pole that fills a large calyx. Increased pooling of tracer is only seen within the dilated calyx in the upper pole. Very minimal tracer flows through the nephrostomy catheter in the lower pole of the kidney. No tracer is seen in the left ureter. RIGHT KIDNEY: Perfusion is prompt. The kidney is overall decreased in size with slightly irregular contours. The right kidney is larger than the left kidney and has a greater amount of preserved parenchyma. Extraction of tracer from the blood pool is decreased. Clearance of tracer from the renal parenchyma prolonged and not complete by the end of the study. A mildly dilated calyx is seen in the upper pole. Otherwise, the pelvicalyceal system does not appear dilated. Tracer is seen in the nephrostomy catheter. Increased pooling of tracer is only seen in the upper pole calyx. Some tracer is seen in the right ureter. DIFFERENTIAL RENAL FUNCTION: Left kidney 19% and right kidney 81% (normal 43-57%). Impression: 1. The left kidney is markedly reduced in size with only a thin rim of parenchyma, greatest in the upper pole. Significant medical renal disease is also present. A dilated calyx in the upper pole does not drain during the study, consistent with obstruction. The remainder of the excreted tracer flows through the nephrostomy tube. The decreased differential function of 19% reflects the loss of renal parenchyma in the kidney. 2. The right kidney shows moderately severe medical renal disease. The kidney i s reduced in size with evidence of some scarring. A dilated calyx in the upper pole does drain. Most of the excreted tracer drains through the nephrostomy although some drains through the ureter. Signed by: Dr. Caro Leiva M.D. on 04/05/2020 8:15 PM Dictated By: CARO LEIVA MD 14 Transcribed By: EDE on 04/05/202014 COPY TO: SCOOTER CULVER MD NEPHRO/URET W IMG/INJ-EXISTING 2020-02-27 11:15:00 [place] [address] Patient Name: MARTHA JOHNSON MR #: [id number] : 1950 Age/Sex: 69/M Req #: [id number] [facility] Physician: Ordered by: SCOOTER CULVER MD Report #: [id number] Location: DX Room/Bed: Procedure: [id number] IR/NEPHRO/URET W IMG/INJ-EXISTING Exam Date: Exam Time: REPORT STATUS: Signed Procedure: Bilateral percutaneous nephroureterostomy catheter exchange. History: Routine maintenance. Manager Of Exhibitions And Collections: Brent Velarde M.D. Lead Carpenter: Michelle Rojas Modality: Fluoroscopy. DOSE REDUCTION: The examination was performed according to departmental dose-optimization program. Fluoro time: 4.7 minutes. Radiation dose: 69.8 mGy air Kerma. Sedation: Intravenous conscious sedation was administered by the dedicated RN with 1 mg of midazolam and 50 mcg of fentanyl IV. Vital signs were monitored throughout the procedure by a dedicated RN under direct supervision of Dr. Velarde, and remained stable. Physician intra-service sedation time was approximately 30 minutes. Anesthesia: Lidocaine local infiltration Medicines: None Contrast medium: Isovue 300, 50 cc. Estimated blood loss: < 5 cc. Technique: A discussion of the r isks, benefits, and alternatives was carried out with the patient. A written informed consent was obtained. The patient expressed understanding and agreed to proceed. A universal timeout was performed prior to starting the procedure. The procedure room personnel used personal protective equipment. The operators used sterile gowns and gloves. The patient was laid prone on the procedure table. The bilateral percutaneous access site was prepped with chlorhexidine gluconate and draped in sterile fashion. A financial specialist radiograph was performed showing the catheters to be in the expected location. Contrast injection through the catheters confirmed the catheter location in the collecting system. The distal tips within the urinary bladder. There is occlusion at the mid ureter bilaterally. After local anesthetic infiltration, the retention suture was removed. The catheter was cut and withdrawn over a wire. Over the wire, a sheath was placed. A pyelogram was performed that confirmed the above findings of a very dilated renal collecting system and proximal ureter with occlusion at the mid ureter. The catheter was replaced with an identical catheter. The catheter position was confirmed with contrast injection. The catheter was secured to skin with nonabsorbable suture. The catheter was connected to a gravity drainage bag. An aseptic dressing was applied. The contralateral nephroureteral catheter was exchanged using an identical technique. The patient was transferred to the recovery area and discharged from the department in stable condition. Complications: None immediate. Findings: As above. Impression: Successful fluoroscopic guided 10.2 [place] Island[place] x 24 cm left and 10.2 [place] x 22 cm right nephroureterostomy catheter exchange as described above. 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 The patient has a neurogenic bladder and has to do intermittent self-catheterization which is not desirable to the patient. The sites this exposes the renal collecting system to backward pressure through the patent nephroureteral stents. On the patient's request, after discussion with the referring urologist, it was decided to connect stents external bags. The patient was carried the bags. The patient will continue to do intermittent self-catheterization on as-needed basis. On the next visit, the nephroureteral stent would be converted to nephrostomies. Further management dictated by the clinical scenario. The catheters should be exchanged at the latest in three months. Thank you for the opportunity to assist in the care of your patient. Signed by: Brent Velarde MD on 02/27/2020 11:23 AM Dictated By: BRENT VELARDE MD 22 Transcribed By: EDE on 02/27/201122 COPY TO: SCOOTER CULVER MD MOD SEDATE INITIAL >5 YRS 2019-12-26 12:42:00 [facility] [address] [place] [address] Patient Name: MARTHA JOHNSON MR #: [id number] : 1950 Age/Sex: 69/M Req #: [id number] Adm Physician: Ordered by: CHRISTIANO CONTRERAS MD Report #: [id number] Location: DX Room/Bed: Procedure: [id number] DX/MOD SEDATE INITIAL >5 YRS Exam Date: 12/26/19 Exam Time: 951 REPORT STATUS: Signed Left nephrostomy to nephroureterostomy (universal stent) conversion. History: Obstructive uropathy. Modality: Fluoroscopy Sedation: Versed 2 mg and fentanyl 100 mcg was given intravenously for conscious sedation. Vital signs were monitored throughout the procedure by a nurse, and remained stable. Physician intra- service time was 45 minutes. Fluoroscopy Time: 13.6 min. Reference Air Kerma (Ka, r): 204 mGy. Approach: The indwelling left nephrostomy catheter Estimated blood loss: < 5 cc. Specimen: None. compress machine operator: Christiano Contreras MD. Technique: Informed written consent was obtained. Discussion of risks, benefits, and alternatives were made with the patient. The patient expressed understanding and agreed to proceed. A universal timeout was performed prior to starting the procedure. All elements maximal sterile barrier technique was utilized for this procedure, including utilization of sterile scrub solution for skin prep, a large sterile sheet to cover the areas of the patient that were not prepped, and hand hygiene, mask, head covering, and sterile gown for performing radiologist and scrub technologist. Contrast injection demonstrates severe dilatation of the left renal pelvis and proximal ureter. Complete obstruction noted at the level of the mid ureter with no passage of contrast noted distally. The obstruction was eventually successfully traversed with a 0.035 stiff an angled Glidewire and 5 [place] Kumpe catheter. The catheter was eventually manipulated into the urinary bladder. The Glidewire was exchanged for a 0.035 Amplatz wire. Subsequently, a 10.2 [place] 5 24-cm nephroureterostomy catheter ([place] stent) was advanced over wire with distal pigtail formed within the urinary bladder and proximal pigtail within the left renal pelvis. Contrast injection confirmed position. The catheter was fixed to the skin with silk suture and attached to a gravity drainage bag. A sterile dressing was applied. The patient tolerated the procedure without immediate complication. FINDINGS: Nephrostogram demonstrates complete occlusion noted of the left mid ureter which successfully traversed with fabiola ter and wire. A 10.2 [place] x 24 cm nephroureterostomy catheter was successfully placed. IMPRESSION: Successful fluoroscopic guided left nephrostomy to nephroureterostomy ([place] stent) conversion with conscious sedation as detailed above. Signed by: Dr. Christiano Contreras MD on 12/26/2019 12:48 PM Dictated By: CHRISTIANO CONTRERAS MD 1444 Transcribed By: EDE on 01/11/20 1444 COPY TO: CHRISTIANO CONTRERAS MD NEPHRO/URET W IMG/INJ-EXISTING 2019-12-26 12:42:00 [place] [address] Patient Name: MARTHA JOHNSON MR #: [id number] : 1950 Age/Sex: 69/M Req #: [id number] Adm Physician: Ordered by: SCOOTER CULVER MD Report #: [id number] Location: DX Room/Bed: Procedure: [id number] IR/NEPHRO/URET W IMG/INJ-EXISTING Exam Date: Exam Time: REPORT STATUS: Signed Left nephrostomy to nephroureterostomy (universal stent) conversion. History: Obstructive uropathy. Modality: Fluoroscopy Sedation: Versed 2 mg and fentanyl 100 mcg was given intravenously for conscious sedation. Vital signs were monitored throughout the procedure by a nurse, and remained stable. Physician intra-service time was 45 minutes. Fluoroscopy Time: 13.6 min. Reference Air Kerma (Ka, r): 204 mGy. Approach: The indwelling left nephrostomy catheter Estimated blood loss: < 5 cc. Specimen: None. compress machine operator: Christiano Contreras MD. Technique: Informed written consent was obtained. Discussion of risks, benefits, and alternatives were made with the patient. The patient expressed understanding and agreed to proceed. A universal timeout was performed prior to starting the procedure. All elements maximal sterile barrier technique was utilized for this procedure, including utilization of sterile scrub solution for skin prep, a large sterile sheet to cover the areas of the patient that were not prepped, and hand hygiene, mask, head covering, and sterile gown for performing radiologist and scrub technologist. Contrast injection demonstrates severe dilatation of the left renal pelvis and proximal ureter. Complete obstruction noted at the level of the mid ureter with no passage of contrast noted distally. The obstruction was eventually successfully traversed with a 0.035 stiff an angled Glidewire and 5 [place] Kumpe catheter. The catheter was eventually manipulated into the urinary bladder. The Glidewire was exchanged for a 0.035 Amplatz wire. Subsequently, a 10.2 [place] 5 24-cm nephroureterostomy catheter ([place] stent) was advanced over wire with distal pigtail formed within the urinary bladder and proximal pigtail within the left renal pelvis. Contrast injection confirmed position. The catheter was fixed to the skin with silk suture and attached to a gravity drainage bag. A sterile dressing was applied. The patient tolerated the procedure without immediate complication. FINDINGS: Nephrostogram demonstrates complete occlusion noted of the left mid ureter which successfully traversed with catheter and wire. A 10.2 [place] x 24 cm nephroureterostomy catheter was successfully placed. IMPRESSION: Successful fluoroscopic guided left nephrostomy to nephroureterostomy ([place] stent) conversion with conscious sedation as detailed above. Signed by: Dr. Christiano Contreras MD on 12/26/2019 12:48 PM Dictated By: CHRISTIANO CONTRERAS MD 47 Transcribed By: EDE on 12/26/191247 COPY TO: SCOOTER CULVER MD NEPHRO/URET W IMG/INJ-EXISTING 2019-12-16 12:21:00 [place] [address] Patient Name: MARTHA JOHNSON MR #: [id number] : 1950 Age/Sex: 69/M Req #: [id number] [facility] Physician: Ordered by: SCOOTER CULVER MD Report #: [id number] Location: DX Room/Bed: Procedure: IR/NEPHRO/URET W IMG/INJ-EXISTING Exam Date: Exam Time: REPORT STATUS: Signed ADDENDUM #1 Sedation: IV medazepam 3 mg and 1 50 mcg. Intravenous conscious sedation administered and Vital signs were monitored throughout the procedure by a dedicated RN under direct supervision of Dr. Velarde, and remained stable. Signed by: Brent Velarde MD on 01/19/2020 1:02 PM ORIGINAL REPORT Procedure: Exchange of right percutaneous nephrostomy to Right percutaneous nephroureteral stent. Left percutaneous nephrostomy catheter exchange with failure to place a nephroureteral stent. History: Obstructive uropathy. Manager Of Exhibitions And Collections: Brent Velarde M.D. Lead Carpenter: Michelle Rojas Modality: Fluoroscopy. DOSE REDUCTION: The examination was performed according to departmental dose-optimization program. Fluoro time: 15.9 minutes. Radiation dose: 208 mGy air Kerma. Sedation: IV medazepam 3 mg and 1 50 mcg. Vital signs were monitored throughout the procedure by a dedicated RN under direct supervision of Dr. Velarde, and remained stable. Physician intra-service sedation time was approximately 30 minutes. Anesthesia: Lidocaine local infiltration Medicines: Rocephin 1 g IV. Merem 1 g IV Contrast medium: Isovue 300, 50 cc. Estimated blood loss: < 5 cc. Technique: A discussion of the risks, benefits, and alternatives was carried out with the patient. A written informed consent was obtained. The patient expressed understanding and agreed to proceed. A universal timeout was performed prior to starting the procedure. The procedure room personnel used personal protective equipment. The operators used sterile gowns and gloves. The patient was laid prone on the procedure table. The bilateral percutaneous nephrostomy sites were prepped with chlorhexidine gluconate and draped in sterile fashion. A financial specialist radiograph was performed showing the catheters to be in the expected location. Contrast injection through the catheter confirmed the catheter tip location in the collecting system with retraction of the catheter tips into the minor calyces. The pelvises and ureters are dilated bilaterally. Right kidney: After local anesthetic infiltration, the retention suture was removed. The catheter was cut and withdrawn over a wire. Examination of a Kumpe catheter and a Glidewire was advanced down the tortuous ureter into the bladder. Over the wire, a 10.2 [place]er 24 cm long nephroureteral stent was placed with the distal pigtail formed in the bladder and the proximal pigtail locked in the renal pelvis. The catheter position was confirmed with contrast injection. The catheter was secured to skin with nonabsorbable suture. The catheter was capped externally. An aseptic dressing was applied. Left kidney: After local anesthetic infiltration, the retention suture was removed. The catheter was cut. There was high-pressure return of cloudy turbid urine. A specimen of the urine was collected for laboratory examination. The catheter was withdrawn over a hydrophilic guidewire. Examination of a Kumpe catheter and hydrophilic wire was used to negotiate the passage down to the mid ureter. The guidewire could not been associated any further. Contrast injection revealed a chronically dilated ureter with a large filling defect likely representing a calculus. After prolonged attempt to cross the occlusion I contacted the referring urologist. In view of the patient's suspected infected urine and risk of sepsis, it was decided to place a nephrostomy catheter. A 10.2 [place] Islander nephrostomy catheter was placed over a guidewire, the pigtail locked in the left renal pelvis, the catheter position confirmed with contrast injection and the catheter secured to skin with nonabsorbable suture. The catheter was connected to a gravity drainage bag. An aseptic dressing was applied. The patient was tr ansferred to the recovery area and discharged from the department in stable condition. Complications: None immediate. Findings: Chronically dilated and tortuous pelvis and ureters bilaterally. The left ureter as a filling defect likely representing a stone and is occluded at the lower lumbar level. The occlusion could not be crossed. The attempt was aborted because of the risk of precipitating sepsis. Impression: Lower Successful fluoroscopic guided 10.2 [place]er right nephrostomy catheter exchange for a 10.2 [place]er x 22 cm long nephroureteral stent as described above. Occluded mid left ureter with a ureteric calculus as described above. There is possible urinary infection on the left side and a urine specimen has been collected for microbiologic examination and prophylactic prophylactic antibiotics given as described above after consultation with the urologist. The left nephrostomy catheter was exchanged for a 10.2 nephrostomy catheter to drain externally. Once the infection/inflammation is cooled, another attempt should be made for example in approximately 2 weeks with greater chance of success due to reduction of tissue edema. Further management dictated by the clinical scenario. The catheter should be exchanged at the latest in three months. Thank you for the opportunity to assist in the care of your patient. Signed by: Brent Velarde MD on 12/16/2019 12:31 PM Dictated By: BRENT VELARDE MD 1302 Transcribed By: EDE on 12/16/19 1231 COPY TO: SCOOTER CULVER MD IR CONSULT 2019-11-07 16:40:00 [facility] [place] [address] Patient Name: MARTHA JOHNSON MR #: [id number] : 1950 Age/Sex: 69/M Req #: [id number] [facility] Physician: LEONIDAS GARCIA MD Ordered by: SCOOTER CULVER MD Report #: [id number] Location: MED/SURG Room/Bed: Critical access hospital Procedure: [id number] DX/IR CONSULT Exam Date: Exam Time: REPORT STATUS: Signed PROCEDURE: Genitourinary catheter placement Procedural Personnel Attending physician(s): Bridger Mckeon MD Fellow physician(s): None Resident physician(s): None Advanced practice provider(s): None Pre-procedure diagnosis: Bilateral ureteral obstruction, hydronephrosis Post-procedure diagnosis: Same Indication: Urinary obstruction Catheter(s) placed because the previous catheter(s) became dislodged within 30 days of placement (QCDR): No Additional clinical history: None Complications: No immediate complications. IMPRESSION: Right and left nephrostomy catheter placement (10Fr). Plan: Leave PCNs to gravity drainage. Patient may return to IR in 1-2 weeks for attempted internalization. PROCEDURE SUMMARY - Target organ: Bilateral tangirnaq kidneys - Image-guided placement of genitourinary catheter(s) - Additional procedure(s): None PROCEDURE DETAILS: Pre-procedure Consent: Informed consent for the procedure including risks, benefits and alternatives was obtained and time-out was performed prior to the procedure. Preparation: The site was prepared and draped using maximal sterile barrier technique including cutaneous antisepsis. Anesthesia/sedation Level of anesthesia/sedation: Moderate sedation (conscious sedation) Anesthesia/sedation administered by: Independent trained observer under attending supervision with continuous monitoring of the patient?s level of consciousness and physiologic status Total intra-service sedation time (minutes): 60 Right genitourinary catheter placement Local anesthesia was administered. A needle was advanced into the renal collecting system under ultrasound and fluoroscopy guidance. A wire was advanced, the tract was serially dilated and a nephrostomy tube was placed . Contrast injection was performed. Genitourinary catheter placed: 10Fr Uresil Findings: Severe hydroureteronephrosis. No contrast opacification of the distal ureter with complete obstruction of the mid ureter and inability to pass a wire beyond the obstruction. External catheter securement: Non-absorbable suture Left genitourinary catheter placement Local anesthesia was administered. A needle was advanced into the renal collecting system under ultrasound and fluoroscopy guidance. A wire was advanced, the tract was serially dilated and a nephrostomy tube was placed . Contrast injection was performed. Genitourinary catheter placed: 10Fr Uresil Findings: Severe hydroureteronephrosis. No contrast opacification of the distal ureter with complete obstruction of the mid ureter and inability to pass a wire beyond the obstruction. External catheter securement: Non-absorbable suture Additional genitourinary system intervention Genitourinary intervention: None Location of intervention: Not applicable Device used: Not applicable Description of intervention: Not applicable Post-intervention findings: Not applicable Contrast Contrast agent: Isovue 370 Contrast volume (mL): 20 Radiation Dose Fluoroscopy time (minutes): 7.1 Reference air kerma (mGy): 86.7 Additional Details Additional description of procedure: None Equipment details: None Specimens removed: None. A sample was not sent for analysis. Estimated blood loss (mL): Less than 10 Standardized report: [email or web address] Attestation Signer name: Bridger Mckeon MD I attest that I was present for the entire procedure. I reviewed the stored images and agree with the report as written. Signed by: Bridger Mckeon MD on 11/07/2019 4:43 PM Dictated By: BRIDGER MCKEON MD 42 Transcribed By: EDE on 11/07/191642 COPY TO: SCOOTER CULVER MD [facility] NEPHROSTOMY CATHETER 2019-11-07 16:40:00 [place] [address] Patient Name: MARTHA JOHNSON MR #: [id number] : 1950 Age/Sex: 69/M Req #: [id number] Adm Physician: LEONIDAS GARCIA MD Ordered by: SCOOTER CULVER MD Report #: [id number] Location: MED/SURG Room/Bed: Critical access hospital Procedure: [id number] /[facility] NEPHROSTOMY CATHETER Exam Date: 11/02/19 Exam Time: 1300 REPORT STATUS: Signed PROCEDURE: Genitourinary catheter placement Procedural Personnel Attending physician(s): Bridger Mckeon MD Fellow physician(s): None Resident physician(s): None Advanced practice provider(s): None Pre-procedure diagnosis: Bilateral ureteral obstruction, hydronephrosis Post-procedure diagnosis: Same Indication: Urinary obstruction Catheter(s) placed because the previous catheter(s) became dislodged within 30 days of placement (QCDR): No Additional clinical history: None Complications: No immediate complications. IMPRESSION: Right and left nephrostomy catheter placement (10Fr). Plan: Leave PCNs to gravity drainage. Patient may return to IR in 1-2 weeks for attempted internalization. PROCEDURE SUMMARY - Target organ: Bilateral tangirnaq kidneys - Image-guided placement of genitourinary catheter(s) - Additional procedure(s): None PROCEDURE DETAILS: Pre-procedure Consent: Informed consent for the procedure including risks, benefits and alternatives was obtained and time-out was performed prior to the procedure. Preparation: The site was prepared and draped using maximal sterile barrier technique including cutaneous antisepsis. Anesthesia/sedation Level of anesthesia/sedation: Moderate sedation (conscious sedation) Anesthesia/sedation administered by: Independent trained observer under attending supervision with continuous monitoring of the patient?s level of consciousness and physiologic status Total intra-service sedation time (minutes): 60 Right genitourinary catheter placement Local anesthesia was administered. A needle was advanced into the renal collecting system under ultrasound and fluoroscopy guidance. A wire was advanced, the tract was serially dilated and a nephrostomy tube was placed . Contrast injection was performed. Genitourinary catheter placed: 10Fr Uresil Findings: Severe hydroureteronephrosis. No contrast opacification of the distal ureter with complete obstruction of the mid ureter and inability to pass a wire beyond the obstruction. External catheter securement: Non-absorbable suture Left genitourinary catheter placement Local anesthesia was administered. A needle was advanced into the renal collecting system under ultrasound and fluoroscopy guidance. A wire was advanced, the tract was serially dilated and a nephrostomy tube was placed . Contrast injection was performed. Genitourinary catheter placed: 10Fr Uresil Findings: Severe hydroureteronephrosis. No contrast opacification of the distal ureter with complete obstruction of the mid ureter and inability to pass a wire beyond the obstruction. External catheter securement: Non-absorbable suture Additional genitourinary system intervention Genitourinary intervention: None Location of intervention: Not applicable Device used: Not applicable Description of intervention: Not applicable Post-intervention findings: Not applicable Contrast Contrast agent: Isovue 370 Contrast volume (mL): 20 Radiation Dose Fluoroscopy time (minutes): 7.1 Reference air kerma (mGy): 86.7 Additional Details Additional description of procedure: None Equipment details: None Specimens removed: None. A sample was not sent for analysis. Estimated blood loss (mL): Less than 10 Standardized report: SIR_GUCatheterPlacement_v3 Attestation Signer name: Bridger Mckeon MD I attest that I was present for the entire procedure. I reviewed the stored images and agree with the report as written. Signed by: Bridger Mckeno MD on 11/07/2019 4:43 PM Dictated By: BRIDGER MCKEON MD 42 Transcribed By: EDE on 11/07/191642 COPY TO: SCOOTER CULVER MD GUIDANCE FOR PROCEDURE 2019-11-07 16:40:00 [place] [address] Patient Name: MARTHA JOHNSON MR #: [id number] : 1950 Age/Sex: 69/M Req #: [id number] Adm Physician: LEONIDAS GARCIA MD Ordered by: SCOOTER CULVER MD Report #: [id number] Location: MED/SURG Room/Bed: Critical access hospital Procedure: [id number] US/US GUIDANCE FOR PROCEDURE Exam Date: 11/02/19 Exam Time: 1358 REPORT STATUS: Signed PROCEDURE: Genitourinary catheter placement Procedural Personnel Attending physician(s): Bridger Mckeon MD Fellow physician(s): None Resident physician(s): None Advanced practice provider(s): None Pre-procedure diagnosis: Bilateral ureteral obstruction, hydronephrosis Post-procedure diagnosis: Same Indication: Urinary obstruction Catheter(s) placed because the previous catheter(s) became dislodged within 30 days of placement (QCDR): No Additional clinical history: None Complications: No immediate complications. IMPRESSION: Right and left nephrostomy catheter placement (10Fr). Plan: Leave PCNs to gravity drainage. Patient may return to IR in 1-2 weeks for attempted internalization. PROCEDURE SUMMARY - Target organ: Bilateral tangirnaq kidneys - Image-guided placement of genitourinary catheter(s) - Additional procedure(s): None PROCEDURE DETAILS: Pre-procedure Consent: Informed consent for the procedure including risks, benefits and alternatives was obtained and time-out was performed prior to the procedure. Preparation: The site was prepared and draped using maximal sterile barrier technique including cutaneous antisepsis. Anesthesia/sedation Level of anesthesia/sedation: Moderate sedation (conscious sedation) Anesthesia/sedation administered by: Independent trained observer under attending supervision with continuous monitoring of the patient?s level of consciousness and physiologic status Total intra-service sedation time (minutes): 60 Right genitourinary catheter placement Local anesthesia was administered. A needle was advanced into the renal collecting system under ultrasound and fluoroscopy guidance. A wire was advanced, the tract was serially dilated and a nephrostomy tube was placed . Contrast injection was performed. Genitourinary catheter placed: 10Fr Uresil Findings: Severe hydroureteronephrosis. No contrast opacification of the distal ureter with complete obstruction of the mid ureter and inability to pass a wire beyond the obstruction. External catheter securement: Non-absorbable suture Left genitourinary catheter placement Local anesthesia was administered. A needle was advanced into the renal collecting system under ultrasound and fluoroscopy guidance. A wire was advanced, the tract was serially dilated and a nephrostomy tube was placed . Contrast injection was performed. Genitourinary catheter placed: 10Fr Uresil Findings: Severe hydroureteronephrosis. No contrast opacification of the distal ureter with complete obstruction of the mid ureter and inability to pass a wire beyond the obstruction. External catheter securement: Non-absorbable suture Additional genitourinary system intervention Genitourinary intervention: None Location of intervention: Not applicable Device used: Not applicable Description of intervention: Not applicable Post-intervention findings: Not applicable Contrast Contrast agent: Isovue 370 Contrast volume (mL): 20 Radiation Dose Fluoroscopy time (minutes): 7.1 Reference air kerma (mGy): 86.7 Additional Details Additional description of procedure: None Equipment details: None Specimens removed: None. A sample was not sent for analysis. Estimated blood loss (mL): Less than 10 Standardized report: SIR_GUCatheterPlacement_v3 Attestation Signer name: Bridger Mckeon MD I attest that I was present for the entire procedure. I reviewed the stored images and agree with the report as written. Signed by: Bridger Mckeon MD on 11/07/2019 4:43 PM Dictated By: BRIDGER MCKEON MD 42 Transcribed By: EDE on 11/07/191642 COPY TO: SCOOTER CULVER MD [facility] NEPHROSTOMY CATHETER 2019-11-07 16:40:00 [place] [address] Patient Name: MARTHA JOHNSON MR #: [id number] : 1950 Age/Sex: 69/M Req #: [id number] Adm Physician: LEONIDAS GARCIA MD Ordered by: SCOOTER CULVER MD Report #: [id number] Location: MED/SURG Room/Bed: Critical access hospital Procedure: [id number] /[facility] NEPHROSTOMY CATHETER Exam Date: 11/02/19 Exam Time: 1300 REPORT STATUS: Signed PROCEDURE: Genitourinary catheter placement Procedural Personnel Attending physician(s): Bridger Mckeon MD Fellow physician(s): None Resident physician(s): None Advanced practice provider(s): None Pre-procedure diagnosis: Bilateral ureteral obstruction, hydronephrosis Post-procedure diagnosis: Same Indication: Urinary obstruction Catheter(s) placed because the previous catheter(s) became dislodged within 30 days of placement (QCDR): No Additional clinical history: None Complications: No immediate complications. IMPRESSION: Right and left nephrostomy catheter placement (10Fr). Plan: Leave PCNs to gravity drainage. Patient may return to IR in 1-2 weeks for attempted internalization. PROCEDURE SUMMARY - Target organ: Bilateral tangirnaq kidneys - Image-guided placement of genitourinary catheter(s) - Additional procedure(s): None PROCEDURE DETAILS: Pre-procedure Consent: Informed consent for the procedure including risks, benefits and alternatives was obtained and time-out was performed prior to the procedure. Preparation: The site was prepared and draped using maximal sterile barrier technique including cutaneous antisepsis. Anesthesia/sedation Level of anesthesia/sedation: Moderate sedation (conscious sedation) Anesthesia/sedation administered by: Independent trained observer under attending supervision with continuous monitoring of the patient?s level of consciousness and physiologic status Total intra-service sedation time (minutes): 60 Right genitourinary catheter placement Local anesthesia was administered. A needle was advanced into the renal collecting system under ultrasound and fluoroscopy guidance. A wire was advanced, the tract was serially dilated and a nephrostomy tube was placed . Contrast injection was performed. Genitourinary catheter placed: 10Fr Uresil Findings: Severe hydroureteronephrosis. No contrast opacification of the distal ureter with complete obstruction of the mid ureter and inability to pass a wire beyond the obstruction. External catheter securement: Non-absorbable suture Left genitourinary catheter placement Local anesthesia was administered. A needle was advanced into the renal collecting system under ultrasound and fluoroscopy guidance. A wire was advanced, the tract was serially dilated and a nephrostomy tube was placed . Contrast injection was performed. Genitourinary catheter placed: 10Fr Uresil Findings: Severe hydroureteronephrosis. No contrast opacification of the distal ureter with complete obstruction of the mid ureter and inability to pass a wire beyond the obstruction. External catheter securement: Non-absorbable suture Additional genitourinary system intervention Genitourinary intervention: None Location of intervention: Not applicable Device used: Not applicable Description of intervention: Not applicable Post-intervention findings: Not applicable Contrast Contrast agent: Isovue 370 Contrast volume (mL): 20 Radiation Dose Fluoroscopy time (minutes): 7.1 Reference air kerma (mGy): 86.7 Additional Details Additional description of procedure: None Equipment details: None Specimens removed: None. A sample was not sent for analysis. Estimated blood loss (mL): Less than 10 Standardized report: SIR_GUCatheterPlacement_v3 Attestation Signer name: Bridger Mckeon MD I attest that I was present for the entire procedure. I reviewed the stored images and agree with the report as written. Signed by: Bridger Mckeon MD on 11/07/2019 4:43 PM Dictated By: BRIDGER MCKEON MD 42 Transcribed By: EDE on 11/07/191642 COPY TO: SCOOTER CULVER MD CHEM PANEL 2019-10-10 [facility]:20[facility]10 [facility] 2019-10-10 18:20:00 [facility] 2019-10-10 18:20:00 [facility] 2019-10-10 18:20:00 [facility]0 [facility] 2019-10-10 18:20:00 108 [facility] CHEM PANEL 2019-10-10 18:20:00 [facility] 2019-10-10 18:20:00 [facility]0 [facility] 2019-10-10 18:20:00 [facility]5 [facility] [place] CHEM PANEL 2019-10-10 18:20:00 2.3 [facility] [place] CHEM PANEL 2019-10-10 18:20:00 21 [facility] CHEM PANEL 2019-10-10 18:20:00 17 [facility] CHEM PANEL 2019-10-10 18:20:00 53 [facility] CHEM PANEL 2019-10-10 18:20:00 [facility].2 [facility] 2019-10-10 18:20:00 6.0 [facility]EL 2019-10-10 18:20:00 Test Item B/C Ratio (test code = B/C Ratio) 13 1 6-25 [facility] DTQSY4802[facility]43[facility]59 [facility] 2019-10-10 18:20:00* Test Item Value Reference Range Interpretation Comments A/G Ratio (test code = A/G Ratio) 0.5 1 0.7-1.6 [facility] ICCEL1129-33-35 18:20:0057[facility]annHEMATOLOGY 2019-10-10 18:20:0055.9[facility] RaqdtlyNEDSZLAMZV3405-63-23 18:20:0023.9[facility] SgvwcvaLJCMVZLXBN5127-76-40 18:20:0013.0[facility] PvicgstQEUBFYLDSN8058-70-00 18:20:006.5[facility] IpzijwcUHJBPRGXJP6544-12-68 18:20:000.7[facility] [place] KVDTPMUWFI5511-11-47 18:20:001.9[facility] EpiushtHDUGHTHXBC3296-67-33 18:20:000.8 [facility] VentqyvGIWHQSFSKR7390-95-61 18:20:000.4[facility]annHEMATOLOGY 2019-10-10 18:20:000.2[facility] OuyypeoTKEOARRXNN2220-76-29 18:20:003.4[facility] BkdihbiFSGJMNXEGF2356-98-65 18:20:003.21[facility] SbqzqjfDIASDQQLPT6431-18-32 18:20:009.2[facility] KpvnloqSGFRATLKZV2637-41-30 18:20:0028.6[facility] [place] RPIIDOIXFM6797-72-60 18:20:0089.1[facility] TepuyohUXBFIAQUUY8227-11-50 18:20:00* Test Item Value Reference Range Interpretation Comments MCH (test code = MCH) 28.7 pg 27.0-31.0 [facility] IpeirtaTNPEZSYUEN0282-98-10 18:20:0032.2[facility]annHEMATOLOGY 2019-10-10 18:20:0016.0[facility] RiujpxaIFKGTBLSEI9378-38-09 18:20:71611Pwuqoiqe MqwftpkVXDVKVLXLZ4383-05-30 18:20:007.7[facility]annCHEM VKRCQ6994-08-13 11:38:0091[facility]annCHE[facility] YCQLP3309-17-16 11:38:0017[facility]annCHEM FASEC4344-21-34 11:38:001.38[facility]annCHEM XICCB6638-88-51 11:38:93970 [facility]ann[facility] BKPBO6833-54-04 11:38:003.8[facility]annCHEM PANEL 2019-10-08 11:38:77774Uteibmae HermannCHEM UQOPC7067-07-61 11:38:0027[facility]annCHEM EMMKI7625-98-53 11:38:008.4[facility]annCHEM QXHER8706-28-76 11:38:008.8[facility]annCHEM HTQBU6085-79-89 11:38:0052[facility]annCHEM BXINA3682-86-65 10:39:90892Vdbpaklo HermannCHEM OITIM1723-61-65 10:39:0022 [facility]annCHE[facility] RBRHP7544-08-10 10:39:001.77[facility]annCHEM PANEL 2019-10-07 10:39:99698Dutlgzyk HermannCHEM SKWFF1364-98-26 10:39:003.8[facility]annCHEM CFGPU5418-18-50 10:39:84048Hgmlemzb HermannCHEM NYMVU5911-26-28 10:39:0027[facility]annCHEM RLLAY5513-52-36 10:39:008.3[facility]annCHEM ANEOT6687-54-06 10:39:007.8[facility]annCHEM PCXEC7477-01-21 10:39:0038 [facility] CenyfjoSXGIBQTFIL1564-41-03 10:39:005.4[facility]annHEMATOLOGY 2019-10-07 10:39:002.99[facility] CyiuypeBMIYNKJMJM9723-79-37 10:39:008.7[facility] KlelwpoKSPIGIKMVX1661-86-24 10:39:0027.1[facility] EtmfzknJKANYZCBIF9338-88-01 10:39:0090.8[facility] WoluwncYQJAZYDUCD6562-12-02 10:39:00* Test Item Value Reference Range Interpretation Comments MCH (test code = MCH) 29.0 pg 27.0-31.0 [facility] RcjnpzoIYTEZLTWHS6559-44-68 10:39:0032.0[facility]annHEMATOLOGY 2019-10-07 10:39:0016.5[facility] LyqqretEUNLAOTZSO5048-67-40 10:39:02206Pblommkn NsboertJJDXGCJWFD5302-65-22 10:39:008.3[facility] FiazpzlJXOWTW6436-42-61 10:39:00 82[facility] SpqukbmNZNHIA0339-98-05 10:39:53229Debpbejh IxwvlluGOUCKI6383-66-90 10:39:0052[facility] SdpfltmECOVEX4218-68-92 10:39:00* Test Item Value Reference Range Interpretation Comments CHD Risk (test code = CHD Risk) 3.12 1 4.00-7.30 [facility] YalmhelZPCLAD6128-64-01 10:39:0094[facility] EvavysyMJGYGB3834-48-46 10:39:00* Test Item Value Reference Range Interpretation Comments VLDL (test code = VLDL) 16 1 [facility]annSPECIAL BWKMSEXDZ6300-90-61 10:39:005.4[facility] [place] GENTAMICIN:SUSC:PT:ISOLATE:ORDQN:FGS4770-08-04 20:16:00Escherichia coli ESBL [facility] AND PWPFB1500-63-61 20:16:00Yellow *NA*(10/06/19 3:16 PM) [facility] YSYIY8410-83-28 20:16:00Marked *ABN*(10/06/19 3:16 PM) [facility] KNXJR9090-58-21 20:16:00* Test Item Value Reference Range Interpretation Comments UA Spec Grav (test code = UA Spec Grav) 1.010 1 [facility] ILPLH9043-17-12 20:16:00* Test Item Value Reference Range Interpretation Comments UA pH (test code = UA pH) 6.0 1 5.0-8.0 [facility] GHUUM2995-55-94 20:16:00Negative *NA*(10/06/19 3:16 PM) [facility] YZESM5891-77-41 20:16:00Large *ABN*(10/06/19 3:16 PM) [facility] JWULL4215-80-34 20:16:00Negative (10/06/19 3:16 PM) [facility] HWWPO5341-22-60 20:16:00Moderate *ABN*(10/06/19 3:16 PM)[facility] TJVKN4126-55-03 20:16:00>182[facility] EBCAN0100-25-34 20:16:00>182[facility]annCHEM RBOYL8906-93-28 19:30:002.0 [facility]annCHEM PYKUB0503-70-68 19:30:006.6[facility]annCHEM PANEL 2019-10-06 19:30:002.5[facility] HermannCHEM PXVSR3854-18-05 19:30:0021[facility] HermannCHEM PYRTC6007-89-47 19:30:0013[facility] HermannCHEM QIBAV0465-80-49 19:30:0057[facility] HermannCHEM HDPQH1337-00-22 19:30:000.5[facility] HermannCHEM TNDMH9290-66-21 19:30:00* Test Item Value Reference Range Interpretation Comments B/C Ratio (test code = B/C Ratio) 11 1 6-25 [facility]annCHEM TXQJL7390-89-97 19:30:004.1[facility]annCHEM PANEL 2019-10-06 19:30:00* Test Item Value Reference Range Interpretation Comments A/G Ratio (test code = A/G Ratio) 0.6 1 0.7-1.6 [facility] OsgpnwnDSUTAKXQFB5682-99-94 19:30:005.6[facility] HermannHEMATOLOGY 2019-10-06 19:30:003.29[facility] ThanxajNOZJKOFZWY5494-56-46 19:30:009.7[facility] GyfxpjjGOLSFIENVU8107-61-29 19:30:0030.0[facility] YclcmdqNZCBFWABKR7272-53-88 19:30:0091.0[facility] GhvbvxiHGCENWQYLO8253-40-50 19:30:00* Test Item Value Reference Range Interpretation Comments MCH (test code = MCH) 29.6 pg 27.0-31.0 [facility] TnsboetMEYIAQLVWO6253-37-10 19:30:0032.5[facility] 2019-10-06 19:30:0016.4[facility]encriK[facility]erman[facility] Medical CenterOooquikRGEYYFVMTM6612-05-55 19:30:90116KkesdkqwC[facility] LancasterEgqzfjlPNLUTMKUQU0421-06-52 19:30:008.0MeCrescent Medical Center LancasterUrine Jfngenh0831-67-06 14:09:00* Test Item Value Reference Range Interpretation Comments Urine Culture (test code = 630-4) No Result Data Provided [facility] CenterBlood Ydrnojc3221-72-06 17:21:00* Test Item Value Reference Range Interpretation Comments Blood Culture (test code = 44897160) NO GROWTH AFTER 72 [facility]RS [facility] Giucb1141-25-15 07:24:00* Test Item Value Reference Range Interpretation Comments Sodium Level (test code = 2951-2) 144 136-145 [facility] CenterPotassium Mnzrm3306-16-23 07:24:00* Test Item Value Reference Range Interpretation Comments Potassium Level (test code = 2823-3) 3.8 3.5-5.1 [facility] CenterChloride Djcnq4188-66-36 07:24:00* Test Item Value Reference Range Interpretation Comments Chloride Level (test code = 2075-0) 111 98-107 H [facility] CenterCarbon Dioxide Gaxnz4156-86-09 07:24:00* Test Item Value Reference Range Interpretation Comments Carbon Dioxide Level (test code = 2028-9) 26 22-29 [facility] CenterAnion Smh1738-62-38 07:24:00* Test Item Value Reference Range Interpretation Comments Anion Gap (test code = 15232-6) 10.8 8-16 [facility] CenterBlood Urea Fdgbpfln1826-56-71 07:24:00* Test Item Value Reference Range Interpretation Comments Blood Urea Nitrogen (test code = 3094-0) 17 7-26 [facility] CenterCreatinine2020-03-12 07:24:00* Test Item Value Reference Range Interpretation Comments Creatinine (test code = 2160-0) 1.53 0.72-1.25 H [facility] CenterBUN/Creatinine Nyqvg2397-80-97 07:24:00* Test Item Value Reference Range Interpretation Comments BUN/Creatinine Ratio (test code = 3097-3) 11 6-25 [facility] CenterEstimat Glomerular Filtration Rate 2019-09-22 07:24:00* Test Item Value Reference Range Interpretation Comments Estimat Glomerular Filtration Rate (test code = 846026986) 45 >60 L Ranges were taken from the National Kidney Disease Education Program and the [facility] Kidney Foundation literature.Reference ranges:60 or greater: Cmwuip00-27 ( for 3 consecutive months): Chronic kidney disease 15 or less: Kidney failureCHI Hemphill County HospitalGlucose Mpyjq3468-34-50 07:24:00* Test Item Value Reference Range Interpretation Comments Glucose Level (test code = BLB7350) 114 74-118 [facility] CenterCalcium Ugotm9129-61-36 07:24:00* Test Item Value Reference Range Interpretation Comments Calcium Level (test code = 02850-0) 8.5 8.4-10.2 [facility] CenterBlood Mcvckhc3773-07-56 07:41:00* Test Item Value Reference Range Interpretation Comments Blood Culture (test code = 600-7) No Result Data Provided [facility] CenterTotal Ohsvplltz6227-07-57 05:04:00* Test Item Value Reference Range Interpretation Comments Total Bilirubin (test code = 1975-2) 0.3 0.2-1.2 [facility] CenterAspartate Amino Transf (AST/SGOT) 2019-09-20 05:04:00* Test Item Value Reference Range Interpretation Comments Aspartate Amino Transf (AST/SGOT) (test code = Aspartate Amino Transf (AST/SGOT)) 11 5-34 [facility] CenterAlanine Aminotransferase (ALT/SGPT) 2019-09-20 05:04:00* Test Item Value Reference Range Interpretation Comments Alanine Aminotransferase (ALT/SGPT) (test code = 1742-6) 8 0-55 [facility] CenterTotal Fkggjux3433-10-61 05:04:00* Test Item Value Reference Range Interpretation Comments Total Protein (test code = 2885-2) 6.3 6.5-8.1 L [facility] CenterAlbumin2020-03-10 05:04:00* Test Item Value Reference Range Interpretation Comments Albumin (test code = 1751-7) 2.3 3.5-5.0 L [facility] CenterGlobulin2020-03-10 05:04:00* Test Item Value Reference Range Interpretation Comments Globulin (test code = 68659-3) 4.0 2.3-3.5 H [facility] CenterAlbumin/Globulin Flqvd8355-01-83 05:04:00 * Test Item Value Reference Range Interpretation Comments Albumin/Globulin Ratio (test code = 1759-0) 0.6 0.8-2.0 L [facility] CenterAlkaline Boyasgipoxs3245-32-57 05:04:00* Test Item Value Reference Range Interpretation Comments Alkaline Phosphatase (test code = 6768-6) 48 40-150 [facility] CenterWhite Blood Fehae5829-49-56 04:41:00* Test Item Value Reference Range Interpretation Comments White Blood Count (test code = 6690-2) 8.19 4.8-10.8 [facility] CenterRed Blood Shcvx8466-63-99 04:41:00* Test Item Value Reference Range Interpretation Comments Red Blood Count (test code = 789-8) 3.01 4.3-5.7 L [facility] CenterHemoglobin2020-03-10 04:41:00* Test Item Value Reference Range Interpretation Comments Hemoglobin (test code = 59180-4) 9.0 14.0-18.0 L [facility] CenterHematocrit2020-03-10 04:41:00* Test Item Value Reference Range Interpretation Comments Hematocrit (test code = 4544-3) 28.0 38.2-49.6 L [facility] CenterMean Corpuscular Hxkbvf2106-76-31 04:41:00* Test Item Value Reference Range Interpretation Comments Mean Corpuscular Volume (test code = 787-2) 93.0 81-99 [facility] CenterMean Corpuscular Eqrpchwpts7859-78-62 04:41:00* Test Item Value Reference Range Interpretation Comments Mean Corpuscular Hemoglobin (test code = 785-6) 29.9 28-32 [facility] CenterMean Corpuscular Hemoglobin Concent 2019-09-20 04:41:00* Test Item Value Reference Range Interpretation Comments Mean Corpuscular Hemoglobin Concent (test code = 786-4) 32.1 31-35 [facility] CenterRed Cell Distribution Kweny3269-78-92 04:41:00* Test Item Value Reference Range Interpretation Comments Red Cell Distribution Width (test code = 83182-8) 14.2 11.7 -14.4 [facility] CenterPlatelet Yvleb0181-49-55 04:41:00* Test Item Value Reference Range Interpretation Comments Platelet Count (test code = 777-3) 165 140-360 [facility] CenterNeutrophils (%) (Auto)2019-09-20 04:41:00 * Test Item Value Reference Range Interpretation Comments Neutrophils (%) (Auto) (test code = 85226-4) 75.1 38.7-80.0 [facility] CenterLymphocytes (%) (Auto)2019-09-20 04:41:00 * Test Item Value Reference Range Interpretation Comments Lymphocytes (%) (Auto) (test code = 736-9) 10.3 18.0-39.1 L [facility] CenterMonocytes (%) (Auto)2019-09-20 04:41:00* Test Item Value Reference Range Interpretation Comments Monocytes (%) (Auto) (test code = 5905-5) 13.2 4.4-11.3 H [facility] CenterEosinophils (%) (Auto)2019-09-20 04:41:00 * Test Item Value Reference Range Interpretation Comments Eosinophils (%) (Auto) (test code = 713-8) 0.5 0.0-6.0 [facility] CenterBasophils (%) (Auto)2019-09-20 04:41:00* Test Item Value Reference Range Interpretation Comments Basophils (%) (Auto) (test code = 706-2) 0.4 0.0-1.0 [facility] CenterIM GRANULOCYTES %2019-09-20 04:41:00* Test Item Value Reference Range Interpretation Comments IM GRANULOCYTES % (test code = IM GRANULOCYTES %) 0.5 0.0- 1.0 [facility] CenterNeutrophils # (Auto)2019-09-20 04:41:00* Test Item Value Reference Range Interpretation Comments Neutrophils # (Auto) (test code = 751-8) 6.2 2.1-6.9 [facility] CenterLymphocytes # (Auto)2019-09-20 04:41:00* Test Item Value Reference Range Interpretation Comments Lymphocytes # (Auto) (test code = 79594-3) 0.8 1.0-3.2 L [facility] CenterMonocytes # (Auto)2019-09-20 04:41:00* Test Item Value Reference Range Interpretation Comments Monocytes # (Auto) (test code = 742-7) 1.1 0.2-0.8 H [facility] CenterEosinophils # (Auto)2019-09-20 04:41:00* Test Item Value Reference Range Interpretation Comments Eosinophils # (Auto) (test code = 711-2) 0.0 0.0-0.4 [facility] CenterBasophils # (Auto)2019-09-20 04:41:00* Test Item Value Reference Range Interpretation Comments Basophils # (Auto) (test code = 704-7) 0.0 0.0-0.1 [facility] CenterAbsolute Immature Granulocyte (auto 2019-09-20 04:41:00* Test Item Value Reference Range Interpretation Comments Absolute Immature Granulocyte (auto (yeni t code = Absolute Immature Granulocyte (auto) 0.04 0-0.1 [facility] CenterB-Type Natriuretic Loagxig3633-50-48 00:31:00* Test Item Value Reference Range Interpretation Comments B-Type Natriuretic Peptide (test code = 82546-6) 347.0 0-100 H [facility] CenterUrine Ylffk4226-17-47 22:30:00* Test Item Value Reference Range Interpretation Comments Urine Color (test code = 5778-6) YELLOW YELLOW [facility] CenterUrine Wabbixq7245-28-71 22:30:00* Test Item Value Reference Range Interpretation Comments Urine Clarity (test code = 89678-9) TURBID CLEAR H [facility] CenterUrine Specific Jbzdahh5754-22-05 22:30:00 * Test Item Value Reference Range Interpretation Comments Urine Specific [place] (test code = 5811-5) 1.020 1.010-1.02 5 [facility] CenterUrine wE0878-67-69 22:30:00* Test Item Value Reference Range Interpretation Comments Urine pH (test code = 17660-3) 6.5 5-7 [facility] CenterUrine Leukocyte Gkcmjlup0153-31-62 22:30:00* Test Item Value Reference Range Interpretation Comments Urine Leukocyte Esterase (test code = 5799-2) LARGE NEGATIVE [facility] CenterUrine Zipdkny2447-95-25 22:30:00* Test Item Value Reference Range Interpretation Comments Urine Nitrite (test code = 68674-9) NEGATIVE NEGATIVE [facility] CenterUrine Jxwheal1639-14-17 22:30:00* Test Item Value Reference Range Interpretation Comments Urine Protein (test code = 5804-0) 3+ NEGATIVE H [facility] CenterUrine Glucose (UA)2019-09-19 22:30:00* Test Item Value Reference Range Interpretation Comments Urine Glucose (UA) (test code = 2349-9) NEGATIVE NEGATIVE [facility] CenterUrine Xmbwvcq7684-69-01 22:30:00* Test Item Value Reference Range Interpretation Comments Urine Ketones (test code = 50932-2) NEGATIVE NEGATIVE [facility] CenterUrine Mwnhckhqzowc3652-66-70 22:30:00* Test Item Value Reference Range Interpretation Comments Urine Urobilinogen (test code = 29502-4) 0.2 0.2-1 [facility] CenterUrine Kqkrsxicc2841-82-73 22:30:00* Test Item Value Reference Range Interpretation Comments Urine Bilirubin (test code = 1978-6) NEGATIVE NEGATIVE [facility] CenterUrine Ugopr9505-38-34 22:30:00* Test Item Value Reference Range Interpretation Comments Urine Blood (test code = 29191-6) 3+ NEGATIVE [facility] CenterUrine YSE1963-26-36 22:30:00* Test Item Value Reference Range Interpretation Comments Urine WBC (test code = 5821-4) >50 0-5 H [facility] CenterUrine DTP0855-64-96 22:30:00* Test Item Value Reference Range Interpretation Comments Urine RBC (test code = 83665-6) 11-20 0-5 H [facility] CenterUrine Chunehxb4301-74-44 22:30:00* Test Item Value Reference Range Interpretation Comments Urine Bacteria (test code = 13969-0) MANY NONE H [facility] CenterUrine Epithelial Tjroe7621-80-61 22:30:00 * Test Item Value Reference Range Interpretation Comments Urine Epithelial Cells (test code = 86550-9) MODERATE NONE [facility] CenterCT ABDOMEN/PELVIS DL2309-21-80 22:25:00 [facility] [address] [address] Patient Name: MARTHA JOHNSON MR #: [id number] : 0 Age/Sex: 69/M Req #: [id number] Adm Physician: LEONIDAS GARCIA MD Ordered by: ZION PACHECO FLUME TENDER Report #: [id number] Location: [facility] Room/Bed: [place] [address] Procedure: [id number] C T/CT ABDOMEN/PELVIS WO Exam Date: 09/19/19 Exam Time : 2140 REPORT STATUS: Signed EXA M: CT Abdomen and Pelvis WITHOUT contrast INDICATION: Renal stone protoco l, fever, history of stones. COMPARISON: Retrograde myelogram 08/24/2019. TECHNIQUE: Abdomen and pelvis were scanned utilizing a multidetector helical scanner from the lung base to the pubic symphysis without administration of IV contrast. Absence of intravenous contrast decreases sensitivity for detection of focal lesions and vascular pathology. Coronal and sagittal reformations we re obtained. Stone protocol is performed. IV CONTRAST: None. ORAL CONTRAST: None. RADIATION DOSE: Total DLP: 718.1 m Gy*cm Estimated effective dose: (DLP x 0.015 x size factor) mSv COMPLICATIONS: None FINDINGS: LOWER THORAX: Unremarkable HEPATOBILIARY: No focal hepatic lesions. No biliary ductal dilation. GALLBLADDER: No radio-opaque stones or sludge. No wall thickening. SPLE EN: No splenomegaly. PANCREAS: No focal masses or ductal dilatation. ADRENALS: No adrenal nodules KIDNEYS/URETERS: Bilateral percutaneous nephroureteral stents the left occipital pigtail terminates in the renal pelvi s and the distal pigtail terminates in the bladder. The right proximal pigtail terminates in the proximal ureter and the distal pigtail terminates in the bl adder. Bilateral perinephric and periureteral stranding. No evidence of hydron ephrosis, solid mass, or stone. Upper left hydroureter. Mildly atrophic left k idney. There is a 3.6 cm simple right lower pole renal cyst. GI TRACT: N o abnormal distention, wall thickening, or evidence of bowel obstruction. Ronnie endix is not clearly identified. There is however no fat stranding or adenopat hy in the right lower quadrant to suggest appendicitis. Colonic diverticulosis without evidence of diverticulitis. PELVIC ORGANS/BLADDER: The prostate is enlarged, measuring up to 8.7 x 8.3 x 8 cm (AP x TV x SI). Decompressed bladd er which is thick walled and likely with diverticula. LYMPH NODES: No lym phadenopathy. VESSELS: There is mild atherosclerotic disease in the aorta a nd major arterial branches. PERITONEUM / RETROPERITONEUM: No free air or fluid. BONES: No acute osseous abnormality. Degenerative changes of the vis ualized spine, most pronounced at L1-L2 and L3-S1. SOFT TISSUES: Unremark able. IMPRESSION: Bilateral percutaneous nephroureteral sten ts as above. The proximal pigtail of the right stent terminates in the proxima l ureter. No evidence of hydronephrosis. Mild proximal left hydroureter. Bilat eral perinephric and perirenal stranding is nonspecific, but may represent inf lammatory process such as ascending UTI. Suggest correlation with urinalysis. Prostatomegaly, measuring up to 8.7 cm. Thick-walled bladder with likely diverticula, which may represent chronic bladder outlet obstruction. The bladd er is not well evaluated in the absence of contrast. Suggest correlation with surgical findings. Signed by: Dr. Maria L Mckee MD on 09/19/2019 10:35 PM Dictated By: MARIA L MCKEE MD 34 COPY TO: ZION PACHECO NP Lactic Acid Aeftm3155-25-57 22:20:00* Test Item Value Reference Range Interpretation Comments Lactic Acid Level (test code = Lactic Acid Level) 1.2 0.5- 2.0 [facility] CenterProthrombin Qabe1257-60-78 22:19:00* Test Item Value Reference Range Interpretation Comments Prothrombin Time (test code = 5902-2) 15.2 11.9-14.5 H [facility] CenterProthromb Time International Ratio 2019-09-19 22:19:00* Test Item Value Reference Range Interpretation Comments Prothromb Time International Ratio (test code = 6301-6) 1.13 Oral Anticoagulant Therapy INR Values:1. Low Intensity Therapy 1.5 - 2.02 . Moderate Intensity Therapy 2.0 - 3.03. High Intensity Therapy(1) 2.5 - 3. 54. High Intensity Therapy(2) 3.0 - 4.05. Panic Value INR > 5.0 [facility] CenterActivated Partial Thromboplast Time 2019-09-19 22:19:00* Test Item Value Reference Range Interpretation Comments Activated Partial Thromboplast Time (test code = 64875-6) 41.7 23.8-35.5 H [facility] CenterMagnesium Ksaez5622-72-06 18:16:00* Test Item Value Reference Range Interpretation Comments Magnesium Level (test code = 41900-3) 1.3 1.3-2.1 [facility] CenterCreatine Sqndhv6182-76-14 18:16:00* Test Item Value Reference Range Interpretation Comments Creatine Kinase (test code = 2157-6) 50 30-200 [facility] CenterCreatine Kinase YB0319-16-36 18:16:00* Test Item Value Reference Range Interpretation Comments Creatine Kinase MB (test code = 45697-1) 1.00 0-5.0 [facility] CenterTroponin D7534-05-89 18:16:00* Test Item Value Reference Range Interpretation Comments Troponin I (test code = KTG1248) 0.018 0-0.300 [facility] CenterBedside Vwfgdgm4520-40-30 21:21:00* Test Item Value Reference Range Interpretation Comments Bedside Glucose (test code = 45961-0) 182 70-120 H Meter ID: [id number] Kingwoododium Level 2019-08-28 10:50:00* Test Item Value Reference Range Interpretation Comments Sodium Level (test code = 2951-2) 141 136-145 [facility] CenterPotassium Xaujg1548-49-54 10:50:00* Test Item Value Reference Range Interpretation Comments Potassium Level (test code = 2823-3) 4.2 3.5-5.1 [facility] CenterChloride Odffv9234-25-05 10:50:00* Test Item Value Reference Range Interpretation Comments Chloride Level (test code = 2075-0) 103 98-107 [facility] CenterCarbon Dioxide Ihqir8951-22-83 10:50:00* Test Item Value Reference Range Interpretation Comments Carbon Dioxide Level (test code = 2028-9) 29 22-29 [facility] CenterAnion Vvx1669-63-04 10:50:00* Test Item Value Reference Range Interpretation Comments Anion Gap (test code = 78581-1) 13.2 8-16 [facility] CenterBlood Urea Rsyzdvyu3277-88-55 10:50:00* Test Item Value Reference Range Interpretation Comments Blood Urea Nitrogen (test code = 3094-0) 16 7-26 [facility] CenterCreatinine2020-02-16 10:50:00* Test Item Value Reference Range Interpretation Comments Creatinine (test code = 2160-0) 1.48 0.72-1.25 H [facility] CenterBUN/Creatinine Gideq4591-02-50 10:50:00* Test Item Value Reference Range Interpretation Comments BUN/Creatinine Ratio (test code = 3097-3) 11 6- [facility] CenterEstimat Glomerular Filtration Rate 2019-08-28 10:50:00* Test Item Value Reference Range Interpretation Comments Estimat Glomerular Filtration Rate (test code = 083921236) 47 >60 L Ranges were taken from the National Kidney Disease Education Program and the [facility] Kidney Foundation literature.Reference ranges:60 or greater: Iozmjq84-11 ( for 3 consecutive months): Chronic kidney disease 15 or less: Kidney failureConnally Memorial Medical CenterGlucose Dtaeg4189-73-96 10:50:00* Test Item Value Reference Range Interpretation Comments Glucose Level (test code = ZTQ9969) 80 74-118 [facility] CenterCalcium Sbnmg8710-24-35 10:50:00* Test Item Value Reference Range Interpretation Comments Calcium Level (test code = 00284-4) 9.1 8.4-10.2 [facility] CenterWhite Blood Gckml5478-89-12 06:12:00* Test Item Value Reference Range Interpretation Comments White Blood Count (test code = 6690-2) 5.00 4.8-10.8 [facility] CenterRed Blood Rixiw1136-58-26 06:12:00* Test Item Value Reference Range Interpretation Comments Red Blood Count (test code = 789-8) 3.06 4.3-5.7 L [facility] CenterHemoglobin2020-02-15 06:12:00* Test Item Value Reference Range Interpretation Comments Hemoglobin (test code = 01735-7) 9.3 14.0-18.0 L [facility] CenterHematocrit2020-02-15 06:12:00* Test Item Value Reference Range Interpretation Comments Hematocrit (test code = 4544-3) 30.3 38.2-49.6 L [facility] CenterMean Corpuscular Wfehta2495-78-84 06:12:00* Test Item Value Reference Range Interpretation Comments Mean Corpuscular Volume (test code = 787-2) 99.0 81-99 [facility] CenterMean Corpuscular Sfrqxunifd5179-45-34 06:12:00* Test Item Value Reference Range Interpretation Comments Mean Corpuscular Hemoglobin (test code = 785-6) 30.4 28-32 [facility] CenterMean Corpuscular Hemoglobin Concent 2019-08-27 06:12:00* Test Item Value Reference Range Interpretation Comments Mean Corpuscular Hemoglobin Concent (test code = 786-4) 30.7 31-35 L [facility] CenterRed Cell Distribution Bmayl2347-56-60 06:12:00* Test Item Value Reference Range Interpretation Comments Red Cell Distribution Width (test code = 97746-8) 13.2 11.7 -14.4 [facility] CenterPlatelet Fgroy4067-05-26 06:12:00* Test Item Value Reference Range Interpretation Comments Platelet Count (test code = 777-3) 194 140-360 [facility] CenterNeutrophils (%) (Auto)2019-08-27 06:12:00 * Test Item Value Reference Range Interpretation Comments Neutrophils (%) (Auto) (test code = 58027-7) 53.4 38.7-80.0 [facility] CenterLymphocytes (%) (Auto)2019-08-27 06:12:00 * Test Item Value Reference Range Interpretation Comments Lymphocytes (%) (Auto) (test code = 736-9) 30.0 18.0-39.1 [facility] CenterMonocytes (%) (Auto)2019-08-27 06:12:00* Test Item Value Reference Range Interpretation Comments Monocytes (%) (Auto) (test code = 5905-5) 7.6 4.4-11.3 [facility] CenterEosinophils (%) (Auto)2019-08-27 06:12:00 * Test Item Value Reference Range Interpretation Comments Eosinophils (%) (Auto) (test code = 713-8) 7.6 0.0-6.0 H [facility] CenterBasophils (%) (Auto)2019-08-27 06:12:00* Test Item Value Reference Range Interpretation Comments Basophils (%) (Auto) (test code = 706-2) 0.4 0.0-1.0 [facility] CenterIM GRANULOCYTES %2019-08-27 06:12:00* Test Item Value Reference Range Interpretation Comments IM GRANULOCYTES % (test code = IM GRANULOCYTES %) 1.0 0.0- 1.0 [facility] CenterNeutrophils # (Auto)2019-08-27 06:12:00* Test Item Value Reference Range Interpretation Comments Neutrophils # (Auto) (test code = 751-8) 2.7 2.1-6.9 [facility] CenterLymphocytes # (Auto)2019-08-27 06:12:00* Test Item Value Reference Range Interpretation Comments Lymphocytes # (Auto) (test code = 93210-7) 1.5 1.0-3.2 [facility] CenterMonocytes # (Auto)2019-08-27 06:12:00* Test Item Value Reference Range Interpretation Comments Monocytes # (Auto) (test code = 742-7) 0.4 0.2-0.8 [facility] CenterEosinophils # (Auto)2019-08-27 06:12:00* Test Item Value Reference Range Interpretation Comments Eosinophils # (Auto) (test code = 711-2) 0.4 0.0-0.4 [facility] CenterBasophils # (Auto)2019-08-27 06:12:00* Test Item Value Reference Range Interpretation Comments Basophils # (Auto) (test code = 704-7) 0.0 0.0-0.1 [facility] CenterAbsolute Immature Granulocyte (auto 2019-08-27 06:12:00* Test Item Value Reference Range Interpretation Comments Absolute Immature Granulocyte (auto (yeni t code = Absolute Immature Granulocyte (auto) 0.05 0-0.1 [facility] XRAY LINE DRULMKLRO2805-97-06 18:42:00 [facility] [address] [address] Patient Name: MARTHA JOHNSON MR #: [id number] : 1950 Age/Sex: 69/M Req #: [id number] Adm Physician: LEONIDAS GARCIA MD Ordered by: SCOOTER CULVER MD Report #: [id number] Location: MED/SURG3 Room/Bed: [facility] Procedure: [id number] DX/CHES T XRAY LINE PLACEMENT Exam Date: 08/25/19 Exam Time: 1829 REPORT STATUS: Signed EXAM INATION: CHEST XRAY LINE PLACEMENT INDICATION: S/P PICC LINE PLACEMENT [id number] Y COMPARISON: 08/24/2019. FINDINGS: TUBES and LINES: Interval placement of a left upper extremity PICC with distal tip projected on the cavoatrial junction. LUNGS: Lungs are well inflated. Lungs are clear. There is no evidence of pneumonia or pulmon rigoberto edema. PLEURA: No pleural effusion or pneumothorax. HEART AND MED IASTINUM: The cardiomediastinal silhouette is unremarkable. BONES AND SOFT TISSUES: No acute osseous lesion. Soft tissues are unremarkable. U PPER ABDOMEN: No free air under the diaphragm. IMPRESSION: Interval placement of a left upper extremity PICC with distal tip projected on the cav oatrial junction. Signed by: Dr. Thang Ann M.D. on 08/25/2019 6:44 PM Dictated By: MARIBEL ANN MD, MD 43 Transcribed By: EDE on 08/25/191843 COPY TO: SCOOTRE CULVER MD Triglycerides Dhmhx1593-41-80 07:54:00* Test Item Value Reference Range Interpretation Comments Triglycerides Level (test code = 2571-8) 79 0-149 [facility] CenterCholesterol Hlmdi7142-85-56 07:54:00* Test Item Value Reference Range Interpretation Comments Cholesterol Level (test code = 2093-3) 219 0-199 H Less than 200 mg/dL Low Etnh318 - 239 mg/dL Borderline Rzgo350 m g/dl and greater High Risk [facility] CenterLDL Dfqzedgdsla5239-32-74 07:54:00* Test Item Value Reference Range Interpretation Comments LDL Cholesterol (test code = 2089-1) 157 60-130 [facility] Nyylufiyisd8398-10-04 07:54:00* Test Item Value Reference Range Interpretation Comments HDL Cholesterol (test code = 2085-9) 46 40-60 [facility] CenterCholesterol/HDL Jizsy8330-63-45 07:54:00 * Test Item Value Reference Range Interpretation Comments Cholesterol/HDL Ratio (test code = 9830-1) 4.8 3.9-4.7 H [facility] CenterTriglycerides Dmprp4774-31-98 07:54:00* Test Item Value Reference Range Interpretation Comments Triglycerides Level (test code = 2571-8) 79 0-149 [facility] CenterCholesterol Eicdg5128-09-79 07:54:00* Test Item Value Reference Range Interpretation Comments Cholesterol Level (test code = 2093-3) 219 0-199 H Less than 200 mg/dL Low Luyk723 - 239 mg/dL Borderline Svjb507 m g/dl and greater High Risk [facility] CenterLDL Etcnbkmitik7406-02-14 07:54:00* Test Item Value Reference Range Interpretation Comments LDL Cholesterol (test code = 2089-1) 157 60-130 [facility] Pvxksrrndgg9823-20-86 07:54:00* Test Item Value Reference Range Interpretation Comments HDL Cholesterol (test code = 2085-9) 46 40-60 [facility] CenterCholesterol/HDL Gpric9268-21-63 07:54:00 * Test Item Value Reference Range Interpretation Comments Cholesterol/HDL Ratio (test code = 9830-1) 4.8 3.9-4.7 H [facility] CenterHemoglobin A1c Cpodevt4556-31-56 07:30:00 * Test Item Value Reference Range Interpretation Comments Hemoglobin A1c Percent (test code = Hemoglobin A1c Percent) 5.4 4.0-7.0 [facility] CenterHemoglobin A1c Vtkmtle4417-42-40 07:30:00 * Test Item Value Reference Range Interpretation Comments Hemoglobin A1c Percent (test code = Hemoglobin A1c Percent) 5.4 4.0-7.0 [facility] CenterRETROGRADE IOWFIEHYW0055-60-76 15:56:00 [facility] [address] [place] [address] Patient Name: MARTHA JOHNSON MR #: [id number] : 0 Age/Sex: 69/M Req #: [id number] Adm Physician: LEONIDAS GARCIA MD Ordered by: SCOOTER CULVER MD Report #: [id number] Location: [facility]/Bed: [place] [address] Procedure: [id number] DX/RETR OGRADE PYELOGRAM Exam Date: 08/24/19 Exam Time: 0949 REPORT STATUS: Signed Exam: Eric ateral retrograde pyeloureterogram Clinical history: Hydronephrosis To roshan fluoroscopy time 2 minutes 39 seconds Total images 32 Findings: Co ntrast was introduced into bilateral renal collecting systems. Radiologist was not present during the procedure. Multifocal stricture is noted in the right ureter with moderate hydronephrosis. Significant tortuosity and stricture are also noted in the proximal left ureter. The left pyelocalyceal system was not completely opacified, however, the distal pelvis appears enlarged. Please refe r to the operative report for further details. Signed by: Dr. Jasmeet Norwood MD on 08/24/2019 4:35 PM Dictated By: FABRIZIO NORWOOD MD Electronically Si gned By: FABRIZIO NORWOOD MD on 08/24/191634 Transcribed By: EDE on 08/24/191634 COPY TO: SCOOTER CULVER MD Magnesium Qbffw8450-06-21 14:24:00 * Test Item Value Reference Range Interpretation Comments Magnesium Level (test code = 22888-1) 1.6 1.3-2.1 [facility] CenterUrine Ifvfodn0830-38-90 09:21:00* Test Item Value Reference Range Interpretation Comments Urine Culture (test code = 630-4) No Result Data Provided [facility] CenterUrine Eehxuoa7186-13-23 09:21:00* Test Item Value Reference Range Interpretation Comments Urine Culture (test code = 630-4) No Result Data Provided [facility] CenterCHEST 2 MJWMS0765-46-97 18:15:00 [place] [address] Patient Name: MARTHA JOHNSON MR #: [id number] : 1950 Age/Sex: 69/M Req #: [id number] Adm Physician: Ordered by: SCOOTER CULVER MD Report #: [id number] Location: OR R oom/Bed: Procedure: [id number] DX/CHES T 2 VIEWS Exam Date: Exam Time: REPORT STATUS: Signed Exam: Chest radiograph Clinical History: Preoperative clearance Findings: The cardiomediastin al silhouette and lungs are normal. The regional skeleton and soft tissue are unremarkable. There is no evidence of pleural effusion or pneumothorax. Impression: No radiographic evidence of acute cardiopulmonary disease. Signed by: Dr. Jasmeet Norwood MD on 08/22/2019 6:16 PM Dictated By: ADRIANA NORWOOD MD 15 Transc ribed By: EDE on 08/22/191815 COPY TO: SCOOTER CULVER MD Total Kumdeqpnx6943-36-14 17:08:00* Test Item Value Reference Range Interpretation Comments Total Bilirubin (test code = 1975-2) 0.3 0.2-1.2 [facility] CenterAspartate Amino Transf (AST/SGOT) 2019-08-22 17:08:00* Test Item Value Reference Range Interpretation Comments Aspartate Amino Transf (AST/SGOT) (test code = Aspartate Amino Transf (AST/SGOT)) 18 5-34 [facility] CenterAlanine Aminotransferase (ALT/SGPT) 2019-08-22 17:08:00* Test Item Value Reference Range Interpretation Comments Alanine Aminotransferase (ALT/SGPT) (test code = 1742-6) 17 0-55 [facility] CenterTotal Jsgclve6461-04-68 17:08:00* Test Item Value Reference Range Interpretation Comments Total Protein (test code = 2885-2) 7.1 6.5-8.1 [facility] CenterAlbumin2020-02-10 17:08:00* Test Item Value Reference Range Interpretation Comments Albumin (test code = 1751-7) 2.7 3.5-5.0 L [facility] CenterGlobulin2020-02-10 17:08:00* Test Item Value Reference Range Interpretation Comments Globulin (test code = 20422-3) 4.4 2.3-3.5 H [facility] CenterAlbumin/Globulin Dgzwp7368-36-87 17:08:00 * Test Item Value Reference Range Interpretation Comments Albumin/Globulin Ratio (test code = 1759-0) 0.6 0.8-2.0 L [facility] CenterAlkaline Mvxlgewhqdg9676-76-00 17:08:00* Test Item Value Reference Range Interpretation Comments Alkaline Phosphatase (test code = 6768-6) 54 40-150 [facility]O CULJ8700-49-88 10:30:00* Test Item Value Reference Range Interpretation Comments WHITE BLOOD CELL (test code = WBC) 8.34 x10 3/uL 4.5-11.0 N RED BLOOD CELL (test code = RBC) 3.21 x10 6/uL 4.00-5.60 L HEMOGLOBIN (test code = HGB) 10.2 g/dL 12.5-16.9 L HEMATOCRIT (test code = HCT) 32.6 % 37.5-50.7 L MEAN CELL VOLUME (test code = MCV) 101.6 fL 81.0-99.0 H MEAN CELL HGB (test code = MCH) 31.8 pg 27.0-33.0 N MEAN CELL HGB CONCETRATION (test code = MCHC) 31.3 g/dL 33.0-37. 0 L RED CELL DISTRIBUTION WIDTH CV (test code = RDW) 14.6 % 11.5- 14.5 H RED CELL DISTRIBUTION WIDTH SD (test code = RDW-SD) 54.2 fL 37 .0-54.0 H PLATELET COUNT (test code = PLT) 306 x10 3/uL 150-400 N MEAN PLATELET VOLUME (test code = MPV) 9.6 fL 7.0-9.0 H NEUTROPHIL % (test code = NT%) 77.1 % 56.0-77.0 H IMMATURE GRANULOCYTE % (test code = IG%) 1.3 % 0.0-2.0 N LYMPHOCYTE % (test code = LY%) 14.0 % 14.0-32.0 N MONOCYTE % (test code = MO%) 5.5 % 4.8-9.0 N EOSINOPHIL % (test code = EO%) 1.7 % 0.3-3.7 N BASOPHIL % (test code = BA%) 0.4 % 0.0-2.0 N NUCLEATED RBC % (test code = NRBC%) 0.0 % 0-0 N NEUTROPHIL # (test code = NT#) 6.43 x10 3/uL 2.0-7.6 N IMMATURE GRANULOCYTE # (test code = IG#) 0.11 x10 3/uL 0.00-0.03 H LYMPHOCYTE # (test code = LY#) 1.17 x10 3/uL 1.0-3.8 N MONOCYTE # (test code = MO#) 0.46 x10 3/uL 0.1-0.8 N EOSINOPHIL # (test code = EO#) 0.14 x10 3/uL 0.0-0.2 N BASOPHIL # (test code = BA#) 0.03 x10 3/uL 0.0-0.2 N NUCLEATED RBC # (test code = NRBC#) 0.00 x10 3/uL 0.0-0.1 N MANUAL DIFF REQUIRED (test code = MDIFF) NO BASIC METABOLIC [id number] 10:17:00* Test Item Value Reference Range Interpretation Comments SODIUM (test code = NA) 139 mEq/L 134-147 N POTASSIUM (test code = K) 4.2 mEq/L 3.4-5.0 N CHLORIDE (test code = CL) 106 mEq/L 100-108 N CARBON DIOXIDE (test code = CO2) 27 mEq/L 21-33 N ANION GAP (test code = GAP) 10 0-20 N GLUCOSE (test code = GLU) 100 mg/dL 70-110 N BLOOD UREA NITROGEN (test code = BUN) 16 mg/dL 7-18 N GLOMERULAR FILTRATION RATE (test code = GFR) 40.2 80-90 L Units of measure = ml/min/1.73 m2 CREATININE (test code = CREAT) 1.7 mg/dL 0.6-1.3 H CALCIUM (test code = CA) 8.4 mg/dL 8.0-10.5 N BASIC METABOLIC [id number] 10:16:00* Test Item Value Reference Range Interpretation Comments SODIUM (test code = NA) 139 mEq/L 134-147 N POTASSIUM (test code = K) 4.2 mEq/L 3.4-5.0 N CHLORIDE (test code = CL) 106 mEq/L 100-108 N CARBON DIOXIDE (test code = CO2) 27 mEq/L 21-33 N ANION GAP (test code = GAP) 10 0-20 N GLUCOSE (test code = GLU) 100 mg/dL 70-110 N BLOOD UREA NITROGEN (test code = BUN) 16 mg/dL 7-18 N GLOMERULAR FILTRATION RATE (test code = GFR) 80-90 CREATININE (test code = CREAT) mg/dL 0.6-1.3 CALCIUM (test code = CA) 8.4 mg/dL 8.0-10.5 N PROTHROMBIN [id number] 10:12:00* Test Item Value Reference Range Interpretation Comments PROTHROMBIN TIME PATIENT (test code = PTP) 12.5 SECONDS 9.3-12.9 N INTERNATIONAL NORMAL RATIO (test code = INR) 1.1 0.8-1.2 N TARGET INR BY INDICATION Indication INR1. Prophylaxis [...] Acute Myocardial Infarction (to prevent recurrent infarct). CHEM [id number] 16:16[facility]52[facility] [id number] 16:16:0087 [facility] [id number] 16:16:009.0[facility] PANEL 2016-11-07 16:16:39654Zfzhlanz HermannCHEM [id number] 16:16:004.1[facility] [id number] 16:16:0028[facility] [id number] 16:16:39592Esjegzup HermannCHEM BZHYM8755-09-12 16:16:001.40[facility] [id number] 16:16:0019[facility] [id number] 16:16:0012.1 [facility] LqxzqzeRJJBQJBYSL0212-51-64 16:16:0066.5[facility]OLOGY 2016-11-07 16:16:000.4[facility] XjvzzjtIJAOFNFPGF8570-11-62 16:16:0011.3[facility] BknrcqlOIQBFIKVQX2333-86-90 16:16:0019.2[facility] EasqhtwTLVHTHKBLV5050-05-59 16:16:002.6[facility] OtcclnlIJSQWUOYUD4988-45-40 16:16:003.9[facility] KINXOBFYWM3622-50-12 16:16:001.1[facility] NnvfmhfJPLVEUGLJE0159-65-21 16:16:000.7 [facility] XdwnodmEWPYBVWAWK9391-83-70 16:16:000.2[facility] 2016-11-07 16:16:00* Test Item Value Reference Range Interpretation Comments PT (test code = PT) 12.6 s 12.0-14.7 [facility] OnkelahQVNHTGHLHX8585-06-08 16:16:00* Test Item Value Reference Range Interpretation Comments PTT (test code = PTT) 26.4 s 22.9-35.8 [facility] NzvgewvOEXNXBTNEH5506-43-77 16:16:000.92[facility] 2016-11-07 16:16:004.69[facility] PssqeciKYKPLZIGXD7412-87-81 16:16:005.8[facility] LgvfmngGWXLYLPKFS3641-72-83 16:16:00* Test Item Value Reference Range Interpretation Comments MCH (test code = MCH) 33.1 pg 27.0-31.0 [facility] LggrteoXYNSBNDATJ8319-36-07 16:16:0046.3[facility] 2016-11-07 16:16:0098.7[facility] DnvtifgTMLZAADRLX7989-79-71 16:16:0015.5[facility] LaypoxlOAOWBZGWUW5053-05-10 16:16:0013.7[facility] WqpbtedUXHRNCGZWZ4842-31-22 16:16:009.1[facility] PthelxgGAEBQJLWZR2968-73-98 16:16:0033.5[facility] YCPODXSTZE4871-53-20 16:16:79618Syajnfma HermannURINE AND DFSBV6802-73-66 16:16:003[facility] GMBLM3354-02-07 16:16:001.020[facility] URINE AND [id number] 16:16:00Negative (11/07/16 11:16 AM)[facility] URINE AND [id number] 16:16:0052[facility] [id number] 16:16:005.0[facility] [id number] 16:16:00Negative *NA*(11/07/16 11:16 AM)[facility] [id number] 16:16:00Negative (11/07/16 11:16 AM)[facility] [id number] 16:16:00Small *ABN*(11/07/16 11:16 AM)[facility] [id number] 16:16:00Yellow *NA*(11/07/16 11:16 AM)[facility] [id number] 16:16:00Marked *ABN*(11/07/16 11:16 AM)[facility]
--- NOTE | 2020-05-18 15:45 | NUR ---
Pt refused Thigh high artur hose and SDC's even after teaching their purpose and importance.
[2020-05-18 15:48] VITALS: BP 148/78
[2020-05-18 16:00] VITALS: BP 148/78
[2020-05-18] MEDS: SODIUM CHLORIDE 0.9% 1000ML 1,000 ML IV SCH (16:12)
[2020-05-18] MEDS: DOCUSATE SODIUM 100 MG CAP PO SCH (16:55)
[2020-05-18 17:08] VITALS: BP 148/78
[2020-05-18] MEDS: ACETAMINOPHEN/CODEINE 300MG - 30MG TAB PO PRN (18:19)
--- NOTE | 2020-05-18 18:56 | NUR ---
Report given to on coming nurse. Pt in no apparent distress, resting in bed semi-fowlers. Pt denies pain 0/10.
--- NOTE | 2020-05-18 19:00 | NUR ---
RECEIVED PATIENT IN BEDSIDE SHIFT REPORT. PATIENT RESTING IN BED AT THIS TIME. NO PAIN REPORTED. NO S&S OF DISTRESS NOTED. IV RUNNING TO R HAND 20G, 50ML/HR, ASYMPTOMATIC. BED LOCKED IN LOWEST POSITION, SIDE RAILS UPX2, CALL LIGHT IN REACH.
[2020-05-18 20:00] VITALS: BP 136/76
[2020-05-18 20:51] VITALS: BP 136/76
[2020-05-19] VITALS (8 sets, daily range): BP systolic 125–152; BP diastolic 71–84
[2020-05-19] MEDS: SODIUM CHLORIDE 0.9% 1000ML 1,000 ML IV SCH (00:25)
[2020-05-19] MEDS: ACETAMINOPHEN/CODEINE 300MG - 30MG TAB PO PRN (01:01)
[2020-05-19 05:39] LABS: BASOPHILS % 0.1 % (0.0-1.0); HEMATOCRIT 32.8 % (38.2-49.6); HEMOGLOBIN 9.9 g/dL (14.0-18.0); LYMPHOCYTES # (AUTO) 0.6 (1.0-3.2); LYMPHOCYTES % 9.5 % (18.0-39.1); MEAN CORPUSCULAR HGB CONC 30.2 g/dL (31-35); MEAN CORPUSCULAR VOLUME 89.6 fL (81-99); MONOCYTES # (AUTO) 0.5 (0.2-0.8); MONOCYTES % 6.7 % (4.4-11.3); NEUTROPHILS # (AUTO) 5.6 (2.1-6.9); NEUTROPHILS % 83.4 % (38.7-80.0); PLATELET COUNT 178 x10e3/uL (140-360); RED BLOOD COUNT 3.66 x10e6/uL (4.3-5.7); RED CELL DISTRIBUTION WIDTH 18.3 % (11.7-14.4)
[2020-05-19 06:00] LABS: ANION GAP 11.2 mmol/L (8-16); CALCIUM 8.5 mg/dL (8.4-10.2); CREATININE, SERUM 1.88 mg/dL (0.72-1.25); POTASSIUM 4.2 mmol/L (3.5-5.1)
--- NOTE | 2020-05-19 07:36 | NUR ---
H&P cc: nephrostomy tube mgmt HPI: 69yoM, PCP , with nephrostomy tubes, had them changed out yesterday; as well as ureteral stricture dilatation and ureteral stent. Now recovering. 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 with ureteral stents, Hyponatremia, Hypokalemia PSHx; TURP, b/l nephroureteral stent alleriges; see emr Fh/SH; no cigs; Meds; see MAR ROS: no f/c/s/N/V/D/FABIAN/cp/sob/skin rash/back pain/dizziness/vision changes/focal limb weakness v/s; revd PE tired appearing anicteric ns1s2 mod bs soft nt nd :B/L nephrostomy tubes no e/t skin dry n. 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
[2020-05-19] MEDS: DOCUSATE SODIUM 100 MG CAP PO SCH ×2 (09:00→15:56)
[2020-05-19] MEDS: MEROPENEM 500MG/ NS 50ML 50 ML IV SCH ×2 (10:17→22:49)
--- NOTE | 2020-05-19 17:08 | Operative Report ---
DATE OF PROCEDURE: 05/18/2020 SURGEON: Tony Alva MD PREOPERATIVE DIAGNOSES: 1. Bilateral ureteral stricture. 2. Bilateral hydronephrosis due to stricture. 3. Bilateral percutaneous nephrostomies and nephroureteral stents. TEST PERFORMED: 1. Bilateral percutaneous nephroscopy. 2. Bilateral antegrade ureteroscopy with dilation of ureteral strictures. 3. Exchange of bilateral externalized ephroureteral stents. 4. Urological services with supervision and interpretation of nephrostomy tract dilation. 5. Interpretation of ureteroscopy with supervision of dilation of stricture. 6. Antegrade ureteral pyelograms interpretation. 7. Supervision of fluoroscopy, no radiologist present. ANESTHESIA: General. COMPLICATIONS: None. CLINICAL SUMMARY: Kameron Crow is an extremely complicated 69-year-old man. He has bilateral nephroureteral stents that are externalized. He self catheterizes at least five times a day to urinary retention and a hypotonic bladder. The patient is unable to void despite previous TURP. The patient had complicated urinary tract infections. He has only 18% differential function from his left kidney and 82% from for the right kidney and with that the patient's creatinine hovers just under 2. The patient is brought for the above procedures in hopes of delineating the anatomical issues and determining whether we can alleviate the patient's obstruction in hopes of rendering him foreign body free. He is aware of the risks of bleeding, infection, injury to adjacent structures, need for additional procedures and elected to proceed. PROCEDURE IN DETAIL: Informed consent was verified. Kameron Crow was properly identified, taken to the operating room where anesthesia was uneventfully begun. The patient was then carefully gently repositioned in the prone position with all pressure points carefully well padded. His back and nephroureteral stents were prepared and draped in usual sterile fashion. We first worked on the left-hand side. We placed a guidewire through the nephroureteral stent. We then disengaged the stent and removed it. We then utilized a double-lumen ureteral catheter to dilate the tract as well as to dilate the ureteral stricture and we then placed a flexible ureteroscopy sheath over the secondary wire. We then negotiated the flexible ureteroscope through this flexible ureteroscopy sheath into the patient's kidney, perform nephroscopy, no stones were identified and there were no lesions identified. We then negotiated the ureteroscope down the ureter. The proximal ureter was very capacious. There was significant irregularity of the mid ureter with a very long stricture. We dilated across the stricture with the flexible ureteroscope over guidewire and the ureteroscope was brought down all the way into the patient's bladder. The ureteroscope was then withdrawn. We percutaneously placed an externalized nephroureteral stent coiled in the patient's bladder as well as in the patient's kidney and place it to gravity drainage. Contrast was injected throughout the procedure and performing nephrostograms and nephroureterograms. An identical set of maneuvers was performed on the left hand side as well with identical findings except for the fact that from the left kidney the urine was purulent and was sent for culture and sensitivity. Sterile dressings were applied. The nephrostomies were capped and the patient was uneventfully repositioned, reversed from anesthesia, and taken to recovery room in stable condition. There were no complications to the procedure. He tolerated the procedure well. Plans will be to admit the patient for intravenous antibiotics due to the purulent urine. We will monitor the patient closely and during this hospitalization we plan on discussing with the patient his options at length. This is an extremely complicated patient. The best option for him may be to proceed with a left nephrectomy due to the fact that this kidney contributes little and is a significant infection liability to him, which is proven and then that could be performed in conjunction with a right-sided reconstruction utilizing possibly Boari flap. Should that fail then urinary diversion with ileal conduit is an option and this has been offered to the patient previously. The patient would like to proceed with a non-bowel reconstruction if possible. Tony Alva MD [place]/MODL /[id number]
[2020-05-19] MEDS ORDERED: CEPACOL SORE THROAT LOZENGES PO PRN (19:45)
[2020-05-19] MEDS ORDERED: MEROPENEM 500MG/ NS 50ML 50 ML IV SCH (23:30)
[2020-05-20 00:30] VITALS: BP 154/81
[2020-05-20 04:28] VITALS: BP 144/62
[2020-05-20 06:17] LABS: BASOPHILS % 0.4 % (0.0-1.0); EOSINOPHILS # (AUTO) 0.2 (0.0-0.4); EOSINOPHILS % 3.3 % (0.0-6.0); HEMATOCRIT 31.1 % (38.2-49.6); HEMOGLOBIN 9.4 g/dL (14.0-18.0); LYMPHOCYTES # (AUTO) 1.3 (1.0-3.2); LYMPHOCYTES % 22.9 % (18.0-39.1); MEAN CORPUSCULAR HEMOGLOBIN 27.2 pg (28-32); MEAN CORPUSCULAR HGB CONC 30.2 g/dL (31-35); MEAN CORPUSCULAR VOLUME 90.1 fL (81-99); MONOCYTES # (AUTO) 0.6 (0.2-0.8); MONOCYTES % 10.2 % (4.4-11.3); NEUTROPHILS # (AUTO) 3.6 (2.1-6.9); NEUTROPHILS % 62.8 % (38.7-80.0); PLATELET COUNT 148 x10e3/uL (140-360); RED BLOOD COUNT 3.45 x10e6/uL (4.3-5.7); RED CELL DISTRIBUTION WIDTH 18.7 % (11.7-14.4)
--- NOTE | 2020-05-20 06:24 | NUR ---
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 d/c home stable f/u pcp 2 days and 1 week d/c>35mins Leonidas Schaefer MD, PhD.
[2020-05-20 06:28] LABS: ANION GAP 11.1 mmol/L (8-16); CALCIUM 8.4 mg/dL (8.4-10.2); CREATININE, SERUM 1.76 mg/dL (0.72-1.25); POTASSIUM 4.1 mmol/L (3.5-5.1)
[2020-05-20 08:32] VITALS: BP 155/83
[2020-05-20 08:50] VITALS: BP 155/83
[2020-05-20] MEDS ORDERED: DOXAZOSIN MESYLATE 2 MG TAB PO SCH (09:00)
[2020-05-20] MEDS ORDERED: PANTOPRAZOLE SOD 40 MG TABEC PO SCH (09:00)
[2020-05-20] MEDS ORDERED: AMLODIPINE BESYLATE 10 MG TAB PO SCH (09:00)
[2020-05-20] MEDS: DOCUSATE SODIUM 100 MG CAP PO SCH ×2 (09:00→16:29)
[2020-05-20] MEDS: CARVEDILOL 12.5 MG TAB PO SCH ×2 (09:28→16:29)
[2020-05-20 12:17] VITALS: BP 137/75
[2020-05-20] MEDS: MEROPENEM 500MG/ NS 50ML 50 ML IV SCH (12:22)
[2020-05-20] MEDS: SODIUM CHLORIDE 0.9% 1000ML 1,000 ML IV SCH (12:30)
[2020-05-20 16:28] VITALS: BP 142/81
[2020-05-20] MEDS ORDERED: CIPRO500 MG PO (17:10)
== END 2020-05-20 18:15 | disposition home or self-care (01) | DRG 661 ==
LOC: OR 09:17 → PACU V 13:32 → MED/SURG 15:20
PROVIDERS: ADMIT Internal Medicine; ATTEND Internal Medicine
PROC: 0T9 Urinary System, Drainage (ICD-10-PCS; 2020-05-18)
PROC: 0T903ZZ Drainage of Right Kidney, Percutaneous Approach (ICD-10-PCS; 2020-05-18)
PROC: 0TP98DZ Removal of Intraluminal Device from Ureter, Via Natural or Artificial Opening Endoscopic (ICD-10-PCS; principal; 2020-05-18 12:05)
PROC: 0T788DZ Dilation of Bilateral Ureters with Intraluminal Device, Via Natural or Artificial Opening Endoscopic (ICD-10-PCS; 2020-05-18 12:05)
PROC: 0TP98DZ Removal of Intraluminal Device from Ureter, Via Natural or Artificial Opening Endoscopic (ICD-10-PCS; 2020-05-18 12:05)
PROC: BT141ZZ Fluoroscopy of Kidneys, Ureters and Bladder using Low Osmolar Contrast (ICD-10-PCS; 2020-05-18 12:05)
DX: N13.1 Hydronephrosis with ureteral stricture, not elsewhere classified (principal); Z96.0 Presence of urogenital implants; N40.1 Benign prostatic hyperplasia with lower urinary tract symptoms; R33.8 Other retention of urine; E66.9 Obesity, unspecified; Z68.29 Body mass index [BMI] 29.0-29.9, adult; N39.0 Urinary tract infection, site not specified; I12.9 Hypertensive chronic kidney disease with stage 1 through stage 4 chronic kidney disease, or unspecified chronic kidney disease; N18.30 Chronic kidney disease, stage 3 unspecified; K21.9 Gastro-esophageal reflux disease without esophagitis; B96.89 Other specified bacterial agents as the cause of diseases classified elsewhere; Z11.59 Encounter for screening for other viral diseases; I25.10 Atherosclerotic heart disease of native coronary artery without angina pectoris
CPT/HCPCS: 36415; 74425; 80048; 85025; 87086; 87186; 93005; C1766; C1769; J1100; J2001; J2405; J2710; J7030

== ENCOUNTER 2020-06-24 21:01 | Inpatient (IN) | payer MEDICARE ==
[~2020-06-24] VITALS: Ht 185.4 cm; Wt 100.7 kg
[~2020-06-24 21:01] MED LIST changes: +[UNRECOGNIZED DRUG - OTHER] PO
[2020-06-24 21:30] LABS: BASOPHILS % 0.5 % (0.0-1.0); EOSINOPHILS # (AUTO) 0.1 (0.0-0.4); EOSINOPHILS % 0.9 % (0.0-6.0); HEMATOCRIT 27.5 % (38.2-49.6); HEMOGLOBIN 8.3 g/dL (14.0-18.0); LYMPHOCYTES # (AUTO) 0.9 (1.0-3.2); LYMPHOCYTES % 11.4 % (18.0-39.1); MEAN CORPUSCULAR HEMOGLOBIN 26.9 pg (28-32); MEAN CORPUSCULAR HGB CONC 30.2 g/dL (31-35); MONOCYTES # (AUTO) 0.7 (0.2-0.8); MONOCYTES % 8.3 % (4.4-11.3); NEUTROPHILS # (AUTO) 6.4 (2.1-6.9); NEUTROPHILS % 78.5 % (38.7-80.0); PLATELET COUNT 205 x10e3/uL (140-360); RED BLOOD COUNT 3.09 x10e6/uL (4.3-5.7); RED CELL DISTRIBUTION WIDTH 17.3 % (11.7-14.4)
[2020-06-24] MEDS ORDERED: MORPHINE SULFATE 2 MG/ML SYR 1ML IV PRN (21:45)
[2020-06-24] MEDS ORDERED: ONDANSETRON HCL INJ 2MG/ML 2ML 2 MG/ML VIAL IV PRN (21:45)
[2020-06-24] MEDS: MEROPENEM 1GM 100 ML IV SCH (21:45)
[2020-06-24 22:25] LABS: ALBUMIN 2.8 g/dL (3.5-5.0); ALBUMIN/GLOBULIN RATIO 0.8 (0.8-2.0); ANION GAP 14.3 mmol/L (8-16); CREATININE, SERUM 2.35 mg/dL (0.72-1.25); POTASSIUM 4.3 mmol/L (3.5-5.1)
[2020-06-24 22:42] LABS: CLARITY,URINE CLOUDY (CLEAR); COLOR,URINE RED (YELLOW); KETONES,URINE NEGATIVE (NEGATIVE); LEUKOCYTE ESTERASE ,URINE 1+ (NEGATIVE); NITRITE,URINE NEGATIVE (NEGATIVE); PROTEIN,URINE DIPSTICK >=300 (NEGATIVE); URINE UROBILINOGEN 0.2 mg/dL (0.2 - 1)
[2020-06-24 22:44] LABS: BACTERIA,URINE MANY /HPF; EPITHELIAL CELLS,URINE FEW /LPF; RBC,URINE >50 /HPF (0-5); WBC,URINE (MAN) 21-50 /HPF (0-5)
[2020-06-25 05:13] LABS: BASOPHILS % 0.2 % (0.0-1.0); EOSINOPHILS % 0.5 % (0.0-6.0); HEMATOCRIT 24.3 % (38.2-49.6); HEMOGLOBIN 7.4 g/dL (14.0-18.0); LYMPHOCYTES # (AUTO) 0.9 (1.0-3.2); LYMPHOCYTES % 15.3 % (18.0-39.1); MEAN CORPUSCULAR HGB CONC 30.5 g/dL (31-35); MEAN CORPUSCULAR VOLUME 88.7 fL (81-99); MONOCYTES # (AUTO) 0.6 (0.2-0.8); NEUTROPHILS # (AUTO) 4.3 (2.1-6.9); NEUTROPHILS % 73.7 % (38.7-80.0); PLATELET COUNT 174 x10e3/uL (140-360); RED BLOOD COUNT 2.74 x10e6/uL (4.3-5.7); RED CELL DISTRIBUTION WIDTH 17.4 % (11.7-14.4)
[2020-06-25 05:34] LABS: ALBUMIN 2.6 g/dL (3.5-5.0); ALBUMIN/GLOBULIN RATIO 0.8 (0.8-2.0); ANION GAP 11.4 mmol/L (8-16); CALCIUM 8.1 mg/dL (8.4-10.2); CREATININE, SERUM 2.18 mg/dL (0.72-1.25); POTASSIUM 4.4 mmol/L (3.5-5.1)
[2020-06-25] MEDS: MEROPENEM 1GM 100 ML IV SCH (05:35)
[2020-06-25] MEDS ORDERED: DOCUSATE SODIUM 100 MG CAP PO PRN (06:45)
[2020-06-25] MEDS ORDERED: ZOLPIDEM TARTRATE 5 MG TAB PO PRN (06:45)
[2020-06-25] MEDS ORDERED: ACETAMINOPHEN 325 MG TAB PO PRN (06:45)
[2020-06-25] MEDS: PANTOPRAZOLE SOD 40 MG TABEC PO SCH (07:19)
[2020-06-25] MEDS: DOXAZOSIN MESYLATE 2 MG TAB PO SCH (09:00)
[2020-06-25] MEDS ORDERED: SODIUM CHLORIDE 0.9% 250ML 250 ML IV ONE (09:00)
[2020-06-25] MEDS: CARVEDILOL 12.5 MG TAB PO SCH ×2 (09:04→17:00)
[2020-06-25] MEDS: AMLODIPINE BESYLATE 10 MG TAB PO SCH (09:04)
[2020-06-25] MEDS ORDERED: FENTANYL CITRATE/PF 100MCG/2 ML INJ ONE (13:01)
[2020-06-25] MEDS ORDERED: MIDAZOLAM HCL 2 MG/2 ML VIAL ONE (13:01)
[2020-06-25] MEDS ORDERED: HEPARIN SOD/SOD CHLORIDE 1,000 ML ONE (13:05)
[2020-06-25] MEDS ORDERED: LIDOCAINE HCL 2% LOCAL INJ 5 ML SDV VIAL INJ ONE (13:37)
[2020-06-25] MEDS ORDERED: ONDANSETRON HCL INJ 2MG/ML 2ML 2 MG/ML VIAL ONE (13:37)
[2020-06-25] MEDS ORDERED: PROPOFOL IV EMULSION 10 MG/ML 20 ML VIAL ONE (13:37)
[2020-06-25] MEDS ORDERED: SEVOFLURANE INHAL SOLN 250 ML PEN BTL ONE (13:37)
[2020-06-25] MEDS ORDERED: NEOSTIGMINE 1 MG/ML 10ML VIAL ONE (13:37)
[2020-06-25] MEDS ORDERED: GLYCOPYRROLATE INJ 0.2 MG/ML VIAL ONE (13:37)
[2020-06-25] MEDS ORDERED: ROCURONIUM BROMIDE 10 MG/ML 5ML VIAL IV ONE (13:37)
[2020-06-25] MEDS ORDERED: HYDROMORPHONE 2MG/ML 2 MG/ML ML ONE (14:39)
[2020-06-25 14:55] LABS: BASOPHILS % 0.3 % (0.0-1.0); EOSINOPHILS # (AUTO) 0.1 (0.0-0.4); EOSINOPHILS % 1.2 % (0.0-6.0); HEMATOCRIT 26.3 % (38.2-49.6); HEMOGLOBIN 8.3 g/dL (14.0-18.0); LYMPHOCYTES % 15.4 % (18.0-39.1); MEAN CORPUSCULAR HEMOGLOBIN 28.1 pg (28-32); MEAN CORPUSCULAR HGB CONC 31.6 g/dL (31-35); MEAN CORPUSCULAR VOLUME 89.2 fL (81-99); MONOCYTES # (AUTO) 0.6 (0.2-0.8); MONOCYTES % 9.5 % (4.4-11.3); NEUTROPHILS # (AUTO) 4.8 (2.1-6.9); NEUTROPHILS % 73.3 % (38.7-80.0); PLATELET COUNT 137 x10e3/uL (140-360); RED BLOOD COUNT 2.95 x10e6/uL (4.3-5.7); RED CELL DISTRIBUTION WIDTH 16.3 % (11.7-14.4)
[2020-06-25] MEDS ORDERED: DIPHENHYDRAMINE HCL INJ 50 MG/ML VIAL IM PRN (17:00)
[2020-06-25] MEDS ORDERED: NALOXONE HCL INJ 0.4 MG/ML AMP IV PRN (17:00)
[2020-06-25] MEDS ORDERED: MORPHINE SULFATE 1 MG/ML 30ML PCA IV PRN (17:00)
[2020-06-25] MEDS ORDERED: B&O 60MG R/S 60 MG SUPP PR PRN (17:00)
[2020-06-25] MEDS ORDERED: ACETAMINOPHEN 1000 MG/100 ML IV PRN (17:00)
[2020-06-25 17:45] LABS: BASOPHILS % 0.2 % (0.0-1.0); EOSINOPHILS % 0.3 % (0.0-6.0); HEMATOCRIT 32.5 % (38.2-49.6); HEMOGLOBIN 10.5 g/dL (14.0-18.0); LYMPHOCYTES # (AUTO) 0.5 (1.0-3.2); MEAN CORPUSCULAR HEMOGLOBIN 28.8 pg (28-32); MEAN CORPUSCULAR HGB CONC 32.3 g/dL (31-35); MONOCYTES # (AUTO) 0.6 (0.2-0.8); MONOCYTES % 6.1 % (4.4-11.3); NEUTROPHILS # (AUTO) 7.8 (2.1-6.9); NEUTROPHILS % 87.1 % (38.7-80.0); PLATELET COUNT 175 x10e3/uL (140-360); RED BLOOD COUNT 3.65 x10e6/uL (4.3-5.7); RED CELL DISTRIBUTION WIDTH 15.8 % (11.7-14.4)
[2020-06-25 18:08] LABS: ANION GAP 12.7 mmol/L (8-16); CALCIUM 7.4 mg/dL (8.4-10.2); CREATININE, SERUM 1.94 mg/dL (0.72-1.25); POTASSIUM 4.7 mmol/L (3.5-5.1)
[2020-06-25 20:00] VITALS: BP 118/78
[2020-06-25 20:10] VITALS: BP 118/78
[2020-06-25] MEDS: SODIUM CHLORIDE 0.9% 250ML IRRIG IR SCH (21:00)
[2020-06-25] MEDS: MEROPENEM 500MG/ NS 50ML 50 ML IV SCH (22:44)
[2020-06-25] MEDS ORDERED: CALCIUM CHLORIDE 13.6 MEQ in SODIUM CHLORIDE 0.9% 100 ML 100 ML IV ONE (23:00)
[2020-06-26] VITALS (10 sets, daily range): BP systolic 115–140; BP diastolic 66–80
[2020-06-26] MEDS: SODIUM CHLORIDE 0.9% 250ML IRRIG IR SCH ×6 (01:00→22:39)
[2020-06-26] MEDS: D5.45%NS/KCL 20MEQ 1,000 ML IV SCH ×4 (01:00→18:27)
[2020-06-26] MEDS ORDERED: SODIUM CHLORIDE 0.9% 100 ML ONE (01:36)
[2020-06-26] MEDS ORDERED: CALCIUM CHLORIDE 10% SYRINGE 10 ML IV ONE (01:37)
[2020-06-26] MEDS: ONDANSETRON HCL INJ 2MG/ML 2ML 2 MG/ML VIAL IV PRN (03:22)
[2020-06-26] MEDS: MORPHINE SULFATE INJ 4 MG/ML INJ 1ML IV PRN ×3 (03:25→15:24)
[2020-06-26 05:57] LABS: BASOPHILS % 0.3 % (0.0-1.0); HEMATOCRIT 28.7 % (38.2-49.6); HEMOGLOBIN 9.1 g/dL (14.0-18.0); LYMPHOCYTES # (AUTO) 0.4 (1.0-3.2); LYMPHOCYTES % 4.4 % (18.0-39.1); MEAN CORPUSCULAR HEMOGLOBIN 28.2 pg (28-32); MEAN CORPUSCULAR HGB CONC 31.7 g/dL (31-35); MEAN CORPUSCULAR VOLUME 88.9 fL (81-99); MONOCYTES # (AUTO) 0.7 (0.2-0.8); MONOCYTES % 7.4 % (4.4-11.3); NEUTROPHILS # (AUTO) 8.4 (2.1-6.9); NEUTROPHILS % 87.6 % (38.7-80.0); PLATELET COUNT 152 x10e3/uL (140-360); RED BLOOD COUNT 3.23 x10e6/uL (4.3-5.7); RED CELL DISTRIBUTION WIDTH 16.7 % (11.7-14.4)
[2020-06-26 06:20] LABS: ANION GAP 12.9 mmol/L (8-16); CREATININE, SERUM 2.01 mg/dL (0.72-1.25); POTASSIUM 4.9 mmol/L (3.5-5.1)
[2020-06-26] MEDS: PANTOPRAZOLE SOD 40 MG TABEC PO SCH (07:30)
[2020-06-26 08:13] LABS: NEUTROPHILS % (MANUAL) 88 % (40-74)
[2020-06-26 08:14] LABS: ANISOCYTOSIS SLIGHT; LYMPHOCYTES % (MANUAL) 2 % (19-48); MONOCYTES % (MANUAL) 8 % (3.4-9.0); PLATELET ESTIMATE ADEQUATE; PLATELET MORPHOLOGY COMMENT NORMAL; RBC MORPHOLOGY COMMENT NORMAL
[2020-06-26] MEDS: AMLODIPINE BESYLATE 10 MG TAB PO SCH (09:00)
[2020-06-26] MEDS: CARVEDILOL 12.5 MG TAB PO SCH ×2 (09:00→17:00)
[2020-06-26] MEDS: DOXAZOSIN MESYLATE 2 MG TAB PO SCH (09:00)
[2020-06-26] MEDS: MEROPENEM 500MG/ NS 50ML 50 ML IV SCH ×2 (10:46→22:40)
[2020-06-26] MEDS ORDERED: CHLORASEPTIC SPRAY 177 ML BTL MM PRN (18:15)
[2020-06-27] VITALS (12 sets, daily range): BP systolic 2–142; BP diastolic 63–99
[2020-06-27] MEDS: SODIUM CHLORIDE 0.9% 250ML IRRIG IR SCH ×2 (03:17→04:58)
[2020-06-27] MEDS: D5.45%NS/KCL 20MEQ 1,000 ML IV SCH ×3 (04:23→14:20)
[2020-06-27 04:40] LABS: BASOPHILS % 0.3 % (0.0-1.0); EOSINOPHILS # (AUTO) 0.3 (0.0-0.4); EOSINOPHILS % 3.5 % (0.0-6.0); HEMATOCRIT 26.5 % (38.2-49.6); HEMOGLOBIN 8.2 g/dL (14.0-18.0); LYMPHOCYTES # (AUTO) 0.7 (1.0-3.2); MEAN CORPUSCULAR HEMOGLOBIN 28.3 pg (28-32); MEAN CORPUSCULAR HGB CONC 30.9 g/dL (31-35); MEAN CORPUSCULAR VOLUME 91.4 fL (81-99); MONOCYTES # (AUTO) 0.5 (0.2-0.8); MONOCYTES % 6.6 % (4.4-11.3); NEUTROPHILS # (AUTO) 6.4 (2.1-6.9); NEUTROPHILS % 80.1 % (38.7-80.0); PLATELET COUNT 146 x10e3/uL (140-360); RED CELL DISTRIBUTION WIDTH 16.7 % (11.7-14.4)
[2020-06-27 04:58] LABS: ANION GAP 10.6 mmol/L (8-16); CALCIUM 7.9 mg/dL (8.4-10.2); CREATININE, SERUM 1.79 mg/dL (0.72-1.25); POTASSIUM 4.6 mmol/L (3.5-5.1)
[2020-06-27] MEDS: PANTOPRAZOLE SOD 40 MG TABEC PO SCH (07:38)
[2020-06-27] MEDS: DOXAZOSIN MESYLATE 2 MG TAB PO SCH (08:22)
[2020-06-27] MEDS: AMLODIPINE BESYLATE 10 MG TAB PO SCH (08:22)
[2020-06-27] MEDS: CARVEDILOL 12.5 MG TAB PO SCH ×2 (08:22→16:19)
[2020-06-27] MEDS: MEROPENEM 500MG/ NS 50ML 50 ML IV SCH ×2 (10:32→22:57)
[2020-06-27] MEDS: FLUCONAZOLE 100 MG TAB PO SCH (13:55)
[2020-06-27] MEDS ORDERED: BISACODYL 10 MG SUPP PR ONE (17:00)
[2020-06-28] VITALS (7 sets, daily range): BP systolic 115–126; BP diastolic 71–78
[2020-06-28] MEDS: D5.45%NS/KCL 20MEQ 1,000 ML IV SCH ×3 (01:26→17:09)
[2020-06-28] MEDS: ONDANSETRON HCL INJ 2MG/ML 2ML 2 MG/ML VIAL IV PRN (01:45)
[2020-06-28 05:11] LABS: BASOPHILS % 0.2 % (0.0-1.0); EOSINOPHILS # (AUTO) 0.2 (0.0-0.4); EOSINOPHILS % 2.6 % (0.0-6.0); HEMATOCRIT 27.6 % (38.2-49.6); HEMOGLOBIN 8.5 g/dL (14.0-18.0); LYMPHOCYTES # (AUTO) 0.8 (1.0-3.2); LYMPHOCYTES % 11.4 % (18.0-39.1); MEAN CORPUSCULAR HGB CONC 30.8 g/dL (31-35); MEAN CORPUSCULAR VOLUME 94.2 fL (81-99); MONOCYTES # (AUTO) 0.5 (0.2-0.8); MONOCYTES % 7.6 % (4.4-11.3); NEUTROPHILS # (AUTO) 5.1 (2.1-6.9); NEUTROPHILS % 77.7 % (38.7-80.0); PLATELET COUNT 161 x10e3/uL (140-360); RED BLOOD COUNT 2.93 x10e6/uL (4.3-5.7); RED CELL DISTRIBUTION WIDTH 16.7 % (11.7-14.4)
[2020-06-28 05:22] LABS: ANION GAP 12.6 mmol/L (8-16); CALCIUM 8.2 mg/dL (8.4-10.2); CREATININE, SERUM 1.61 mg/dL (0.72-1.25); POTASSIUM 4.6 mmol/L (3.5-5.1)
[2020-06-28] MEDS ORDERED: BISACODYL 10 MG SUPP PR PRN (06:00)
[2020-06-28] MEDS ORDERED: BISACODYL 10 MG SUPP PR ONE (06:00)
[2020-06-28] MEDS: AMLODIPINE BESYLATE 10 MG TAB PO SCH (08:19)
[2020-06-28] MEDS: CARVEDILOL 12.5 MG TAB PO SCH ×2 (08:19→17:14)
[2020-06-28] MEDS: DOXAZOSIN MESYLATE 2 MG TAB PO SCH (08:19)
[2020-06-28] MEDS: FLUCONAZOLE 100 MG TAB PO SCH (08:19)
[2020-06-28] MEDS: PANTOPRAZOLE SOD 40 MG TABEC PO SCH (08:20)
[2020-06-28] MEDS: MEROPENEM 500MG/ NS 50ML 50 ML IV SCH ×2 (09:20→22:43)
[2020-06-29] VITALS (8 sets, daily range): BP systolic 107–130; BP diastolic 62–74
[2020-06-29] MEDS: D5.45%NS/KCL 20MEQ 1,000 ML IV SCH ×3 (01:00→17:52)
[2020-06-29 05:55] LABS: BASOPHILS % 0.2 % (0.0-1.0); EOSINOPHILS # (AUTO) 0.1 (0.0-0.4); HEMATOCRIT 26.5 % (38.2-49.6); LYMPHOCYTES # (AUTO) 0.8 (1.0-3.2); LYMPHOCYTES % 14.2 % (18.0-39.1); MEAN CORPUSCULAR HEMOGLOBIN 28.3 pg (28-32); MEAN CORPUSCULAR HGB CONC 30.2 g/dL (31-35); MEAN CORPUSCULAR VOLUME 93.6 fL (81-99); MONOCYTES # (AUTO) 0.5 (0.2-0.8); MONOCYTES % 8.2 % (4.4-11.3); NEUTROPHILS # (AUTO) 4.1 (2.1-6.9); NEUTROPHILS % 74.9 % (38.7-80.0); PLATELET COUNT 170 x10e3/uL (140-360); RED BLOOD COUNT 2.83 x10e6/uL (4.3-5.7)
[2020-06-29 06:22] LABS: ANION GAP 9.4 mmol/L (8-16); CREATININE, SERUM 1.54 mg/dL (0.72-1.25); POTASSIUM 4.4 mmol/L (3.5-5.1)
[2020-06-29] MEDS: PANTOPRAZOLE SOD 40 MG TABEC PO SCH (08:27)
[2020-06-29] MEDS: FLUCONAZOLE 100 MG TAB PO SCH (08:27)
[2020-06-29] MEDS: CARVEDILOL 12.5 MG TAB PO SCH ×2 (08:33→17:38)
[2020-06-29] MEDS: DOXAZOSIN MESYLATE 2 MG TAB PO SCH (08:33)
[2020-06-29] MEDS: AMLODIPINE BESYLATE 10 MG TAB PO SCH (08:33)
[2020-06-29] MEDS: MEROPENEM 500MG/ NS 50ML 50 ML IV SCH ×2 (10:05→22:19)
[2020-06-29] MEDS: DOCUSATE SODIUM 100 MG CAP PO SCH (17:37)
[2020-06-30] VITALS (8 sets, daily range): BP systolic 134–150; BP diastolic 18–85
[2020-06-30] MEDS: MEROPENEM 500MG/ NS 50ML 50 ML IV SCH ×2 (09:04→21:16)
[2020-06-30] MEDS: DOXAZOSIN MESYLATE 2 MG TAB PO SCH (09:05)
[2020-06-30] MEDS: CARVEDILOL 12.5 MG TAB PO SCH ×2 (09:05→15:32)
[2020-06-30] MEDS: AMLODIPINE BESYLATE 10 MG TAB PO SCH (09:05)
[2020-06-30] MEDS: D5.45%NS/KCL 20MEQ 1,000 ML IV SCH ×3 (09:05→21:16)
[2020-06-30] MEDS: DOCUSATE SODIUM 100 MG CAP PO SCH ×2 (09:06→15:29)
[2020-06-30] MEDS: FLUCONAZOLE 100 MG TAB PO SCH (09:06)
[2020-06-30] MEDS: PANTOPRAZOLE SOD 40 MG TABEC PO SCH (09:06)
[2020-06-30] MEDS ORDERED: STERILE WATER IV SCH (15:00)
[2020-06-30] MEDS ORDERED: AMPHOTERICIN B IV SCH (15:00)
[2020-06-30] MEDS: ACETAMINOPHEN/CODEINE 300MG - 30MG TAB PO PRN (15:28)
[2020-06-30] MEDS ORDERED: AMPHOTERICIN B INJ SCH (15:30)
[2020-06-30] MEDS ORDERED: STERILE WATER INJ SCH (15:30)
[2020-06-30] MEDS ORDERED: AMPHOTERICIN B INJ PRN (17:45)
[2020-06-30] MEDS ORDERED: STERILE WATER INJ PRN (17:45)
[2020-07-01] VITALS (8 sets, daily range): BP systolic 119–149; BP diastolic 76–86
[2020-07-01] MEDS: D5.45%NS/KCL 20MEQ 1,000 ML IV SCH ×2 (01:52→20:28)
[2020-07-01] MEDS: PANTOPRAZOLE SOD 40 MG TABEC PO SCH (08:34)
[2020-07-01] MEDS: FLUCONAZOLE 100 MG TAB PO SCH (08:35)
[2020-07-01] MEDS: CARVEDILOL 12.5 MG TAB PO SCH ×2 (08:35→16:23)
[2020-07-01] MEDS: MEROPENEM 500MG/ NS 50ML 50 ML IV SCH ×2 (08:35→21:22)
[2020-07-01] MEDS: AMLODIPINE BESYLATE 10 MG TAB PO SCH (08:35)
[2020-07-01] MEDS: DOXAZOSIN MESYLATE 2 MG TAB PO SCH (08:35)
[2020-07-01] MEDS: DOCUSATE SODIUM 100 MG CAP PO SCH ×2 (08:35→16:23)
[2020-07-01] MEDS: ACETAMINOPHEN/CODEINE 300MG - 30MG TAB PO PRN ×2 (11:30→20:38)
[2020-07-01] MEDS: MORPHINE SULFATE INJ 4 MG/ML INJ 1ML IV PRN (22:20)
[2020-07-02] VITALS (8 sets, daily range): BP systolic 125–174; BP diastolic 75–89
[2020-07-02] MEDS: ACETAMINOPHEN/CODEINE 300MG - 30MG TAB PO PRN ×3 (03:31→20:04)
[2020-07-02] MEDS ORDERED: NIFEDIPINE CR 30 MG TAB PO SCH (07:00)
[2020-07-02] MEDS: DOXAZOSIN MESYLATE 2 MG TAB PO SCH (08:04)
[2020-07-02] MEDS: PANTOPRAZOLE SOD 40 MG TABEC PO SCH (08:04)
[2020-07-02] MEDS: DOCUSATE SODIUM 100 MG CAP PO SCH ×2 (08:04→17:22)
[2020-07-02] MEDS: CARVEDILOL 12.5 MG TAB PO SCH ×2 (08:04→17:22)
[2020-07-02] MEDS: FLUCONAZOLE 100 MG TAB PO SCH (08:05)
[2020-07-02] MEDS: MEROPENEM 500MG/ NS 50ML 50 ML IV SCH (12:53)
[2020-07-02] MEDS: D5.45%NS/KCL 20MEQ 1,000 ML IV SCH ×2 (13:28→20:35)
[2020-07-02] MEDS: ONDANSETRON HCL INJ 2MG/ML 2ML 2 MG/ML VIAL IV PRN (20:32)
[2020-07-03] VITALS (8 sets, daily range): BP systolic 129–158; BP diastolic 78–94
[2020-07-03] MEDS: PANTOPRAZOLE SOD 40 MG TABEC PO SCH (07:55)
[2020-07-03] MEDS: DOXAZOSIN MESYLATE 2 MG TAB PO SCH (09:38)
[2020-07-03] MEDS: FLUCONAZOLE 100 MG TAB PO SCH (09:38)
[2020-07-03] MEDS: DOCUSATE SODIUM 100 MG CAP PO SCH ×2 (09:38→17:40)
[2020-07-03] MEDS: CARVEDILOL 12.5 MG TAB PO SCH ×2 (09:39→17:41)
[2020-07-03] MEDS: ONDANSETRON HCL INJ 2MG/ML 2ML 2 MG/ML VIAL IV PRN (14:40)
[2020-07-03] MEDS: D5.45%NS/KCL 20MEQ 1,000 ML IV SCH (14:46)
[2020-07-03] MEDS: NIFEDIPINE CR 30 MG TAB PO SCH (15:06)
[2020-07-04] VITALS (8 sets, daily range): BP systolic 104–144; BP diastolic 70–92
[2020-07-04] MEDS: D5.45%NS/KCL 20MEQ 1,000 ML IV SCH ×2 (05:01→15:48)
[2020-07-04 07:12] LABS: BASOPHILS % 0.2 % (0.0-1.0); EOSINOPHILS # (AUTO) 0.3 (0.0-0.4); EOSINOPHILS % 3.2 % (0.0-6.0); HEMATOCRIT 28.6 % (38.2-49.6); HEMOGLOBIN 9.2 g/dL (14.0-18.0); LYMPHOCYTES # (AUTO) 0.7 (1.0-3.2); LYMPHOCYTES % 8.5 % (18.0-39.1); MEAN CORPUSCULAR HEMOGLOBIN 28.4 pg (28-32); MEAN CORPUSCULAR HGB CONC 32.2 g/dL (31-35); MEAN CORPUSCULAR VOLUME 88.3 fL (81-99); MONOCYTES # (AUTO) 0.6 (0.2-0.8); MONOCYTES % 7.3 % (4.4-11.3); NEUTROPHILS # (AUTO) 6.8 (2.1-6.9); NEUTROPHILS % 80.3 % (38.7-80.0); PLATELET COUNT 280 x10e3/uL (140-360); RED BLOOD COUNT 3.24 x10e6/uL (4.3-5.7); RED CELL DISTRIBUTION WIDTH 15.3 % (11.7-14.4)
[2020-07-04] MEDS: PANTOPRAZOLE SOD 40 MG TABEC PO SCH (07:30)
[2020-07-04 07:37] LABS: ANION GAP 14.4 mmol/L (8-16); CALCIUM 8.5 mg/dL (8.4-10.2); CREATININE, SERUM 2.15 mg/dL (0.72-1.25); POTASSIUM 4.4 mmol/L (3.5-5.1)
[2020-07-04 07:38] LABS: MAGNESIUM 1.7 MG/DL (1.3-2.1); PHOSPHORUS 3.9 MG/DL (2.3-4.7)
[2020-07-04] MEDS: NIFEDIPINE CR 30 MG TAB PO SCH (09:00)
[2020-07-04] MEDS: DOCUSATE SODIUM 100 MG CAP PO SCH ×2 (09:00→15:40)
[2020-07-04] MEDS: FLUCONAZOLE 100 MG TAB PO SCH (09:00)
[2020-07-04] MEDS: CARVEDILOL 12.5 MG TAB PO SCH ×2 (09:00→15:40)
[2020-07-04] MEDS: DOXAZOSIN MESYLATE 2 MG TAB PO SCH (09:00)
[2020-07-04] MEDS: ONDANSETRON HCL INJ 2MG/ML 2ML 2 MG/ML VIAL IV PRN (10:31)
[2020-07-04] MEDS: BISACODYL 10 MG SUPP PR SCH (12:24)
[2020-07-04] MEDS: METOCLOPRAMIDE HCL 10 MG/2ML VIAL IV SCH ×2 (12:24→21:19)
[2020-07-04] MEDS: FLUCONAZOLE 200 MG/100 ML 100 ML IV SCH (14:58)
[2020-07-05] VITALS (8 sets, daily range): BP systolic 114–144; BP diastolic 70–85
[2020-07-05] MEDS: METOCLOPRAMIDE HCL 10 MG/2ML VIAL IV SCH ×4 (05:55→22:25)
[2020-07-05] MEDS: CARVEDILOL 12.5 MG TAB PO SCH ×2 (08:21→15:33)
[2020-07-05] MEDS: DOCUSATE SODIUM 100 MG CAP PO SCH ×2 (08:21→15:23)
[2020-07-05] MEDS: DOXAZOSIN MESYLATE 2 MG TAB PO SCH (08:21)
[2020-07-05] MEDS: PANTOPRAZOLE SOD 40 MG TABEC PO SCH (08:21)
[2020-07-05] MEDS: BISACODYL 10 MG SUPP PR SCH (08:22)
[2020-07-05] MEDS: NIFEDIPINE CR 30 MG TAB PO SCH (08:22)
[2020-07-05] MEDS: D5.45%NS/KCL 20MEQ 1,000 ML IV SCH ×2 (12:47→20:07)
[2020-07-05] MEDS: FLUCONAZOLE 200 MG/100 ML 100 ML IV SCH (15:23)
[2020-07-06] VITALS (10 sets, daily range): BP systolic 102–131; BP diastolic 67–77
[2020-07-06 04:59] LABS: BASOPHILS % 0.6 % (0.0-1.0); EOSINOPHILS # (AUTO) 0.5 (0.0-0.4); EOSINOPHILS % 6.5 % (0.0-6.0); HEMATOCRIT 25.7 % (38.2-49.6); HEMOGLOBIN 8.1 g/dL (14.0-18.0); LYMPHOCYTES # (AUTO) 1.2 (1.0-3.2); LYMPHOCYTES % 17.2 % (18.0-39.1); MEAN CORPUSCULAR HEMOGLOBIN 28.2 pg (28-32); MEAN CORPUSCULAR HGB CONC 31.5 g/dL (31-35); MEAN CORPUSCULAR VOLUME 89.5 fL (81-99); MONOCYTES # (AUTO) 0.5 (0.2-0.8); MONOCYTES % 7.6 % (4.4-11.3); NEUTROPHILS # (AUTO) 4.7 (2.1-6.9); NEUTROPHILS % 67.4 % (38.7-80.0); PLATELET COUNT 261 x10e3/uL (140-360); RED BLOOD COUNT 2.87 x10e6/uL (4.3-5.7); RED CELL DISTRIBUTION WIDTH 15.4 % (11.7-14.4)
[2020-07-06 05:19] LABS: ALBUMIN/GLOBULIN RATIO 0.6 (0.8-2.0); ANION GAP 11.1 mmol/L (8-16); CALCIUM 7.7 mg/dL (8.4-10.2); CREATININE, SERUM 2.01 mg/dL (0.72-1.25); POTASSIUM 4.1 mmol/L (3.5-5.1)
[2020-07-06] MEDS: METOCLOPRAMIDE HCL 10 MG/2ML VIAL IV SCH (05:25)
[2020-07-06] MEDS: PANTOPRAZOLE SOD 40 MG TABEC PO SCH (08:44)
[2020-07-06] MEDS: DOXAZOSIN MESYLATE 2 MG TAB PO SCH (08:45)
[2020-07-06] MEDS: DOCUSATE SODIUM 100 MG CAP PO SCH ×2 (08:45→16:56)
[2020-07-06] MEDS: NIFEDIPINE CR 30 MG TAB PO SCH (08:47)
[2020-07-06] MEDS: BISACODYL 10 MG SUPP PR SCH (08:47)
[2020-07-06] MEDS: CARVEDILOL 12.5 MG TAB PO SCH ×2 (08:47→16:57)
[2020-07-06] MEDS: D5.45%NS/KCL 20MEQ 1,000 ML IV SCH (11:53)
[2020-07-06] MEDS ORDERED: TYLENOL # 31 EA (14:59)
[2020-07-06] MEDS ORDERED: COLACE100 MG PO (15:00)
[2020-07-06] MEDS: FLUCONAZOLE 200 MG/100 ML 100 ML IV SCH (16:56)
== END 2020-07-06 18:34 | disposition home or self-care (01) | DRG 660 ==
LOC: ER 21:14 → ERHOLD 21:39 → IMCU 06-25 18:30 → MED/SURG 06-27 13:53
PROVIDERS: ADMIT Internal Medicine; ATTEND Internal Medicine
PROC: 0TP Urinary System, Removal (ICD-10-PCS; 2020-06-25)
PROC: 0T160ZB Bypass Right Ureter to Bladder, Open Approach (ICD-10-PCS; 2020-06-25)
PROC: 0T760DZ Dilation of Right Ureter with Intraluminal Device, Open Approach (ICD-10-PCS; 2020-06-25)
PROC: 30233N1 Transfusion of Nonautologous Red Blood Cells into Peripheral Vein, Percutaneous Approach (ICD-10-PCS; 2020-06-25)
PROC: 0TB60ZZ Excision of Right Ureter, Open Approach (ICD-10-PCS; principal; 2020-06-25 13:00)
DX: N35.919 Unspecified urethral stricture, male, unspecified site (principal); N13.1 Hydronephrosis with ureteral stricture, not elsewhere classified; N12 Tubulo-interstitial nephritis, not specified as acute or chronic; B37.49 Other urogenital candidiasis; N17.9 Acute kidney failure, unspecified; I50.32 Chronic diastolic (congestive) heart failure; I13.0 Hypertensive heart and chronic kidney disease with heart failure and stage 1 through stage 4 chronic kidney disease, or unspecified chronic kidney disease; R31.9 Hematuria, unspecified; R33.9 Retention of urine, unspecified; N18.30 Chronic kidney disease, stage 3 unspecified; E66.9 Obesity, unspecified; Z68.29 Body mass index [BMI] 29.0-29.9, adult; N31.2 Flaccid neuropathic bladder, not elsewhere classified; I25.10 Atherosclerotic heart disease of native coronary artery without angina pectoris; Z96.0 Presence of urogenital implants; N40.1 Benign prostatic hyperplasia with lower urinary tract symptoms; Z20.828 Contact with and (suspected) exposure to other viral communicable diseases
CPT/HCPCS: 31500; 36415; 51700; 71045; 74018; 80048; 80053; 81001; 82565; 82948; 83735; 84100; 85025; 86850; 86900; 86920; 87040; 87086; 88305; 88307; 92950; 94002; 96361; 97139; 99284; C1769; C2617; J0285; J1200; J1450; J2001; J2250; J2270; J2405; J2710; J2765; J3010; J7050; P9016

== ENCOUNTER → 2020-08-02 | Outpatient (CLI) | payer MEDICARE ==
[~2020-08-02] MED LIST changes: +CEPHALEXIN500 MG PO; +COLACE100 MG PO; +IOTHALAMATE MEGLUMINE 17.20% 250 ML BTL ONE; +TYLENOL # 31 EA
== END ==
LOC: DX 08:17
PROVIDERS: ATTEND Urology
DX: Z46.6 Encounter for fitting and adjustment of urinary device (principal)
CPT/HCPCS: 74430; Q9958

== ENCOUNTER 2020-08-07 16:02 | Emergency (ER) | payer MEDICARE ==
[~2020-08-07] VITALS: Ht 185.4 cm; Wt 100.7 kg
[~2020-08-07 16:02] MED LIST changes: -CEPHALEXIN500 MG PO; -IOTHALAMATE MEGLUMINE 17.20% 250 ML BTL ONE
[2020-08-07] MEDS ORDERED: CEPHALEXIN500 MG PO (18:16)
== END 2020-08-07 18:32 | disposition home or self-care (01) ==
LOC: ER 17:25
DX: R10.32 Left lower quadrant pain (principal); R50.9 Fever, unspecified; I10 Essential (primary) hypertension; I50.9 Heart failure, unspecified; K21.9 Gastro-esophageal reflux disease without esophagitis; N31.2 Flaccid neuropathic bladder, not elsewhere classified
CPT/HCPCS: 99283

== ENCOUNTER → 2020-08-21 | Outpatient (CLI) | payer MEDICARE ==
[~2020-08-21] MED LIST changes: +CEPHALEXIN500 MG PO; +IOPAMIDOL 300MG/ML 100 ML INFUS..BTL IV ONE; +LIDOCAINE HCL 1% LOCAL INJ 20 ML VIAL ONE; +SODIUM CHLORIDE 0.9% 250ML 250 ML ONE
== END ==
LOC: DX 08:30
PROVIDERS: ATTEND Urology
DX: Z43.6 Encounter for attention to other artificial openings of urinary tract (principal)
CPT/HCPCS: 50435; C1769; J2001; J7050; Q9967; 50387

== ENCOUNTER 2020-08-27 10:52 | Inpatient (IN) | payer MEDICARE ==
[~2020-08-27] VITALS: Ht 182.9 cm; Wt 100.7 kg
[~2020-08-27 10:52] MED LIST changes: -IOPAMIDOL 300MG/ML 100 ML INFUS..BTL IV ONE; -LIDOCAINE HCL 1% LOCAL INJ 20 ML VIAL ONE; -SODIUM CHLORIDE 0.9% 250ML 250 ML ONE
[2020-08-27 11:30] LABS: BASOPHILS # (AUTO) 0.1 (0.0-0.1); EOSINOPHILS % 0.3 % (0.0-6.0); HEMATOCRIT 28.8 % (38.2-49.6); HEMOGLOBIN 8.8 g/dL (14.0-18.0); LYMPHOCYTES # (AUTO) 1.3 (1.0-3.2); LYMPHOCYTES % 21.1 % (18.0-39.1); MEAN CORPUSCULAR HEMOGLOBIN 26.7 pg (28-32); MEAN CORPUSCULAR HGB CONC 30.6 g/dL (31-35); MEAN CORPUSCULAR VOLUME 87.5 fL (81-99); MONOCYTES # (AUTO) 0.9 (0.2-0.8); NEUTROPHILS # (AUTO) 3.9 (2.1-6.9); NEUTROPHILS % 63.3 % (38.7-80.0); PLATELET COUNT 286 x10e3/uL (140-360); RED BLOOD COUNT 3.29 x10e6/uL (4.3-5.7); RED CELL DISTRIBUTION WIDTH 15.7 % (11.7-14.4)
[2020-08-27 12:32] LABS: ALBUMIN 2.9 g/dL (3.5-5.0); ALBUMIN/GLOBULIN RATIO 0.7 (0.8-2.0); ANION GAP 14.3 mmol/L (8-16); CALCIUM 8.6 mg/dL (8.4-10.2); CREATININE, SERUM 2.5 mg/dL (0.72-1.25); POTASSIUM 5.3 mmol/L (3.5-5.1)
[2020-08-27] MEDS ORDERED: CEFEPIME HCL 1 GM VIAL IV SCH (13:30)
[2020-08-27 13:45] VITALS: BP 117/98
[2020-08-27 14:34] VITALS: BP 117/98
[2020-08-27] MEDS: SODIUM CHLORIDE 0.9% 1000ML 1,000 ML IV SCH (14:45)
[2020-08-27] MEDS: CEFEPIME HCL 1GM 1 GM in SODIUM CHLORIDE 0.9% 50ML 50 ML IV SCH (14:48)
[2020-08-27 15:56] VITALS: BP 141/89
[2020-08-27] MEDS: FLUCONAZOLE 100 MG/NS 50 ML 50 ML IV SCH (16:15)
[2020-08-27] MEDS: CARVEDILOL 12.5 MG TAB PO SCH (16:17)
[2020-08-27 16:48] LABS: CLARITY,URINE CLOUDY (CLEAR); COLOR,URINE RED (YELLOW)
[2020-08-27 16:50] LABS: BACTERIA,URINE FEW /HPF; EPITHELIAL CELLS,URINE FEW /LPF; RBC,URINE >50 /HPF (0-5)
[2020-08-27 16:56] LABS: LEUKOCYTE ESTERASE ,URINE 2+ (NEGATIVE); NITRITE,URINE POSITIVE (NEGATIVE); PROTEIN,URINE DIPSTICK >=300 (NEGATIVE)
[2020-08-27 16:57] LABS: KETONES,URINE 1+ (NEGATIVE); URINE UROBILINOGEN 1 mg/dL (0.2 - 1)
[2020-08-27 20:05] VITALS: BP 122/72
[2020-08-27 21:00] VITALS: BP 122/72
[2020-08-28] VITALS (8 sets, daily range): BP systolic 113–127; BP diastolic 68–76
[2020-08-28] MEDS: SODIUM CHLORIDE 0.9% 1000ML 1,000 ML IV SCH ×2 (02:12→13:02)
[2020-08-28] MEDS: CEFEPIME HCL 1GM 1 GM in SODIUM CHLORIDE 0.9% 50ML 50 ML IV SCH ×2 (02:12→13:03)
[2020-08-28 06:00] LABS: BASOPHILS % 0.7 % (0.0-1.0); EOSINOPHILS # (AUTO) 0.1 (0.0-0.4); EOSINOPHILS % 2.4 % (0.0-6.0); HEMOGLOBIN 7.3 g/dL (14.0-18.0); LYMPHOCYTES # (AUTO) 1.6 (1.0-3.2); LYMPHOCYTES % 37.4 % (18.0-39.1); MEAN CORPUSCULAR HEMOGLOBIN 26.6 pg (28-32); MEAN CORPUSCULAR HGB CONC 30.4 g/dL (31-35); MEAN CORPUSCULAR VOLUME 87.6 fL (81-99); MONOCYTES # (AUTO) 0.8 (0.2-0.8); MONOCYTES % 18.2 % (4.4-11.3); NEUTROPHILS # (AUTO) 1.7 (2.1-6.9); NEUTROPHILS % 41.1 % (38.7-80.0); PLATELET COUNT 205 x10e3/uL (140-360); RED BLOOD COUNT 2.74 x10e6/uL (4.3-5.7); RED CELL DISTRIBUTION WIDTH 15.9 % (11.7-14.4)
[2020-08-28 06:22] LABS: ALBUMIN 2.3 g/dL (3.5-5.0); ALBUMIN/GLOBULIN RATIO 0.6 (0.8-2.0); ALKALINE PHOSPHATASE 93 IU/L (40-150); ANION GAP 11.1 mmol/L (8-16); BLOOD UREA NITROGEN 25 mg/dL (7-26); BUN/CREATININE RATIO 12 (6-25); CALCIUM 8.3 mg/dL (8.4-10.2); CARBON DIOXIDE 24 mmol/L (22-29); CHLORIDE 107 mmol/L (98-107); CREATININE, SERUM 2.07 mg/dL (0.72-1.25); EST GLOMERULAR FILTRATION RATE 32 ML/MIN (60-); GLUCOSE 99 mg/dL (74-118); POTASSIUM 4.1 mmol/L (3.5-5.1); SODIUM 138 mmol/L (136-145)
[2020-08-28 06:30] LABS: ALANINE AMINOTRANSFERASE < 6 IU/L (0-55)
[2020-08-28] MEDS: PANTOPRAZOLE SOD 40 MG TABEC PO SCH (08:25)
[2020-08-28] MEDS: AMLODIPINE BESYLATE 10 MG TAB PO SCH (08:28)
[2020-08-28] MEDS: CARVEDILOL 12.5 MG TAB PO SCH ×2 (08:28→16:04)
[2020-08-28] MEDS: DOXAZOSIN MESYLATE 2 MG TAB PO SCH (08:28)
[2020-08-28] MEDS ORDERED: SODIUM CHLORIDE 0.9% 250ML 250 ML IV ONE (11:00)
[2020-08-28] MEDS: FLUCONAZOLE 100 MG/NS 50 ML 50 ML IV SCH (15:11)
[2020-08-28] MEDS ORDERED: SODIUM CHLORIDE 0.9% 250ML 250 ML ONE (16:38)
[2020-08-29] VITALS (9 sets, daily range): BP systolic 119–139; BP diastolic 62–77
[2020-08-29] MEDS: SODIUM CHLORIDE 0.9% 1000ML 1,000 ML IV SCH ×3 (01:43→16:00)
[2020-08-29] MEDS: CEFEPIME HCL 1GM 1 GM in SODIUM CHLORIDE 0.9% 50ML 50 ML IV SCH ×2 (01:43→13:04)
[2020-08-29 05:10] LABS: BASOPHILS % 0.9 % (0.0-1.0); EOSINOPHILS # (AUTO) 0.2 (0.0-0.4); EOSINOPHILS % 4.5 % (0.0-6.0); HEMATOCRIT 26.8 % (38.2-49.6); HEMOGLOBIN 8.3 g/dL (14.0-18.0); LYMPHOCYTES % 45.7 % (18.0-39.1); MEAN CORPUSCULAR HEMOGLOBIN 27.3 pg (28-32); MEAN CORPUSCULAR VOLUME 88.2 fL (81-99); MONOCYTES # (AUTO) 0.5 (0.2-0.8); MONOCYTES % 11.8 % (4.4-11.3); NEUTROPHILS # (AUTO) 1.6 (2.1-6.9); NEUTROPHILS % 36.9 % (38.7-80.0); PLATELET COUNT 204 x10e3/uL (140-360); RED BLOOD COUNT 3.04 x10e6/uL (4.3-5.7); RED CELL DISTRIBUTION WIDTH 15.2 % (11.7-14.4)
[2020-08-29 05:35] LABS: ALBUMIN 2.2 g/dL (3.5-5.0); ALBUMIN/GLOBULIN RATIO 0.6 (0.8-2.0); ALKALINE PHOSPHATASE 46 IU/L (40-150); BLOOD UREA NITROGEN 20 mg/dL (7-26); BUN/CREATININE RATIO 13 (6-25); CALCIUM 8.4 mg/dL (8.4-10.2); CARBON DIOXIDE 24 mmol/L (22-29); CHLORIDE 108 mmol/L (98-107); EST GLOMERULAR FILTRATION RATE 43 ML/MIN (60-); GLUCOSE 104 mg/dL (74-118); SODIUM 141 mmol/L (136-145)
[2020-08-29 05:39] LABS: ALANINE AMINOTRANSFERASE < 6 IU/L (0-55)
[2020-08-29] MEDS: AMLODIPINE BESYLATE 10 MG TAB PO SCH (08:07)
[2020-08-29] MEDS: PANTOPRAZOLE SOD 40 MG TABEC PO SCH (08:07)
[2020-08-29] MEDS: CARVEDILOL 12.5 MG TAB PO SCH ×2 (08:07→16:00)
[2020-08-29] MEDS: DOXAZOSIN MESYLATE 2 MG TAB PO SCH (08:07)
[2020-08-29] MEDS: FLUCONAZOLE 100 MG/NS 50 ML 50 ML IV SCH (14:03)
[2020-08-30] VITALS (8 sets, daily range): BP systolic 108–138; BP diastolic 59–89
[2020-08-30] MEDS: CEFEPIME HCL 1GM 1 GM in SODIUM CHLORIDE 0.9% 50ML 50 ML IV SCH ×2 (01:08→13:35)
[2020-08-30] MEDS: SODIUM CHLORIDE 0.9% 1000ML 1,000 ML IV SCH ×2 (02:00→12:00)
[2020-08-30] MEDS: PANTOPRAZOLE SOD 40 MG TABEC PO SCH (07:58)
[2020-08-30] MEDS: AMLODIPINE BESYLATE 10 MG TAB PO SCH (08:19)
[2020-08-30] MEDS: CARVEDILOL 12.5 MG TAB PO SCH ×3 (08:19→21:15)
[2020-08-30] MEDS: DOXAZOSIN MESYLATE 2 MG TAB PO SCH (08:19)
[2020-08-30] MEDS ORDERED: FLUCONAZOLE 100 MG/NS 50 ML 50 ML IV SCH (11:00)
[2020-08-30] MEDS ORDERED: CEFEPIME HCL 1 GM VIAL ONE (12:21)
[2020-08-30] MEDS ORDERED: SODIUM CHLORIDE 0.9% 50ML 50 ML ONE (12:21)
[2020-08-30] MEDS: FLUCONAZOLE 100 MG/NS 50 ML 50 ML IV SCH (12:27)
[2020-08-31] VITALS (9 sets, daily range): BP systolic 115–127; BP diastolic 67–79
[2020-08-31] MEDS: SODIUM CHLORIDE 0.9% 1000ML 1,000 ML IV SCH ×5 (00:41→23:57)
[2020-08-31] MEDS: CEFEPIME HCL 1GM 1 GM in SODIUM CHLORIDE 0.9% 50ML 50 ML IV SCH ×2 (02:38→14:30)
[2020-08-31] MEDS ORDERED: CEFEPIME HCL 1 GM VIAL ONE ×2 (02:39→14:29)
[2020-08-31] MEDS ORDERED: SODIUM CHLORIDE 0.9% 50ML 50 ML ONE ×2 (02:40→14:30)
[2020-08-31 06:25] LABS: BASOPHILS % 1.1 % (0.0-1.0); EOSINOPHILS # (AUTO) 0.3 (0.0-0.4); EOSINOPHILS % 6.8 % (0.0-6.0); HEMATOCRIT 28.9 % (38.2-49.6); HEMOGLOBIN 8.9 g/dL (14.0-18.0); LYMPHOCYTES # (AUTO) 1.4 (1.0-3.2); LYMPHOCYTES % 39.2 % (18.0-39.1); MEAN CORPUSCULAR HEMOGLOBIN 27.1 pg (28-32); MEAN CORPUSCULAR HGB CONC 30.8 g/dL (31-35); MEAN CORPUSCULAR VOLUME 87.8 fL (81-99); MONOCYTES # (AUTO) 0.4 (0.2-0.8); MONOCYTES % 10.1 % (4.4-11.3); NEUTROPHILS # (AUTO) 1.6 (2.1-6.9); NEUTROPHILS % 42.3 % (38.7-80.0); PLATELET COUNT 220 x10e3/uL (140-360); RED BLOOD COUNT 3.29 x10e6/uL (4.3-5.7); RED CELL DISTRIBUTION WIDTH 15.1 % (11.7-14.4)
[2020-08-31 06:38] LABS: ANION GAP 12.1 mmol/L (8-16); CALCIUM 8.5 mg/dL (8.4-10.2); CREATININE, SERUM 1.41 mg/dL (0.72-1.25); POTASSIUM 4.1 mmol/L (3.5-5.1)
[2020-08-31] MEDS ORDERED: IOPAMIDOL 300MG/ML 50ML INFUS..BTL IV ONE (08:29)
[2020-08-31] MEDS ORDERED: B&O 60MG R/S 60 MG SUPP PR ONE (08:29)
[2020-08-31] MEDS ORDERED: GENTAMICIN 80MG/NS 100 ML 100 ML IV ONE (08:34)
[2020-08-31] MEDS: PANTOPRAZOLE SOD 40 MG TABEC PO SCH (09:00)
[2020-08-31] MEDS: DOXAZOSIN MESYLATE 2 MG TAB PO SCH (09:56)
[2020-08-31] MEDS: CARVEDILOL 12.5 MG TAB PO SCH ×2 (09:57→20:45)
[2020-08-31] MEDS: AMLODIPINE BESYLATE 10 MG TAB PO SCH (09:58)
[2020-08-31] MEDS: FLUCONAZOLE 100 MG/NS 50 ML 50 ML IV SCH (11:36)
[2020-08-31] MEDS ORDERED: PROPOFOL IV EMULSION 10 MG/ML 20 ML VIAL ONE (12:44)
[2020-08-31] MEDS ORDERED: ONDANSETRON HCL INJ 2MG/ML 2ML 2 MG/ML VIAL ONE (12:44)
[2020-08-31] MEDS ORDERED: LIDOCAINE HCL 2% LOCAL INJ 5 ML SDV VIAL INJ ONE (12:44)
[2020-08-31] MEDS ORDERED: SEVOFLURANE INHAL SOLN 250 ML PEN BTL ONE (12:44)
[2020-08-31] MEDS ORDERED: LIDOCAINE HCL 2% JELLY 5 ML TUBE ONE (12:44)
[2020-08-31 20:29] LABS: MAGNESIUM 1.8 MG/DL (1.3-2.1)
[2020-09-01] VITALS: BP 119/77
[2020-09-01] MEDS: CEFEPIME HCL 1GM 1 GM in SODIUM CHLORIDE 0.9% 50ML 50 ML IV SCH (02:18)
[2020-09-01] MEDS ORDERED: CEFEPIME HCL 1 GM VIAL ONE (02:21)
[2020-09-01] MEDS ORDERED: SODIUM CHLORIDE 0.9% 50ML 50 ML ONE (02:22)
[2020-09-01 05:00] VITALS: BP 130/79
[2020-09-01] MEDS ORDERED: FLUCONAZOLE100 MG PO (06:35)
[2020-09-01] MEDS ORDERED: COREG12.5 MG PO (06:35)
[2020-09-01] MEDS ORDERED: CEFUROXIME250 MG PO (06:35)
[2020-09-01 06:36] LABS: ANION GAP 12.3 mmol/L (8-16); CALCIUM 8.4 mg/dL (8.4-10.2); CREATININE, SERUM 1.54 mg/dL (0.72-1.25); POTASSIUM 4.3 mmol/L (3.5-5.1)
[2020-09-01 08:15] VITALS: BP 131/85
[2020-09-01] MEDS: CARVEDILOL 12.5 MG TAB PO SCH (09:49)
[2020-09-01] MEDS: DOXAZOSIN MESYLATE 2 MG TAB PO SCH (09:49)
[2020-09-01] MEDS: AMLODIPINE BESYLATE 10 MG TAB PO SCH (09:50)
[2020-09-01] MEDS: PANTOPRAZOLE SOD 40 MG TABEC PO SCH (09:51)
[2020-09-01 10:02] VITALS: BP 131/85
[2020-09-01 12:30] VITALS: BP 131/78
== END 2020-09-01 13:50 | disposition home or self-care (01) | DRG 699 ==
LOC: ER 11:04 → ERHOLD 11:18 → MED/SURG2 13:31 → MED/SURG 08-30 11:07
PROVIDERS: ADMIT Internal Medicine; ATTEND Internal Medicine
PROC: 30233N1 Transfusion of Nonautologous Red Blood Cells into Peripheral Vein, Percutaneous Approach (ICD-10-PCS; 2020-08-28)
PROC: BT101ZZ Fluoroscopy of Bladder using Low Osmolar Contrast (ICD-10-PCS; 2020-08-31)
PROC: 0TP98DZ Removal of Intraluminal Device from Ureter, Via Natural or Artificial Opening Endoscopic (ICD-10-PCS; principal; 2020-08-31 08:30)
PROC: BT141ZZ Fluoroscopy of Kidneys, Ureters and Bladder using Low Osmolar Contrast (ICD-10-PCS; 2020-08-31 08:30)
DX: N36.5 Urethral false passage (principal); T83.511A Infection and inflammatory reaction due to indwelling urethral catheter, initial encounter; N13.6 Pyonephrosis; I13.0 Hypertensive heart and chronic kidney disease with heart failure and stage 1 through stage 4 chronic kidney disease, or unspecified chronic kidney disease; I47.2 Ventricular tachycardia; N13.8 Other obstructive and reflux uropathy; N17.9 Acute kidney failure, unspecified; N40.1 Benign prostatic hyperplasia with lower urinary tract symptoms; N18.30 Chronic kidney disease, stage 3 unspecified; I50.9 Heart failure, unspecified; K21.9 Gastro-esophageal reflux disease without esophagitis; N31.2 Flaccid neuropathic bladder, not elsewhere classified; R33.8 Other retention of urine; D64.9 Anemia, unspecified; B96.89 Other specified bacterial agents as the cause of diseases classified elsewhere; Z93.6 Other artificial openings of urinary tract status; I95.9 Hypotension, unspecified; E66.9 Obesity, unspecified; Z68.30 Body mass index [BMI] 30.0-30.9, adult; Q54.9 Hypospadias, unspecified; T83.091A Other mechanical complication of indwelling urethral catheter, initial encounter; N32.3 Diverticulum of bladder; Z20.822 Contact with and (suspected) exposure to COVID-19
CPT/HCPCS: 36415; 74420; 80048; 80053; 81001; 83735; 84484; 85025; 86850; 86900; 86920; 87086; 87186; 93306; 99284; C1769; J0692; J1450; J1580; J2001; J2405; J7030; J7050; P9016; U0002

== ENCOUNTER → 2020-09-28 | Outpatient (CLI) | payer MEDICARE ==
[~2020-09-28] MED LIST changes: +COREG12.5 MG PO; +FLUCONAZOLE100 MG PO
== END ==
LOC: NM 12:36
PROVIDERS: ATTEND Urology
DX: N13.5 Crossing vessel and stricture of ureter without hydronephrosis (principal)
CPT/HCPCS: 78707; A9562

== ENCOUNTER 2020-10-20 14:02 | Emergency (ER) | payer MEDICARE ==
[~2020-10-20] VITALS: Ht 185.4 cm; Wt 100.7 kg
[2020-10-20 14:55] LABS: BASOPHILS % 0.1 % (0.0-1.0); EOSINOPHILS # (AUTO) 0.2 (0.0-0.4); EOSINOPHILS % 2.5 % (0.0-6.0); HEMATOCRIT 28.9 % (38.2-49.6); HEMOGLOBIN 8.6 g/dL (14.0-18.0); LYMPHOCYTES # (AUTO) 1.1 (1.0-3.2); LYMPHOCYTES % 15.4 % (18.0-39.1); MEAN CORPUSCULAR HEMOGLOBIN 25.1 pg (28-32); MEAN CORPUSCULAR HGB CONC 29.8 g/dL (31-35); MEAN CORPUSCULAR VOLUME 84.5 fL (81-99); MONOCYTES # (AUTO) 0.8 (0.2-0.8); MONOCYTES % 10.3 % (4.4-11.3); NEUTROPHILS # (AUTO) 5.2 (2.1-6.9); NEUTROPHILS % 71.4 % (38.7-80.0); PLATELET COUNT 224 x10e3/uL (140-360); RED BLOOD COUNT 3.42 x10e6/uL (4.3-5.7); RED CELL DISTRIBUTION WIDTH 16.4 % (11.7-14.4)
[2020-10-20 14:59] LABS: INR 0.94; PROTHROMBIN TIME 13.2 seconds (11.9-14.5)
[2020-10-20 15:00] LABS: PARTIAL THROMBOPLASTIN TIME 42.5 seconds (23.8-35.5)
[2020-10-20] MEDS ORDERED: LIDOCAINE JELLY 2% 10ML URO-JET TOP ONE (15:00)
[2020-10-20 15:09] LABS: ALBUMIN 2.8 g/dL (3.5-5.0); ALBUMIN/GLOBULIN RATIO 0.6 (0.8-2.0); ANION GAP 15.4 mmol/L (8-16); CALCIUM 8.7 mg/dL (8.4-10.2); CREATININE, SERUM 1.88 mg/dL (0.72-1.25); POTASSIUM 4.4 mmol/L (3.5-5.1)
[2020-10-20 15:49] LABS: CLARITY,URINE CLOUDY (CLEAR); COLOR,URINE RED (YELLOW); LEUKOCYTE ESTERASE ,URINE LARGE (NEGATIVE); NITRITE,URINE NEGATIVE (NEGATIVE)
[2020-10-20 15:50] LABS: KETONES,URINE NEGATIVE (NEGATIVE); PROTEIN,URINE DIPSTICK >=300 (NEGATIVE); URINE UROBILINOGEN 1 mg/dL (0.2 - 1)
[2020-10-20 15:51] LABS: BACTERIA,URINE MODERATE /HPF; EPITHELIAL CELLS,URINE FEW /LPF; MUCUS,URINE MODERATE (RARE); RBC,URINE >50 /HPF (0-5); WBC,URINE (MAN) >50 /HPF (0-5)
[2020-10-20 15:54] LABS: ANISOCYTOSIS SLIGHT; HYPOCHROMASIA SLIGHT; PLATELET ESTIMATE ADEQUATE; PLATELET MORPHOLOGY COMMENT NORMAL
[2020-10-20] MEDS ORDERED: MEROPENEM 500MG 500 MG in SODIUM CHLORIDE 0.9% 50ML 50 ML IV ONE (16:15)
[2020-10-20 17:53] VITALS: BP 138/78
== END 2020-10-20 17:55 | disposition home or self-care (01) ==
LOC: ER 14:41
DX: R31.9 Hematuria, unspecified (principal); N39.0 Urinary tract infection, site not specified; I10 Essential (primary) hypertension; I50.9 Heart failure, unspecified; K21.9 Gastro-esophageal reflux disease without esophagitis; N31.2 Flaccid neuropathic bladder, not elsewhere classified
CPT/HCPCS: 36415; 51700; 80053; 81001; 85025; 85610; 85730; 99284; J2185

== ENCOUNTER → 2020-11-13 | Outpatient (CLI) | payer MEDICARE ==
[~2020-11-13] MED LIST changes: +IOPAMIDOL 300MG/ML 100 ML INFUS..BTL IV ONE; +LIDOCAINE HCL 1% LOCAL INJ 20 ML VIAL ONE; +SODIUM CHLORIDE 0.9% 250ML 250 ML ONE
== END ==
LOC: DX 12:04
PROVIDERS: ATTEND Urology
DX: N13.5 Crossing vessel and stricture of ureter without hydronephrosis (principal)
CPT/HCPCS: 50435; C2625; J2001; J7050; Q9967; 50387; 50431

== ENCOUNTER → 2020-12-28 | Outpatient (CLI) | payer MEDICARE ==
[2020-12-28 13:07] LABS: CLARITY,URINE TURBID (CLEAR); COLOR,URINE YELLOW (YELLOW); KETONES,URINE NEGATIVE (NEGATIVE); LEUKOCYTE ESTERASE ,URINE MODERATE (NEGATIVE); NITRITE,URINE NEGATIVE (NEGATIVE); PROTEIN,URINE DIPSTICK >=300 (NEGATIVE); URINE UROBILINOGEN 0.2 mg/dL (0.2 - 1)
[2020-12-28 13:11] LABS: BACTERIA,URINE MANY /HPF; MUCUS,URINE FEW (RARE); WBC,URINE (MAN) >50 /HPF (0-5)
== END ==
LOC: DX 11:26
PROVIDERS: ATTEND Urology
DX: N13.30 Unspecified hydronephrosis (principal)
CPT/HCPCS: 50431; 81001; 87086; 87186; J2001; J7050; Q9967; 50387

== ENCOUNTER 2021-01-15 13:36 | Emergency (ER) | payer MEDICARE, OTHER ==
[~2021-01-15] VITALS: Ht 185.4 cm; Wt 100.7 kg
[~2021-01-15 13:36] MED LIST changes: -IOPAMIDOL 300MG/ML 100 ML INFUS..BTL IV ONE; -LIDOCAINE HCL 1% LOCAL INJ 20 ML VIAL ONE; -SODIUM CHLORIDE 0.9% 250ML 250 ML ONE
[2021-01-15 14:01] LABS: BASOPHILS % 0.2 % (0.0-1.0); EOSINOPHILS # (AUTO) 0.1 (0.0-0.4); EOSINOPHILS % 1.4 % (0.0-6.0); HEMATOCRIT 29.1 % (38.2-49.6); HEMOGLOBIN 8.6 g/dL (14.0-18.0); LYMPHOCYTES # (AUTO) 0.9 (1.0-3.2); LYMPHOCYTES % 18.4 % (18.0-39.1); MEAN CORPUSCULAR HEMOGLOBIN 24.8 pg (28-32); MEAN CORPUSCULAR HGB CONC 29.6 g/dL (31-35); MEAN CORPUSCULAR VOLUME 83.9 fL (81-99); MONOCYTES # (AUTO) 0.7 (0.2-0.8); MONOCYTES % 12.9 % (4.4-11.3); NEUTROPHILS # (AUTO) 3.4 (2.1-6.9); NEUTROPHILS % 66.9 % (38.7-80.0); PLATELET COUNT 197 x10e3/uL (140-360); RED BLOOD COUNT 3.47 x10e6/uL (4.3-5.7); RED CELL DISTRIBUTION WIDTH 19.5 % (11.7-14.4)
[2021-01-15 14:20] LABS: ALBUMIN/GLOBULIN RATIO 0.7 (0.8-2.0); ANION GAP 16.2 mmol/L (8-16); CALCIUM 8.8 mg/dL (8.4-10.2); CREATININE, SERUM 2.76 mg/dL (0.72-1.25); POTASSIUM 4.2 mmol/L (3.5-5.1)
== END 2021-01-15 16:30 | disposition home or self-care (01) ==
LOC: ER 13:39
DX: R31.9 Hematuria, unspecified (principal); R39.198 Other difficulties with micturition; I13.0 Hypertensive heart and chronic kidney disease with heart failure and stage 1 through stage 4 chronic kidney disease, or unspecified chronic kidney disease; N18.9 Chronic kidney disease, unspecified; Z87.440 Personal history of urinary (tract) infections
CPT/HCPCS: 36415; 51700; 80053; 85025; 99283

== ENCOUNTER → 2021-03-11 | Outpatient (CLI) | payer MEDICARE, OTHER ==
[~2021-03-11] MED LIST changes: +CEFTRIAXONE 1 GM VIAL ONE; +IOPAMIDOL 300MG/ML 100 ML INFUS..BTL IV ONE; +LIDOCAINE HCL 1% LOCAL INJ 20 ML VIAL ONE; +SODIUM CHLORIDE 0.9% 250ML 250 ML ONE
== END ==
LOC: DX 08:20
PROVIDERS: ATTEND Urology
DX: N13.5 Crossing vessel and stricture of ureter without hydronephrosis (principal); N13.30 Unspecified hydronephrosis
CPT/HCPCS: 74176; 87086; C1769; C1887; J0696; J2001; J7050; Q9967; 50435

== ENCOUNTER → 2021-03-26 | Outpatient (CLI) | payer OTHER ==
[~2021-03-26] MED LIST changes: -CEFTRIAXONE 1 GM VIAL ONE; -IOPAMIDOL 300MG/ML 100 ML INFUS..BTL IV ONE; +IOPAMIDOL 370 MG/ML 200 ML INFUS..BTL INJ ONE
== END ==
LOC: DX 08:29
PROVIDERS: ATTEND Urology
DX: Z43.6 Encounter for attention to other artificial openings of urinary tract (principal)
CPT/HCPCS: 50431; J2001; J7050; Q9967; 50387

== ENCOUNTER 2021-05-29 06:58 | Observation (INO) | payer MEDICARE ==
[~2021-05-29] VITALS: Ht 185.4 cm; Wt 100.7 kg
[~2021-05-29 06:58] MED LIST changes: -IOPAMIDOL 370 MG/ML 200 ML INFUS..BTL INJ ONE; -LIDOCAINE HCL 1% LOCAL INJ 20 ML VIAL ONE; -SODIUM CHLORIDE 0.9% 250ML 250 ML ONE
[2021-05-29] MEDS ORDERED: SODIUM CHLORIDE 0.9% 1000ML 1,000 ML IV STA (07:28)
[2021-05-29] MEDS ORDERED: MEROPENEM 1 GM in SODIUM CHLORIDE 0.9% 100 ML IV ONE (07:30)
[2021-05-29] MEDS ORDERED: ONDANSETRON HCL INJ 2MG/ML 2ML 2 MG/ML VIAL IV PRN (07:45)
[2021-05-29 08:14] LABS: BASOPHILS % 0.4 % (0.0-1.0); EOSINOPHILS # (AUTO) 0.1 (0.0-0.4); EOSINOPHILS % 2.4 % (0.0-6.0); HEMATOCRIT 36.3 % (38.2-49.6); HEMOGLOBIN 10.9 g/dL (14.0-18.0); LYMPHOCYTES # (AUTO) 1.1 (1.0-3.2); MEAN CORPUSCULAR HEMOGLOBIN 26.6 pg (28-32); MEAN CORPUSCULAR VOLUME 88.5 fL (81-99); MONOCYTES # (AUTO) 0.7 (0.2-0.8); MONOCYTES % 13.7 % (4.4-11.3); NEUTROPHILS # (AUTO) 3.3 (2.1-6.9); NEUTROPHILS % 62.1 % (38.7-80.0); PLATELET COUNT 194 x10e3/uL (140-360); RED CELL DISTRIBUTION WIDTH 22.6 % (11.7-14.4)
[2021-05-29 08:33] LABS: INR 0.92; PROTHROMBIN TIME 13.1 seconds (11.9-14.5)
[2021-05-29 08:34] LABS: ALBUMIN/GLOBULIN RATIO 0.7 (0.8-2.0); CALCIUM 9.2 mg/dL (8.4-10.2); CREATININE, SERUM 2.55 mg/dL (0.72-1.25); MAGNESIUM 1.9 MG/DL (1.3-2.1); PARTIAL THROMBOPLASTIN TIME 32.4 seconds (23.8-35.5)
[2021-05-29] MEDS ORDERED: SODIUM CHLORIDE 0.9% 250ML 250 ML ONE (09:12)
[2021-05-29] MEDS ORDERED: IOPAMIDOL 300MG/ML 100 ML INFUS..BTL IV ONE (09:12)
[2021-05-29 09:40] LABS: CLARITY,URINE CLOUDY (CLEAR); COLOR,URINE YELLOW (YELLOW); LEUKOCYTE ESTERASE ,URINE SMALL (NEGATIVE); NITRITE,URINE POSITIVE (NEGATIVE); PROTEIN,URINE DIPSTICK >=300 (NEGATIVE)
[2021-05-29 09:41] LABS: KETONES,URINE NEGATIVE (NEGATIVE); URINE UROBILINOGEN 0.2 mg/dL (0.2 - 1)
[2021-05-29 10:25] LABS: WBC,URINE (MAN) >50 /HPF (0-5)
[2021-05-29 10:27] LABS: BACTERIA,URINE MANY /HPF
[2021-05-29 10:28] LABS: EPITHELIAL CELLS,URINE FEW /LPF
[2021-05-29] MEDS: SODIUM CHLORIDE 0.9% 1000ML 1,000 ML IV SCH ×2 (10:57→20:40)
[2021-05-29] MEDS ORDERED: HYGROTON25 MG PO (15:16)
[2021-05-29] MEDS ORDERED: FEROSUL325 MG PO (15:16)
[2021-05-29] MEDS ORDERED: CARVEDILOL12.5 MG PO (15:17)
[2021-05-29] MEDS ORDERED: AMLODIPINE BESYL5 MG PO (15:17)
[2021-05-29 15:37] VITALS: BP 115/90
[2021-05-29 15:40] VITALS: BP 115/90
[2021-05-29] MEDS ORDERED: ACETAMINOPHEN 325 MG TAB PO PRN (15:45)
[2021-05-29] MEDS: CARVEDILOL 12.5 MG TAB PO SCH (16:32)
[2021-05-29] MEDS: FERROUS SULFATE 325 MG TAB PO SCH (16:32)
[2021-05-29] MEDS: DOCUSATE SODIUM 100 MG CAP PO SCH (16:32)
[2021-05-29 20:00] VITALS: BP 139/75
[2021-05-29] MEDS: MEROPENEM 500 MG in SODIUM CHLORIDE 0.9% 50ML 50 ML IV SCH (20:40)
[2021-05-29 21:00] VITALS: BP 139/75
[2021-05-30 04:00] VITALS: BP 127/70
[2021-05-30 07:41] VITALS: BP 133/86
[2021-05-30] MEDS: SENNOSIDES 8.6 MG TAB PO SCH ×2 (09:00→09:07)
[2021-05-30] MEDS: DOCUSATE SODIUM 100 MG CAP PO SCH ×3 (09:00→16:00)
[2021-05-30] MEDS: DOXAZOSIN MESYLATE 2 MG TAB PO SCH (09:06)
[2021-05-30] MEDS: MEROPENEM 500 MG in SODIUM CHLORIDE 0.9% 50ML 50 ML IV SCH ×2 (09:06→20:15)
[2021-05-30] MEDS: FERROUS SULFATE 325 MG TAB PO SCH ×2 (09:07→16:00)
[2021-05-30] MEDS: PANTOPRAZOLE SOD 40 MG TABEC PO SCH (09:07)
[2021-05-30] MEDS: CARVEDILOL 12.5 MG TAB PO SCH ×2 (09:07→16:00)
[2021-05-30] MEDS: AMLODIPINE BESYLATE 5 MG TAB PO SCH (09:07)
[2021-05-30] MEDS: CHLORTHALIDONE 25 MG TAB PO SCH (09:07)
[2021-05-30] MEDS ORDERED: ONDANSETRON HCL 4 MG ORAL DISINTEGRATING TAB PO PRN (11:15)
[2021-05-30 20:00] VITALS: BP 132/76
[2021-05-30 21:00] VITALS: BP 132/76
[2021-05-31] VITALS: BP 135/72
[2021-05-31 04:00] VITALS: BP 130/72
[2021-05-31] MEDS ORDERED: KEFLEX125 MG/5 M PO (06:20)
[2021-05-31 07:17] LABS: BASOPHILS % 0.5 % (0.0-1.0); EOSINOPHILS # (AUTO) 0.2 (0.0-0.4); EOSINOPHILS % 3.4 % (0.0-6.0); HEMATOCRIT 34.5 % (38.2-49.6); HEMOGLOBIN 10.3 g/dL (14.0-18.0); LYMPHOCYTES # (AUTO) 1.2 (1.0-3.2); MEAN CORPUSCULAR HEMOGLOBIN 26.7 pg (28-32); MEAN CORPUSCULAR HGB CONC 29.9 g/dL (31-35); MEAN CORPUSCULAR VOLUME 89.4 fL (81-99); MONOCYTES # (AUTO) 0.4 (0.2-0.8); MONOCYTES % 9.6 % (4.4-11.3); NEUTROPHILS # (AUTO) 2.6 (2.1-6.9); NEUTROPHILS % 59.3 % (38.7-80.0); PLATELET COUNT 163 x10e3/uL (140-360); RED BLOOD COUNT 3.86 x10e6/uL (4.3-5.7); RED CELL DISTRIBUTION WIDTH 22.7 % (11.7-14.4)
[2021-05-31 07:42] LABS: ANION GAP 11.8 mmol/L (8-16); CREATININE, SERUM 2.03 mg/dL (0.72-1.25); POTASSIUM 3.8 mmol/L (3.5-5.1)
[2021-05-31 08:00] VITALS: BP 132/77
[2021-05-31] MEDS: PANTOPRAZOLE SOD 40 MG TABEC PO SCH (08:17)
[2021-05-31] MEDS: FERROUS SULFATE 325 MG TAB PO SCH (08:17)
[2021-05-31] MEDS: DOXAZOSIN MESYLATE 2 MG TAB PO SCH (08:17)
[2021-05-31] MEDS: CARVEDILOL 12.5 MG TAB PO SCH (08:17)
[2021-05-31] MEDS: DOCUSATE SODIUM 100 MG CAP PO SCH (08:17)
[2021-05-31] MEDS: CHLORTHALIDONE 25 MG TAB PO SCH (08:17)
[2021-05-31] MEDS: AMLODIPINE BESYLATE 5 MG TAB PO SCH (08:17)
[2021-05-31] MEDS: MEROPENEM 500 MG in SODIUM CHLORIDE 0.9% 50ML 50 ML IV SCH (08:17)
[2021-05-31] MEDS: SENNOSIDES 8.6 MG TAB PO SCH (08:18)
[2021-05-31 08:20] VITALS: BP 132/77
[2021-05-31 11:38] VITALS: BP 124/68
== END 2021-05-31 15:20 | disposition home or self-care (01) ==
LOC: ER 07:15 → ERHOLD 07:43 → MED/SURG2 15:32
PROVIDERS: ADMIT Internal Medicine; ATTEND Internal Medicine
DX: N99.521 Infection of incontinent external stoma of urinary tract (principal); N40.1 Benign prostatic hyperplasia with lower urinary tract symptoms; R33.8 Other retention of urine; E66.9 Obesity, unspecified; Z68.29 Body mass index [BMI] 29.0-29.9, adult; Z96.0 Presence of urogenital implants; N17.9 Acute kidney failure, unspecified; I12.9 Hypertensive chronic kidney disease with stage 1 through stage 4 chronic kidney disease, or unspecified chronic kidney disease; N18.30 Chronic kidney disease, stage 3 unspecified; K21.9 Gastro-esophageal reflux disease without esophagitis
CPT/HCPCS: 36415 ×2; 50431; 50435; 74470; 80048; 80053; 81001; 83735; 85025 ×2; 85610; 85730; 87040; 87086; 87186; 99284; G0378 ×3; J2185 ×4; J7030; J7050 ×2; Q9967; S0164 ×2; U0002; 50387

== ENCOUNTER 2021-09-25 16:40 | Emergency (ER) | payer MEDICARE ==
[~2021-09-25] VITALS: Ht 185.4 cm; Wt 100.7 kg
[~2021-09-25 16:40] MED LIST changes: +AMLODIPINE BESYL5 MG PO; +FEROSUL325 MG PO; +HYGROTON25 MG PO; +KEFLEX125 MG/5 M PO
[2021-09-25 18:11] LABS: BASOPHILS % 0.6 % (0.0-1.0); EOSINOPHILS # (AUTO) 0.1 (0.0-0.4); EOSINOPHILS % 2.5 % (0.0-6.0); HEMATOCRIT 24.8 % (38.2-49.6); HEMOGLOBIN 7.9 g/dL (14.0-18.0); LYMPHOCYTES # (AUTO) 1.1 (1.0-3.2); LYMPHOCYTES % 23.3 % (18.0-39.1); MEAN CORPUSCULAR HEMOGLOBIN 30.6 pg (28-32); MEAN CORPUSCULAR HGB CONC 31.9 g/dL (31-35); MEAN CORPUSCULAR VOLUME 96.1 fL (81-99); MONOCYTES # (AUTO) 0.5 (0.2-0.8); MONOCYTES % 9.9 % (4.4-11.3); NEUTROPHILS # (AUTO) 3.1 (2.1-6.9); NEUTROPHILS % 63.1 % (38.7-80.0); PLATELET COUNT 164 x10e3/uL (140-360); RED BLOOD COUNT 2.58 x10e6/uL (4.3-5.7)
[2021-09-25 18:21] LABS: INR 0.99
[2021-09-25 18:22] LABS: PARTIAL THROMBOPLASTIN TIME 31.7 seconds (23.8-35.5)
[2021-09-25 18:26] LABS: ANION GAP 11.7 mmol/L (8-16); CALCIUM 8.7 mg/dL (8.4-10.2); CREATININE, SERUM 3.13 mg/dL (0.72-1.25); POTASSIUM 3.7 mmol/L (3.5-5.1)
== END 2021-09-25 19:05 | disposition home or self-care (01) ==
LOC: ER 17:18
DX: N40.1 Benign prostatic hyperplasia with lower urinary tract symptoms (principal); R31.9 Hematuria, unspecified; N18.9 Chronic kidney disease, unspecified; I10 Essential (primary) hypertension; I50.9 Heart failure, unspecified; K21.9 Gastro-esophageal reflux disease without esophagitis
CPT/HCPCS: 36415; 51703; 80048; 85025; 85610; 85730; 87086; 99283

== ENCOUNTER 2021-09-26 02:42 | Emergency (ER) | payer MEDICARE ==
[~2021-09-26] VITALS: Ht 185.4 cm; Wt 100.7 kg
== END 2021-09-26 04:01 | disposition home or self-care (01) ==
LOC: ER 02:45
DX: R31.9 Hematuria, unspecified (principal); N40.1 Benign prostatic hyperplasia with lower urinary tract symptoms; R33.8 Other retention of urine; I12.9 Hypertensive chronic kidney disease with stage 1 through stage 4 chronic kidney disease, or unspecified chronic kidney disease; N18.9 Chronic kidney disease, unspecified

== ENCOUNTER 2022-08-02 09:24 | Emergency (ER) | payer MEDICARE ==
[~2022-08-02] VITALS: Ht 185.4 cm; Wt 100.7 kg
[2022-08-02] MEDS ORDERED: SODIUM CHLORIDE FLUSH 10 ML SYR IV PRN (10:30)
[2022-08-02 10:42] LABS: BASOPHILS % 0.3 % (0.0-1.0); EOSINOPHILS # (AUTO) 0.1 (0.0-0.4); EOSINOPHILS % 1.4 % (0.0-6.0); HEMATOCRIT 40.9 % (38.2-49.6); HEMOGLOBIN 12.7 g/dL (14.0-18.0); LYMPHOCYTES # (AUTO) 0.9 (1.0-3.2); LYMPHOCYTES % 12.1 % (18.0-39.1); MEAN CORPUSCULAR HEMOGLOBIN 32.5 pg (28-32); MEAN CORPUSCULAR HGB CONC 31.1 g/dL (31-35); MEAN CORPUSCULAR VOLUME 104.6 fL (81-99); MONOCYTES # (AUTO) 0.5 (0.2-0.8); MONOCYTES % 6.6 % (4.4-11.3); NEUTROPHILS # (AUTO) 5.7 (2.1-6.9); NEUTROPHILS % 79.3 % (38.7-80.0); PLATELET COUNT 162 x10e3/uL (140-360); RED BLOOD COUNT 3.91 x10e6/uL (4.3-5.7); RED CELL DISTRIBUTION WIDTH 12.3 % (11.7-14.4)
[2022-08-02 11:01] LABS: ALBUMIN 3.2 g/dL (3.5-5.0); ALBUMIN/GLOBULIN RATIO 0.8 (0.8-2.0); ANION GAP 16.7 mmol/L (8-16); CALCIUM 8.6 mg/dL (8.4-10.2); CREATININE, SERUM 2.98 mg/dL (0.72-1.25); POTASSIUM 4.7 mmol/L (3.5-5.1)
[2022-08-02 11:28] LABS: CLARITY,URINE CLOUDY (CLEAR); COLOR,URINE BROWN (YELLOW)
[2022-08-02 11:29] LABS: KETONES,URINE 1+ (NEGATIVE); LEUKOCYTE ESTERASE ,URINE LARGE (NEGATIVE); NITRITE,URINE NEGATIVE (NEGATIVE); PROTEIN,URINE DIPSTICK >=300 (NEGATIVE); URINE UROBILINOGEN 1 mg/dL (0.2 - 1)
[2022-08-02 11:39] LABS: RBC,URINE >50 /HPF (0-5)
[2022-08-02 11:41] LABS: BACTERIA,URINE MODERATE /HPF; EPITHELIAL CELLS,URINE RARE /LPF
[2022-08-02] MEDS ORDERED: ASPIRIN 81 MG CHEW TAB PO ONE (12:30)
[2022-08-02] MEDS ORDERED: NIRMATRELVIR/RITONAVIR 1 EACH BOX PO SCH ×2 (12:30→12:45)
[2022-08-02] MEDS ORDERED: ONDANSETRON HCL INJ 2MG/ML 2ML 2 MG/ML VIAL IV PRN (12:30)
[2022-08-02] MEDS ORDERED: SODIUM CHLORIDE FLUSH 10 ML SYR INJ PRN (12:30)
== END 2022-08-02 14:25 | disposition left against medical advice (07) ==
LOC: ER 09:30
DX: R31.9 Hematuria, unspecified (principal); U07.1 COVID-19; R55 Syncope and collapse; I10 Essential (primary) hypertension; I50.9 Heart failure, unspecified; N28.9 Disorder of kidney and ureter, unspecified; K21.9 Gastro-esophageal reflux disease without esophagitis
CPT/HCPCS: 36415; 51700; 80053; 81001; 83880; 84484; 85025; 93005; 94760; 99284; U0002

== ENCOUNTER → 2023-11-04 | Outpatient (REF) | payer MEDICARE | LOC: CT 14:41 | PROVIDERS: ATTEND Urology | DX: N20.0 Calculus of kidney (principal) | CPT/HCPCS: 74176 ==